=== PATIENT | female | born 1935 | race Caucasian/White ===

== ENCOUNTER 2016-10-07 12:01 | Emergency (ER) | payer OTHER, BC ==
[~2016-10-07 12:01] MED LIST: ALBUAER2 INH; CMD/25 PO; CMD5 PO; GFNSR600 PO; HYD10 PO; LCTX PO; LEVO112T2 PO; NYSS5 PO; OMEP40CA PO; SYMIN INH; TMF75 PO
[2016-10-07 12:05] VITALS: TEMP 36.6; Ht 162.6 cm
[2016-10-07] MEDS ORDERED: VNTHFA/IN INH (13:01)
[2016-10-07] MEDS ORDERED: HYD10 PO (13:02)
[2016-10-07] MEDS ORDERED: OMEP20TA74 PO (13:04)
[2016-10-07] MEDS ORDERED: SYN125 PO (13:04)
--- NOTE | 2016-10-07 13:04 | DIAGNOSTIC IMAGING REPORT ---
RIGHT KNEE 3 VIEWS CLINICAL HISTORY: Right knee pain following fall. COMPARISON: None FINDINGS: No acute fracture is identified. There is a small to moderate right knee joint effusion. There is near complete loss of the medial compartment joint space. There is also moderate narrowing of the lateral compartment joint space. There is extensive tricompartmental osteophytosis of the right knee. IMPRESSION: 1. No acute fracture. 2. Severe arthritis of the right knee, most pronounced within the medial compartment. 3. Small to moderate right knee joint effusion. Electronically signed by: Emanuel Portillo M.D. 10/07/2016 1:03 PM Dictated Date/Time: 10/07/2016 1:02 PM
[2016-10-07] MEDS ORDERED: WARF2.5T8 PO (13:05)
[2016-10-07] MEDS ORDERED: WARF5TAB7 PO (13:05)
--- NOTE | 2016-10-07 13:20 | EMERGENCY ROOM VISIT NOTE ---
ED Visit Note First contact with patient: 12:09 CHIEF COMPLAINT: Knee pain HISTORY OF PRESENT ILLNESS: This 80-year-old female patient presents to the emergency department ambulatory after sustaining an injury to the right knee yesterday. The patient states that she tripped over a rug yesterday, falling onto the right knee. The patient denies any other injuries besides their knee. She did not hit her head. The patient denies swelling or bruising. There is pain over the kneecap. They rate the pain as dull and 2/10. The pain is worse with any moving or walking. The patient states they are able to walk on it with the aid of her walker. No numbness or tingling. No ankle, foot or hip pain. The patient has seen [facility] in the past due to arthritis in the knee and has had injections several years ago. REVIEW OF SYSTEMS: A 6 system review of systems was completed with positives and pertinent negatives listed in the HPI. ALLERGIES: Celebrex, sulfa antibiotics MEDICATIONS: See med list PMH: DVT, adrenal failure, hypothyroidism, hypertension SOCIAL HISTORY: The patient lives locally with her . Nonsmoker, denies alcohol use. PHYSICAL EXAM: Vital Signs: Reviewed Nurse's notes, vital signs stable. GENERAL : This is an 80-year-old female, no acute distress, but appears in pain, well- developed, well-nourished. MENTAL STATUS: Alert, oriented to person place and time, and cooperative. MUSCULOSKELETAL: The right knee is not significantly swollen. There is no ecchymosis. There is no joint effusion present. The patient is tender over the patella. There is no joint line tenderness. Range of motion is full. Strength of the quads and hamstrings is 5/5. The foot and toes are warm and well-perfused. Dorsalis pedis pulse 2+. Sensation to pain and light touch is intact. Capillary refill less than 2 seconds. RADIOGRAPHIC FINDINGS: RIGHT KNEE 3 VIEWS FINDINGS: No acute fracture is identified. There is a small to moderate right knee joint effusion. There is near complete loss of the medial compartment joint space. There is also moderate narrowing of the lateral compartment joint space. There is extensive tricompartmental osteophytosis of the right knee. IMPRESSION: 1. No acute fracture. 2. Severe arthritis of the right knee, most pronounced within the medial compartment. 3. Small to moderate right knee joint effusion. EMERGENCY DEPARTMENT COURSE: I examined the patient. X-rays of the right knee were reviewed by myself and read by radiology and reveal no acute fractures. There is a small joint effusion and the patient was instructed to follow-up with orthopedics for further evaluation of her knee injury. The patient was placed in an Georges wrap. She will use her walker as needed. She verbalized her understanding of my assessment and treatment plan. The patient was discharged home in good condition. The patient was independently evaluated by Dr. Nelson, ED attending physician, who agreed with my assessment and treatment plan. DIAGNOSIS: Right knee injury Current/Historical Medications Scheduled Albuterol Hfa (Ventolin Hfa), 2-4 PUFFS INH Q6H Hydrocortisone (Cortef), 20 MG PO DAILY Levothyroxine Sodium (Synthroid), 125 MCG PO DAILY Metoprolol Succ (Toprol Xl) (Toprol-Xl), 25 MG PO DAILY Omeprazole (Ra Omeprazole), 20 MG PO Q2D Warfarin Sod (Jantoven), 2.5 MG PO 6XWK Warfarin Sod (Jantoven), 5 MG PO FRIDAY Allergies Coded Allergies: Celecoxib (Unverified Allergy, Unknown, MUSCLE CRAMPS, 10/07/16) Sulfa Antibiotics (Unverified Allergy, Unknown, DIDN'T FEEL WELL, 10/07/16) Vital Signs Date Time Temp Pulse Resp B/P Pulse Ox O2 Delivery O2 Flow Rate FiO2 10/07/16 13:29 61 144/68 96 10/07/16 12:05 36.6 71 18 134/67 93 Room Air Departure Information Impression Primary Impression: Right knee injury Dispostion Home / Self-Care Condition GOOD Referrals Danielito Burt M.D. (PCP) Nando Hernández M.D. Patient Instructions My [facility] Additional Instructions You have been treated in the Emergency Department for Knee Pain. For pain control, you can use the following fyuh-iia-meyncqt medicines (if >12 yo): - Regular strength (325mg/tab) Tylenol (acetaminophen) 2 tabs every 4-6 hours as needed. Do not exceed 12 tablets in a 24 hour period. Avoid taking more than 4 grams (4000 mg) of Tylenol per day. This includes any other sources of acetaminophen you may take on a regular basis. - Regular strength (200 mg/tab) Advil (ibuprofen) 1-2 tabs every 4-6 hours as needed. Do not exceed a dose of 3200 mg per day. If this is a recent injury (<24 hrs), ice can be applied to the area of pain for the first 3 days to help decrease pain and inflammation. Ice massages can be performed by freezing water in a paper cup, peeling back the cup to expose the ice and then massaging over the affected area. Follow-up with [facility] as needed. Use the walker until you're able to walk without any pain in the knee. Return to the Emergency Department if your current symptoms worsen despite treatment course outlined above. Problem Qualifiers Primary Impression: Right knee injury Encounter type: initial encounter Qualified Codes: S89.91XA - Unspecified injury of right lower leg, initial encounter
[2016-10-07 13:29] VITALS: BP 144/68; PULSE 61; O2SAT 96
[2016-10-07] MEDS ORDERED: METO25TA3 PO (15:51)
== END 2016-10-07 13:30 | disposition home or self-care (01) ==
LOC: C.EDB 12:02 → C.EDD 13:30
DX: S89.91XA Unspecified injury of right lower leg, initial encounter (principal); W01.0XXA Fall on same level from slipping, tripping and stumbling without subsequent striking against object, initial encounter; M25.461 Effusion, right knee; M17.11 Unilateral primary osteoarthritis, right knee; I10 Essential (primary) hypertension; E03.9 Hypothyroidism, unspecified; E27.9 Disorder of adrenal gland, unspecified; Z86.718 Personal history of other venous thrombosis and embolism; Z79.01 Long term (current) use of anticoagulants; Z79.899 Other long term (current) drug therapy; Z88.2 Allergy status to sulfonamides; Z88.8 Allergy status to other drugs, medicaments and biological substances

== ENCOUNTER → 2016-11-18 | Outpatient (CLI) | payer OTHER, BC ==
[~2016-11-18] MED LIST changes: -ALBUAER2 INH; -CMD/25 PO; -CMD5 PO; -GFNSR600 PO; -LCTX PO; -LEVO112T2 PO; +METO25TA3 PO; -NYSS5 PO; +OMEP20TA74 PO; -OMEP40CA PO; +PRED20TA PO; -SYMIN INH; +SYN125 PO; -TMF75 PO; +VNTHFA/IN INH; +WARF2.5T8 PO; +WARF5TAB7 PO
--- NOTE | 2016-11-18 10:35 | DIAGNOSTIC IMAGING REPORT ---
FACIAL BONES MIN 3 VIEWS RTN CLINICAL HISTORY: Facial pain status post trauma COMPARISON STUDY: No previous studies for comparison. FINDINGS: There is no evidence of orbital emphysema. There are no air-fluid levels present. No facial fractures are visualized on conventional radiographic imaging. There are suspected left facial edema. IMPRESSION: No fractures identified. Electronically signed by: Sabino Sharp M.D. 11/18/2016 10:34 AM Dictated Date/Time: 11/18/2016 10:32 AM
== END | disposition home or self-care (01) ==
LOC: C.RAD1850 10:11
PROVIDERS: ATTEND Physician Assistant
DX: S09.93XA Unspecified injury of face, initial encounter (principal); X58.XXXA Exposure to other specified factors, initial encounter

== ENCOUNTER → 2016-11-25 | Outpatient (CLI) | payer OTHER, BC ==
[~2016-11-25] MED LIST changes: +CHOL20009 PO; +CMD/25 PO; +HYDR5TAB PO; +HYDR5TAB57 PO; +MISCCAP80 PO; +PRLSR20 PO
[2016-11-25 10:09] LABS: BASO % 0.2 %; BASO ABS # 0.02 K/uL (0-0.2); COMPLETE YES; EOS % 1.9 %; HEMATOCRIT 45.9 % (37-47); IG% 0.2 %; LYMPH % 46.2 %; LYMPH ABS # 3.74 K/uL (1.2-3.4); MEAN CELL VOLUME 95.6 fL (80-100); MEAN CORPUSCULAR HEMOGLOBIN 31.9 pg (25-34); MEAN CORPUSCULAR HGB CONC 33.3 g/dl (32-36); MONO % 4.7 %; NEUT % 46.8 %; PLATELET COUNT 187 K/uL (130-400)
[2016-11-25 10:23] LABS: BLOOD UREA NITROGEN 16 mg/dl (7-18); BUN/CREATININE RATIO 16.5 (10-20); CALCIUM 8.8 mg/dl (8.5-10.1); CARBON DIOXIDE 31 mmol/L (21-32); CHLORIDE 105 mmol/L (98-107); CREATININE 0.99 mg/dl (0.60-1.20); GLUCOSE 111 mg/dl (70-99); POTASSIUM 3.9 mmol/L (3.5-5.1); SODIUM 142 mmol/L (136-145)
[2016-11-25 10:51] LABS: ESTIMATED AVERAGE GLUCOSE 131 mg/dl; HA1C FLAG Normal (Normal)
--- NOTE | 2016-11-29 09:27 | CODING QUERY MEDICAL NECESSITY ---
SUPPORTING DIAGNOSIS NEEDED A supporting diagnosis is required for the test/procedure performed on this patient in order for us to be reimbursed by the patient's insurance. Please provide a supporting diagnosis for the following test/procedure listed below next to the test name along with your signature. *If there is no additional diagnosis for this patient that would support the following test/procedure please document that below next to the test/procedure. Test(s)/Procedure(s) that require a supporting diagnosis: * GLYCATED HEMOGLOBIN DIAGNOSIS: * DOS: 11/25/16 Provider Signature: Date: Thank you Camilla Chauhan Health Information Management Once completed, please kindly fax back to [phone] For questions please call [phone]
== END | disposition home or self-care (01) ==
LOC: C.LAB1850 07:36
PROVIDERS: ATTEND Internal Medicine
DX: I10 Essential (primary) hypertension (principal); R73.9 Hyperglycemia, unspecified

== ENCOUNTER → 2017-05-08 | Outpatient (CLI) | payer OTHER, BC ==
[~2017-05-08] MED LIST changes: -CHOL20009 PO; -CMD/25 PO; -HYDR5TAB PO; -HYDR5TAB57 PO; -MISCCAP80 PO; -PRLSR20 PO
[2017-05-08 09:36] LABS: BASO % 0.3 %; BASO ABS # 0.02 K/uL (0-0.2); COMPLETE YES; EOS % 3.6 %; HEMATOCRIT 45.4 % (37-47); IG% 0.1 %; LYMPH % 46.3 %; MEAN CELL VOLUME 94.4 fL (80-100); MEAN CORPUSCULAR HEMOGLOBIN 29.9 pg (25-34); MEAN CORPUSCULAR HGB CONC 31.7 g/dl (32-36); MEAN PLATELET VOLUME 11.3 fL (7.4-10.4); MONO % 6.5 %; NEUT % 43.2 %; PLATELET COUNT 177 K/uL (130-400); RED BLOOD COUNT 4.81 M/uL (4.2-5.4); WHITE BLOOD COUNT 7.13 K/uL (4.8-10.8)
[2017-05-08 09:48] LABS: ALT/SGPT 25 U/L (12-78); BLOOD UREA NITROGEN 15 mg/dl (7-18); BUN/CREATININE RATIO 17.2 (10-20); CALCIUM 8.7 mg/dl (8.5-10.1); CARBON DIOXIDE 27 mmol/L (21-32); CHLORIDE 109 mmol/L (98-107); CHOLESTEROL 146 mg/dl (0-200); CREATININE 0.85 mg/dl (0.60-1.20); GLUCOSE 96 mg/dl (70-99); POTASSIUM 4.5 mmol/L (3.5-5.1); SODIUM 142 mmol/L (136-145)
[2017-05-08 09:57] LABS: ESTIMATED AVERAGE GLUCOSE 128 mg/dl; HA1C FLAG Normal (Normal)
[2017-05-08 09:58] LABS: AST/SGOT 24 U/L (15-37); CHOLESTEROL/HDL RATIO 2.9; HDL CHOLESTEROL 50 mg/dl; LDL CHOLESTEROL CALCULATED 57 mg/dl; TRIGLYCERIDES 196 mg/dl (0-150); VERY LOW DENSITY LIPOPROT CALC 39 mg/dl
== END | disposition home or self-care (01) ==
LOC: C.LAB1850 07:32
PROVIDERS: ATTEND Physician Assistant
DX: I10 Essential (primary) hypertension (principal); R73.9 Hyperglycemia, unspecified; K21.9 Gastro-esophageal reflux disease without esophagitis

== ENCOUNTER 2017-05-10 05:57 | Emergency (ER) | payer OTHER, BC ==
[~2017-05-10] VITALS: Ht 162.6 cm; Wt 91.0 kg
[~2017-05-10 05:57] MED LIST changes: -PRED20TA PO
[2017-05-10 05:59] VITALS: TEMP 36.5; Ht 162.6 cm; Wt 91.0 kg
[2017-05-10] MEDS ORDERED: SODIUM CHLORIDE 0.9% 500ML 500 ML IV STA (06:45)
[2017-05-10] MEDS ORDERED: ALBUT/IPRATROP 3MG/0.5MG NEB 3 ML VIAL INH STA (06:45)
--- NOTE | 2017-05-10 06:57 | EMERGENCY ROOM VISIT NOTE ---
History Report prepared by Maddie: Christel Sandoval Under the Supervision of: Dr. Carlos Tafoya M.D. First contact with patient: 06:33 Chief Complaint: DIARRHEA Stated Complaint: DIARRHEA Nursing Triage Summary: diarrhea x1 week. pt called PCP on , was instructed to take Metamucil in the morning. pt did that for 1 day. hasn't taken it since. pt has not been on antibiotics. states stool is 'watery". denies abdominal pain, denies nausea. History of Present Illness The patient is an 81 year old female who presents to the Emergency Room with complaints of persistent diarrhea for the past 10 days that worsened this morning. The patient states that she typically has bowel movements every other day. She denies any recent antibiotic use. The patient states that for the past 10 days she has had diarrhea and states that today it changed in color and became watery. She states that her stool became yellow in color. The patient states that she has been feeling weak. She states that she consulted her PCP on and states that she was instructed to take Metamucil in the morning. The patient states that she only took the medication one day. She reports a history of adrenal insufficiency, noting that she takes 20 mg of Prednisone daily. The patient reports a history of diverticulosis. She states that has had increased stress. 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 She states that she is on Coumadin. The patient reports a recent cough. She denies any dizzy, headaches, fever, chills, congestion, chest pain, shortness of breath, nausea, vomiting, melena, or hematochezia. Source of History: patient Onset: 10 days Position: other (global) Quality: other (diarrhea) Timing: worsening, other (persistent) Associated Symptoms: + cough, + weakness, No fevers, No chills, No headache , No nausea, No vomiting, No melena, No hematochezia Review of Systems See HPI for pertinent positives and negatives. A total of ten systems were reviewed and were otherwise negative. Past Medical & Surgical Medical Problems: (1) Acute Venous Embolism & Thrombosis Unsp Deep Vessels Of Le (2) Asthma, Unspecified (3) Corticoadrenal Insuffic (4) Diab Melissa Wo Compl, Type Ii Or Unspec Type, Not Uncntrld (5) Diverticulitis Colon (W/O Ment Of Hemorrhage) (6) Esophageal Reflux (7) History Of Tobacco Use (8) Hypertension Nos (9) Hypothyroidism Nos (10) Mixed Hyperlipidemia Family History Gallbladder disease Heart disease Hypertension Social History Smoking Status: Former Smoker Drug Use: none Marital Status: Housing Status: lives with family Occupation Status: retired Current/Historical Medications Scheduled Hydrocortisone (Cortef), 20 MG PO DAILY Levothyroxine Sodium (Synthroid), 125 MCG PO DAILY Metoprolol Succ (Toprol Xl) (Toprol-Xl), 25 MG PO DAILY Omeprazole (Ra Omeprazole), 20 MG PO Q2D Prednisone (Prednisone), 3 TAB PO DAILY Warfarin Sod (Jantoven), 2.5 MG PO DAILY@1600 Allergies Coded Allergies: Celecoxib (Unverified Allergy, Unknown, MUSCLE CRAMPS, 05/10/17) Sulfa Antibiotics (Unverified Allergy, Unknown, DIDN'T FEEL WELL, 05/10/17) Physical Exam Vital Signs Date Time Temp Pulse Resp B/P (MAP) Pulse Ox O2 Delivery O2 Flow Rate FiO2 05/10/17 08:47 80 19 154/87 95 Room Air 05/10/17 07:56 72 20 172/63 05/10/17 07:13 95 Room Air 05/10/17 05:59 36.5 71 20 163/93 95 Room Air Physical Exam GENERAL: Awake, alert, well-appearing, in no distress HENT: Normocephalic, atraumatic. Dry mucous membranes. EYES: Normal conjunctiva. Sclera non-icteric. NECK: Supple. No nuchal rigidity. FROM. No JVD. RESPIRATORY: Scattered wheezes throughout CARDIAC: Regular rate, normal rhythm. Extremities warm and well perfused. Pulses equal. ABDOMEN: Obese abdomen, but soft, umbilical hernia that is soft, non-distended. No tenderness to palpation. No rebound or guarding. No masses. RECTAL: Deferred. MUSCULOSKELETAL: Chest examination reveals no tenderness. The back is symmetrical on inspection without obvious abnormality. There is no CVA tenderness to palpation. No joint edema. LOWER EXTREMITIES: Calves are equal size bilaterally and non-tender. 1+ lower extremity edema. No discoloration. NEURO: Normal sensorium. No sensory or motor deficits noted. SKIN: No rash or jaundice noted. Medical Decision & Procedures ER Provider Diagnostic Interpretation: X-ray: Per my interpretation, radiologist review. CHEST ONE VIEW PORTABLE CLINICAL HISTORY: Shortness of breath COMPARISON STUDY: 06/20/2015 FINDINGS: The cardiac and mediastinal contours are normal. There is no evidence of focal pulmonary consolidation. There is no evidence of failure. No pleural effusions are visualized.[ There is a 5 mm opacity at the right lung apex, likely representing a postinflammatory nodule or summation. IMPRESSION: No active disease in the chest. Electronically signed by: Sabino Sharp M.D. 05/10/2017 7:18 AM Dictated Date/Time: 05/10/2017 7:17 AM Laboratory Results 05/10/17 07:20 Red Blood Count 4.82, Mean Corpuscular Volume 93.6, Mean Corpuscular Hemoglobin 29.5, Mean Corpuscular Hemoglobin Concent 31.5, Mean Platelet Volume 10.9, Neutrophils (%) (Auto) 54.8, Lymphocytes (%) (Auto) 33.6, Monocytes (%) (Auto) 7.5, Eosinophils (%) (Auto) 3.7, Basophils (%) (Auto) 0.1, Neutrophils # (Auto) 4.31, Lymphocytes # (Auto) 2.64, Monocytes # (Auto) 0.59, Eosinophils # (Auto) 0.29, Basophils # (Auto) 0.01 05/10/17 07:20 Test 05/10/17 07:20 White Blood Count 7.86 K/uL (4.8-10.8) Red Blood Count 4.82 M/uL (4.2-5.4) Hemoglobin 14.2 g/dL (12.0-16.0) Hematocrit 45.1 % (37-47) Mean Corpuscular Volume 93.6 fL (80-100) Mean Corpuscular Hemoglobin 29.5 pg (25-34) Mean Corpuscular Hemoglobin Concent 31.5 g/dl (32-36) Platelet Count 169 K/uL (130-400) Mean Platelet Volume 10.9 fL (7.4-10.4) Neutrophils (%) (Auto) 54.8 % Lymphocytes (%) (Auto) 33.6 % Monocytes (%) (Auto) 7.5 % Eosinophils (%) (Auto) 3.7 % Basophils (%) (Auto) 0.1 % Neutrophils # (Auto) 4.31 K/uL (1.4-6.5) Lymphocytes # (Auto) 2.64 K/uL (1.2-3.4) Monocytes # (Auto) 0.59 K/uL (0.11-0.59) Eosinophils # (Auto) 0.29 K/uL (0-0.5) Basophils # (Auto) 0.01 K/uL (0-0.2) RDW Standard Deviation 45.4 fL (36.4-46.3) RDW Coefficient of Variation 13.2 % (11.5-14.5) Immature Granulocyte % (Auto) 0.3 % Immature Granulocyte # (Auto) 0.02 K/uL (0.00-0.02) Prothrombin Time 39.3 SECONDS (9.0-12.0) Prothromb Time International Ratio 3.5 (0.9-1.1) Anion Gap 7.0 mmol/L (3-11) Est Creatinine Clear Calc Drug Dose 63.2 ml/min Estimated GFR () 86.0 Estimated GFR (Non- 74.2 BUN/Creatinine Ratio 16.3 (10-20) Lactic Acid Level 1.6 mmol/L (0.4-2.0) Calcium Level 8.7 mg/dl (8.5-10.1) Phosphorus Level 2.9 mg/dl (2.5-4.9) Magnesium Level 1.9 mg/dl (1.8-2.4) Total Bilirubin 0.6 mg/dl (0.2-1) Direct Bilirubin 0.2 mg/dl (0-0.2) Aspartate Amino Transf (AST/SGOT) 18 U/L (15-37) Alanine Aminotransferase (ALT/SGPT) 24 U/L (12-78) Alkaline Phosphatase 59 U/L (45-117) Troponin I 0.017 ng/ml (0-0.045) Pro-B-Type Natriuretic Peptide 535 pg/ml (0-1800) Total Protein 6.1 gm/dl (6.4-8.2) Albumin 3.1 gm/dl (3.4-5.0) Lipase 86 U/L (73-393) Laboratory results reviewed by me Medications Administered Medications (Trade) Dose Ordered Sig/Suze Route Start Time Stop Time Status Last Admin Dose Admin Sodium Chloride 500 ml @ 999 mls/hr Q31M STAT IV 05/10/17 06:45 05/10/17 07:15 DC 05/10/17 06:45 999 MLS/HR Albuterol/ Ipratropium (Duoneb) 3 ml NOW STAT INH 05/10/17 06:45 05/10/17 06:53 DC 05/10/17 07:27 3 ML Prednisone (PredniSONE TAB) 60 mg NOW STAT PO 05/10/17 08:30 05/10/17 08:33 DC 05/10/17 08:47 60 MG ECG Indication: other (diarrhea) Rate (beats per minute): 64 Rhythm: normal sinus Findings: no acute ischemic change, other (normal axis) ED Course 0643: The patient was evaluated in room B9. A complete history and physical exam was performed. 0645: Ordered DuoNeb 3 ml INH, Sodium Chloride 500 ml @ 999 mls/hr IV. 0819: I reevaluated the patient and she is feeling better. I discussed the exam findings with her and I discussed the treatment plan. She verbalized complete understanding and agreement. She is ready to go home. 0830: Ordered Prednisone 60 mg PO. Medical Decision Triage Nursing notes reviewed. The patient's presentation and history were concerning for Colitis, diverticulitis, gastroenteritis, gastritis, biliary etiology, ACS, CHF. I reviewed the patient's past medical history, medications, and the nursing notes as described above. The patient is an 81-year-old woman with a past medical history of adrenal insufficiency on hydrocortisone, factor 5 Leiden on Coumadin, asthma presents to the emergency department with 10 days of diarrhea has worsened within the past several days per history of present illness. On arrival of the patient is in no acute distress, afebrile with stable vital signs. She has diffuse wheezes on exam but denies any particular shortness of breath, and is obese but soft and nontender, otherwise the patient appears clinically dry. He is patient 's multiple comorbidities, will check labs and evaluate for possible emergent etiology that would require additional imaging. The patient does have some lower extremity edema which she has been on Lasix for in the past but no clear history of CHF, however considering for mesenteric perfusion could result in an ischemic colitis will evaluate for cardiac etiologies. EKG, Trop, BNP unremarkable. Wheezing resolved after neb. Labs otherwise unremarkable including lipase and lactate wnl. Stool studies ordered. Patient feeling improved after IVF. Considering benign exam no indication for imaging at this time. Will treat for asthma exacerbation, which will also serve at stress dose steroid considering patient's prolonged symptoms. Findings and plan for follow-up d/w patient. Patient agreeable and d/c'd per discharge instructions. Medication Reconcilliation Current Medication List: was personally reviewed by me Blood Pressure Screening Patient's blood pressure: Elevated blood pressure Blood pressure disposition: Elevated BP felt to be situational, Did not require urgent referral Impression Primary Impression: Asthma exacerbation Additional Impressions: Dehydration Diarrhea Scribe Attestation The scribe's documentation has been prepared under my direction and personally reviewed by me in its entirety. I confirm that the note above accurately reflects all work, treatment, procedures, and medical decision making performed by me. Departure Information Dispostion Home / Self-Care Prescriptions Prednisone (Prednisone) 20 Mg Tab 3 TAB PO DAILY for 4 Days, #12 TAB FOR 4 DAYS Prov: Carlos Tafoya M.D. 05/10/17 Referrals Danielito Burt M.D. (PCP) Forms HOME CARE DOCUMENTATION FORM, IMPORTANT VISIT INFORMATION, WORK / SCHOOL INSTRUCTIONS Patient Instructions Asthma - [facility], Dehydration, Diarrhea, ED Diet [facility], My [facility] Additional Instructions Please follow up with your primary care on Friday as scheduled for re- evaluation and to repeat your INR which was slightly elevated today. You should skip your next dose of Coumadin. You likely have asthma exacerbation which may be due to a viral infection that is also causing her diarrhea. Otherwise, your exam, EKG, chest xray, and lab results did not show signs of an emergent condition at this time. Drink plenty of fluids to ensure hydration. Take prednisone as directed for your asthma exacerbation. Use your inhaler every 4 hours scheduled for the next 48 hours and thereafter as needed. YOBANY reyes Return to the emergency department for worsening symptoms as described in the accompanying instructions such as fevers, chills, inability to eat and drink, worsening weakness and fatigue. Problem Qualifiers
[2017-05-10 07:13] VITALS: O2SAT 95
--- NOTE | 2017-05-10 07:20 | DIAGNOSTIC IMAGING REPORT ---
CHEST ONE VIEW PORTABLE CLINICAL HISTORY: Shortness of breath COMPARISON STUDY: 06/20/2015 FINDINGS: The cardiac and mediastinal contours are normal. There is no evidence of focal pulmonary consolidation. There is no evidence of failure. No pleural effusions are visualized.[ There is a 5 mm opacity at the right lung apex, likely representing a postinflammatory nodule or summation. IMPRESSION: No active disease in the chest. Electronically signed by: Sabino Sharp M.D. 05/10/2017 7:18 AM Dictated Date/Time: 05/10/2017 7:17 AM
[2017-05-10 07:40] LABS: BASO % 0.1 %; BASO ABS # 0.01 K/uL (0-0.2); COMPLETE YES; EOS % 3.7 %; HEMATOCRIT 45.1 % (37-47); IG% 0.3 %; LYMPH % 33.6 %; LYMPH ABS # 2.64 K/uL (1.2-3.4); MEAN CELL VOLUME 93.6 fL (80-100); MEAN CORPUSCULAR HEMOGLOBIN 29.5 pg (25-34); MEAN CORPUSCULAR HGB CONC 31.5 g/dl (32-36); MEAN PLATELET VOLUME 10.9 fL (7.4-10.4); MONO % 7.5 %; NEUT % 54.8 %; PLATELET COUNT 169 K/uL (130-400); RED BLOOD COUNT 4.82 M/uL (4.2-5.4); WHITE BLOOD COUNT 7.86 K/uL (4.8-10.8)
[2017-05-10 07:55] LABS: BUN/CREATININE RATIO 16.3 (10-20); CALCIUM 8.7 mg/dl (8.5-10.1); CREATININE 0.75 mg/dl (0.60-1.20); MAGNESIUM 1.9 mg/dl (1.8-2.4); POTASSIUM 4.1 mmol/L (3.5-5.1)
[2017-05-10 07:58] LABS: PHOSPHORUS 2.9 mg/dl (2.5-4.9)
[2017-05-10 07:59] LABS: INR 3.5 (0.9-1.1); PROTHROMBIN TIME (PATIENT) 39.3 SECONDS (9.0-12.0)
[2017-05-10] MEDS ORDERED: PRED20TA PO (08:35)
[2017-05-10 08:47] VITALS: BP 154/87; PULSE 80; O2SAT 95
== END 2017-05-10 08:55 | disposition home or self-care (01) ==
LOC: C.EDB 05:59
DX: J45.901 Unspecified asthma with (acute) exacerbation (principal); E86.0 Dehydration; R19.7 Diarrhea, unspecified; E11.9 Type 2 diabetes mellitus without complications; K57.32 Diverticulitis of large intestine without perforation or abscess without bleeding; K21.9 Gastro-esophageal reflux disease without esophagitis; I10 Essential (primary) hypertension; E03.9 Hypothyroidism, unspecified; E78.2 Mixed hyperlipidemia; Z82.49 Family history of ischemic heart disease and other diseases of the circulatory system; Z87.891 Personal history of nicotine dependence; Z79.01 Long term (current) use of anticoagulants

== ENCOUNTER → 2017-05-30 | Outpatient (CLI) | payer OTHER, BC ==
[~2017-05-30] MED LIST changes: -VNTHFA/IN INH; -WARF5TAB7 PO
[2017-06-03 10:26] LABS: CRYPTOSPORIDIUM AG TC 37213 NOT DETECTED (NOT DETECTED); O&P GIARDIA AG NOT DETECTED (NOT DETECTED)
== END | disposition home or self-care (01) ==
LOC: C.LAB1850 10:14
PROVIDERS: ATTEND Internal Medicine
DX: I10 Essential (primary) hypertension (principal); R19.7 Diarrhea, unspecified

== ENCOUNTER → 2018-01-13 | Outpatient (CLI) | payer OTHER, BC ==
[~2018-01-13] MED LIST changes: +CHOL20009 PO; +CMD/25 PO; -HYD10 PO; +HYDR5TAB PO; +HYDR5TAB57 PO; +MISCCAP80 PO; -OMEP20TA74 PO; +PRLSR20 PO; +VNTHFA/IN INH; -WARF2.5T8 PO
[2018-01-13 15:59] LABS: BASO % 0.3 %; BASO ABS # 0.02 K/uL (0-0.2); EOS % 0.6 %; EOS ABS # 0.04 K/uL (0-0.5); HEMATOCRIT 40.8 % (37-47); HEMOGLOBIN 13.4 g/dL (12.0-16.0); IG# 0.02 K/uL (0.00-0.02); LYMPH % 26.7 %; LYMPH ABS # 1.81 K/uL (1.2-3.4); MEAN CELL VOLUME 96.2 fL (80-100); MEAN CORPUSCULAR HEMOGLOBIN 31.6 pg (25-34); MEAN CORPUSCULAR HGB CONC 32.8 g/dl (32-36); MEAN PLATELET VOLUME 11.2 fL (7.4-10.4); NEUT % 69.1 %; NEUT ABS # 4.68 K/uL (1.4-6.5); PLATELET COUNT 174 K/uL (130-400); RED CELL DISTRIBUTION WIDTH CV 12.5 % (11.5-14.5); WHITE BLOOD COUNT 6.77 K/uL (4.8-10.8)
[2018-01-13 16:17] LABS: BLOOD UREA NITROGEN 17 mg/dl (7-18); CALCIUM 8.5 mg/dl (8.5-10.1); CARBON DIOXIDE 28 mmol/L (21-32); CREATININE 0.98 mg/dl (0.60-1.20); GLUCOSE 169 mg/dl (70-99); POTASSIUM 4.3 mmol/L (3.5-5.1); SODIUM 140 mmol/L (136-145)
[2018-01-14 06:39] LABS: HEMOGLOBIN A1C 5.9 % (4.5-5.6)
== END | disposition home or self-care (01) ==
LOC: C.LAB1850 14:43
PROVIDERS: ATTEND Internal Medicine
DX: I82.409 Acute embolism and thrombosis of unspecified deep veins of unspecified lower extremity (principal)

== ENCOUNTER 2021-01-05 04:10 | Observation (INO) ==
--- NOTE | 2021-01-05 04:28 | Emergency Department Note ---
Impression & Plan Acute asthma exacerbation, Elevated troponin, Hypoxia ED Provider Note Name: ELISEO GILES Age: 85 Sex: F Arrives Via: Ambulance Informant: Patient, EMS, Daughter, ED Provider: Charles Mulligan MD Chief Complaint: Shortness of breath Impression: Acute Asthma Exacerbation Elevated Troponin Hypoxia Medical Decision Makin yr old female chronically unwell lives with her . History of Asthma, GERD, HTN, CMII, Depression, along with recent lumbar compression fracture after fall. Arrives worsening shortness of breath with some diffuse crackles/weakness. Some mild swelling in legs though she appears a bit dry by exam. CXR with mild congestion/atelectasis vs old imaging. EKG OK. Labs with elevated INR, suspect due to not eating well the last few days. BNP just mildly elevated. Trop is elevated, which may be secondary to hypoxia at home as no chest pain currently. Would not give ASA in setting of no chest pain, normal EKG and significantly elevated INR at this time. Hgb stable, thus with recent fall and no abdominal pain nor effusion on cxr, I do not feel that CT imaging indicated. She has no headache, neck pain and with it being several days from fall, I do not feel CT head indicated in completely a&o patient. Patient with significant restrictions on treatment options based on her will, though allows steroids, nebs and NC O2. Thus these were administered and patient is feeling better and calmer. Daughter arrived and agrees with plan of hospitalization (as does who is at bedside). Prior Medical Record and Triage/Nursing Notes reviewed by Me Additional history obtained from chart Differentials:Reactive airway disease, pneumonia, pneumothorax, COPD, CHF, infections, cardiac ischemia, pulmonary embolism, musculoskeletal, gastrointestinal, as well as other pathologies. Vital Signs: reviewed and remarkable for HTN, Hypoxia Interventions: Duoneb, Decadron 10mg IV Labs:Reviewed and remarkable for elevated inr, elevated trop Imaging:X ray results are stated below per my interpretation: Chest: 1 view: Mild congestive vs atelectasis. Mildly worse form previous. EKG:Per My Interpretation: Indication Shob: NSR 79 bpm, qtc 401. No Ectopy. No Ischemia. Poor baselin though some slight ST depressions. Compared to EKG 10/14/18, no significant changes. Cardiac/Tele Monitoring: Cardiac Monitoring: An Order was placed for continuous cardiac monitoring. The monitor shows a rate of 70 with a normal sinus rhythm. Consults:Dr Maurice MAGALLANES Hospitalist Plan: Disposition:Hospitalization. Condition: Fair History of Present Illness:85 yr old female arrives for evaluation of shortness of breath. Patient notes that she has been feeling increasingly short of breath over the last few days. Worsening at night and laying flat. Better with sitting up. Short of breath with exertion as well. No fevers, chills, cough, chest pain, syncope, abdominal pain, leg swelling (beyond baseline), calf pain, nor other symptoms. Has been having some low back pain sick a fall last week. Noted to have Lumbar compression fracture on ED visit 2 days ago. Albuterol at home without improvement. Patient states she just feels so badly she wants to . ROS: See above HPI for pertinent positives & negatives. A total of 10 systems reviewed and were otherwise negative. Past Medical History:See Below Past Surgical History:See Below Family History:See Below Social History:See Below Home Medications:See Below Allergies:Celecoxib, Sulfa Vitals:Blood Pressure: 233/93, Pulse 81, RR 25, T 37.5C, O2 89% on RA Physical Exam: GENERAL: Patient is uncomfortable appearing and in moderate distress. EYES: No scleral icterus, unremarkable pupils. ENT: Mucous membranes moist, no nasal congestion. NECK: No masses appreciated, nomeningismus, trachea is midline. RESPIRATORY: diffuse crackles/wheezing, tachypnea/dyspnea, equal bilaterally CARDIOVASCULAR: Regular rate and rhythm.No murmurs, rubs, gallops appreciated. GASTROINTESTINAL: Abdomen soft, non-tender, no peritonitis.Bowel sounds positive.No masses appreciated. BACK: No midline tenderness, no CVA tenderness EXTREMITIES: Normal motion all extremities, no cyanosis, no edema. NEUROLOGIC: Alert and oriented, no acute motor or sensory deficits, no focal weakness, cranial nerves grossly intact. SKIN: No rash, no jaundice, no diaphoresis. PSYCH: Anxious, sad GCS: 15 ED Course: Times/Reassessments: much improved in NC O2 and much calmer Charles Mulligan MD Past Med/Surg History Medical History Adrenal insufficiency Arthritis of knee Bilateral sensorineural hearing loss Diverticulosis GERD without esophagitis Hyperglycemia Hypothyroidism Mixed hyperlipidemia Osteopenia Pulmonary embolism Reactive airway disease Seasonal allergies SNHL (sensorineural hearing loss) Surgical History History of cholecystectomy History of hernia repair Family History Unknown Cancer Cardiac disorder FHx: deafness or hearing loss Mother Cardiac disorder Hypertension Other Family history non-contributory Hearing loss No family history of adverse response to anesthesia No family history of bleeding disorder Social History Smoking Status: Former smoker Age Started Using Tobacco: 28; Age Quit Using Tobacco: 44; Second Hand Exposure: No; Hx Alcohol Use: Yes Hx Substance Use: No Preferred Language: Thai 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 marital status: Current Living Situation: Spouse current occupational status: retired Feels Safe at Home: Yes Childhood Exposure to Second-Hand Smoke: No Allergies Allergies Allergy/AdvReac Type Severity Reaction Status Date / Time celecoxib Allergy Unknown MUSCLE Verified 12/01/20 13:03 CRAMPS Sulfa (Sulfonamide Allergy Unknown DIDN'T Verified 12/01/20 13:03 Antibiotics) FEEL WELL Home Meds Home Medications Medication Instructions Recorded Confirmed Lactobac 40-Bifido 3-S.thermop 1 tab PO DAILY 07/08/18 12/01/20 [Probiotic] cholecalciferol (vitamin D3) 1,000 unit PO DAILY 07/08/18 12/01/20 [Vitamin D3] blood sugar diagnostic #10 ea 03/22/19 12/01/20 diclofenac sodium 1 % topical gel 2 gm TOPICAL ONCE #1 gm 03/22/19 12/01/20 Previous Rx's Medication Instructions Recorded levothyroxine 125 mcg tablet 125 mcg PO DAILY #90 tab 01/03/20 hydrocortisone 10 mg tablet 10 mg PO .COMPLEX #90 tab 05/05/20 hydrocortisone 5 mg tablet 5 mg PO BID #190 tab 05/05/20 albuterol sulfate 90 mcg/actuation 2 puff INHALATION Q6H PRN #8.5 gm 06/02/20 aerosol inhaler melatonin 5 mg tablet,immediate 5 mg PO ONCE #30 ea 07/03/20 and extended release metoprolol succinate 25 mg 25 mg PO DAILY #14 tab 07/04/20 tablet,extended release 24 hr warfarin 2.5 mg tablet 2.5 mg PO DAILY #90 tab NS 07/12/20 omeprazole 40 mg capsule,delayed 40 mg PO Q OTHER DAY #45 cap 09/01/20 release spironolactone 25 mg tablet 25 mg PO DAILY #90 tab 11/03/20 sertraline 25 mg tablet 25 mg PO DAILY #30 tab 12/01/20 docusate sodium [Colace] 100 mg PO BID #60 cap 01/03/21 lidocaine 1 patch TOPICAL DAILY #10 ea 01/03/21 oxycodone 2.5 mg PO Q6H PRN #14 tab 01/03/21 sennosides [Senokot] 8.6 mg PO HS #30 tab 01/03/21 Results & Data (ED) Vital Signs Vital Signs - 24 hr 01/05/21 04:17 01/05/21 04:19 01/05/21 04:30 Temperature 37.5 C Temperature Source Oral Pulse Rate 78 81 75 Pulse Rate [Apical] Respiratory Rate 28 H 28 H Respiratory Effort / Characteristics Blood Pressure 233/93 H 233/93 H 204/84 H Blood Pressure Mean 139 139 124 Blood Pressure Position Lying Pulse Oximetry 91 89 L 97 Oxygen Delivery Method Room Air Oxygen Flow Rate 0 Sepsis Recent Fever Within 48 Hours No Sepsis New/Unexplained Change in Mental Status N/A Sepsis Action Taken by Nursing No Action Required Oxygen Flow Rate - Titration 2 Pulse Oximetry Post Tiitration 96 01/05/21 05:00 01/05/21 05:31 01/05/21 05:39 Temperature Temperature Source Pulse Rate 71 68 Pulse Rate [Apical] 68 Respiratory Rate 26 H 21 20 Respiratory Effort / Characteristics Non-Labored Spontaneous Blood Pressure 174/59 H 119/46 L Blood Pressure Mean 97 70 Blood Pressure Position Pulse Oximetry 98 98 98 Oxygen Delivery Method Nasal Cannula Oxygen Flow Rate 3 Sepsis Recent Fever Within 48 Hours Sepsis New/Unexplained Change in Mental Status Sepsis Action Taken by Nursing Oxygen Flow Rate - Titration Pulse Oximetry Post Tiitration 01/05/21 06:00 Temperature Temperature Source Pulse Rate 73 Pulse Rate [Apical] Respiratory Rate 19 Respiratory Effort / Characteristics Blood Pressure 115/52 L Blood Pressure Mean 73 Blood Pressure Position Pulse Oximetry 93 Oxygen Delivery Method Room Air Oxygen Flow Rate Sepsis Recent Fever Within 48 Hours Sepsis New/Unexplained Change in Mental Status Sepsis Action Taken by Nursing Oxygen Flow Rate - Titration Pulse Oximetry Post Tiitration Laboratory Data Result diagrams: 01/05/21 04:24 01/05/21 04:25 Lab Results 01/05/21 01/05/21 01/05/21 Range/Units 04:24 04:24 04:25 WBC 7.38 (4.8-10.8) K/uL RBC 4.67 (4.2-5.4) M/uL Hgb 15.2 (12.0-16.0) g/dL Hct 45.5 (37-47) % MCV 97.4 (80-100) fL MCH 32.5 (25-34) pg MCHC 33.4 (32-36) g/dL RDW Std Deviation 47.7 H (36.4-46.3) fL RDW Coeff of [place] 13.5 (11.5-14.5) % Plt Count 153 (130-400) K/uL MPV 11.1 H (7.4-10.4) fL Immature Gran % (Auto) 0.1 % Neut % (Auto) 79.7 % Lymph % (Auto) 16.3 % [place] % (Auto) 2.4 % Eos % (Auto) 1.4 % Baso % (Auto) 0.1 % Neut # (Auto) 5.88 (1.4-6.5) K/uL Lymph # (Auto) 1.20 (1.2-3.4) K/uL [place] # (Auto) 0.18 (0.11-0.59) K/uL Eos # (Auto) 0.10 (0-0.5) K/uL Baso # (Auto) 0.01 (0-0.2) K/uL Immature Gran # (Auto) 0.01 (0.00-0.02) K/uL PT 52.5 H (9.0-12.0) Seconds INR 6.0 H* (0.9-1.1) Sodium 141 (136-145) mmol/L Potassium 4.2 (3.5-5.1) mmol/L Chloride 108 H (98-107) mmol/L Carbon Dioxide 30 (21-32) mmol/L Anion Gap 3.0 (3-11) BUN 21 H (7-18) mg/dl Creatinine 1.03 (0.6-1.2) mg/dl Est Cr Clr Drug Dosing 39.5 ml/min Est GFR ( Amer) 57.0 ml/min Est GFR (Non-Af Amer) 49.2 ml/min BUN/Creatinine Ratio 20.3 H (10-20) Glucose 105 H (70-99) mg/dl Calcium 9.3 (8.5-10.1) mg/dl Magnesium 2.0 (1.8-2.4) mg/dl Total Bilirubin 4.3 H (0.2-1) mg/dl Direct Bilirubin TNP AST 81 H (15-37) U/L ALT 50 (12-78) U/L Alkaline Phosphatase 209 H (45-117) U/L Troponin I 0.047 H* (0-0.045) ng/ml NT-Pro-B Natriuret Pep 2154 H (0-1800) pg/ml Total Protein 6.9 (6.4-8.2) gm/dl Albumin 3.4 (3.4-5.0) gm/dl Lipase 83 (73-393) U/L Specimen Hemolysis COVID-19 Eval Order SARS-CoV-2 (PCR) (Negative) 01/05/21 01/05/21 Range/Units 04:30 04:30 WBC (4.8-10.8) K/uL RBC (4.2-5.4) M/uL Hgb (12.0-16.0) g/dL Hct (37-47) % MCV (80-100) fL MCH (25-34) pg MCHC (32-36) g/dL RDW Std Deviation (36.4-46.3) fL RDW Coeff of [place] (11.5-14.5) % Plt Count (130-400) K/uL MPV (7.4-10.4) fL Immature Gran % (Auto) % Neut % (Auto) % Lymph % (Auto) % [place] % (Auto) % Eos % (Auto) % Baso % (Auto) % Neut # (Auto) (1.4-6.5) K/uL Lymph # (Auto) (1.2-3.4) K/uL [place] # (Auto) (0.11-0.59) K/uL Eos # (Auto) (0-0.5) K/uL Baso # (Auto) (0-0.2) K/uL Immature Gran # (Auto) (0.00-0.02) K/uL PT (9.0-12.0) Seconds INR (0.9-1.1) Sodium (136-145) mmol/L Potassium (3.5-5.1) mmol/L Chloride (98-107) mmol/L Carbon Dioxide (21-32) mmol/L Anion Gap (3-11) BUN (7-18) mg/dl Creatinine (0.6-1.2) mg/dl Est Cr Clr Drug Dosing ml/min Est GFR ( Amer) ml/min Est GFR (Non-Af Amer) ml/min BUN/Creatinine Ratio (10-20) Glucose (70-99) mg/dl Calcium (8.5-10.1) mg/dl Magnesium (1.8-2.4) mg/dl Total Bilirubin (0.2-1) mg/dl Direct Bilirubin AST (15-37) U/L ALT (12-78) U/L Alkaline Phosphatase (45-117) U/L Troponin I (0-0.045) ng/ml NT-Pro-B Natriuret Pep (0-1800) pg/ml Total Protein (6.4-8.2) gm/dl Albumin (3.4-5.0) gm/dl Lipase (73-393) U/L Specimen Hemolysis COVID-19 Eval Order Covid19 at [facility] SARS-CoV-2 (PCR) NEGATIVE (Negative) Administered Medications Phytonadione 2.5 mg/ Sodium (Chloride) 50.25 mls @ 100.5 mls/hr IV ONE ONE Stop: 01/05/21 06:54 Last Admin: 01/05/21 06:37 Dose: 100.5 mls/hr Documented by: [id number] Discontinued Medications Albuterol (Albut/Ipratrop 3mg/0.5mg Neb 3 Ml Vial) 3 ml NEB NOW STA Stop: 01/05/21 05:28 Last Admin: 01/05/21 05:35 Dose: 3 ml Documented by: [id number] Dexamethasone Sodium Phosphate (DexamethasonePf 10 Mg/Ml Vial) 10 mg IV NOW ONE Stop: 01/05/21 05:28 Last Admin: 01/05/21 05:34 Dose: 10 mg Documented by: [id number] Discharge Plan Visit Data Chief Complaint: Weakness Stated Complaint: WEAK, SOB, BACK PAIN ED Provider: Charles Mulligan Discharge Problem: Acute asthma exacerbation, Elevated troponin, Hypoxia Forms Stand Alone Forms: My [facility] [employer] Prescriptions Prescriptions: No Action levothyroxine 125 mcg tablet 125 mcg PO DAILY Qty: 90 RF: 3 metoprolol succinate 25 mg tablet extended release 24 hr 25 mg PO DAILY Qty: 14 RF: 0 warfarin 2.5 mg tablet 2.5 mg PO DAILY Qty: 90 RF: 3 omeprazole 40 mg capsule,delayed release(DR/EC) 40 mg PO Q OTHER DAY Qty: 45 RF: 1 diclofenac sodium 1 % gel 2 gm topical ONCE Qty: 1 RF: 0 (DME) OneTouch Verio test strips strip See Dose Instructions .ROUTE .MEDSUPPLY Qty: 10 RF: 0 hydrocortisone 10 mg tablet 10 mg PO .COMPLEX Qty: 90 RF: 3 hydrocortisone 5 mg tablet 5 mg PO BID Qty: 190 RF: 3 spironolactone 25 mg tablet 25 mg PO DAILY Qty: 90 RF: 3 sertraline 25 mg tablet 25 mg PO DAILY Qty: 30 RF: 2 albuterol sulfate 90 mcg/actuation HFA aerosol inhaler 2 puff INHALATION Q6H PRN (Reason: Shortness Of Breath Or Wheezing) Qty: 8.5 RF: 5 melatonin 5 mg tablet, IR and ER, biphasic 5 mg PO ONCE Qty: 30 RF: 1 cholecalciferol (vitamin D3) [Vitamin D3] 1,000 unit Capsule 1,000 unit PO DAILY RF: 0 Lactobac 40-Bifido 3-S.thermop [Probiotic] 100 billion cell Capsule 1 tab PO DAILY RF: 0 oxycodone 5 mg tablet 2.5 mg PO Q6H PRN (Reason: pain) Qty: 14 RF: 0 sennosides [Senokot] 8.6 mg tablet 8.6 mg PO HS Qty: 30 RF: 0 docusate sodium [Colace] 100 mg capsule 100 mg PO BID Qty: 60 RF: 0 lidocaine 4 % adhesive patch,medicated 1 patch topical DAILY Qty: 10 RF: 0 Discharge Problem: Acute asthma exacerbation Qualifiers: Asthma severity: moderate Asthma persistence: persistent Qualified Code(s): J45.41 - Moderate persistent asthma with (acute) exacerbation
[2021-01-05 04:54] LABS: Prothrombin Time 52.5 Seconds (9.0-12.0)
[2021-01-05 05:11] LABS: Alanine Aminotransferase 50 U/L (12-78); Albumin Level 3.4 gm/dl (3.4-5.0); Alkaline Phosphatase 209 U/L (45-117); Aspartate Aminotransferase 81 U/L (15-37); BUN Creatinine Ratio 20.3 (10-20); Bilirubin,Total 4.3 mg/dl (0.2-1); Blood Urea Nitrogen 21 mg/dl (7-18); Calcium 9.3 mg/dl (8.5-10.1); Carbon Dioxide 30 mmol/L (21-32); Chloride 108 mmol/L (98-107); Glucose 105 mg/dl (70-99); Lipase 83 U/L (73-393); NT Pro B Type Natriuretic Pept 2154 pg/ml (0-1800); Potassium 4.2 mmol/L (3.5-5.1); Sodium 141 mmol/L (136-145); Total Protein 6.9 gm/dl (6.4-8.2); Troponin I 0.047 ng/ml (0-0.045)
[2021-01-05 05:21] LABS: Basophils # (auto) 0.01 K/uL (0-0.2); Basophils % (auto) 0.1 %; Eosinophils % (auto) 1.4 %; Hematocrit (blood only) 45.5 % (37-47); Hemoglobin 15.2 g/dL (12.0-16.0); Immature Granulocytes # (auto) 0.01 K/uL (0.00-0.02); Immature Granulocytes % (auto) 0.1 %; Lymphocytes % (auto) 16.3 %; Mean Corpuscular Hemoglobin 32.5 pg (25-34); Mean Corpuscular Hgb Conc 33.4 g/dL (32-36); Mean Corpuscular Volume 97.4 fL (80-100); Mean Platelet Volume 11.1 fL (7.4-10.4); Monocytes # (auto) 0.18 K/uL (0.11-0.59); Monocytes % (auto) 2.4 %; Neutrophils # (auto) 5.88 K/uL (1.4-6.5); Neutrophils % (auto) 79.7 %; Platelet Count 153 K/uL (130-400); RDW Coefficient of Variation 13.5 % (11.5-14.5); RDW Standard Deviation 47.7 fL (36.4-46.3); Red Blood Count 4.67 M/uL (4.2-5.4); White Blood Count 7.38 K/uL (4.8-10.8)
[2021-01-05] MEDS ORDERED: dexAMETHasone**PF** 10 MG/ML VIAL IV ONE (05:27)
[2021-01-05] MEDS ORDERED: ALBUT/IPRATROP 3MG/0.5MG NEB 3 ML VIAL NEB STA (05:27)
[2021-01-05 05:41] LABS: Creatinine Clr Calc Pharmacy 39.5 ml/min; Est GFR (Non-African American) 49.2 ml/min
[2021-01-05] MEDS ORDERED: PHYTONADIONE 2.5 MG in SODIUM CHLORIDE 0.9% 50 ML IV ONE (06:25)
[2021-01-05] MEDS ORDERED: POLYETHYLENE (MIRALAX) 17 GM PACK PO PRN (06:51)
--- NOTE | 2021-01-05 06:53 | History & Physical Report ---
Date of Service January 05, 2021 Assessment & Plan (1) Supratherapeutic INR: INR 6.0 upon admission. Hold warfarin Give vitamin K 2.5 mg IV now, recheck labs in 6 hours. Likely secondary to decreased appetite Present on Admission?: Yes (2) Elevated troponin: Troponin 0.047 upon admission. The patient will be admitted to telemetry for serial cardiac enzymes, serial EKG's, cardiac rhythm monitoring and a 2-D echocardiogram with Dopplers. Likely type II VT, supply demand mismatch. Hold aspirin for now due to supratherapeutic INR 6.0 Consult cardiology Present on Admission?: Yes (3) Acute asthma exacerbation: Acute asthma exacerbation/bronchospasm hypoxia- She has improved in the ED to 93% on room air. Due to other associated findings this admission, place on nasal cannula 2 L oxygen, for titration goal of 95% pulse ox Present on Admission?: Yes (4) Hypoxia: Likely secondary to asthma as above. No suggestion of CHF on examination Present on Admission?: Yes (5) Adrenal insufficiency: Hold outpatient dosing of hydrocortisone orally. Patient was given Decadron IV by the ED. 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 Likely aggravated by the addition of oxycodone a few days ago when she was diagnosed with the L1 fracture. Hold oxycodone. Continue Colace twice daily Increase Senokot to 17.2 g every morning Add MiraLAX 17 g daily as needed Present on Admission?: Yes History of Present Illness Chief Complaint: The patient presents to the emergency department with complaint of acute shortness of breath that began around 3:00 this morning awaking her from sleep. Primary Care Provider: Danielito Burt MD The patient is an 85-year-old female with a past medical history 30% endplate compression fracture at L1 on 01/03, asthma, gait abnormality, osteopenia, neck pain, insomnia, depression, adrenal insufficiency, bilateral sensorineural hearing loss, GERD without esophagitis, hypothyroidism, mixed hyperlipidemia, SNHL, long-term use of anticoagulants, hypertension and memory dysfunction. Her daughter, who is arrived in ED, helps to support her HPI and review of systems. Patient reports that around 3:00 this morning she awoke with difficulty moving her neck and with shortness of breath. Patient reports that her last bowel movement was 1 week ago. She was brought to the ED for further assessment. Work-up in ED included the following significant abnormal laboratories: INR 6.0, AST 81, troponin 0.047, BNP 2154 and patient was COVID-19 negative. Pulse ox lowest recorded in ED was 89% on room air, but daughter reports that her pulse ox was somewhere in the 60% range when recorded at home. Chest x-ray did not show significant changes. CT scan of the lumbar spine from 01/03 showed L1 30% endplate compression deformity and multilevel thoracolumbar degenerative disc disease. CT scan of the pelvis on 01/03 showed an old sacral fracture that healed, without acute findings otherwise. Emergency department treatment physician treated with a DuoNeb, and Decadron 10 mg IV. Allergies Allergy/AdvReac Type Severity Reaction Status Date / Time celecoxib Allergy Unknown MUSCLE Verified 12/01/20 13:03 CRAMPS Sulfa (Sulfonamide Allergy Unknown DIDN'T Verified 12/01/20 13:03 Antibiotics) FEEL WELL Home Medications Medication Instructions Recorded Confirmed Type Lactobac 40-Bifido 3-S.thermop 1 tab PO DAILY 07/08/18 12/01/20 History [Probiotic] cholecalciferol (vitamin D3) 1,000 unit PO DAILY 07/08/18 12/01/20 History [Vitamin D3] blood sugar diagnostic #10 ea 03/22/19 12/01/20 History diclofenac sodium 1 % topical gel 2 gm TOPICAL ONCE #1 gm 03/22/19 12/01/20 History levothyroxine 125 mcg tablet 125 mcg PO DAILY #90 tab 01/03/20 12/01/20 Rx hydrocortisone 10 mg tablet 10 mg PO .COMPLEX #90 tab 05/05/20 12/01/20 Rx hydrocortisone 5 mg tablet 5 mg PO BID #190 tab 05/05/20 12/01/20 Rx albuterol sulfate 90 mcg/actuation 2 puff INHALATION Q6H PRN #8.5 gm 06/02/20 12/01/20 Rx aerosol inhaler melatonin 5 mg tablet,immediate 5 mg PO ONCE #30 ea 07/03/20 12/01/20 Rx and extended release metoprolol succinate 25 mg 25 mg PO DAILY #14 tab 07/04/20 12/01/20 Rx tablet,extended release 24 hr warfarin 2.5 mg tablet 2.5 mg PO DAILY #90 tab NS 07/12/20 12/29/20 Rx omeprazole 40 mg capsule,delayed 40 mg PO Q OTHER DAY #45 cap 09/01/20 12/01/20 Rx release spironolactone 25 mg tablet 25 mg PO DAILY #90 tab 11/03/20 12/01/20 Rx sertraline 25 mg tablet 25 mg PO DAILY #30 tab 12/01/20 12/01/20 Rx docusate sodium [Colace] 100 mg PO BID #60 cap 01/03/21 Rx lidocaine 1 patch TOPICAL DAILY #10 ea 01/03/21 Rx oxycodone 2.5 mg PO Q6H PRN #14 tab 01/03/21 Rx sennosides [Senokot] 8.6 mg PO HS #30 tab 01/03/21 Rx Past Med/Surg History Medical History Adrenal insufficiency Arthritis of knee Bilateral sensorineural hearing loss Diverticulosis GERD without esophagitis Hyperglycemia Hypothyroidism Mixed hyperlipidemia Osteopenia Pulmonary embolism Reactive airway disease Seasonal allergies SNHL (sensorineural hearing loss) Surgical History History of cholecystectomy History of hernia repair Family History Unknown Cancer Cardiac disorder FHx: deafness or hearing loss Mother Cardiac disorder Hypertension Other Family history non-contributory Hearing loss No family history of adverse response to anesthesia No family history of bleeding disorder Social History Smoking Status: Former smoker Age Started Using Tobacco: 28; Age Quit Using Tobacco: 44; Second Hand Exposure: No; Hx Alcohol Use: Yes Hx Substance Use: No Preferred Language: Portuguese 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 marital status: Current Living Situation: Spouse current occupational status: retired Feels Safe at Home: Yes Childhood Exposure to Second-Hand Smoke: No Review of Systems Review of Systems: As supported by her daughter, the patient denies chest pain, palpitations, cough, lower extremity swelling, sore throat, fevers, chills, sweats, nausea, vomiting, abdominal pain, pelvic pain, blood in urine or stool, dysuria, urinary frequency or urgency, lightheadedness, dizziness, headache, memory loss, loss of consciousness, rash, abnormal bruising or bleeding, imbalance, focal weakness, numbness or tingling in arms or legs, generalized arthralgias or myalgias, or night sweats. The review of systems is otherwise negative other than for that already noted above, and at least 10 systems have been reviewed. Physical Exam Physical Exam: The patient is awake, alert, well developed and well nourished, normocephalic and atraumatic, lying in bed and in no acute distress. She does look to her daughter for help with answering questions HEENT--PERRL, EOMI, mucous membranes and oropharynx moist. Neck--supple. No JVD. No bruits. Thyroid normal, trachea midline, no adenopathy. Heart--normal S1 and S2. No murmurs, rubs or gallops. Lungs--clear but diminished bilaterally. No respiratory distress, no accessory muscle use. Abdomen--normal bowel sounds and soft. Nontender. Nondistended, no hernias or masses, no organomegaly. Extremities/dermatologic--no cyanosis or clubbing. No edema. Very mild chronic venous stasis changes bilaterally Neurologic--cranial nerves II through XII grossly intact. Rheumatologic--normal range of motion. Psychiatric--normal affect. Results & Data Results & Data ([facility]) Vital Signs (Past 12 Hours) Vital Signs Temp Pulse Pulse Resp BP Pulse Ox 01/05/21 05:39 68 20 98 01/05/21 05:31 68 21 119/46 L 98 01/05/21 05:00 71 26 H 174/59 H 98 01/05/21 04:30 75 28 H 204/84 H 97 01/05/21 04:19 99.5 F 81 233/93 H 89 L 01/05/21 04:17 78 28 H 233/93 H 91 Laboratory Results Laboratory Results WBC 7.38 K/uL (4.8-10.8) 01/05/21 04:24 RBC 4.67 M/uL (4.2-5.4) 01/05/21 04:24 Hgb 15.2 g/dL (12.0-16.0) 01/05/21 04:24 Hct 45.5 % (37-47) 01/05/21 04:24 MCV 97.4 fL (80-100) 01/05/21 04:24 MCH 32.5 pg (25-34) 01/05/21 04:24 MCHC 33.4 g/dL (32-36) 01/05/21 04:24 RDW Std Deviation 47.7 fL (36.4-46.3) H 01/05/21 04:24 RDW Coeff of La 13.5 % (11.5-14.5) 01/05/21 04:24 Plt Count 153 K/uL (130-400) 01/05/21 04:24 MPV 11.1 fL (7.4-10.4) H 01/05/21 04:24 Immature Gran % (Auto) 0.1 % 01/05/21 04:24 Neut % (Auto) 79.7 % 01/05/21 04:24 Lymph % (Auto) 16.3 % 01/05/21 04:24 [place] % (Auto) 2.4 % 01/05/21 04:24 Eos % (Auto) 1.4 % 01/05/21 04:24 Baso % (Auto) 0.1 % 01/05/21 04:24 Neut # (Auto) 5.88 K/uL (1.4-6.5) 01/05/21 04:24 Lymph # (Auto) 1.20 K/uL (1.2-3.4) 01/05/21 04:24 [place] # (Auto) 0.18 K/uL (0.11-0.59) 01/05/21 04:24 Eos # (Auto) 0.10 K/uL (0-0.5) 01/05/21 04:24 Baso # (Auto) 0.01 K/uL (0-0.2) 01/05/21 04:24 Immature Gran # (Auto) 0.01 K/uL (0.00-0.02) 01/05/21 04:24 PT 52.5 Seconds (9.0-12.0) H 01/05/21 04:24 INR 6.0 (0.9-1.1) H* 01/05/21 04:24 Sodium 141 mmol/L (136-145) 01/05/21 04:25 Potassium 4.2 mmol/L (3.5-5.1) 01/05/21 04:25 Chloride 108 mmol/L (98-107) H 01/05/21 04:25 Carbon Dioxide 30 mmol/L (21-32) 01/05/21 04:25 Anion Gap 3.0 (3-11) 01/05/21 04:25 BUN 21 mg/dl (7-18) H 01/05/21 04:25 Creatinine 1.03 mg/dl (0.6-1.2) 01/05/21 04:25 Est Cr Clr Drug Dosing 39.5 ml/min 01/05/21 04:25 Est GFR ( Amer) 57.0 ml/min 01/05/21 04:25 Est GFR (Non-Af Amer) 49.2 ml/min 01/05/21 04:25 BUN/Creatinine Ratio 20.3 (10-20) H 01/05/21 04:25 Glucose 105 mg/dl (70-99) H 01/05/21 04:25 Calcium 9.3 mg/dl (8.5-10.1) 01/05/21 04:25 Magnesium 2.0 mg/dl (1.8-2.4) 01/05/21 04:25 Total Bilirubin 4.3 mg/dl (0.2-1) H 01/05/21 04:25 Direct Bilirubin TNP 01/05/21 04:25 AST 81 U/L (15-37) H 01/05/21 04:25 ALT 50 U/L (12-78) 01/05/21 04:25 Alkaline Phosphatase 209 U/L (45-117) H 01/05/21 04:25 Troponin I 0.047 ng/ml (0-0.045) H* 01/05/21 04:25 NT-Pro-B Natriuret Pep 2154 pg/ml (0-1800) H 01/05/21 04:25 Total Protein 6.9 gm/dl (6.4-8.2) 01/05/21 04:25 Albumin 3.4 gm/dl (3.4-5.0) 01/05/21 04:25 Lipase 83 U/L (73-393) 01/05/21 04:25 Specimen Hemolysis 01/05/21 04:25 COVID-19 Eval Order Covid19 at [facility] 01/05/21 04:30 SARS-CoV-2 (PCR) NEGATIVE (Negative) 01/05/21 04:30 Diagnostic Findings [facility], [id number] CT Scan Report Patient: ELISEO GILES FAdheraclio Date: 01/03/21MR#: [id number]: [address] STAcct ID:[id number]: [facility] Zip: [place], [place] [id number]: [id number]: EDSex: FRoom/Bed:Att Phy:Diagnosis: FELL ON MOTHER'S DAY LANDING ON BACKPri Phy: Danielito Burt MDService Date: 01/03/21Fam Phy:Interpreting Phy: Sabino Sharp MDAdmit Phy: Ordering Phy: Srini Callaway MD cc: ~ CT pelvis wo con CT DOSE: CLINICAL HISTORY: Pt c/o low back pain s/p fall TECHNIQUE: Helical images were acquired in the transverse plane. Sagittal coronal reformatted images were acquired. A dose lowering technique was utilized adhering to the principles of ALARA. COMPARISON STUDY: CT scan performed November 2008 FINDINGS: The appendix appears normal. There is a fat-containing lower ventral hernia. There is no ascites. There is no pathologic adenopathy. The uterus appears surgically absent. Bones are osteopenic. There is an iliac bone island. No acute fractures are visualized. There is no SI joint diastases. There is no symphysis diastases. There is an old healed S3-S4 sacral fracture. There is a grade 1 spondylolisthesis of L4 on L5. IMPRESSION: 1. No acute fractures identified 2. Old healed sacral fracture 3. Fat-containing lower abdominal ventral hernia ACT 112: Negative or not required by law. Electronically signed by: Sabino Sharp M.D. 01/03/2021 11:02 AM Dictated: 01/03/21 1056Transcribed: 01/03/21 1056 [facility], [id number] CT Scan Report Patient: ELISEO GILES Date: 01/03/21#: [id number]: [address] STAcct ID:[id number]: [facility] Zip: [place] [id number]: [id number]: EDSex: FRoom/Bed:Att Phy:Diagnosis: FELL ON MOTHER'S DAY LANDING ON BACKPri Phy: Danielito Burt MDService Date: 01/03/21Fam Phy:Interpreting Phy: Villa RodgersAdmit Phy: Ordering Phy: Srini Callaway MD cc: ~ CT lumbar spine wo con HISTORY: 85 years-old Female Pt c/o low back pain acute low back pain status post fall COMPARISON: CT the pelvis of same day, CT abdomen 11/04/2018, chest radiographs 12/29/2018 and 06/20/2015 TECHNIQUE: Multiple axial CT images of the lumbar spine were obtained without the use of IV contrast. A dose lowering technique was used consistent with the principals of ALARA. FINDINGS: Calcified granulomata of the liver and spleen. 1.2 cm probable cyst of the inferior pole left kidney. Calcified plaque of the abdominal aorta. Trace paravertebral edema at L1. Demineralized appearance of the bones. 30% superior superior endplate compression deformity at L1 is new from comparison. 3 mm retropulsion. 7 mm anterolisthesis L4 on L5, likely degenerative. Moderate L4-L5 and L5 facet arthrosis. Mild intervertebral disc space narrowing with vacuum disc phenomenon at T11-T12 and L4-L5. Minimal spondylitic spurring. Spondylitic spurring with posterior annular disc bulge at T11-T12. No central canal stenosis. Additional posterior annular disc bulging is noted within the lumbar spine, most pronounced at L4-L5. No significant central canal stenosis. 6 mm sclerotic focus of the right iliac bone. IMPRESSION: 1. 30% superior endplate compression deformity of L1 is new from 12/29/2018 and is likely acute or subacute. 3 mm associated retropulsion without significant central canal stenosis. 2. Demineralized appearance of the bones with degenerative changes as above. ACT 112: Negative or not required by law. The above report was generated using voice recognition software. It may contain grammatical, syntax or spelling errors. Electronically signed by: Villa Rodgers M.D. 01/03/2021 11:00 AM Dictated: 01/03/21 1054Transcribed: 01/03/21 1054 Code Status & VTE Plan Code Status Full code VTE Prophylaxis Plan VTE Prophylaxis will be ordered: Yes PG Care Time/CCT Total # of Minutes Spent Total Time Spent with Patient: Total time spent is greater than 50% in coordination of care (as documented) at patient's floor/unit and/or counseling patient: Coding Level of Care Code 50407 Initial Inpt Care Lvl 3 Diagnoses Supratherapeutic INR R79.1 Elevated troponin R77.8 Acute asthma exacerbation J45.41 Asthma persistence: persistent Asthma severity: moderate Hypoxia R09.02 Adrenal insufficiency E27.40 GERD without esophagitis K21.9 Pulmonary embolism I26.99 FDC (current) use of anticoagulants Z79.01 Closed compression fracture of L1 vertebra S32.010A Hypothyroidism E03.9 Constipation K59.00 (1) Acute asthma exacerbation Asthma persistence: persistent Asthma severity: moderate Qualified Code(s): J45.41 - Moderate persistent asthma with (acute) exacerbation
[2021-01-05] MEDS ORDERED: MoRPHine SULFATE 2 MG/ML CARP IV PRN (08:05)
[2021-01-05] MEDS ORDERED: ONDANSETRON INJ 2 MG/ML 2 ML VIAL IV PRN (08:05)
[2021-01-05] MEDS ORDERED: NITROGLYCERIN SL 0.4 MG/TAB TAB SL PRN (08:05)
[2021-01-05] MEDS: ALBUT/IPRATROP 3MG/0.5MG NEB 3 ML VIAL NEB SCH ×2 (08:12→08:13)
--- NOTE | 2021-01-05 08:31 | XRay Report ---
SINGLE VIEW CHEST CLINICAL HISTORY: Dyspnea. Generalized weakness. FINDINGS: An AP, portable, upright chest radiograph is compared to study dated 08/17/2020. The heart is mildly enlarged noting atherosclerotic calcification of the thoracic aorta. The pulmonary vasculat ure is noncongested. Chronic interstitial thickening is similar to previous. Atelectasis is noted at the lung bases. Question trace right pleural effusion. No airspace consolidation is identified typica l for pneumonia. No pneumothorax is seen. The skeletal structures are osteopenic. The bony thorax is grossly intact. IMPRESSION: 1. Cardiomegaly without radiographic evidence of congestive failure. 2. Question trace right pleural effusion. ACT 112: Negative or not required by law. Electronically signed by: Alec Miguel M.D. 01/05/2021 8:30 AM
[2021-01-05] MEDS ORDERED: ALBUT/IPRATROP 3MG/0.5MG NEB 3 ML VIAL NEB PRN (08:54)
[2021-01-05] MEDS ORDERED: HYDROCORTISONE SOD SUCCINATE 100 MG/2 ML VIAL IV SCH (09:00)
[2021-01-05] MEDS ORDERED: FUROSEMIDE 40 MG in SYRINGE 0 ML IV ONE (10:46)
--- NOTE | 2021-01-05 10:49 | Cardiology Consultation ---
Date of Consultation January 05, 2021 Assessment & Plan (1) Acute diastolic CHF (congestive heart failure): (2) Hypertensive emergency: (3) Elevated troponin: (4) Mixed hyperlipidemia: (5) Pulmonary hypertension: (6) Pulmonary embolism: (7) Supratherapeutic INR: (8) Reactive airway disease: (9) Hypertension: ASSESSMENT/PLAN: 1. Acute diastolic CHF: She appears hypervolemic on examination with JVD in hepatic jugular reflux. Her lungs had no wheezing and had reasonable air flow. CHF may be related to hypertensive emergency and large sodium consumption. Recommend Lasix 40 mg IV x1 today and reassess tomorrow. May do well with low- dose loop diuretic on discharge. Recommend heart failure program. Low-sodium diet. Daily weights. Strict I&Os while hospitalized. 2. Hypertensive emergency: Severe hypertension likely the cause of her elevated troponins. She did not present with acute coronary syndrome. Blood pressure has since improved but still elevated at this time. Diuresis as above. 3. Pulmonary hypertension: Could be due to hypervolemia but also has a history of asthma and PE. Diurese as above. 4. Pulmonary embolism: Has history of PE. On chronic anticoagulation as per PCP. 5. Supratherapeutic INR: As per primary service. On Coumadin for history of PE. 6. Reactive airway disease: Has a history of asthma. As per PCP. 7. Elevated troponin: Likely due to hypertensive emergency. Cannot exclude underlying CAD but has not had any anginal symptoms. No ischemic evaluation at this time but would consider for recurrent issues or anginal symptoms. 8. Dyslipidemia: LDL well controlled. 9. Disposition: Patient care communicated with Dr. Bailey of the primary hospitalist service. I will be away from the hospital for the next several days. Please call the on-call seo professional (Dr. Yoder) for any questions or concerns. Recommend follow-up in the Heart failure program with Marga Merlos. She was contacted and patient care discussed with her. She plans on meeting Mrs. Ulloa later today. Thank you for allowing me to participate in the care of your patient. Please call for any other questions or concerns. Sincerely, Dmitry Palomares M.D. History of Present Illness Reason for Consultation: Elevated troponin Requesting Physician: Dr. Richards Attending Physician: Juan Bailey MD History of Present Illness Mrs. Ulloa is a very pleasant 85-year-old female with history significant for asthma, pulmonary embolism on anticoagulation, GERD, hypothyroidism, dyslipidemia, hypertension, and adrenal insufficiency on chronic steroids. She states that she recently fell when her borrowed her walker and she attempted to walk across the room without it. She tripped over something in her home. She denies any syncopal event. She has had back pain since then and was found to have compression fracture of L1. She has had chronic lower extremity swelling, especially well on her feet throughout the day but it typically improves overnight. She was recently started on spironolactone. She admits that she consumes large amounts of salt and has done so chronically. 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 She has had some dyspnea with exertion while climbing stairs but has a chair lift. Otherwise, she is able to ambulate around her home without chest pain or shortness of breath. This morning, at approximately 3:00 a.m., she was awakened acutely with shortness of breath apparently, her oxygen saturation at home was in the 60% range according to the admission note. On presentation to the ER, she was reportedly mildly hypoxic with an oxygen saturation of 89% on room air. She was placed on supplemental oxygen, given DuoNeb, and Decadron 10 mg IV. She no longer feels short of breath but admits that she is on oxygen currently. She denies palpitations, worsening edema or significant bleeding. She does have occasional hemorrhoidal bleeding. While admitted, she was noted to have very mildly elevated troponin up to 0.401. Her proBNP was 2154. Her INR was supratherapeutic at 6. She was severely hypertensive on presentation with a blood pressure of 233/93 mmHg. Review of systems: As above. Review of systems otherwise negati ve/unremarkable. Family history: Mother had CHF. Social history: She quit smoking many years ago. No significant alcohol. Lives at home with her . They have 1 adopted and 1 biologic child. She was unaccompanied during our visit today. Allergies Allergy/AdvReac Type Severity Reaction Status Date / Time celecoxib Allergy Unknown MUSCLE Verified 01/05/21 07:29 CRAMPS Sulfa (Sulfonamide Allergy Unknown DIDN'T Verified 01/05/21 07:29 Antibiotics) FEEL WELL Home Medications Medication Instructions Recorded Confirmed Type cholecalciferol (vitamin D3) 1,000 unit PO QAM 07/08/18 01/05/21 History [Vitamin D3] blood sugar diagnostic #10 ea 03/22/19 12/01/20 History diclofenac sodium 1 % topical gel 2 gm TOPICAL DAILY #1 gm 03/22/19 01/05/21 History hydrocortisone 5 mg tablet 5 mg PO BID #190 tab 05/05/20 01/05/21 Rx albuterol sulfate 90 mcg/actuation 2 puff INHALATION Q6H PRN #8.5 gm 06/02/20 01/05/21 Rx aerosol inhaler omeprazole 40 mg capsule,delayed 40 mg PO Q OTHER DAY #45 cap 09/01/20 01/05/21 Rx release docusate sodium [Colace] 100 mg PO BID #60 cap 01/03/21 01/05/21 Rx oxycodone 2.5 mg PO Q6H PRN #14 tab 01/03/21 01/05/21 Rx sennosides [Senokot] 8.6 mg PO HS #30 tab 01/03/21 01/05/21 Rx hydrocortisone 10 mg PO QAM 01/05/21 01/05/21 History levothyroxine 125 mcg PO DAILYBB 01/05/21 01/05/21 History lidocaine 1 patch TOPICAL QA 01/05/21 01/05/21 History metoprolol succinate 25 mg PO QAM 01/05/21 01/05/21 History spironolactone 25 mg PO QAM 01/05/21 01/05/21 History warfarin 2.5 mg PO HS 01/05/21 01/05/21 History Patient History Medical History (Updated 01/05/21 @ 11:38 by Bandar Palomares MD) Adrenal insufficiency Arthritis of knee Bilateral sensorineural hearing loss Diverticulosis GERD without esophagitis Hyperglycemia Hypothyroidism Mixed hyperlipidemia Osteopenia Pulmonary embolism Reactive airway disease Seasonal allergies SNHL (sensorineural hearing loss) Surgical History History of cholecystectomy History of hernia repair Family History Unknown Cancer Cardiac disorder FHx: deafness or hearing loss Mother Cardiac disorder Hypertension Other Family history non-contributory Hearing loss No family history of adverse response to anesthesia No family history of bleeding disorder Social History Smoking Status: Never smoker Age Started Using Tobacco: 28; Age Quit Using Tobacco: 44; Second Hand Exposure: No; Hx Alcohol Use: No Hx Substance Use: No Preferred Language: Macedonian Baggage Agent Required: No Beliefs That Will Affect Care: None marital status: Current Living Situation: Spouse current occupational status: retired Feels Safe at Home: Yes Childhood Exposure to Second-Hand Smoke: No Assistive Devices: Denture - Upper and Denture - Lower Physical Exam Physical Exam: Gen.: No acute distress. Alert and oriented. HEENT: Anicteric sclera. Neck: Mild JVD. Hepatic jugular reflux noted. No bruits. Normal carotid upstrokes bilaterally. Cardiac: PMI was nondisplaced. No ventricular heave. Regular. Normal S1-S2. No murmurs, rubs, or gallops. Pulmonary: Clear to auscultation bilaterally without wheezes, rales, or rhonchi. Abdomen: Soft, nontender, nondistended, with normoactive bowel sounds. No bruits noted. Extremities: 2+ radial pulses bilaterally. 2+ posterior tibialis pulses bilaterally. No significant pitting edema or cyanosis. Psychiatric: Affect appears appropriate. Results & Data ([facility]) Vital Signs (Past 12 Hours) Vital Signs Temp Pulse Pulse Resp BP BP Pulse Ox 01/05/21 09:00 01/05/21 08:19 37.6 C H 72 18 160/61 H 96 01/05/21 08:13 71 18 96 01/05/21 07:10 72 24 124/56 L 94 01/05/21 06:30 75 23 133/53 L 91 01/05/21 06:00 73 19 115/52 L 93 01/05/21 05:39 68 20 98 01/05/21 05:31 68 21 119/46 L 98 01/05/21 05:00 71 26 H 174/59 H 98 01/05/21 04:30 75 28 H 204/84 H 97 01/05/21 04:19 37.5 C 81 233/93 H 89 L 01/05/21 04:17 78 28 H 233/93 H 91 Pulse Ox 01/05/21 09:00 96 01/05/21 08:19 01/05/21 08:13 01/05/21 07:10 01/05/21 06:30 01/05/21 06:00 01/05/21 05:39 01/05/21 05:31 01/05/21 05:00 01/05/21 04:30 01/05/21 04:19 01/05/21 04:17 Laboratory Results Laboratory Results - last 24 hr 01/05/21 01/05/21 01/05/21 04:24 04:24 04:25 WBC 7.38 RBC 4.67 Hgb 15.2 Hct 45.5 MCV 97.4 MCH 32.5 MCHC 33.4 RDW Std Deviation 47.7 H RDW Coeff of [place] 13.5 Plt Count 153 MPV 11.1 H Immature Gran % (Auto) 0.1 Neut % (Auto) 79.7 Lymph % (Auto) 16.3 [place] % (Auto) 2.4 Eos % (Auto) 1.4 Baso % (Auto) 0.1 Neut # (Auto) 5.88 Lymph # (Auto) 1.20 [place] # (Auto) 0.18 Eos # (Auto) 0.10 Baso # (Auto) 0.01 Immature Gran # (Auto) 0.01 PT 52.5 H INR 6.0 H* Sodium 141 Potassium 4.2 Chloride 108 H Carbon Dioxide 30 Anion Gap 3.0 BUN 21 H Creatinine 1.03 Est Cr Clr Drug Dosing 39.5 Est GFR ( Amer) 57.0 Est GFR (Non-Af Amer) 49.2 BUN/Creatinine Ratio 20.3 H Glucose 105 H Calcium 9.3 Magnesium 2.0 Total Bilirubin 4.3 H Direct Bilirubin TNP AST 81 H ALT 50 Alkaline Phosphatase 209 H Troponin I 0.047 H* NT-Pro-B Natriuret Pep 2154 H Total Protein 6.9 Albumin 3.4 Lipase 83 Specimen Hemolysis COVID-19 Eval Order SARS-CoV-2 (PCR) 01/05/21 01/05/21 01/05/21 04:30 04:30 08:15 WBC RBC Hgb Hct MCV MCH MCHC RDW Std Deviation RDW Coeff of [place] Count MPV Immature Gran % (Auto) Neut % (Auto) Lymph % (Auto) [place] % (Auto) Eos % (Auto) Baso % (Auto) Neut # (Auto) Lymph # (Auto) [place] # (Auto) Eos # (Auto) Baso # (Auto) Immature Gran # (Auto) PT INR Sodium Potassium Chloride Carbon Dioxide Anion Gap BUN Creatinine Est Cr Clr Drug Dosing Est GFR ( Amer) Est GFR (Non-Af Amer) BUN/Creatinine Ratio Glucose Calcium Magnesium Total Bilirubin Direct Bilirubin AST ALT Alkaline Phosphatase Troponin I 0.401 H* NT-Pro-B Natriuret Pep Total Protein Albumin Lipase Specimen Hemolysis COVID-19 Eval Order Covid19 at [facility] SARS-CoV-2 (PCR) NEGATIVE Diagnostic Findings Echo 01/05/2021: Images personally reviewed. Preliminary review demonstrated normal LV systolic function. Normal LV wall motion. Mild MR. Mild pulmonary hypertension. ECG personally reviewed: ECG 01/05/2021: Sinus rhythm 79 beats per minute. Nonspecific ST/T-wave abnormality. Telemetry personally reviewed: Sinus rhythm. No arrhythmia. Chest x-ray 01/05/2021 personally reviewed: No infiltrate. As per Radiology, chronic interstitial thickening similar to prior study. Medications Administered Current Inpatient Medications Acetaminophen (Acetaminophen 325 Mg Tab) 650 mg PO Q4H PRN PRN Reason: Pain or Fever Stop: 02/04/21 08:04 Albuterol (Albut/Ipratrop 3mg/0.5mg Neb 3 Ml Vial) 3 ml NEB Q4R PRN PRN Reason: Shortness Of Breath Or Wheezing Stop: 02/04/21 08:52 Diclofenac Sodium (Diclofenac Sod 1% Gel 100 Gm Tube) 2 gm EXT Q6H PRN PRN Reason: PAIN WHEN LIDO PATCH NOT ON Stop: 02/04/21 08:04 Docusate Sodium (Docusate Sodium 100 Mg Cap) 100 mg PO BID [facility] Stop: 02/04/21 08:59 Last Admin: 01/05/21 11:16 Dose: 100 mg Documented by: Hydrocortisone Sodium (Succinate 100 mg/ Syringe) 2 mls @ 4 mls/min IV Q8H [facility] Stop: 02/04/21 13:59 Lactobacillus Acidoph/Casei/Rhamnos (Advanced Probiotic 1250 Mg Capsule) 2 cap PO DAILY [facility] Stop: 02/04/21 08:59 Last Admin: 01/05/21 11:25 Dose: Not Given Documented by: Levothyroxine Sodium (Levothyroxine Sodium 125 Mcg Tablet) 125 mcg PO DAILYBB [facility] Stop: 02/04/21 08:59 Last Admin: 01/05/21 11:17 Dose: 125 mcg Documented by: Lidocaine (Lidocaine 5% 1 Patch) 1 patch TD DAILY [facility] Stop: 02/04/21 11:29 Last Admin: 01/05/21 11:18 Dose: 1 patch Documented by: Melatonin (Melatonin 3 Mg Tab) 6 mg PO HS [facility] Stop: 02/04/21 20:59 Metoprolol Succinate (Metoprolol Succ 25mg Ext Rel Tab) 25 mg PO DAILY [facility] Stop: 02/04/21 08:59 Last Admin: 01/05/21 11:17 Dose: 25 mg Documented by: Miscellaneous (Remove Lidoderm Patch) 1 ea N/A [facility] Stop: 02/04/21 22:59 Morphine Sulfate (Morphine Sulfate 2 Mg/Ml Carp) 2 mg IV Q30M PRN PRN Reason: Chest Pain Stop: 01/19/21 08:04 Nitroglycerin (Nitroglycerin Sl 0.4 Mg/Tab Tab) 0.4 mg SL UD PRN PRN Reason: Chest Pain Stop: 02/04/21 08:04 Ondansetron HCl (Ondansetron Inj 2 Mg/Ml 2 Ml Vial) 4 mg IV Q6H PRN PRN Reason: Nausea Stop: 02/04/21 08:04 Pantoprazole Sodium (Pantoprazole 40 Mg Tab) 40 mg PO Q2D@0900 [facility] Stop: 02/05/21 08:59 Polyethylene Glycol (Polyethylene (Miralax) 17 Gm Pack) 17 gm PO DAILY PRN PRN Reason: Constipation Stop: 02/04/21 06:50 Sennosides (Senna 8.6 Mg Tab) 17.2 mg PO [facility] Stop: 02/04/21 20:59 Sertraline HCl (Sertraline Hcl 50 Mg Tablet) 25 mg PO DAILY [facility] Stop: 02/04/21 08:59 Last Admin: 01/05/21 11:17 Dose: 25 mg Documented by: Vitamin D (Cholecalciferol 1,000 Units 25 Mcg Tab) 1,000 units PO DAILY [facility] Stop: 02/04/21 08:59 Last Admin: 01/05/21 11:16 Dose: 1,000 units Documented by: PG Care Time/CCT Total # of Minutes Spent Total Time Spent with Patient: Total time spent is greater than 50% in coordination of care (as documented) at patient's floor/unit and/or counseling patient: Coding Level of Care Code 77682 Initial Inpt Care Lvl 3 Diagnoses Acute diastolic CHF (congestive heart failure) I50.31 Hypertensive emergency I16.1 Elevated troponin R77.8 Mixed hyperlipidemia E78.2 Pulmonary hypertension I27.20 Pulmonary embolism I26.99 Supratherapeutic INR R79.1 Reactive airway disease J45.909 Hypertension I10
[2021-01-05] MEDS ORDERED: FUROSEMIDE 40 MG/4 ML VIAL IV ONE (11:00)
[2021-01-05] MEDS: ADVANCED PROBIOTIC 1250 MG CAPSULE PO SCH ×2 (11:16→11:25)
[2021-01-05] MEDS: DOCUSATE SODIUM 100 MG CAP PO SCH ×2 (11:16→20:21)
[2021-01-05] MEDS: CHOLECALCIFEROL 1,000 UNITS 25 MCG TAB PO SCH (11:16)
[2021-01-05] MEDS: LEVOTHYROXINE SODIUM 125 MCG TABLET PO SCH (11:17)
[2021-01-05] MEDS: SERTRALINE HCL 50 MG TABLET PO SCH (11:17)
[2021-01-05] MEDS: METOPROLOL SUCC 25MG EXT REL TAB PO SCH (11:17)
[2021-01-05] MEDS: LIDOCAINE 5% 1 PATCH TD SCH (11:18)
[2021-01-05 11:43] LABS: INR 2.8 (0.9-1.1)
[2021-01-05] MEDS ORDERED: FUROSEMIDE 40 MG in SYRINGE 0 ML IV SCH (12:00)
[2021-01-05] MEDS ORDERED: HYDROCORTISONE 100 MG *12cc Syringe IV SCH (14:00)
--- NOTE | 2021-01-05 14:53 | History & Physical Bridge Note ---
Date of Service January 05, 2021 History & Physical Bridge Note I have examined the patient, reviewed the History & Physical and in the interval since the performance of the History & Physical I have noted the following changes of clinical significance: Discussed with cardiology. Concern for some element of diastolic heart failure. Given Lasix. Seen in the afternoon by me, and she is feeling better from shortness of breath standpoint. Will give her home pain medication for her compression fracture.
[2021-01-05] MEDS ORDERED: oxyCODONE HCL SOLN 5 MG/5 ML UDC PO PRN (15:00)
[2021-01-05] MEDS: HYDROCORTISONE 10 MG TAB PO SCH ×2 (16:08→20:06)
--- NOTE | 2021-01-05 16:29 | XCELERA ---
[id number]
[2021-01-05] MEDS: DICLOFENAC SOD 1% GEL 100 GM TUBE EXT PRN (20:05)
[2021-01-05] MEDS: ACETAMINOPHEN 325 MG TAB PO PRN (20:21)
[2021-01-05] MEDS ORDERED: SENNA 8.6 MG TAB PO SCH (21:00)
[2021-01-05] MEDS ORDERED: MELATONIN 3 MG TAB PO SCH (21:00)
--- NOTE | 2021-01-05 23:32 | Electrocardiogram Report ---
Test Reason : Blood Pressure : / mmHG Vent. Rate : 079 BPM Atrial Rate : 079 BPM P-R Int : 150 ms QRS Dur : 086 ms QT Int : 350 ms P-R-T Axes : 062 072 001 degrees QTc Int : 401 ms Normal sinus rhythm Nonspecific ST and T wave abnormality Abnormal ECG When compared with ECG of 14-OCT-2018 13:11, ST no longer elevated in Inferior leads Confirmed by Bandar Palomares ([id number]) on 01/05/2021 11:31:47 PM Referred By: REFERRED SELF Confirmed By:Bandar Palomares
[2021-01-06] MEDS ORDERED: bisacodyL 10 MG SUPP PR STA ×2 (00:01→06:27)
[2021-01-06] MEDS: ACETAMINOPHEN 325 MG TAB PO PRN ×2 (01:36→06:32)
[2021-01-06 06:11] LABS: Hematocrit (blood only) 37.7 % (37-47); Hemoglobin 12.6 g/dL (12.0-16.0); Immature Granulocytes # (auto) 0.03 K/uL (0.00-0.02); Immature Granulocytes % (auto) 0.2 %; Lymphocytes # (auto) 1.38 K/uL (1.2-3.4); Lymphocytes % (auto) 10.8 %; Mean Corpuscular Hemoglobin 32.6 pg (25-34); Mean Corpuscular Hgb Conc 33.4 g/dL (32-36); Mean Corpuscular Volume 97.4 fL (80-100); Monocytes # (auto) 0.43 K/uL (0.11-0.59); Monocytes % (auto) 3.4 %; Neutrophils # (auto) 10.91 K/uL (1.4-6.5); Neutrophils % (auto) 85.6 %; Platelet Count 178 K/uL (130-400); RDW Coefficient of Variation 13.5 % (11.5-14.5); RDW Standard Deviation 48.1 fL (36.4-46.3); Red Blood Count 3.87 M/uL (4.2-5.4); White Blood Count 12.75 K/uL (4.8-10.8)
[2021-01-06 06:21] LABS: INR 1.3 (0.9-1.1)
[2021-01-06] MEDS: LEVOTHYROXINE SODIUM 125 MCG TABLET PO SCH (06:32)
[2021-01-06 06:43] LABS: Albumin Level 2.6 gm/dl (3.4-5.0); BUN Creatinine Ratio 35.8 (10-20); Calcium 9.1 mg/dl (8.5-10.1); Creatinine Clr Calc Pharmacy 45.6 ml/min; Est GFR (Non-African American) 58.7 ml/min; Magnesium 1.9 mg/dl (1.8-2.4); Potassium 3.5 mmol/L (3.5-5.1)
[2021-01-06 06:46] LABS: Albumin Globulin Ratio 0.8 (0.9-2); Bilirubin,Total 1.7 mg/dl (0.2-1); Globulin 3.1 gm/dl (2.5-4.0); Total Protein 5.7 gm/dl (6.4-8.2)
[2021-01-06] MEDS ORDERED: HYDROCORTISONE 10 MG TAB PO SCH (09:00)
[2021-01-06] MEDS ORDERED: PANTOprazole 40 MG TAB PO SCH (09:00)
[2021-01-06] MEDS: ADVANCED PROBIOTIC 1250 MG CAPSULE PO SCH (09:01)
[2021-01-06] MEDS: SERTRALINE HCL 50 MG TABLET PO SCH (09:02)
[2021-01-06] MEDS: CHOLECALCIFEROL 1,000 UNITS 25 MCG TAB PO SCH (09:03)
[2021-01-06] MEDS: DOCUSATE SODIUM 100 MG CAP PO SCH (09:03)
[2021-01-06] MEDS: METOPROLOL SUCC 25MG EXT REL TAB PO SCH ×2 (09:03→09:12)
[2021-01-06] MEDS: LIDOCAINE 5% 1 PATCH TD SCH (09:04)
[2021-01-06] MEDS: DICLOFENAC SOD 1% GEL 100 GM TUBE EXT PRN (09:06)
--- NOTE | 2021-01-06 17:24 | Discharge Summary ---
Date of Service January 06, 2021 Admission HPI Per Admitting Provider The patient is an 85-year-old female with a past medical history 30% endplate compression fracture at L1 on 01/03, asthma, gait abnormality, osteopenia, neck pain, insomnia, depression, adrenal insufficiency, bilateral sensorineural hearing loss, GERD without esophagitis, hypothyroidism, mixed hyperlipidemia, SNHL, long-term use of anticoagulants, hypertension and memory dysfunction. Her daughter, who is arrived in ED, helps to support her HPI and review of systems. Patient reports that around 3:00 this morning she awoke with difficulty moving her neck and with shortness of breath. Patient reports that her last bowel movement was 1 week ago. She was brought to the ED for further assessment. Work-up in ED included the following significant abnormal laboratories: INR 6.0, AST 81, troponin 0.047, BNP 2154 and patient was COVID-19 negative. Pulse ox lowest recorded in ED was 89% on room air, but daughter reports that her pulse ox was somewhere in the 60% range when recorded at home. Chest x-ray did not show significant changes. CT scan of the lumbar spine from 01/03 showed L1 30% endplate compression deformity and multilevel thoracolumbar degenerative disc disease. CT scan of the pelvis on 01/03 showed an old sacral fracture that healed, without acute findings otherwise. Emergency department treatment physician treated with a DuoNeb, and Decadron 10 mg IV. Principal Diagnosis Possible mild diastolic heart failure episode Discharge Exam Constitutional WD/WN, vitals as above Eyes EOM intact bilaterally; no conjunctival abnormality ENMT external ear and nose normal, oropharynx normal Neck trachea midline, no thyromegaly normal visual inspection Respiratory normal respiratory effort, lungs clear to auscultation no respiratory distress Cardiovascular RRR, no murmur, no edema Gastrointestinal (Abdomen) Inspection/Auscultation: abdomen normal to inspection; abdomen not distended Musculoskeletal no cyanosis or clubbing, extremities motor strength 5/5 Skin no rashes, warm and dry Neurologic moves all extremities and awake Psychiatric Orientation: alert, oriented to person and cooperative Discharge Data Allergies Allergy/AdvReac Type Severity Reaction Status Date / Time celecoxib Allergy Unknown MUSCLE Verified 01/05/21 07:29 CRAMPS Sulfa (Sulfonamide Allergy Unknown DIDN'T Verified 01/05/21 07:29 Antibiotics) FEEL WELL Consultations 01/05/21 05:28 ED Decision to Admit Stat 01/05/21 08:05 Consult Cardiology Routine 01/05/21 10:45 [facility] Referral Routine Hospital Course (1) Acute diastolic CHF (congestive heart failure): [place] by cardiology to be in acute diastolic CHF. She received one dose of Lasix 40 mg IV on 01/05 with good diuresis. On 01/06, weight was 170 lbs which seemed euvolemic to me. BUN cuong slightly as well, so did not want to initiate more Lasix. - However, her weights are stable and even down from priors. She did have JVD, but in context of known pulmonary hypertension. Minimal swelling on the lower extremities. - Echo showed EF 60-65%. - Sent home with Lasix PRN with instructions to contact Marga Merlos prior to using if weight goes > 172 lbs. (2) Pulmonary embolism: Pulmonary embolism history/long-term use of warfarin. - Discussed with the patient and daughter (via phone) about DOAC options. The patient feels Dr. Burt is strongly in favor of warfarin/Coumadin. It seems she has significant trouble keeping her INR at goal range. I encouraged her to consider this and discuss with him. Pros would be no need to adjust dose or monitor levels. Cons include cost and reversibility. She and daughter will discuss with PCP. - Discharged on warfarin 2 mg PO HS to help prevent high INR. Given remote hx of PEs, do not feel any need to bridge patient. (3) Supratherapeutic INR: INR 6.0 upon admission. - Given vitamin K 2.5 mg IV - INR down to 1.3 on discharge. (4) Elevated troponin: Troponin 0.047 upon admission. Topped out at 0.4. Not thought to be ACS. - Consult cardiology -> No further inpatient work-up needed. (5) Hypoxia: Likely secondary to mild CHF. - Resolved after diuresis (6) Adrenal insufficiency: Initially held outpatient dosing of hydrocortisone orally. - Resume on discharge. (7) GERD without esophagitis: - Continue omeprazole/pantoprazole 40 mg at daily (8) Closed compression fracture of L1 vertebra: - Continue with Lidoderm patch during the day and Voltaren gel at nighttime. - Continue oxycodone at low dose (9) Hypothyroidism: - Continue levothyroxine 125 mcg daily (10) Constipation: Reports normal BM frequency is every 3 days. Likely aggravated by the addition of oxycodone a few days ago when she was diagnosed with the L1 fracture. - Continue Colace twice daily - Increased Senokot to 17.2 g every morning - Added MiraLAX 17 g daily as needed - Had a BM on 01/05 which greatly improved the patient's symptoms. Total Time Total Time Spent Total Time Spent (In Minutes): 35 Discharge Plan Discharge Items Patient Disposition: Home - Self-Care Reason For Visit: ELEVATED TROP, HYPOXIA, SUPRATHERAPEUTIC INR Discharge Diagnosis: Low oxygen levels, high INR Activity: Resume your previous activity Non-emergency contact: Primary Care Provider and [employer] Call non-emergency contact if: your symptoms worsen Follow-up/Referrals: Danielito Burt MD [Primary Care Provider] - Bandar aPlomares MD [Physician] - (Please follow up with Dr. Palomares in the clinic in 2-3 weeks.) Marga Merlos PA-C [Physician [place] [facility]] - 01/10/21 2:00 pm (Congestive Heart Failure Program Appointment Information Early follow up is essential to managing your heart failure. An appointment has been scheduled for you with the [facility] within 7 days of discharge. Anticipate this visit to be 30-60 minutes long. Please expect a human resources temp phone call from one of our nurses approximately 48 hours from discharge. They will also be placing an order for lab work to be completed 1-2 days prior to your heart failure follow up appointment. Please be sure to have this done so we can go over the results when you come in. Office Location The cardiology office building is located in front of the hospital at [address] Bring the following with you to your follow-up doctor appointments: Please bring your daily weight log any discharge paperwork all of your medication bottles with you to this visit. ) Diet: Heart Healthy and Low Sodium (2gm) Addtl Attending Provider Instructions: Ms. Ulloa, You were admitted to the hospital with shortness of breath and low oxygen levels. We also noted your INR was too high. We have corrected these issues. Dr. Sebastian saw you in the hospital and felt that your breathing might be due to a small amount of fluid that had built up in the lungs. This can happen from a high salt diet. It can be corrected by watching the amount of salt (aim for < 2,000 mg) in your diet or even using medication to take the salt off (cause you to pee out more salt). Your weight here is 170 lbs which seems to be a comfortable weight for you from a fluid standpoint. Please check your weight every day or two. If you start to gain weight (say get up to 172 lbs), please call Marga Merlos to see how you should manage this. I am sending you a prescription for Lasix (furosemide), but you SHOULD NOT take this medication unless Ms. Merlos advises it. For your warfarin (Coumadin), please restart at a slightly slower dose. I am sending 2 mg tablets to your pharmacy to take instead of 2.5 mg tablets. Please follow up with Dr. Burt to have your INR checked next week. Finally, we incidentally saw some of your liver labs were a bit high. However, they were all coming down on their own, and you aren't/weren't having any symptoms from this. Please have Dr. Burt check this in 2-3 weeks to be sure they have gone back to normal. Pending Studies at Discharge: No Stand-Alone Forms: [facility], Smoking Cessation Medications and DC Order Prescriptions: New warfarin 2 mg tablet 2 mg PO HS Qty: 30 RF: 0 furosemide 20 mg tablet 20 mg PO DAILY PRN (Reason: weight gain over 172 lbs) Qty: 20 RF: 0 Continued omeprazole 40 mg capsule,delayed release(DR/EC) 40 mg PO Q OTHER DAY Qty: 45 RF: 1 diclofenac sodium 1 % gel 2 gm topical DAILY Qty: 1 RF: 0 (DME) OneTouch Verio test strips strip See Dose Instructions .ROUTE .MEDSUPPLY Qty: 10 RF: 0 hydrocortisone 5 mg tablet 5 mg PO BID Qty: 190 RF: 3 albuterol sulfate 90 mcg/actuation HFA aerosol inhaler 2 puff INHALATION Q6H PRN (Reason: Shortness Of Breath Or Wheezing) Qty: 8.5 RF: 5 cholecalciferol (vitamin D3) [Vitamin D3] 1,000 unit Capsule 1,000 unit PO QAM RF: 0 oxycodone 5 mg tablet 2.5 mg PO Q6H PRN (Reason: pain) Qty: 14 RF: 0 sennosides [Senokot] 8.6 mg tablet 8.6 mg PO HS Qty: 30 RF: 0 docusate sodium [Colace] 100 mg capsule 100 mg PO BID Qty: 60 RF: 0 lidocaine 4 % adhesive patch,medicated 1 patch topical QAM RF: 0 spironolactone 25 mg tablet 25 mg PO QAM RF: 0 levothyroxine 125 mcg tablet 125 mcg PO DAILYBB RF: 0 metoprolol succinate 25 mg tablet extended release 24 hr 25 mg PO QAM RF: 0 hydrocortisone 10 mg tablet 10 mg PO QAM RF: 0 Discontinued warfarin 2.5 mg tablet 2.5 mg PO HS RF: 0 Discharge Orders: Discharge Order (Routine); Ordered 01/06/21 Ordered By: Juan Bailey Admission Data Admit Date/Time: 01/05/21 06:25 Attending Provider: Juan Bailey Admit Provider: Roman Richards Primary Care Provider: Danielito Burt Other Providers: Bandar Palomares ; Juan Bailey ; Marga Merlos Other Interventions: Discharge Summary Assessment (RN) Last Done: 01/06/21 13:37 Coding Level of Care Code 80778 OBS Care - Discharge Diagnoses Acute diastolic CHF (congestive heart failure) I50.31 Pulmonary embolism I26.99 Supratherapeutic INR R79.1 Elevated troponin R77.8 Hypoxia R09.02 Adrenal insufficiency E27.40 GERD without esophagitis K21.9 Closed compression fracture of L1 vertebra S32.010A Hypothyroidism E03.9 Constipation K59.00
== END 2021-01-06 14:03 | disposition home or self-care (01) ==
LOC: ED 04:10 → 2S 06:25 → INTOOBSV 06:25 → SUATTDRO 06:25 → 2S 07:45

== ENCOUNTER 2021-01-12 09:44 | Inpatient (IN) ==
--- NOTE | 2021-01-12 09:47 | Emergency Department Note ---
Impression & Plan Syncope, Closed compression fracture of L1 vertebra, Bradycardia ED Provider Note NAME: ELISEO GILES AGE: 85 SEX: F : 1935 ARRIVES VIA: Ambulance INFORMANT: Patient, ED PROVIDER(S): Jean-Pierre Jasso MD Chief Complaint: Episode of unresponsiveness HPI: Patient does presents with daughter at bedside. The patient reportedly had an episode of unresponsiveness after getting into the shower today. The patient had lost consciousness for several seconds and then upon awakening was having some garbled speech. The patient does have a remote history of recent possible Tylenol overdose as the patient's daughter states that her brother had stated that the patient took 10 Tylenol on Friday. Patient believes that she took 6. The patient does have some back pain from recent history of an L1 compression fracture. Patient is not had any fevers or chills. The patient denies any chest pains or shortness of breath. Patient's BSG was normal was bradycardic but not hypotensive. The patient does have some mild abdominal pain as well. No nausea or vomiting. The patient did have a recent bowel movement. No reported dysuria or hematuria. Patient has been taking tramadol after being switched from OxyContin by her primary care physician Dr. Burt with regard to her back discomfort. The daughter states that the patient does live with her but does not believe that they are able to take care of her at this time. ROS: See HPI for pertinent positives and negatives. A total of 10 systems were reviewed and otherwise negative. Past medical history: See below Surgical history: See below Social history: See below Physical Exam: GENERAL: Well appearing, well nourished, NAD, non-toxic. EYE EXAM: Normal conjunctiva. PERRL, no anisocoria and EOM's grossly intact w/o pain. [OROPHARYNX: Moist mucus membranes. Grossly normal dentition. ] NECK: Supple, no nuchal rigidity, no adenopathy, non-tender. No signs of meningismus. LUNGS: Clear to auscultation. Normal chest wall mechanics. HEART: Bradycardic and regular, no MRG. ABDOMEN: Abdomen soft, non-tender, normo-active bowel sounds, no masses, no rebound or guarding. BACK: No CVA TTP. SKIN: No rashes and no bruising. UPPER EXTREMITIES: Upper extremities are grossly normal. LOWER EXTREMITIES: Grossly normal, no edema. NEURO EXAM: A&O x3, cranial nerves II-XII grossly intact, normal speech, moves all 4 extremities with limited range of motion bilateral lower extremity secondary to pain, no sensory deficits. Differential diagnoses: Vasovagal event, dehydration, infection, hypoglycemia, electrolyte abnormalities, cardiac sources, intracerebral event, pulmonary embolism, seizure, toxicologic, neurologic, as well as other pathologies. Course: Patient was seen and evaluated the bedside. Full history physical exam was performed. EKG interpreted by me Sinus bradycardia, rate of 49, normal intervals, normal axis, T wave inversion anteriorly and laterally. Imaging Studies: See below Cardiac monitoring: An order was placed for continuous cardiac monitoring. The monitor shows a rate of 48 with sinus bradycardia rhythm. MDM: Patient did present after a syncopal events with a episode of confusion. He patient did have blood work completed with EKG troponin chest x-ray CT of the head and CT abdomen pelvis. Patient white count of 11 with a normal H&H and platelet count. Kidney function is unremarkable. INR is therapeutic at 2.4. The patient's BNP elevated at 1900. Urinalysis negative for blood or infection. Tylenol levels not elevated with no major changes in LFTs. Covid negative. CT of the head negative. CT abdomen pelvis does show a chronic L1 fracture. No other changes. I did speak the on-call hospitalist given the patient's syncope. The patient is bradycardic. The patient is on beta-jackelin this may be somewhat contributory. Patient was admitted to the medicine service by Dr. Wolf. Past Med/Surg History Medical History Adrenal insufficiency Arthritis of knee Bilateral sensorineural hearing loss Diverticulosis GERD without esophagitis Hyperglycemia Hypothyroidism Mixed hyperlipidemia Osteopenia Pulmonary embolism Reactive airway disease Seasonal allergies SNHL (sensorineural hearing loss) Surgical History History of cholecystectomy History of hernia repair Family History Unknown Cancer Cardiac disorder FHx: deafness or hearing loss Mother Cardiac disorder Hypertension Other Family history non-contributory Hearing loss No family history of adverse response to anesthesia No family history of bleeding disorder Social History Smoking Status: Never smoker Age Started Using Tobacco: 28; Age Quit Using Tobacco: 44; Second Hand Exposure: No; Hx Alcohol Use: No Hx Substance Use: No Preferred Language: Maori Knowledge Management Advisor Required: No Beliefs That Will Affect Care: None marital status: Current Living Situation: Spouse current occupational status: retired Other Information That Helps Us Care for You: No Feels Safe at Home: Yes Safety Concerns: Feels Safe At This Time Childhood Exposure to Second-Hand Smoke: No Assistive Devices: Denture - Upper and Denture - Lower Allergies Allergies Allergy/AdvReac Type Severity Reaction Status Date / Time celecoxib Allergy Unknown MUSCLE Verified 01/12/21 11:44 CRAMPS Sulfa (Sulfonamide Allergy Unknown DIDN'T Verified 01/12/21 11:44 Antibiotics) FEEL WELL Home Meds Home Medications Medication Instructions Recorded Confirmed cholecalciferol (vitamin D3) 1,000 unit PO QAM 07/08/18 01/12/21 [Vitamin D3] blood sugar diagnostic #10 ea 03/22/19 01/09/21 diclofenac sodium 1 % topical gel 2 gm TOPICAL DAILY #1 gm 03/22/19 01/12/21 hydrocortisone 10 mg PO QAM 01/05/21 01/12/21 levothyroxine 125 mcg PO DAILYBB 01/05/21 01/12/21 lidocaine 1 patch TOPICAL QAM 01/05/21 01/12/21 metoprolol succinate 25 mg PO QAM 01/05/21 01/12/21 spironolactone 25 mg PO QAM 01/05/21 01/12/21 hydrocortisone 5 mg PO BID PRN 01/12/21 01/12/21 omeprazole 20 mg PO Q OTHER DAY 01/12/21 01/12/21 Previous Rx's Medication Instructions Recorded albuterol sulfate 90 mcg/actuation 2 puff INHALATION Q6H PRN #8.5 gm 06/02/20 aerosol inhaler docusate sodium [Colace] 100 mg PO BID #60 cap 01/03/21 sennosides [Senokot] 8.6 mg PO HS #30 tab 01/03/21 warfarin 2 mg PO HS #30 tab 01/06/21 sertraline 25 mg tablet 25 mg PO DAILY #60 tab 01/09/21 tramadol 37.5 mg-acetaminophen 325 1 tab PO Q6H PRN #30 tab 01/09/21 mg tablet Results & Data (ED) Vital Signs Vital Signs - 24 hr 01/12/21 09:50 01/12/21 10:00 01/12/21 10:31 Temperature 36.8 C Temperature Source Oral Pulse Rate 48 L 49 L 48 L Pulse Rate from SpO2 Sensor 49 L 49 L 47 L Pulse Rhythm Regular Pulse Strength Normal Respiratory Rate 20 16 16 Respiratory Effort / Characteristics Non-Labored Spontaneous Respiratory Depth Normal Respiratory Pattern Regular Blood Pressure 183/98 H 181/61 H 152/53 H Blood Pressure Mean 126 101 86 Pulse Oximetry 96 96 96 Oxygen Delivery Method Room Air Sepsis Recent Fever Within 48 Hours No Sepsis New/Unexplained Change in Mental Status No Sepsis Action Taken by Nursing No Action Required 01/12/21 11:01 Temperature Temperature Source Pulse Rate 48 L Pulse Rate from SpO2 Sensor 48 L Pulse Rhythm Pulse Strength Respiratory Rate 17 Respiratory Effort / Characteristics Respiratory Depth Respiratory Pattern Blood Pressure 181/55 H Blood Pressure Mean 97 Pulse Oximetry 96 Oxygen Delivery Method Sepsis Recent Fever Within 48 Hours Sepsis New/Unexplained Change in Mental Status Sepsis Action Taken by Assisted Medications Current Medication List: was personally reviewed by me Laboratory Data Attestation: I reviewed the patient's lab results. Result diagrams: 01/12/21 10:17 01/12/21 10:17 Lab Results 01/12/21 01/12/21 01/12/21 Range/Units 10:05 10:17 10:17 WBC 11.71 H (4.8-10.8) K/uL RBC 4.74 (4.2-5.4) M/uL Hgb 15.4 (12.0-16.0) g/dL Hct 45.3 (37-47) % MCV 95.6 (80-100) fL MCH 32.5 (25-34) pg MCHC 34.0 (32-36) g/dL RDW Std Deviation 47.4 H (36.4-46.3) fL RDW Coeff of La 13.5 (11.5-14.5) % Plt Count 200 (130-400) K/uL MPV 11.2 H (7.4-10.4) fL Immature Gran % (Auto) 0.6 % Neut % (Auto) 72.4 % Lymph % (Auto) 19.0 % Luna % (Auto) 6.0 % Eos % (Auto) 1.8 % Baso % (Auto) 0.2 % Neut # (Auto) 8.49 H (1.4-6.5) K/uL Lymph # (Auto) 2.22 (1.2-3.4) K/uL Luna # (Auto) 0.70 H (0.11-0.59) K/uL Eos # (Auto) 0.21 (0-0.5) K/uL Baso # (Auto) 0.02 (0-0.2) K/uL Immature Gran # (Auto) 0.07 H (0.00-0.02) K/uL PT (9.0-12.0) Seconds INR (0.9-1.1) Sodium 135 L (136-145) mmol/L Potassium 3.7 (3.5-5.1) mmol/L Chloride 102 (98-107) mmol/L Carbon Dioxide 28 (21-32) mmol/L Anion Gap 5.0 (3-11) BUN 20 H (7-18) mg/dl Creatinine 1.00 (0.6-1.2) mg/dl Est Cr Clr Drug Dosing Not Reportable Est GFR ( Amer) 59.1 ml/min Est GFR (Non-Af Amer) 51.0 ml/min BUN/Creatinine Ratio 19.9 (10-20) Glucose 102 H (70-99) mg/dl Calcium 9.0 (8.5-10.1) mg/dl Total Bilirubin 0.9 (0.2-1) mg/dl AST 33 (15-37) U/L ALT 44 (12-78) U/L Alkaline Phosphatase 228 H (45-117) U/L Troponin I 0.039 (0-0.045) ng/ml NT-Pro-B Natriuret Pep (0-1800) pg/ml Total Protein 6.1 L (6.4-8.2) gm/dl Albumin 2.9 L (3.4-5.0) gm/dl Globulin 3.2 (2.5-4.0) gm/dl Albumin/Globulin Ratio 0.9 (0.9-2) Lipase 121 (73-393) U/L TSH (0.300-4.500) uIu/ml Specimen Hemolysis Urine Color Yellow Urine Appearance Clear (Clear) Urine pH 6.0 (4.5-7.5) Ur Specific Corona 1.014 (1.000-1.030) Urine Protein Negative (Negative) Urine Glucose (UA) Negative (Negative) Urine Ketones Negative (Negative) Urine Blood Negative (Negative) Urine Nitrite Negative (Negative) Urine Bilirubin Negative (Negative) Urine Urobilinogen Negative (Negative) Ur Leukocyte Esterase Negative (Negative) Acetaminophen (10-30) ug/ml Lyme Disease IgG Ab (Negative) Lyme Disease IgM Ab (Negative) COVID-19 Eval Order SARS-CoV-2 (PCR) (Negative) 01/12/21 01/12/21 01/12/21 Range/Units 10:17 10:17 10:19 WBC (4.8-10.8) K/uL RBC (4.2-5.4) M/uL Hgb (12.0-16.0) g/dL Hct (37-47) % MCV (80-100) fL MCH (25-34) pg MCHC (32-36) g/dL RDW Std Deviation (36.4-46.3) fL RDW Coeff of La (11.5-14.5) % Plt Count (130-400) K/uL MPV (7.4-10.4) fL Immature Gran % (Auto) % Neut % (Auto) % Lymph % (Auto) % Luna % (Auto) % Eos % (Auto) % Baso % (Auto) % Neut # (Auto) (1.4-6.5) K/uL Lymph # (Auto) (1.2-3.4) K/uL Luna # (Auto) (0.11-0.59) K/uL Eos # (Auto) (0-0.5) K/uL Baso # (Auto) (0-0.2) K/uL Immature Gran # (Auto) (0.00-0.02) K/uL PT 22.6 H (9.0-12.0) Seconds INR 2.4 H (0.9-1.1) Sodium (136-145) mmol/L Potassium (3.5-5.1) mmol/L Chloride (98-107) mmol/L Carbon Dioxide (21-32) mmol/L Anion Gap (3-11) BUN (7-18) mg/dl Creatinine (0.6-1.2) mg/dl Est Cr Clr Drug Dosing Est GFR ( Amer) ml/min Est GFR (Non-Af Amer) ml/min BUN/Creatinine Ratio (10-20) Glucose (70-99) mg/dl Calcium (8.5-10.1) mg/dl Total Bilirubin (0.2-1) mg/dl AST (15-37) U/L ALT (12-78) U/L Alkaline Phosphatase (45-117) U/L Troponin I (0-0.045) ng/ml NT-Pro-B Natriuret Pep 1992 H (0-1800) pg/ml Total Protein (6.4-8.2) gm/dl Albumin (3.4-5.0) gm/dl Globulin (2.5-4.0) gm/dl Albumin/Globulin Ratio (0.9-2) Lipase (73-393) U/L TSH 3.530 (0.300-4.500) uIu/ml Specimen Hemolysis Urine Color Urine Appearance (Clear) Urine pH (4.5-7.5) Ur Specific Corona (1.000-1.030) Urine Protein (Negative) Urine Glucose (UA) (Negative) Urine Ketones (Negative) Urine Blood (Negative) Urine Nitrite (Negative) Urine Bilirubin (Negative) Urine Urobilinogen (Negative) Ur Leukocyte Esterase (Negative) Acetaminophen 17 (10-30) ug/ml Lyme Disease IgG Ab (Negative) Lyme Disease IgM Ab (Negative) COVID-19 Eval Order SARS-CoV-2 (PCR) (Negative) 01/12/21 01/12/21 01/12/21 Range/Units 10:19 10:25 10:25 WBC (4.8-10.8) K/uL RBC (4.2-5.4) M/uL Hgb (12.0-16.0) g/dL Hct (37-47) % MCV (80-100) fL MCH (25-34) pg MCHC (32-36) g/dL RDW Std Deviation (36.4-46.3) fL RDW Coeff of La (11.5-14.5) % Plt Count (130-400) K/uL MPV (7.4-10.4) fL Immature Gran % (Auto) % Neut % (Auto) % Lymph % (Auto) % Luna % (Auto) % Eos % (Auto) % Baso % (Auto) % Neut # (Auto) (1.4-6.5) K/uL Lymph # (Auto) (1.2-3.4) K/uL Luna # (Auto) (0.11-0.59) K/uL Eos # (Auto) (0-0.5) K/uL Baso # (Auto) (0-0.2) K/uL Immature Gran # (Auto) (0.00-0.02) K/uL PT (9.0-12.0) Seconds INR (0.9-1.1) Sodium (136-145) mmol/L Potassium (3.5-5.1) mmol/L Chloride (98-107) mmol/L Carbon Dioxide (21-32) mmol/L Anion Gap (3-11) BUN (7-18) mg/dl Creatinine (0.6-1.2) mg/dl Est Cr Clr Drug Dosing Est GFR ( Amer) ml/min Est GFR (Non-Af Amer) ml/min BUN/Creatinine Ratio (10-20) Glucose (70-99) mg/dl Calcium (8.5-10.1) mg/dl Total Bilirubin (0.2-1) mg/dl AST (15-37) U/L ALT (12-78) U/L Alkaline Phosphatase (45-117) U/L Troponin I (0-0.045) ng/ml NT-Pro-B Natriuret Pep (0-1800) pg/ml Total Protein (6.4-8.2) gm/dl Albumin (3.4-5.0) gm/dl Globulin (2.5-4.0) gm/dl Albumin/Globulin Ratio (0.9-2) Lipase (73-393) U/L TSH (0.300-4.500) uIu/ml Specimen Hemolysis Urine Color Urine Appearance (Clear) Urine pH (4.5-7.5) Ur Specific Corona (1.000-1.030) Urine Protein (Negative) Urine Glucose (UA) (Negative) Urine Ketones (Negative) Urine Blood (Negative) Urine Nitrite (Negative) Urine Bilirubin (Negative) Urine Urobilinogen (Negative) Ur Leukocyte Esterase (Negative) Acetaminophen (10-30) ug/ml Lyme Disease IgG Ab Negative (Negative) Lyme Disease IgM Ab Negative (Negative) COVID-19 Eval Order Covid19 at [facility] SARS-CoV-2 (PCR) NEGATIVE (Negative) Administered Medications Acetaminophen (Acetaminophen 500 Mg Tab) 1,000 mg PO Q8 GURVINDER Stop: 02/11/21 13:59 Last Admin: 01/12/21 14:40 Dose: 1,000 mg Documented by: [id number] Lactated Ringer's (Lr) 1,000 mls @ 100 mls/hr IV .Q10H GURVINDER Stop: 01/12/21 23:51 Last Admin: 01/12/21 14:42 Dose: 100 mls/hr Documented by: [id number] Hydrocortisone Sodium (Succinate 50 mg/ Syringe) 1 mls @ 4 mls/min IV Q8 GURVINDER Stop: 01/13/21 06:01 Last Admin: 01/12/21 15:28 Dose: 4 mls/min Documented by: [id number] Discontinued Medications Sodium Chloride (Nss) 500 mls @ 999 mls/hr IV .Q31M STA Stop: 01/12/21 10:36 Last Infusion: 01/12/21 11:08 Dose: 0 mls/hr Documented by: [id number] Admin: 01/12/21 10:22 Dose: 999 mls/hr Documented by: [id number] Ioversol (Optiray 300 100ml) 88 ml IV ONCE ONE Stop: 01/12/21 11:36 Last Admin: 01/12/21 11:35 Dose: 88 ml Documented by: [id number] Morphine Sulfate (Morphine Sulfate 4 Mg/Ml 1 Ml Carp\Vial) 2 mg IV NOW STA Stop: 01/12/21 10:07 Last Admin: 01/12/21 10:22 Dose: Not Given Documented by: [id number] Morphine Sulfate (Morphine Sulfate 2 Mg/Ml Carp) Confirm Administered Dose 2 mg .ROUTE .STK-MED ONE Stop: 01/12/21 10:21 Last Admin: 01/12/21 10:22 Dose: 2 mg Documented by: [id number] Imaging Data Radiologist's Impression: Abdomen/Pelvis CT 01/12/21 10:06 CT SCAN OF THE ABDOMEN AND PELVIS WITH IV CONTRAST CLINICAL HISTORY: Generalized abdominal pain. Episode of unresponsiveness. COMPARISON STUDY: Abdominal CT dated 11/04/2018 end 12/17/2008. CT of the lumbar spine dated 01/03/2021. TECHNIQUE: Following the IV administration of 88 cc of Optiray 300, CT scan of the abdomen and pelvis is performed from the lung bases to the proximal femora. Images are reviewed in the axial, sagittal, and coronal planes. IV contrast was administered without complication. A dose lowering technique was utilized adhering to the principles of ALARA. FINDINGS: Lung bases: Postoperative change is suggested involving the thoracic aorta. The heart is enlarged and without pericardial effusion. The coronary arteries are densely calcified. There is a small hiatal hernia. The lung bases are clear noting mild bibasilar scarring/atelectasis. Liver: The contrast-enhanced liver is normal in size, contour, and attenuation. There is mild intrahepatic biliary ductal dilatation. The hepatic veins and portal veins are patent. There are numerous calcified hepatic granulomas. Gallbladder: Surgically absent. Spleen: Normal in size and attenuation. There are numerous calcified splenic granulomas. Pancreas: The pancreas is moderately atrophic. A 10 mm cystic lesion in the pancreatic body is typical for a small sidebranch IPMN. This has been present dating back to 2008. Adrenal glands: Adrenal glands are diminutive and not well visualized. Kidneys: The contrast enhanced kidneys demonstrate cortical atrophy and are without hydronephrosis. The kidneys enhance symmetrically. A 12 mm cyst is noted in the left lower pole. Abdominal vasculature: The abdominal aorta is normal in course and caliber noting moderate atherosclerotic calcification. Bowel: There is mild to moderate colonic diverticulosis without CT evidence of acute diverticulitis. No bowel obstruction is identified. The appendix is well- visualized and normal. Peritoneum: There is no intraperitoneal free air or abdominal ascites. There is a large fat-containing umbilical hernia. Lymphadenopathy: None. Pelvic viscera: The bladder is distended but otherwise normal in appearance. The uterus and adnexa are normal as visualized. Skeletal structures: The skeletal structures are osteopenic. There is a subacute appearing compression fracture of L1 with mild loss of height. Fragments are retropulsed by up to 7 mm. There is mild lumbosacral spondylosis. No lytic or blastic lesions are seen. IMPRESSION: 1. There are no acute infectious or inflammatory findings in the abdomen or pelvis. 2. Again seen is a subacute appearing superior endplate compression fracture of L1. Retropulsion of fragments has modestly increased from the 01/03/2021 examination. 3. Mild to moderate colonic diverticulosis without CT evidence of acute diverticulitis. 4. Cardiomegaly. 5. Additional findings as above. ACT 112: Negative or not required by law. Electronically signed by: Alec Miguel M.D. 01/12/2021 11:[address] 01/12/21 10:06 CT OF THE HEAD WITHOUT CONTRAST CLINICAL HISTORY: episode of unresponsiveness w/ garbled speech COMPARISON STUDY: Head CT June 06, 2011. CT DOSE: 1330.11 mGy.cm TECHNIQUE: Helical axial images of the head were obtained without IV contrast. Automated exposure control was utilized for the study. A dose lowering technique was utilized adhering to the principles of ALARA. FINDINGS: No acute intracranial hemorrhage, midline shift or mass effect is present. White matter hypodensity suggests small vessel disease. The ventricular system is unremarkable. The basal cisterns are patent. No extra-axial collections are present. There are no findings to suggest acute dural sinus thrombosis or acute territorial infarct. No significant calvarial abnormalities are present. Visualized portions of the sinuses and mastoid air cells are clear. IMPRESSION: No acute intracranial findings. ACT 112: Negative or not required by law. Electronically signed by: Emaunel Portillo M.D. 01/12/2021 11:49 AM Discharge Plan Visit Data Chief Complaint: Illness ED Provider: Jean-Pierre Jasso Discharge Problem: Syncope, Closed compression fracture of L1 vertebra, Bradycardia Patient Disposition: Admitted As Inpatient Discharge Instructions Interventions: ED Discharge Assessment Last Done: 01/12/21 13:14 Discharge Problem: Syncope Qualifiers: Syncope type: unspecified Qualified Code(s): R55 - Syncope and collapse Closed compression fracture of L1 vertebra Qualifiers: Encounter type: subsequent encounter Fracture healing: with routine healing Qualified Code(s): S32.010D - Wedge compression fracture of first lumbar vertebra, subsequent encounter for fracture with routine healing
[2021-01-12] MEDS ORDERED: MoRPHine SULFATE 4 MG/ML 1 ML CARP\\VIAL IV STA (10:06)
[2021-01-12] MEDS ORDERED: SODIUM CHLORIDE 0.9% 500 ML IV STA (10:06)
[2021-01-12] MEDS ORDERED: MoRPHine SULFATE 2 MG/ML CARP ONE (10:20)
[2021-01-12 10:26] LABS: Basophils # (auto) 0.02 K/uL (0-0.2); Basophils % (auto) 0.2 %; Eosinophils # (auto) 0.21 K/uL (0-0.5); Eosinophils % (auto) 1.8 %; Hematocrit (blood only) 45.3 % (37-47); Hemoglobin 15.4 g/dL (12.0-16.0); Immature Granulocytes # (auto) 0.07 K/uL (0.00-0.02); Immature Granulocytes % (auto) 0.6 %; Lymphocytes # (auto) 2.22 K/uL (1.2-3.4); Mean Corpuscular Hemoglobin 32.5 pg (25-34); Mean Corpuscular Volume 95.6 fL (80-100); Mean Platelet Volume 11.2 fL (7.4-10.4); Neutrophils # (auto) 8.49 K/uL (1.4-6.5); Neutrophils % (auto) 72.4 %; Platelet Count 200 K/uL (130-400); RDW Coefficient of Variation 13.5 % (11.5-14.5); RDW Standard Deviation 47.4 fL (36.4-46.3); Red Blood Count 4.74 M/uL (4.2-5.4); White Blood Count 11.71 K/uL (4.8-10.8)
[2021-01-12 10:29] LABS: Appearance Urine Clear (Clear); Bilirubin Urine Negative (Negative); Blood Urine Negative (Negative); Color Urine Yellow; Glucose Urine UA Negative (Negative); Ketones Urine Negative (Negative); Leukocyte Esterase Urine Negative (Negative); Nitrite Urine Negative (Negative); Protein Urine Negative (Negative); Specific Gravity Urine 1.014 (1.000-1.030); Urobilinogen Urine Negative (Negative)
[2021-01-12 11:08] LABS: Alanine Aminotransferase 44 U/L (12-78); Albumin Globulin Ratio 0.9 (0.9-2); Albumin Level 2.9 gm/dl (3.4-5.0); Alkaline Phosphatase 228 U/L (45-117); Aspartate Aminotransferase 33 U/L (15-37); BUN Creatinine Ratio 19.9 (10-20); Bilirubin,Total 0.9 mg/dl (0.2-1); Blood Urea Nitrogen 20 mg/dl (7-18); Carbon Dioxide 28 mmol/L (21-32); Chloride 102 mmol/L (98-107); Est GFR (African American) 59.1 ml/min; Globulin 3.2 gm/dl (2.5-4.0); Glucose 102 mg/dl (70-99); Lipase 121 U/L (73-393); Potassium 3.7 mmol/L (3.5-5.1); Sodium 135 mmol/L (136-145); Total Protein 6.1 gm/dl (6.4-8.2); Troponin I 0.039 ng/ml (0-0.045)
[2021-01-12] MEDS ORDERED: OPTIRAY 300 100mL IV ONE (11:35)
--- NOTE | 2021-01-12 11:42 | Electrocardiogram Report ---
Test Reason : Blood Pressure : / mmHG Vent. Rate : 049 BPM Atrial Rate : 049 BPM P-R Int : 170 ms QRS Dur : 090 ms QT Int : 464 ms P-R-T Axes : 067 064 079 degrees QTc Int : 419 ms Sinus bradycardia Nonspecific T wave abnormality Abnormal ECG When compared with ECG of 05-JAN-2021 04:19, Vent. rate has decreased BY [address] elevation now present in Inferior leads T wave inversion more evident in Anterolateral leads Confirmed by Harpreet Yoder ([id number]) on 01/12/2021 11:41:51 AM Referred By: REFERRED SELF Confirmed By:Natalio Yoder
--- NOTE | 2021-01-12 11:50 | CT Scan Report ---
CT OF THE HEAD WITHOUT CONTRAST CLINICAL HISTORY: episode of unresponsiveness w/ garbled speech COMPARISON STUDY: Head CT June 06, 2011. CT DOSE: 1330.11 mGy.cm TECHNIQUE: Helical axial images of the head were obtained without IV contrast. Automated exposure con trol was utilized for the study. A dose lowering technique was utilized adhering to the principles o f ALARA. FINDINGS: No acute intracranial hemorrhage, midline shift or mass effect is present. White matter hyp odensity suggests small vessel disease. The ventricular system is unremarkable. The basal cisterns ar e patent. No extra-axial collections are present. There are no findings to suggest acute dural sinus thrombosis or acute territorial infarct. No significant calvarial abnormalities are present. Visualiz ed portions of the sinuses and mastoid air cells are clear. IMPRESSION: No acute intracranial findings. ACT 112: Negative or not required by law. Electronically signed by: Emanuel Portillo M.D. 01/12/2021 11:49 AM
--- NOTE | 2021-01-12 11:57 | CT Scan Report ---
CT SCAN OF THE ABDOMEN AND PELVIS WITH IV CONTRAST CLINICAL HISTORY: Generalized abdominal pain. Episode of unresponsiveness. COMPARISON STUDY: Abdominal CT dated 11/04/2018 end 12/17/2008. CT of the lumbar spine dated 01/03/2021 . TECHNIQUE: Following the IV administration of 88 cc of Optiray 300, CT scan of the abdomen and pelvi s is performed from the lung bases to the proximal femora. Images are reviewed in the axial, sagittal , and coronal planes. IV contrast was administered without complication. A dose lowering technique wa s utilized adhering to the principles of ALARA. FINDINGS: Lung bases: Postoperative change is suggested involving the thoracic aorta. The heart is enlarged and without pericardial effusion. The coronary arteries are densely calcified. There is a small hiatal h ernia. The lung bases are clear noting mild bibasilar scarring/atelectasis. Liver: The contrast-enhanced liver is normal in size, contour, and attenuation. There is mild intrahe patic biliary ductal dilatation. The hepatic veins and portal veins are patent. There are numerous ca lcified hepatic granulomas. Gallbladder: Surgically absent. Spleen: Normal in size and attenuation. There are numerous calcified splenic granulomas. Pancreas: The pancreas is moderately atrophic. A 10 mm cystic lesion in the pancreatic body is typica l for a small sidebranch IPMN. This has been present dating back to 2008. Adrenal glands: Adrenal glands are diminutive and not well visualized. Kidneys: The contrast enhanced kidneys demonstrate cortical atrophy and are without hydronephrosis. T he kidneys enhance symmetrically. A 12 mm cyst is noted in the left lower pole. Abdominal vasculature: The abdominal aorta is normal in course and caliber noting moderate atheroscle rotic calcification. Bowel: There is mild to moderate colonic diverticulosis without CT evidence of acute diverticulitis. No bowel obstruction is identified. The appendix is well-visualized and normal. Peritoneum: There is no intraperitoneal free air or abdominal ascites. There is a large fat-containin g umbilical hernia. Lymphadenopathy: None. Pelvic viscera: The bladder is distended but otherwise normal in appearance. The uterus and adnexa ar e normal as visualized. Skeletal structures: The skeletal structures are osteopenic. There is a subacute appearing compressio n fracture of L1 with mild loss of height. Fragments are retropulsed by up to 7 mm. There is mild lum bosacral spondylosis. No lytic or blastic lesions are seen. IMPRESSION: 1. There are no acute infectious or inflammatory findings in the abdomen or pelvis. 2. Again seen is a subacute appearing superior endplate compression fracture of L1. Retropulsion of f ragments has modestly increased from the 01/03/2021 examination. 3. Mild to moderate colonic diverticulosis without CT evidence of acute diverticulitis. 4. Cardiomegaly. 5. Additional findings as above. ACT 112: Negative or not required by law. Electronically signed by: Alec Miguel M.D. 01/12/2021 11:56 AM
--- NOTE | 2021-01-12 12:46 | History & Physical Report ---
Date of Service January 12, 2021 Assessment & Plan (1) Syncope: Patient reportedly had some syncope while in the shower this morning. She now has relative sinus bradycardia here in the emergency department with sustained blood pressures. Reportedly she is having some challenges at home caring for herself according to the family is present at the bedside. Regarding her bradycardia we will check a TSH and Lyme, although TSH was checked in September and was normal but in the lower range (2) Acute diastolic CHF (congestive heart failure): Patient typically on metoprolol and spironolactone. The metoprolol will be held at this time due to relative bradycardia echocardiogram was performed 01/05/2021 during her last admission within normal ventricular size and function 60 to 65% moderate concentric LVH mild pulmonary hypertension. (3) Pulmonary hypertension: (4) Closed compression fracture of L1 vertebra: Patient CT abdomen pelvis shows slight retropulsion of her fragment of L1 fracture. The patient is on Voltaren gel Lidoderm patch and was recently switched to tramadol from oxycodone for pain control. She also takes Tylenol and it was some concern about possible Tylenol overdose at home. Patient states her pain is her biggest issue right now is causing her not to eat not to sleep causing her to be depressed pain is uncontrolled however on previously escalating doses of opiates and also tramadol she has had worsening of her mood spirits and functioning. Subsequently we will consult orthopedic spine to see if she is a candidate for kyphoplasty or vertebroplasty. I instructed the family that this is likely more of a long shot. She also will need her anticoagulation held if this was going to proceed CT scan of abdomen pelvis the portion related to her skeletal structures reads "There is a subacute appearing compression fracture of L1 with mild loss of height. Fragments are retropulsed by up to 7 mm. There is mild lumbosacral spondylosis. No lytic or blastic lesions are seen." (5) Adrenal insufficiency: Typically patient is on 10 mg of hydrocortisone a day with as needed 5. We will give her stress dose hydrocortisone given the fact that she is symptomatic with her bradycardia and had a presyncopal event. (6) Depression: previously on low-dose Zoloft 25 mg a day, family has agreed to change will try remeron to help sleep and appetite (7) Hypothyroidism: TSH check for the morning Synthroid continued at 125 mcg a day (8) GERD without esophagitis: Patient on omeprazole every other day (9) Chronic anticoagulation: She was admitted May she had an INR of 6 discussion to change to a DOAC was met with resistance for family patient was discharged on lower dose of Coumadin to try to prevent supratherapeutic INR her p.m. pulmonary embolism seems to be diagnosed back in CT scan of June 24, 2002. INR was not checked on presentation History of Present Illness Primary Care Provider: Danielito Burt MD Patient does presents with daughter at bedside. The patient reportedly had an episode of unresponsiveness after getting into the shower today. The patient had lost consciousness for several seconds and then upon awakening was having some garbled speech. The patient does have a remote history of recent possible Tylenol overdose as the patient's daughter states that her brother had stated that the patient took 10 Tylenol on Friday. Patient believes that she took 6. The patient does have some back pain from recent history of an L1 compression fracture. Patient is not had any fevers or chills. The patient denies any chest pains or shortness of breath. Patient's BSG was normal was bradycardic but not hypotensive. The patient does have some mild abdominal pain as well. No nausea or vomiting. The patient did have a recent bowel movement. No reported dysuria or hematuria. Patient has been taking tramadol after being switched from OxyContin by her primary care physician Dr. Burt with regard to her back discomfort. The daughter states that the patient does live with her but does not believe that they are able to take care of her at this time. Allergies Allergy/AdvReac Type Severity Reaction Status Date / Time celecoxib Allergy Unknown MUSCLE Verified 01/12/21 11:44 CRAMPS Sulfa (Sulfonamide Allergy Unknown DIDN'T Verified 01/12/21 11:44 Antibiotics) FEEL WELL Home Medications Medication Instructions Recorded Confirmed Type cholecalciferol (vitamin D3) 1,000 unit PO QAM 07/08/18 01/12/21 History [Vitamin D3] blood sugar diagnostic #10 ea 03/22/19 01/09/21 History diclofenac sodium 1 % topical gel 2 gm TOPICAL DAILY #1 gm 03/22/19 01/12/21 History albuterol sulfate 90 mcg/actuation 2 puff INHALATION Q6H PRN #8.5 gm 06/02/20 01/12/21 Rx aerosol inhaler docusate sodium [Colace] 100 mg PO BID #60 cap 01/03/21 01/12/21 Rx sennosides [Senokot] 8.6 mg PO HS #30 tab 01/03/21 01/12/21 Rx hydrocortisone 10 mg PO QAM 01/05/21 01/12/21 History levothyroxine 125 mcg PO DAILYBB 01/05/21 01/12/21 History lidocaine 1 patch TOPICAL QAM 01/05/21 01/12/21 History metoprolol succinate 25 mg PO QAM 01/05/21 01/12/21 History spironolactone 25 mg PO QAM 01/05/21 01/12/21 History warfarin 2 mg PO HS #30 tab 01/06/21 01/12/21 Rx sertraline 25 mg tablet 25 mg PO DAILY #60 tab 01/09/21 01/12/21 Rx tramadol 37.5 mg-acetaminophen 325 1 tab PO Q6H PRN #30 tab 01/09/21 01/12/21 Rx mg tablet hydrocortisone 5 mg PO BID PRN 01/12/21 01/12/21 History omeprazole 20 mg PO Q OTHER DAY 01/12/21 01/12/21 History Past Med/Surg History Medical History Adrenal insufficiency Arthritis of knee Bilateral sensorineural hearing loss Diverticulosis GERD without esophagitis Hyperglycemia Hypothyroidism Mixed hyperlipidemia Osteopenia Pulmonary embolism Reactive airway disease Seasonal allergies SNHL (sensorineural hearing loss) Surgical History History of cholecystectomy History of hernia repair Family History Unknown Cancer Cardiac disorder FHx: deafness or hearing loss Mother Cardiac disorder Hypertension Other Family history non-contributory Hearing loss No family history of adverse response to anesthesia No family history of bleeding disorder Social History Smoking Status: Never smoker Age Started Using Tobacco: 28; Age Quit Using Tobacco: 44; Second Hand Exposure: No; Hx Alcohol Use: No Hx Substance Use: No Preferred Language: Croatian Operational Intelligence Analyst Required: No Beliefs That Will Affect Care: None marital status: Current Living Situation: Spouse current occupational status: retired Feels Safe at Home: Yes Childhood Exposure to Second-Hand Smoke: No Assistive Devices: Walker Review of Systems Review of Systems: Mild distress and fatigue no headache, blurry or double vision no speech or swallowing issues no chest pain, pressure or palpitations no shortness of breath, cough or wheezes no abdominal pain, nausea or vomiting, diarrhea or constipation, has not been eating no dysuria, hematuria or frequency no focal joint pain or swelling low lumbar back pain, without CVA tenderness or radicular pain no bruising, bleeding or rashes no focal signs of weakness or numbness or altered sensation pt has been with worsening depression Physical Exam Physical Exam: The patient appeared well nourished and normally developed. Vital signs as documented. Head exam is normocephalic atraumatic Neck is without JVD, thyromegaly, or carotid bruits. Lungs are clear to auscultation, no focal loss of breath sounds Cardiac exam, Rhythm is regular but bradycardic.. No murmurs, rubs or gallops. Abdominal exam reveals normal bowel sounds, soft non tender, no masses Extremities are nonedematous and both pedal pulses are present reproducible back pain Neurologic exam is alert and oriented, no focal loss of strength or sensation Skin is without bruises or rashes Psychologically is without concerns for anxiety or depression Results & Data Results & Data ([facility]) Vital Signs (Past 12 Hours) Vital Signs Temp Pulse Resp BP Pulse Ox 01/12/21 11:01 48 L 17 181/55 H 96 01/12/21 10:31 48 L 16 152/53 H 96 01/12/21 10:00 98.2 F 49 L 16 181/61 H 96 01/12/21 09:50 48 L 20 183/98 H 96 Abdomen/Pelvis CT 01/12/21 10:06 CT SCAN OF THE ABDOMEN AND PELVIS WITH IV CONTRAST CLINICAL HISTORY: Generalized abdominal pain. Episode of unresponsiveness. COMPARISON STUDY: Abdominal CT dated 11/04/2018 end 12/17/2008. CT of the lumbar spine dated 01/03/2021. TECHNIQUE: Following the IV administration of 88 cc of Optiray 300, CT scan of the abdomen and pelvis is performed from the lung bases to the proximal femora. Images are reviewed in the axial, sagittal, and coronal planes. IV contrast was administered without complication. A dose lowering technique was utilized adhering to the principles of ALARA. FINDINGS: Lung bases: Postoperative change is suggested involving the thoracic aorta. The heart is enlarged and without pericardial effusion. The coronary arteries are densely calcified. There is a small hiatal hernia. The lung bases are clear noting mild bibasilar scarring/atelectasis. Liver: The contrast-enhanced liver is normal in size, contour, and attenuation. There is mild intrahepatic biliary ductal dilatation. The hepatic veins and portal veins are patent. There are numerous calcified hepatic granulomas. Gallbladder: Surgically absent. Spleen: Normal in size and attenuation. There are numerous calcified splenic granulomas. Pancreas: The pancreas is moderately atrophic. A 10 mm cystic lesion in the pancreatic body is typical for a small sidebranch IPMN. This has been present dating back to 2008. Adrenal glands: Adrenal glands are diminutive and not well visualized. Kidneys: The contrast enhanced kidneys demonstrate cortical atrophy and are without hydronephrosis. The kidneys enhance symmetrically. A 12 mm cyst is noted in the left lower pole. Abdominal vasculature: The abdominal aorta is normal in course and caliber noting moderate atherosclerotic calcification. Bowel: There is mild to moderate colonic diverticulosis without CT evidence of acute diverticulitis. No bowel obstruction is identified. The appendix is well- visualized and normal. Peritoneum: There is no intraperitoneal free air or abdominal ascites. There is a large fat-containing umbilical hernia. Lymphadenopathy: None. Pelvic viscera: The bladder is distended but otherwise normal in appearance. The uterus and adnexa are normal as visualized. Skeletal structures: The skeletal structures are osteopenic. There is a subacute appearing compression fracture of L1 with mild loss of height. Fragments are retropulsed by up to 7 mm. There is mild lumbosacral spondylosis. No lytic or blastic lesions are seen. IMPRESSION: 1. There are no acute infectious or inflammatory findings in the abdomen or pelvis. 2. Again seen is a subacute appearing superior endplate compression fracture of L1. Retropulsion of fragments has modestly increased from the 01/03/2021 examination. 3. Mild to moderate colonic diverticulosis without CT evidence of acute diverticulitis. 4. Cardiomegaly. lectronically signed by: Alec Miguel M.D. 01/12/2021 11:[address] 01/12/21 10:06 CT OF THE HEAD WITHOUT CONTRAST CLINICAL HISTORY: episode of unresponsiveness w/ garbled speech COMPARISON STUDY: Head CT June 06, 2011. CT DOSE: 1330.11 mGy.cm TECHNIQUE: Helical axial images of the head were obtained without IV contrast. Automated exposure control was utilized for the study. A dose lowering technique was utilized adhering to the principles of ALARA. FINDINGS: No acute intracranial hemorrhage, midline shift or mass effect is present. White matter hypodensity suggests small vessel disease. The ventricular system is unremarkable. The basal cisterns are patent. No extra-axial collections are present. There are no findings to suggest acute dural sinus thrombosis or acute territorial infarct. No significant calvarial abnormalities are present. Visualized portions of the sinuses and mastoid air cells are clear. IMPRESSION: No acute intracranial findings. Electronically signed by: Emanuel Portillo M.D. 01/12/2021 11:49 AM PG Care Time/CCT Total # of Minutes Spent Total Time Spent with Patient: Total time spent is greater than 50% in coordination of care (as documented) at patient's floor/unit and/or counseling patient: Coding Level of Care Code 75760 Initial Inpt Care Lvl 3 Diagnoses Syncope R55 Acute diastolic CHF (congestive heart failure) I50.31 Pulmonary hypertension I27.20 Closed compression fracture of L1 vertebra S32.010A Adrenal insufficiency E27.40 Depression F32.9 Hypothyroidism E03.9 GERD without esophagitis K21.9 Chronic anticoagulation Z79.01
[2021-01-12 13:52] LABS: Lyme Ab IgG w/WB Rflx Negative (Negative); Lyme Ab IgM w/WB Rflx Negative (Negative)
[2021-01-12] MEDS ORDERED: ONDANSETRON INJ 2 MG/ML 2 ML VIAL IV PRN (13:52)
[2021-01-12] MEDS ORDERED: LACTATED RINGER'S 1,000 ML IV SCH (13:52)
[2021-01-12 13:53] LABS: Thyroid Stimulating Hormone 3.53 uIu/ml (0.300-4.500)
[2021-01-12] MEDS ORDERED: HYDROCORTISONE SOD SUCCINATE 100 MG/2 ML VIAL IV SCH (14:00)
[2021-01-12 14:16] LABS: INR 2.4 (0.9-1.1); Prothrombin Time 22.6 Seconds (9.0-12.0)
[2021-01-12] MEDS: ACETAMINOPHEN 500 MG TAB PO SCH ×2 (14:40→21:32)
[2021-01-12] MEDS: HYDROCORTISONE SOD 50 MG in SYRINGE 0 ML IV SCH ×2 (15:28→21:30)
[2021-01-12] MEDS: hydrALAZINE HCL 20 MG/ML VIAL IV PRN (16:27)
[2021-01-12] MEDS: oxyCODONE HCL IR 5 MG TAB (IMMEDIATE RELEASE) PO PRN (19:43)
[2021-01-12] MEDS ORDERED: SENNA 8.6 MG TAB PO SCH (21:00)
[2021-01-12] MEDS: DOCUSATE SODIUM 100 MG CAP PO SCH (21:28)
[2021-01-12] MEDS: MIRTAZAPINE TAB 15 MG TAB PO SCH (21:28)
[2021-01-12] MEDS: WARFARIN SOD 2 MG TAB PO SCH (21:29)
[2021-01-13] MEDS: HYDROCORTISONE SOD 50 MG in SYRINGE 0 ML IV SCH (05:20)
[2021-01-13] MEDS: ACETAMINOPHEN 500 MG TAB PO SCH ×4 (05:20→21:41)
[2021-01-13] MEDS ORDERED: LEVOTHYROXINE SODIUM 125 MCG TABLET PO SCH (06:30)
[2021-01-13 06:37] LABS: BUN Creatinine Ratio 28.8 (10-20); Creatinine Clr Calc Pharmacy 61.3 ml/min; Est GFR (African American) 92.7 ml/min
[2021-01-13] MEDS: hydrALAZINE HCL 20 MG/ML VIAL IV PRN (07:18)
[2021-01-13] MEDS: LIDOCAINE 5% 1 PATCH TD SCH (07:19)
[2021-01-13] MEDS: CHOLECALCIFEROL 1,000 UNITS 25 MCG TAB PO SCH (07:20)
[2021-01-13] MEDS: DICLOFENAC SOD 1% GEL 100 GM TUBE EXT SCH (07:22)
[2021-01-13] MEDS: DOCUSATE SODIUM 100 MG CAP PO SCH (07:28)
[2021-01-13] MEDS: SERTRALINE HCL 50 MG TABLET PO SCH (07:28)
--- NOTE | 2021-01-13 08:47 | Orthopedic Consultation ---
Date of Consultation January 13, 2021 Assessment & Plan (1) Closed compression fracture of L1 vertebra: I discussed with this patient regarding treatment plan. I did believe she would be a candidate for kyphoplasty. Her current pain would limit her ability to undergo physical therapy with the brace. She is currently on anticoagulation. If we can get her INR below 1.5 she should be safe for a kyphoplasty. Hopefully will be able to perform this Friday. Present on Admission?: Yes History of Present Illness Reason for Consultation: Back pain Attending Physician: Suyapa Guillen MD History of Present Illness This is an 85-year-old female presents with worsening back pain after sustaining a fall at home. She is quite miserable. She denies any numbness or tingling into the lower extremities. She denies any lower extremity weakness. She states this pain is limiting and the pain is not controlled. Allergies Allergy/AdvReac Type Severity Reaction Status Date / Time celecoxib Allergy Unknown MUSCLE Verified 01/12/21 11:44 CRAMPS Sulfa (Sulfonamide Allergy Unknown DIDN'T Verified 01/12/21 11:44 Antibiotics) FEEL WELL Home Medications Medication Instructions Recorded Confirmed Type cholecalciferol (vitamin D3) 1,000 unit PO QAM 07/08/18 01/12/21 History [Vitamin D3] blood sugar diagnostic #10 ea 03/22/19 01/09/21 History diclofenac sodium 1 % topical gel 2 gm TOPICAL DAILY #1 gm 03/22/19 01/12/21 History albuterol sulfate 90 mcg/actuation 2 puff INHALATION Q6H PRN #8.5 gm 06/02/20 01/12/21 Rx aerosol inhaler docusate sodium [Colace] 100 mg PO BID #60 cap 01/03/21 01/12/21 Rx sennosides [Senokot] 8.6 mg PO HS #30 tab 01/03/21 01/12/21 Rx hydrocortisone 10 mg PO QAM 01/05/21 01/12/21 History levothyroxine 125 mcg PO DAILYBB 01/05/21 01/12/21 History lidocaine 1 patch TOPICAL QAM 01/05/21 01/12/21 History metoprolol succinate 25 mg PO QAM 01/05/21 01/12/21 History spironolactone 25 mg PO QAM 01/05/21 01/12/21 History warfarin 2 mg PO HS #30 tab 01/06/21 01/12/21 Rx sertraline 25 mg tablet 25 mg PO DAILY #60 tab 01/09/21 01/12/21 Rx tramadol 37.5 mg-acetaminophen 325 1 tab PO Q6H PRN #30 tab 01/09/21 01/12/21 Rx mg tablet hydrocortisone 5 mg PO BID PRN 01/12/21 01/12/21 History omeprazole 20 mg PO Q OTHER DAY 01/12/21 01/12/21 History Patient History Medical History Adrenal insufficiency Arthritis of knee Bilateral sensorineural hearing loss Diverticulosis GERD without esophagitis Hyperglycemia Hypothyroidism Mixed hyperlipidemia Osteopenia Pulmonary embolism Reactive airway disease Seasonal allergies SNHL (sensorineural hearing loss) Surgical History History of cholecystectomy History of hernia repair Family History Unknown Cancer Cardiac disorder FHx: deafness or hearing loss Mother Cardiac disorder Hypertension Other Family history non-contributory Hearing loss No family history of adverse response to anesthesia No family history of bleeding disorder Social History Smoking Status: Never smoker Age Started Using Tobacco: 28; Age Quit Using Tobacco: 44; Second Hand Exposure: No; Hx Alcohol Use: No Hx Substance Use: No Preferred Language: German Title Specialist Required: No Beliefs That Will Affect Care: None marital status: Current Living Situation: Spouse current occupational status: retired Other Information That Helps Us Care for You: No Feels Safe at Home: Yes Safety Concerns: Feels Safe At This Time Childhood Exposure to Second-Hand Smoke: No Assistive Devices: Denture - Upper and Denture - Lower Physical Exam Physical Exam: On exam she is in bed she is sitting up. She is uncomfortable. She exhibits reasonable strength testing lower extremities. Sensory symmetric and intact. She is uncomfortable with any attempts to mobilize her. Results & Data ([facility]) Vital Signs (Past 12 Hours) Vital Signs Temp Pulse Pulse Resp BP Pulse Ox 01/13/21 07:48 36.7 C 71 19 145/68 H 96 01/13/21 03:28 37.2 C 59 L 18 176/65 H 98 01/13/21 00:40 63 01/12/21 23:52 36.9 C 61 18 178/81 H 94 (1) Closed compression fracture of L1 vertebra Encounter type: subsequent encounter Fracture healing: with routine healing Qualified Code(s): S32.010D - Wedge compression fracture of first lumbar vertebra, subsequent encounter for fracture with routine healing
[2021-01-13] MEDS ORDERED: SERTRALINE HCL 50 MG TABLET PO SCH (09:00)
[2021-01-13] MEDS: oxyCODONE HCL IR 5 MG TAB (IMMEDIATE RELEASE) PO PRN ×3 (10:35→22:57)
--- NOTE | 2021-01-13 16:34 | Hospitalist Progress Note ---
Date of Service January 13, 2021 Assessment & Plan (1) Syncope: Patient reportedly had some syncope while in the shower and presented with relative sinus bradycardia in the emergency department with sustained blood pressures. Likely vasovagal as has been constipated from taking opioids but then started taking tramadol and now with loose stools from opioid withdrawal -likely vasovagal from GI issues COuld also be adrenal insufficiency as she frequently doesn't take her afternoon HC until evening Reportedly she is having some challenges at home caring for herself according to the family is present at the bedside. Regarding her bradycardia -checked a TSH and Lyme and normal Held metoprolol and now rates 50-70s, normal ECG with TWIs anterior leads, trop neg at 0.039 and likely trending downward from last week's admission for CHF when it was more elevated ECHO from 01/05 with preserved EF, no significant valvular issues, no need to repeat ok to down grade to med-tele (2) Closed compression fracture of L1 vertebra: Patient CT abdomen pelvis shows slight retropulsion of her fragment of L1 fracture. The patient is on Voltaren gel Lidoderm patch and was recently switched to tramadol from oxycodone for pain control. She also takes Tylenol and it was some concern about possible Tylenol overdose at home. CT scan of abdomen pelvis 01/12 the portion related to her skeletal structures reads "There is a subacute appearing compression fracture of L1 with mild loss of height. Fragments are retropulsed by up to 7 mm. There is mild lumbosacral spondylosis. No lytic or blastic lesions are seen." Patient states her pain is her biggest issue right now is causing her not to eat not to sleep causing her to be depressed pain is uncontrolled however on previously escalating doses of opiates and also tramadol she has had worsening of her mood spirits and functioning. Appreciate orthopedic spine consult-plan for kyphoplasty on Friday -hold coumadin and follow INR (3) Adrenal insufficiency: Typically patient is on 10 mg of hydrocortisone in AM and 5mg in PM with an extra 5mg prn stress Was given IV HC stress dose x 3 here BPs high -restart afternoon dose of 5mg (4) Depression: previously on low-dose Zoloft 25 mg a day, unclear if still taking this? continue sertraline 25mg daily for now -added remeron to help sleep and appetite (5) Hypothyroidism: TSH here normal -continue Synthroid 125 mcg a day (6) GERD without esophagitis: Patient on omeprazole every other day (7) Chronic diastolic CHF (congestive heart failure): Patient typically on metoprolol and spironolactone. The metoprolol will be held at this time due to relative bradycardia echocardiogram was performed 01/05/2021 during her last admission within normal ventricular size and function 60 to 65% moderate concentric LVH mild pulmonary hypertension. Follows with CHF clinic and had recent admission for siuresis Was actually stopped on her lasix recently for being hypovolemic follow daily weights, I/Os (8) Chronic anticoagulation: She was admitted December she had an INR of 6 discussion to change to a DOAC was met with resistance for family patient was discharged on lower dose of Coumadin to try to prevent supratherapeutic INR her p.m. pulmonary embolism seems to be diagnosed back in CT scan of June 24, 2002. INR 2.1 on admission, not checked today Hold coumadin for surgery on Friday follow INR (9) HTN (hypertension), benign: BPs high restart home aldactone holding metoprolol for bradycardia (10) Pulmonary hypertension: diuresis as needed (11) DVT prophylaxis: holding coumadin, INR therapeutic Dispo-downgrade from PCU to med-tele Admission and Anticipated Discharge Date Admission Date: January 12, 2021 Subjective Pt feels well, alston sno further back pain since restarting oxycodone. has been c/o her hearing aids. Denies CP or SOB, not lightheadedness. Tele with NSR rates 50-70s Review of Systems Review of Systems: All systems reviewed & are unremarkable except as noted in HPI & below Physical Exam Constitutional: WD/WN, vitals as above Eyes: + anicteric sclerae Neck: trachea midline, no thyromegaly Respiratory: normal respiratory effort, lungs clear to auscultation Cardiovascular: RRR, no murmur, no edema Chest (Breasts): Chest: normal inspection of chest Gastrointestinal (Abdomen): normal bowel sounds, soft, nontender, no hepatosplenomegaly Musculoskeletal: Extremities: extremities normal to inspection; no cyanosis and no clubbing +TTP over lower mid back Skin: no rashes, warm and dry Neurologic: moves all extremities and awake; no focal motor deficits Psychiatric: Orientation: alert, oriented to person, oriented to place and cooperative Affect: euthymic affect Lymphatic: no lymphedema Results & Data Results & Data ([facility]) Vital Signs (Past 12 Hours) Vital Signs Temp Pulse Pulse Resp BP BP Pulse Ox 01/13/21 15:27 36.7 C 70 18 175/72 H 95 01/13/21 14:48 92 H 01/13/21 11:40 36.8 C 67 18 164/64 H 95 01/13/21 08:00 54 L 01/13/21 07:48 36.7 C 71 19 145/68 H 96 01/13/21 07:00 193/68 H Laboratory Results labs reviewed PG Care Time/CCT Total # of Minutes Spent Total Time Spent with Patient: Total time spent is greater than 50% in coord ination of care (as documented) at patient's floor/unit and/or counseling patient: Coding Level of Care Code 74586 Subseq Hosp Care Lvl 3 Diagnoses Syncope R55 Closed compression fracture of L1 vertebra S32.010A Adrenal insufficiency E27.40 Depression F32.9 Hypothyroidism E03.9 GERD without esophagitis K21.9 Chronic diastolic CHF (congestive heart failure) I50.32 Chronic anticoagulation Z79.01 HTN (hypertension), benign I10 Pulmonary hypertension I27.20 DVT prophylaxis Z29.9
[2021-01-13] MEDS ORDERED: SENNA 8.6 MG TAB PO PRN (16:35)
[2021-01-13] MEDS ORDERED: DOCUSATE SODIUM 100 MG CAP PO PRN (16:35)
[2021-01-13] MEDS: HYDROCORTISONE 10 MG TAB PO SCH (17:18)
[2021-01-13] MEDS ORDERED: ALBUTEROL HFA 8 GM INHALER INH PRN (18:50)
[2021-01-13] MEDS ORDERED: DOCUSATE SODIUM 100 MG CAP PO SCH (21:00)
[2021-01-13] MEDS: MIRTAZAPINE TAB 15 MG TAB PO SCH (21:45)
[2021-01-14] MEDS: LEVOTHYROXINE SODIUM 125 MCG TABLET PO SCH (05:39)
[2021-01-14] MEDS: ACETAMINOPHEN 500 MG TAB PO SCH ×3 (05:39→21:21)
[2021-01-14] MEDS: DICLOFENAC SOD 1% GEL 100 GM TUBE EXT SCH ×4 (05:43→21:39)
--- NOTE | 2021-01-14 06:09 | Electrocardiogram Report ---
Test Reason : Blood Pressure : / mmHG Vent. Rate : 064 BPM Atrial Rate : 064 BPM P-R Int : 150 ms QRS Dur : 092 ms QT Int : 440 ms P-R-T Axes : 028 032 -73 degrees QTc Int : 453 ms Normal sinus rhythm T wave abnormality, consider anterior ischemia Abnormal ECG When compared with ECG of 12-JAN-2021 17:21, No significant change was found Confirmed by Bandar Palomares ([id number]) on 01/14/2021 6:08:56 AM Referred By: REFERRED SELF Confirmed By:Bandar Palomares
[2021-01-14] MEDS: hydrALAZINE HCL 20 MG/ML VIAL IV PRN (06:13)
[2021-01-14] MEDS: SPIRONOLACTONE 25 MG TAB PO SCH (07:37)
[2021-01-14] MEDS: LIDOCAINE 5% 1 PATCH TD SCH (07:45)
[2021-01-14] MEDS: CHOLECALCIFEROL 1,000 UNITS 25 MCG TAB PO SCH (07:49)
[2021-01-14] MEDS: PANTOprazole 40 MG TAB PO SCH (07:49)
[2021-01-14 08:08] LABS: Hematocrit (blood only) 41.8 % (37-47); Hemoglobin 13.9 g/dL (12.0-16.0); Mean Corpuscular Hemoglobin 32.2 pg (25-34); Mean Corpuscular Hgb Conc 33.3 g/dL (32-36); Mean Corpuscular Volume 96.8 fL (80-100); Mean Platelet Volume 10.7 fL (7.4-10.4); Platelet Count 220 K/uL (130-400); RDW Coefficient of Variation 14.4 % (11.5-14.5); RDW Standard Deviation 50.7 fL (36.4-46.3); Red Blood Count 4.32 M/uL (4.2-5.4); White Blood Count 10.75 K/uL (4.8-10.8)
[2021-01-14 08:11] LABS: INR 1.9 (0.9-1.1); Prothrombin Time 18.1 Seconds (9.0-12.0)
[2021-01-14 08:38] LABS: BUN Creatinine Ratio 32.5 (10-20); Calcium 8.9 mg/dl (8.5-10.1); Creatinine Clr Calc Pharmacy 50.1 ml/min; Est GFR (African American) 77.4 ml/min; Est GFR (Non-African American) 66.8 ml/min; Potassium 3.4 mmol/L (3.5-5.1)
[2021-01-14] MEDS: HYDROCORTISONE 10 MG TAB PO SCH ×2 (09:00→13:51)
[2021-01-14] MEDS ORDERED: SERTRALINE HCL 50 MG TABLET PO SCH (09:00)
[2021-01-14] MEDS: SERTRALINE HCL 50 MG TABLET PO SCH (09:01)
--- NOTE | 2021-01-14 11:03 | Orthopedic Progress Note ---
Date of Service January 14, 2021 Assessment & Plan (1) Closed compression fracture of L1 vertebra: Admission and Anticipated Discharge Date Admission Date: January 12, 2021 Patient's pain is much improved today. She did seem to struggle with some mental status change and if we can avoid surgery that would be best. I will order a TLSO brace hopefully will be fitted tomorrow we can begin transfers and ambulation. Subjective Patient states her back pain is much improved today. She denies any leg pain. Physical Exam Physical Exam: On exam she is neurologically intact lower extremities. She appears much more comfortable today. Results & Data ([facility]) Vital Signs (Past 12 Hours) Vital Signs Temp Pulse Pulse Resp BP Pulse Ox 01/14/21 06:58 65 01/14/21 06:08 36.6 C 66 20 186/74 H 91
[2021-01-14] MEDS: oxyCODONE HCL IR 5 MG TAB (IMMEDIATE RELEASE) PO PRN (13:48)
[2021-01-14] MEDS ORDERED: POTASSIUM CHLORIDE CRTAB 20 MEQ TABCR PO STA (15:09)
[2021-01-14] MEDS ORDERED: METOPROLOL SUCC 25MG EXT REL TAB PO ONE (15:15)
[2021-01-14] MEDS ORDERED: oxyCODONE HCL IR 5 MG TAB (IMMEDIATE RELEASE) PO PRN (15:32)
--- NOTE | 2021-01-14 15:33 | Hospitalist Progress Note ---
Date of Service January 14, 2021 Assessment & Plan (1) Syncope: Patient presented with syncope after getting out of the shower and turning her head to the right as per the son. He reports she then was staring straight ahead but not recognizing him and her body became limp. She then was repeating the rosary before she finally woke up and was responding. She had relative sinus bradycardia in the emergency department with sustained blood pressures Likely vasovagal as has been constipated from taking opioids but then started taking tramadol and now with loose stools from opioid withdrawal -likely vasovagal from GI issues Was also taking daily Lasix and may have been hypovolemic with some vasodilatation after getting out of shower Could also be adrenal insufficiency as she frequently doesn't take her afternoon HC until evening, however her blood pressures were normal to elevated upon a dmission Also with the history of turning her head to the right and then dropping could be indicative of carotid artery stenosis Reportedly she is having some challenges at home caring for herself according to the family since her fall on Mother's Day which resulted in an L1 compression fracture and severe pain Regarding her bradycardia -checked a TSH and Lyme and normal Held metoprolol but now becoming hypertensive and with changes in EKG and elevated troponin as below-restart Toprol-XL 25 mg daily and follow heart rates ECG with TWIs anterior leads, trop neg at 0.039 on admission Repeat EKG on 01/14 with more significant T wave inversions throughout anterolateral leads and troponin increased to 0.16 Patient remains chest pain-free and telemetry with sinus rhythm with normal rates in the 60s to 70s ECHO from 01/05 with preserved EF, no significant valvular issues Repeat limited echo on 01/14 performed for elevated troponin and changing ECG- shows no wall motion abnormalities and preserved EF Appreciate cardiology consultation -Check carotid Doppler -Continue telemetry monitoring (2) Acute encephalopathy: Likely secondary to opioid use She is paranoid and confused especially at nighttime both here in the hospital and at home as per the son for the last week or so Advised patient I would be decreasing the dose of her oxycodone down to 2.5 mg twice daily as needed which she is upset about as it helps to control her pain Supportive care, frequent reorientation -In discussion with the son and the and the supervising nurse, we have allowed for her to stay overnight with her as he usually helps to keep her calmed down (3) Closed compression fracture of L1 vertebra: Patient CT abdomen pelvis shows slight retropulsion of her fragment of L1 fracture. The patient is on Voltaren gel Lidoderm patch and was recently switched to tramadol from oxycodone for pain control. She also takes Tylenol and it was some concern about possible Tylenol overdose at home. CT scan of abdomen pelvis 01/12 the portion related to her skeletal structures reads "There is a subacute appearing compression fracture of L1 with mild loss of height. Fragments are retropulsed by up to 7 mm. There is mild lumbosacral spondylosis. No lytic or blastic lesions are seen." Patient states her pain is her biggest issue right now is causing her not to eat not to sleep causing her to be depressed pain is uncontrolled however on previously escalating doses of opiates and also tramadol she has had worsening of her mood spirits and functioning. Appreciate orthopedic spine consult-originally planned for kyphoplasty on Friday, however with patient's worsening confusion and ongoing cardiac issues, this is now been postponed -We will go ahead and restart Coumadin as there will be no procedure -Orthopedic surgeon will be out of town from Friday through the rest of the week and so if her condition improves and she still would like a kyphoplasty, this would have to be arranged as an outpatient -Have restarted oxycodone here which is causing confusion as above-decrease the dose to 2.5 mg p.o. twice daily as needed -Ensure bowel regimen and moving bowels regularly -Consider pain management consultation -Orthopedic spine surgeon ordered TLSO brace to try (4) Elevated troponin: As above, troponin trended upward to 0.16 with some changes in EKG Limited echo negative Troponin trended back down to 0.1 on repeat on afternoon of 01/14 Appreciate cardiology consultation-May be secondary to underlying ischemic heart disease but is not acute coronary syndrome. Could be secondary to hypertension and demand ischemia. Recommends MRI of the brain to rule out stroke as stroke can give these EKG changes seen No urgent indication for cardiac catheterization Likely has underlying CAD based on calcification seen on imaging Continue warfarin, and cardiology suggests adding statin-we will add atorvastatin 20 mg daily for tomorrow Continue metoprolol (5) Abnormal ECG: As above, does not seem to be cardiac in nature Checking MRI of the brain for stroke-negative for stroke (6) Hypokalemia: Mildly low Replace with oral potassium chloride Follow BMP and magnesium in the morning (7) HTN (hypertension), benign: BPs high and now improving after restarting Aldactone which was held previously Also restarting metoprolol today-watch for recurrent bradycardia (8) Adrenal insufficiency: Typically patient is on 10 mg of hydrocortisone in AM and 5mg in PM with an extra 5mg prn stress Was given IV HC stress dose x 3 here BPs high but now improving (9) Depression: previously on low-dose Zoloft 25 mg a day, unclear if still taking this? continue sertraline 25mg daily for now -added remeron to help sleep and appetite (10) Hypothyroidism: TSH here normal -continue Synthroid 125 mcg a day (11) GERD without esophagitis: Patient on omeprazole every other day (12) Chronic diastolic CHF (congestive heart failure): Patient typically on metoprolol and spironolactone. The metoprolol was held due to relative bradycardia but will now be restarted Echocardiogram was performed 01/05/2021 during her last admission within normal ventricular size and function 60 to 65% moderate concentric LVH mild pulmonary hypertension. Follows with CHF clinic and had recent admission for diuresis Was actually stopped on her lasix recently for being hypovolemic follow daily weights, I/Os (13) Chronic anticoagulation: She was admitted December she had an INR of 6 discussion to change to a DOAC was met with resistance for family patient was discharged on lower dose of Coumadin to try to prevent supratherapeutic INR her p.m. pulmonary embolism seems to be diagnosed back in CT scan of June 24, 2002. INR 2.1 on admission, now down to 1.9 after holding Coumadin on 01/13 We will now restart Coumadin 2 mg daily as no further planned surgery for Friday follow INR in the morning (14) Pulmonary hypertension: diuresis as needed (15) DVT prophylaxis: Coumadin, add SCDs Dispo-continued stay on med telemetry, will place PT/OT consultations given significant back pain-May need rehab Admission and Anticipated Discharge Date Admission Date: January 12, 2021 Subjective Patient was confused overnight reportedly as per nursing and got very paranoid. She was put on a one-to-one sitter. She has been taking oxycodone routinely for her back pain. Her morning EKG was with worsening T wave inversions from previous but she denied any chest pain or shortness of breath. Troponin was mildly elevated from previous. She stated "I think I am going to ." Her son reports to me that she frequently says this in the last few weeks since she fractured her spine and has been miserable. When I asked her why she thought she was going to , she reported "I just feel empty inside and empty in my arms." She again denied any chest pain or shortness of breath, no nausea or vomiting, no abdominal pain. Her back pain is currently resolved. When I discussed that she was lethargic, getting confused likely secondary to the oxycodone, she begged me not to discontinue the medication and became upset. I discussed her care with commercial loan collection officer and we repeated a limited echocardiogram. Her troponin trended downward and her EKG T wave inversions were slightly improved on repeat this afternoon. Her EF was normal and she had no wall motion abnormalities on her limited echocardiogram. Cardiology recommended getting an MRI of the brain rule out stroke which was negative. The son who is at the bedside reports that he witnessed her original syncopal episode. He reports that she had just taken a shower and he was helping her get out of the shower and she turned her head and neck and all of a sudden just collapsed and he held her. He reported after that, she stared blankly at him for a while and then began to repeat the rosary 10 times in a row before she came to. I also discussed her care with the orthopedic spine surgeon who wants to postpone the kyphoplasty due to her acute confusion and potential cardiac issues. Telemetry with normal sinus rhythm, PACs, rates in the 60s to 70s Review of Systems Review of Systems: All systems reviewed & are unremarkable except as noted in HPI & below Physical Exam Constitutional: WD/WN, vitals as above Eyes: + anicteric sclerae Neck: trachea midline, no thyromegaly Respiratory: normal respiratory effort, lungs clear to auscultation Cardiovascular: RRR, no murmur, no edema Chest (Breasts): Chest: normal inspection of chest Gastrointestinal (Abdomen): normal bowel sounds, soft, nontender, no hepatosplenomegaly Musculoskeletal: Extremities: extremities normal to inspection; no cyanosis a nd no clubbing Skin: no rashes, warm and dry Neurologic: moves all extremities and awake; no focal motor deficits Psychiatric: Orientation: oriented to person Eye Contact: + fair eye contact Speech: normal rate/rhythm/volume of speech Affect: + anxious affect Lymphatic: no lymphedema Results & Data Results & Data ([facility]) Vital Signs (Past 12 Hours) Vital Signs Temp Pulse Pulse Resp BP Pulse Ox 01/14/21 11:04 36.8 C 72 18 174/68 H 94 01/14/21 06:58 65 01/14/21 06:08 36.6 C 66 20 186/74 H 91 Laboratory Results 01/14/21 01/14/21 01/14/21 Range/Units 15:18 07:52 07:52 WBC (4.8-10.8) K/uL RBC (4.2-5.4) M/uL Hgb (12.0-16.0) g/dL Hct (37-47) % MCV (80-100) fL MCH (25-34) pg MCHC (32-36) g/dL RDW Std Deviation (36.4-46.3) fL RDW Coeff of La (11.5-14.5) % Plt Count (130-400) K/uL MPV (7.4-10.4) fL PT 18.1 H (9.0-12.0) Seconds INR 1.9 H (0.9-1.1) Sodium (136-145) mmol/L Potassium (3.5-5.1) mmol/L Chloride (98-107) mmol/L Carbon Dioxide (21-32) mmol/L Anion Gap (3-11) BUN (7-18) mg/dl Creatinine (0.6-1.2) mg/dl Est Cr Clr Drug Dosing ml/min Est GFR ( Amer) ml/min Est GFR (Non-Af Amer) ml/min BUN/Creatinine Ratio (10-20) Glucose (70-99) mg/dl Calcium (8.5-10.1) mg/dl Troponin I 0.103 H* 0.163 H* (0-0.045) ng/ml 01/14/21 01/14/21 Range/Units 07:52 07:52 WBC 10.75 (4.8-10.8) K/uL RBC 4.32 (4.2-5.4) M/uL Hgb 13.9 (12.0-16.0) g/dL Hct 41.8 (37-47) % MCV 96.8 (80-100) fL MCH 32.2 (25-34) pg MCHC 33.3 (32-36) g/dL RDW Std Deviation 50.7 H (36.4-46.3) fL RDW Coeff of La 14.4 (11.5-14.5) % Plt Count 220 (130-400) K/uL MPV 10.7 H (7.4-10.4) fL PT (9.0-12.0) Seconds INR (0.9-1.1) Sodium 140 (136-145) mmol/L Potassium 3.4 L (3.5-5.1) mmol/L Chloride 107 (98-107) mmol/L Carbon Dioxide 26 (21-32) mmol/L Anion Gap 7.0 (3-11) BUN 26 H (7-18) mg/dl Creatinine 0.80 (0.6-1.2) mg/dl Est Cr Clr Drug Dosing 50.1 ml/min Est GFR ( Amer) 77.4 ml/min Est GFR (Non-Af Amer) 66.8 ml/min BUN/Creatinine Ratio 32.5 H (10-20) Glucose 89 (70-99) mg/dl Calcium 8.9 (8.5-10.1) mg/dl Troponin I (0-0.045) ng/ml Diagnostic Findings Brain MRI 01/14/21 16:34 Brain MRI WITH AND WITHOUT CONTRAST HISTORY: altered mental status,syncope,r/o stroke TECHNIQUE: Multiplanar multisequence MRI of the brain was performed both before and after the intravenous administration of contrast. COMPARISON STUDY: Head CT 01/12/2021. FINDINGS: There is no mass, hematoma, midline shift, or acute infarct. The paranasal sinuses are clear. The mastoid air cells are clear. The ventricles and sulci demonstrate mild age-related involutional changes. Scattered foci of T2 hyperintensity seen within the periventricular and subcortical white matter are nonspecific but suggestive of mild microvascular ischemic changes. The major vascular flow voids at the skull base are well-maintained. Incidental note is made of a partially empty sella. No abnormal enhancement. IMPRESSION: No acute intracranial abnormality. Scattered foci of T2 hyperintensity seen within the periventricular and subcortical white matter are nonspecific but favor microvascular ischemic change. ACT 112: Negative or not required by law. Electronically signed by: John Hogan M.D. 01/14/2021 8:26 PM PG Care Time/CCT Total # of Minutes Spent Total Time Spent with Patient: Total time spent is greater than 50% in coordination of care (as documented) at patient's floor/unit and/or counseling patient: Coding Level of Care Code 67247 Subseq Hosp Care Lvl 3 Diagnoses Syncope R55 Acute encephalopathy G93.40 Closed compression fracture of L1 vertebra S32.010A Elevated troponin R77.8 Abnormal ECG R94.31 Hypokalemia E87.6 HTN (hypertension), benign I10 Adrenal insufficiency E27.40 Depression F32.9 Hypothyroidism E03.9 GERD without esophagitis K21.9 Chronic diastolic CHF (congestive heart failure) I50.32 Chronic anticoagulation Z79.01 Pulmonary hypertension I27.20 DVT prophylaxis Z29.9
--- NOTE | 2021-01-14 15:51 | XCELERA ---
[id number]
--- NOTE | 2021-01-14 16:48 | Cardiology Consultation ---
Date of Consultation January 14, 2021 Assessment & Plan (1) Syncope: (2) Abnormal ECG: (3) Calcification of coronary artery: (4) Chronic diastolic CHF (congestive heart failure): (5) Elevated troponin: (6) Bradycardia: (7) Hypertension: ASSESSMENT/PLAN: 1. Syncope: Etiology not certain. She was mildly bradycardic on presentation. Heart rate normal today but metoprolol was initially held before being resume today by hospitalist service. If she is noted to be bradycardic, would di scontinue beta-jackelin. Cannot exclude vagal etiology as she has been having issues with significant back pain and according to records, constipation followed by loose bowel movements. Continue telemetry. Recommend carotid duplex. Recommend further investigation for stroke. Also, she had been taking diuretic on a more regular basis and may have been a bit dehydrated and may have had transient hypotension from vasodilation from a warm shower. 2. Abnormal ECG: Diffuse T-wave inversions have developed throughout this hospital stay. She has not reported any symptoms concerning for angina. LV systolic function is hyperdynamic without new wall motion abnormalities. 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 Consider brain MRI to evaluate for stroke. 3. Chronic diastolic CHF: She appears euvolemic. On spironolactone. Loop diuretic was discontinued on 01/10/2021. She was instructed to take Lasix on an as-needed basis on discharge but had been taking it daily for a few days before being seen in the Heart failure program. Low-sodium diet. I&Os while hospitalized. 4. Elevated troponin: Could be due to underlying ischemic heart disease as she does have dense coronary artery calcifications. She has not presented with acute coronary syndrome but has been hypertensive which could cause some degree of demand ischemia. Also would recommend evaluation for stroke given ECG changes, syncope, and reported garbled speech prior to presentation. There is no indication for urgent cardiac catheterization. 5. Calcification of coronary arteries: Risk factor modification. No angina. Not on aspirin as she is on anticoagulation for prior PE. She is on beta- jackelin which can be continued if tolerated. Optimize blood pressure control. LDL has been well controlled but consider statin therapy. 6. Bradycardia: Heart rate currently normal. She was mildly bradycardic on presentation. Beta-jackelin was resumed today by hospitalist service. If heart rate remains acceptable, can continue beta-jackelin. If she becomes bradycardic, would consider discontinuation of beta-jackelin especially since she presented with syncope. 7. Hypertension: Most recent blood pressure much more reasonable. Titrate medications as appropriate. 8. Disposition: Patient care and recommendations were discussed with Dr. Guillen of the primary hospitalist service. Please call with any other questions or con cerns. Thank you for allowing me to participate in the care of your patient. Please call for any other questions or concerns. Sincerely, Dmitry Palomares M.D. History of Present Illness Reason for Consultation: Syncope, abnormal ECG, elevated triple Requesting Physician: Suyapa Guillen MD Attending Physician: Suyapa Guillen MD History of Present Illness Mrs. Ulloa is a very pleasant 85-year-old female with history significant for asthma, pulmonary embolism on anticoagulation, GERD, hypothyroidism, dyslipidemia, hypertension, and adrenal insufficiency on chronic steroids. She was admitted at [facility] from 01/05/2021 to 01/06/2021 for acute diastolic CHF. She was awakened in the parent trainer with acute shortness of breath and hypoxia. She received 40 mg of intravenous Lasix, diuresed, and demonstrated mild azotemia on follow-up labs. She had elevated troponins as high as 0.401 in the setting of severe hypertension as high as 233/93 mmHg. Upon discharge, she was to use Lasix on an as-needed basis but apparently took it on a daily basis as outlined in Heart failure program note on 01/10/2021. She was readmitted on 01/12/2021 after syncopal event. She apparently has been having issues with lower back pain and has been taking medications such as tramadol and OxyContin. She reportedly was having issues with constipation as well and then loose stools according to hospitalist progress note. The patient herself is a poor historian and her was present at the bedside. He reported that she lost consciousness after taking a shower, which is consistent with the admitting note. He states that she did not fall at that time but did lose consciousness. She denies chest pain, shortness of breath, palpitations, or bleeding. She states that she did have edema which has since resolved. She drinks a lot of water but has not been eating much at home. Her agrees with this. While here, her troponin once again trended upward. On presentation, her troponin was 0.039 and has peaked at 0.163. She also has developed diffuse T- wave inversions on her ECG during this hospitalization, despite any report of chest discomfort or shortness of breath. This prompted cardiology consultation. In regards to her compression fracture of L1, this apparently occurred after a fall prior to her last hospitalization which was reported as mechanical. She was a better historian last visit but has received oxycodone for pain relief and is more drowsy today. She has had the following studies/procedures: 1. Echo 01/05/2021: Normal LV size, wall motion, systolic function. EF 60-65%. Moderate LVH. Mild left atrial dilation. Mild MR. RVSP 44. Review of systems: As above. Review of systems otherwise negative/ unremarkable. Family history: Mother had CHF. Social history: She quit smoking many years ago. No significant alcohol. Lives at home with her . They have 1 adopted and 1 biologic child. Her was present at the bedside. Allergies Allergy/AdvReac Type Severity Reaction Status Date / Time celecoxib Allergy Unknown MUSCLE Verified 01/12/21 11:44 CRAMPS Sulfa (Sulfonamide Allergy Unknown DIDN'T Verified 01/12/21 11:44 Antibiotics) FEEL WELL Home Medications Medication Instructions Recorded Confirmed Type cholecalciferol (vitamin D3) 1,000 unit PO QAM 07/08/18 01/12/21 History [Vitamin D3] blood sugar diagnostic #10 ea 03/22/19 01/09/21 History diclofenac sodium 1 % topical gel 2 gm TOPICAL DAILY #1 gm 03/22/19 01/12/21 History albuterol sulfate 90 mcg/actuation 2 puff INHALATION Q6H PRN #8.5 gm 06/02/20 01/12/21 Rx aerosol inhaler docusate sodium [Colace] 100 mg PO BID #60 cap 01/03/21 01/12/21 Rx sennosides [Senokot] 8.6 mg PO HS #30 tab 01/03/21 01/12/21 Rx hydrocortisone 10 mg PO QAM 01/05/21 01/12/21 History levothyroxine 125 mcg PO DAILYBB 01/05/21 01/12/21 History lidocaine 1 patch TOPICAL QAM 01/05/21 01/12/21 History metoprolol succinate 25 mg PO QAM 01/05/21 01/12/21 History spironolactone 25 mg PO QAM 01/05/21 01/12/21 History warfarin 2 mg PO HS #30 tab 01/06/21 01/12/21 Rx tramadol 37.5 mg-acetaminophen 325 1 tab PO Q6H PRN #30 tab 01/09/21 01/12/21 Rx mg tablet hydrocortisone 5 mg PO BID 01/12/21 01/12/21 History omeprazole 20 mg PO Q OTHER DAY 01/12/21 01/12/21 History sertraline 25 mg PO QAM 01/13/21 01/13/21 History Patient History Medical History Adrenal insufficiency Arthritis of knee Bilateral sensorineural hearing loss Chronic diastolic CHF (congestive heart failure) Diverticulosis GERD without esophagitis HTN (hypertension), benign Hyperglycemia Hypothyroidism Mixed hyperlipidemia Osteopenia Pulmonary embolism Reactive airway disease Seasonal allergies SNHL (sensorineural hearing loss) Surgical History History of cholecystectomy History of hernia repair Family History Unknown Cancer Cardiac disorder FHx: deafness or hearing loss Mother Cardiac disorder Hypertension Other Family history non-contributory Hearing loss No family history of adverse response to anesthesia No family history of bleeding disorder Social History Smoking Status: Never smoker Age Started Using Tobacco: 28; Age Quit Using Tobacco: 44; Second Hand Exposure: No; Hx Alcohol Use: No Hx Substance Use: No Preferred Language: Ken[place] Pipe Finishing Supervisor Required: No Beliefs That Will Affect Care: None marital status: Current Living Situation: Spouse current occupational status: retired Other Information That Helps Us Care for You: No Feels Safe at Home: Yes Safety Concerns: Feels Safe At This Time Childhood Exposure to Second-Hand Smoke: No Assistive Devices: Denture - Upper and Denture - Lower Physical Exam Physical Exam: Gen.: No acute distress. Somnolent but easily arousable with verbal stimuli. HEENT: Anicteric sclera. Neck: No JVD. No bruits. Normal carotid upstrokes bilaterally. Cardiac: PMI was nonpalpable. No ventricular heave. Regular. Normal S1-S2. No murmurs, rubs, or gallops. Pulmonary: Clear to auscultation bilaterally without wheezes, rales, or rhonchi. Abdomen: Soft, nontender, nondistended, with normoactive bowel sounds. No bruits noted. Extremities: 2+ radial pulses bilaterally. 2+ posterior tibialis pulses bilate rally. No significant pitting edema or cyanosis. Results & Data ([facility]) Vital Signs (Past 12 Hours) Vital Signs Temp Pulse Pulse Resp BP Pulse Ox 01/14/21 15:48 68 155/71 H 01/14/21 15:00 72 01/14/21 11:04 36.8 C 72 18 174/68 H 94 01/14/21 06:58 65 01/14/21 06:08 36.6 C 66 20 186/74 H 91 Laboratory Results Laboratory Results - last 24 hr 01/14/21 01/14/21 01/14/21 07:52 07:52 07:52 WBC 10.75 RBC 4.32 Hgb 13.9 Hct 41.8 MCV 96.8 MCH 32.2 MCHC 33.3 RDW Std Deviation 50.7 H RDW Coeff of La 14.4 Plt Count 220 MPV 10.7 H PT 18.1 H INR 1.9 H Sodium 140 Potassium 3.4 L Chloride 107 Carbon Dioxide 26 Anion Gap 7.0 BUN 26 H Creatinine 0.80 Est Cr Clr Drug Dosing 50.1 Est GFR ( Amer) 77.4 Est GFR (Non-Af Amer) 66.8 BUN/Creatinine Ratio 32.5 H Glucose 89 Calcium 8.9 Troponin I 01/14/21 01/14/21 07:52 15:18 WBC RBC Hgb Hct MCV MCH MCHC RDW Std Deviation RDW Coeff of La Plt Count MPV PT INR Sodium Potassium Chloride Carbon Dioxide Anion Gap BUN Creatinine Est Cr Clr Drug Dosing Est GFR ( Amer) Est GFR (Non-Af Amer) BUN/Creatinine Ratio Glucose Calcium Troponin I 0.163 H* 0.103 H* Diagnostic Findings Telemetry personally reviewed: Sinus rhythm. No arrhythmia. Echo 01/14/2021: Limited echo demonstrated hyperdynamic LV systolic function. EF > 70%. No regional wall motion abnormalities. Moderate LVH. ECGs personally reviewed: ECG 01/12/2021 at 9:49 a.m.: Sinus bradycardia 49 beats per minute. Anterior T-wave inversion ECG 01/13/2021 5:06 a.m.: Sinus rhythm 64 beats per minute. Anterior T-wave inversion ECG 01/14/2021 at 6:03 a.m.: Sinus rhythm with PACs [address] depression anterior leads. T-wave inversion more prominent in anterior leads and now present in inferior leads. ECG 01/05/2021 at 4:19 a.m.: Sinus rhythm 79 beats per minute. Nonspecific T- wave abnormality. Head CT 01/12/2021: No acute intracranial findings. White matter hypodensities suggest small vessel disease. CT abdomen/pelvis 01/12/2021: No acute infectious or inflammatory findings within the abdomen or pelvis. Subacute appearing superior endplate compression fracture of L1 with retropulsion of fragments modestly increased from 01/03/2021 exam. Coronary arteries densely calcified. Medications Administered Current Inpatient Medications Acetaminophen (Acetaminophen 500 Mg Tab) 1,000 mg PO Q8 [facility] Stop: 02/11/21 13:59 Last Admin: 01/14/21 12:35 Dose: 1,000 mg Documented by: Albuterol (Albuterol Hfa 8 Gm Inhaler) 2 puffs INH Q6R PRN PRN Reason: Shortness Of Breath Or Wheezing Stop: 02/12/21 18:49 Diclofenac Sodium (Diclofenac Sod 1% Gel 100 Gm Tube) 2 gm EXT QID [facility] Stop: 02/13/21 16:59 Docusate Sodium (Docusate Sodium 100 Mg Cap) 100 mg PO BID PRN PRN Reason: constipation Stop: 02/12/21 20:59 Hydralazine HCl (Hydralazine Hcl 20 Mg/Ml Vial) 10 mg IV Q8 PRN PRN Reason: Blood Pressure - High Stop: 02/11/21 13:51 Last Admin: 01/14/21 06:13 Dose: 10 mg Documented by: Hydrocortisone (Hydrocortisone 10 Mg Tab) 15 mg PO QAM [facility] Stop: 02/13/21 08:59 Last Admin: 01/14/21 09:00 Dose: 15 mg Documented by: Hydrocortisone (Hydrocortisone 10 Mg Tab) 5 mg PO DAILY@1500 [facility] Stop: 02/12/21 16:59 Last Admin: 01/14/21 13:51 Dose: 5 mg Documented by: Levothyroxine Sodium (Levothyroxine Sodium 125 Mcg Tablet) 125 mcg PO DAILYBB [facility] Stop: 02/13/21 06:29 Last Admin: 01/14/21 05:39 Dose: 125 mcg Documented by: Lidocaine (Lidocaine 5% 1 Patch) 1 patch TD [facility]; Protocol Stop: 02/12/21 08:59 Last Admin: 01/14/21 07:45 Dose: 1 patch Documented by: Metoprolol Succinate (Metoprolol Succ 25mg Ext Rel Tab) 25 mg PO DAILY [facility] Stop: 02/14/21 08:59 Mirtazapine (Mirtazapine Tab 15 Mg Tab) 15 mg PO [facility] Stop: 02/11/21 20:59 Last Admin: 01/13/21 21:45 Dose: 15 mg Documented by: Miscellaneous (Remove Lidoderm Patch) 1 ea N/A [facility] Stop: 02/11/21 20:59 Last Admin: 01/13/21 21:47 Dose: 1 ea Documented by: Ondansetron HCl (Ondansetron Inj 2 Mg/Ml 2 Ml Vial) 4 mg IV Q6H PRN PRN Reason: Nausea Stop: 02/11/21 13:51 Last Admin: 01/14/21 06:04 Dose: 4 mg Documented by: Oxycodone HCl (Oxycodone Hcl Ir 5 Mg Tab (Immediate Release)) 2.5 mg PO BID PRN PRN Reason: Moderate Pain Stop: 01/26/21 13:51 Pantoprazole Sodium (Pantoprazole 40 Mg Tab) 40 mg PO Q2D@0900 [facility]; Protocol Stop: 02/13/21 08:59 Last Admin: 01/14/21 07:49 Dose: 40 mg Documented by: Sennosides (Senna 8.6 Mg Tab) 8.6 mg PO HS PRN PRN Reason: constipation Stop: 02/11/21 20:59 Sertraline HCl (Sertraline Hcl 50 Mg Tablet) 25 mg PO DAILY [facility] Stop: 02/12/21 08:59 Last Admin: 01/14/21 09:01 Dose: 25 mg Documented by: Spironolactone (Spironolactone 25 Mg Tab) [facility] Stop: 02/13/21 08:59 Last Admin: 01/14/21 07:37 Dose: 25 mg Documented by: Vitamin D (Cholecalciferol 1,000 Units 25 Mcg Tab) 1,000 units PO QAM [facility] Stop: 02/12/21 08:59 Last Admin: 01/14/21 07:49 Dose: 1,000 units Documented by: Warfarin Sodium (Warfarin Sod 2 Mg Tab) 2 mg PO HS [facility] Stop: 02/11/21 20:59 Last Admin: 01/12/21 21:29 Dose: 2 mg Documented by: PG Care Time/CCT Total # of Minutes Spent Total Time Spent with Patient: Total time spent is greater than 50% in coordination of care (as documented) at patient's floor/unit and/or counseling patient: Coding Level of Care Code 29357 Initial Inpt Care Lvl 3 Diagnoses Syncope R55 Syncope type: unspecified Abnormal ECG R94.31 Calcification of coronary artery I25.10; I25.84 Chronic diastolic CHF (congestive heart failure) I50.32 Elevated troponin R77.8 Bradycardia R00.1 Hypertension I10 (1) Syncope Syncope type: unspecified Qualified Code(s): R55 - Syncope and collapse
[2021-01-14] MEDS ORDERED: GADOBUTROL 65ML VIAL IV ONE (19:03)
--- NOTE | 2021-01-14 20:27 | Magnetic Resonance Report ---
Brain MRI WITH AND WITHOUT CONTRAST HISTORY: altered mental status,syncope,r/o stroke TECHNIQUE: Multiplanar multisequence MRI of the brain was performed both before and after the intrave nous administration of contrast. COMPARISON STUDY: Head CT 01/12/2021. FINDINGS: There is no mass, hematoma, midline shift, or acute infarct. The paranasal sinuses are jaison r. The mastoid air cells are clear. The ventricles and sulci demonstrate mild age-related involutiona l changes. Scattered foci of T2 hyperintensity seen within the periventricular and subcortical white matter are nonspecific but suggestive of mild microvascular ischemic changes. The major vascular flow voids at the skull base are well-maintained. Incidental note is made of a partially empty sella. No abnormal enhancement. IMPRESSION: No acute intracranial abnormality. Scattered foci of T2 hyperintensity seen within the periventricula r and subcortical white matter are nonspecific but favor microvascular ischemic change. ACT 112: Negative or not required by law. Electronically signed by: John Hogan M.D. 01/14/2021 8:26 PM
[2021-01-14] MEDS: MIRTAZAPINE TAB 15 MG TAB PO SCH (21:21)
[2021-01-14] MEDS ORDERED: WARFARIN SOD 2 MG TAB PO ONE (21:30)
--- NOTE | 2021-01-14 23:28 | Electrocardiogram Report ---
Test Reason : Blood Pressure : / mmHG Vent. Rate : 065 BPM Atrial Rate : 065 BPM P-R Int : 146 ms QRS Dur : 096 ms QT Int : 418 ms P-R-T Axes : 027 040 256 degrees QTc Int : 434 ms Sinus rhythm with Premature atrial complexes Abnormal ECG When compared with ECG of 13-JAN-2021 05:06, Premature atrial complexes are now Present Inverted T waves have replaced nonspecific T wave abnormality in Inferior leads T wave inversion more evident in Anterior leads Confirmed by Bandar Palomares ([id number]) on 01/14/2021 11:28:12 PM Referred By: REFERRED SELF Confirmed By:Bandar Palomares
[2021-01-15] MEDS: LEVOTHYROXINE SODIUM 125 MCG TABLET PO SCH (06:14)
[2021-01-15] MEDS: ACETAMINOPHEN 500 MG TAB PO SCH ×3 (06:15→20:00)
[2021-01-15 07:11] LABS: INR 1.9 (0.9-1.1); Prothrombin Time 18.7 Seconds (9.0-12.0)
[2021-01-15 07:28] LABS: BUN Creatinine Ratio 29.2 (10-20); Creatinine Clr Calc Pharmacy 45.5 ml/min; Est GFR (Non-African American) 59.5 ml/min; Magnesium 2.5 mg/dl (1.8-2.4); Potassium 4.4 mmol/L (3.5-5.1)
[2021-01-15] MEDS: SPIRONOLACTONE 25 MG TAB PO SCH (08:44)
[2021-01-15] MEDS: METOPROLOL SUCC 25MG EXT REL TAB PO SCH (08:44)
[2021-01-15] MEDS: LIDOCAINE 5% 1 PATCH TD SCH (08:44)
[2021-01-15] MEDS: SERTRALINE HCL 50 MG TABLET PO SCH (08:44)
[2021-01-15] MEDS: CHOLECALCIFEROL 1,000 UNITS 25 MCG TAB PO SCH (08:46)
[2021-01-15] MEDS: HYDROCORTISONE 10 MG TAB PO SCH ×2 (08:46→17:00)
[2021-01-15] MEDS: ATORVASTATIN 20 MG TAB PO SCH (08:48)
[2021-01-15] MEDS: DICLOFENAC SOD 1% GEL 100 GM TUBE EXT SCH ×4 (08:49→19:56)
--- NOTE | 2021-01-15 11:53 | Hospitalist Progress Note ---
Date of Service January 15, 2021 Assessment & Plan (1) Syncope: Patient presented with syncope after getting out of the shower and turning her head to the right as per the son. He reports she then was staring straight ahead but not recognizing him and her body became limp. She then was repeating the rosary before she finally woke up and was responding. She had relative sinus bradycardia in the emergency department with sustained blood pressures Likely vasovagal as has been constipated from taking opioids but then started taking tramadol and now with loose stools from opioid withdrawal -likely vasovagal from GI issues Was also taking daily Lasix and may have been hypovolemic with some vasodilatation after getting out of shower Could also be adrenal insufficiency as she frequently doesn't take her afternoon HC until evening, however her blood pressures were normal to elevated upon a dmission Also with the history of turning her head to the right and then dropping could be indicative of carotid artery stenosis Reportedly she is having some challenges at home caring for herself according to the family since her fall on Mother's Day which resulted in an L1 compression fracture and severe pain Regarding her bradycardia -checked a TSH and Lyme and normal Held metoprolol but now becoming hypertensive and with changes in EKG and elevated troponin as below-restart Toprol-XL 25 mg daily and follow heart rates ECG with TWIs anterior leads, trop neg at 0.039 on admission Repeat EKG on 01/14 with more significant T wave inversions throughout anterolateral leads and troponin increased to 0.16 Patient remains chest pain-free and telemetry with sinus rhythm with normal rates in the 60s to 70s ECHO from 01/05 with preserved EF, no significant valvular issues Repeat limited echo on 01/14 performed for elevated troponin and changing ECG- shows no wall motion abnormalities and preserved EF Appreciate cardiology consultation -Check carotid Doppler - patient refusing to get carotid US today, will try again when more cooperative -Continue telemetry monitoring - no arrhythmias basically unclear why she had syncope, no events while here continue with PT/OT family would like her to go to SNF rehab they have concerns about her memory, early dementia? (2) Acute encephalopathy: could be due to opioid use but also she might have early cognitive impairment per family, she has been hiding her issues well but in reality she is getting more forgetful now with delusional thoughts like things on the wall are actually creatures out to get her will try Seroquel 25mg HS to help with delusions, possible hallucinations (3) Closed compression fracture of L1 vertebra: Patient CT abdomen pelvis shows slight retropulsion of her fragment of L1 fracture. The patient is on Voltaren gel Lidoderm patch and was recently switched to tramadol from oxycodone for pain control. She also takes Tylenol and it was some concern about possible Tylenol overdose at home. CT scan of abdomen pelvis 01/12 the portion related to her skeletal structures reads "There is a subacute appearing compression fracture of L1 with mild loss of height. Fragments are retropulsed by up to 7 mm. There is mild lumbosacral spondylosis. No lytic or blastic lesions are seen." Patient states her pain is her biggest issue right now is causing her not to eat not to sleep causing her to be depressed pain is uncontrolled however on previously escalating doses of opiates and also tramadol she has had worsening of her mood spirits and functioning. Appreciate orthopedic spine consult-originally planned for kyphoplasty on Friday , however with patient's worsening confusion and ongoing cardiac issues, this is now been postponed -We will go ahead and restart Coumadin as there will be no procedure -Orthopedic surgeon will be out of town from Friday through the rest of the week and so if her condition improves and she still would like a kyphoplasty, this would have to be arranged as an outpatient -Have restarted oxycodone at 2.5 mg p.o. twice daily as needed -Ensure bowel regimen and moving bowels regularly -Orthopedic spine surgeon ordered TLSO brace to try (4) Elevated troponin: As above, troponin trended upward to 0.16 with some changes in EKG Limited echo negative Troponin trended back down to 0.1 on repeat on afternoon of 01/14 Appreciate cardiology consultation-May be secondary to underlying ischemic heart disease but is not acute coronary syndrome. Could be secondary to hypertension and demand ischemia. Recommends MRI of the brain to rule out stroke as stroke can give these EKG changes seen No urgent indication for cardiac catheterization Likely has underlying CAD based on calcification seen on imaging Continue warfarin, and cardiology suggests adding statin-we will add atorvastatin 20 mg daily for tomorrow Continue metoprolol (5) Abnormal ECG: As above, does not seem to be cardiac in nature Checking MRI of the brain for stroke-negative for stroke (6) Hypokalemia: Mildly low Replace with oral potassium chloride Follow BMP and magnesium in the morning (7) HTN (hypertension), benign: BPs high and now improving after restarting Aldactone which was held previously Also restarting metoprolol today-watch for recurrent bradycardia (8) Adrenal insufficiency: Typically patient is on 10 mg of hydrocortisone in AM and 5mg in PM with an extra 5mg prn stress Was given IV HC stress dose x 3 here BPs high but now improving (9) Depression: previously on low-dose Zoloft 25 mg a day, unclear if still taking this? continue sertraline 25mg daily for now -added remeron to help sleep and appetite (10) Hypothyroidism: TSH here normal -continue Synthroid 125 mcg a day (11) GERD without esophagitis: Patient on omeprazole every other day (12) Chronic diastolic CHF (congestive heart failure): Patient typically on metoprolol and spironolactone. The metoprolol was held due to relative bradycardia but will now be restarted Echocardiogram was performed 01/05/2021 during her last admission within normal ventricular size and function 60 to 65% moderate concentric LVH mild pulmonary hypertension. Follows with CHF clinic and had recent admission for diuresis Was actually stopped on her lasix recently for being hypovolemic follow daily weights, I/Os (13) Chronic anticoagulation: She was admitted May she had an INR of 6 discussion to change to a DOAC was met with resistance for family patient was discharged on lower dose of Coumadin to try to prevent supratherapeutic INR her p.m. pulmonary embolism seems to be diagnosed back in CT scan of June 24, 2002. INR 2.0 continue Coumadin 2 mg daily (14) Pulmonary hypertension: diuresis as needed (15) DVT prophylaxis: Coumadin, add SCDs Dispo-continued stay on med telemetry, will place PT/OT consultations given significant back pain-May need rehab Admission and Anticipated Discharge Date Admission Date: January 12, 2021 Subjective patient resting comfortably, she is refusing to get her carotid doppler study, even won't get it portable she feels she has had enough testing spoke with her and son at the bedside and later her daughter her daughter admits that the patient has been experiencing memory issues for some time, have been subtle and she has hid them well during our conversation she changed the subject frequently, repeated what I said, told stories that had nothing to do with the issues at hand discussed with family that she still needs PT/OT evaluations, likely here a few more days reviewed chart, no evidence of TN, stroke, valve disease, arrhythmia as cause of syncope family noticing a lot of delusions, possible hallucinations, experiencing sun downing will try Seroquel 25mg this evening, stop Remeron for now Review of Systems Review of Systems: All systems reviewed & are unremarkable except as noted in Subjective Constitutional: + weakness; no fever and no fatigue Respiratory: no cough, no dyspnea and no wheezing Cardiovascular: no chest pain, no palpitations, no lightheadedness and no edema Gastrointestinal: no abdominal pain, no nausea, no vomiting, no constipation and no diarrhea/loose stools Neurologic: + generalized weakness; no syncope and no headache(s) Psychiatric: + anxiety and + paranoia; no depression, no irritability, no auditory hallucinations and no visual hallucinations Physical Exam Constitutional: WD/WN, vitals as above Neck: trachea midline, no thyromegaly Respiratory: normal respiratory effort, lungs clear to auscultation Cardiovascular: RRR, no murmur, no edema Gastrointestinal (Abdomen): normal bowel sounds, soft, nontender, no hepatosplenomegaly Musculoskeletal: no cyanosis or clubbing, extremities motor strength 5/5 Skin: no rashes, warm and dry Neurologic: patellar DTR's 2+ bilat, sensation intact and PERRL, EOMI, accommodation nl, no face palsy, no dysarthria Psychiatric: A+Ox3, euthymic affect Lymphatic: no cervical or axillary lymphadenopathy Results & Data Results & Data ([facility]) Vital Signs (Past 12 Hours) Vital Signs Temp Pulse Pulse Resp BP BP Pulse Ox 01/15/21 11:43 36.5 C 51 L 20 146/76 H 92 01/15/21 07:46 36.7 C 50 L 20 166/64 H 93 01/15/21 07:31 61 01/15/21 04:20 36.9 C 52 L 18 188/65 H 93 01/15/21 02:06 54 L Laboratory Results Laboratory Results - last 24 hr 01/15/21 01/15/21 06:23 06:23 PT 18.7 H INR 1.9 H Sodium 142 Potassium 4.4 D Chloride 110 H Carbon Dioxide 27 Anion Gap 5.0 BUN 26 H Creatinine 0.88 Est Cr Clr Drug Dosing 45.5 Est GFR ( Amer) 69.0 Est GFR (Non-Af Amer) 59.5 BUN/Creatinine Ratio 29.2 H Glucose 75 Calcium 9.0 Magnesium 2.5 H Medications Administered Current Inpatient Medications Acetaminophen (Acetaminophen 500 Mg Tab) 1,000 mg PO Q8 [facility] Stop: 02/11/21 13:59 Last Admin: 01/15/21 20:00 Dose: 1,000 mg Documented by: Albuterol (Albuterol Hfa 8 Gm Inhaler) 2 puffs INH Q6R PRN PRN Reason: Shortness Of Breath Or Wheezing Stop: 02/12/21 18:49 Atorvastatin Calcium (Atorvastatin 20 Mg Tab) 20 mg PO [facility] Stop: 02/14/21 08:59 Last Admin: 01/15/21 08:48 Dose: 20 mg Documented by: Diclofenac Sodium (Diclofenac Sod 1% Gel 100 Gm Tube) 2 gm EXT QID [facility] Stop: 02/13/21 16:59 Last Admin: 01/15/21 19:56 Dose: 2 gm Documented by: Docusate Sodium (Docusate Sodium 100 Mg Cap) 100 mg PO BID PRN PRN Reason: constipation Stop: 02/12/21 20:59 Hydralazine HCl (Hydralazine Hcl 20 Mg/Ml Vial) 10 mg IV Q8 PRN PRN Reason: Blood Pressure - High Stop: 02/11/21 13:51 Last Admin: 01/14/21 06:13 Dose: 10 mg Documented by: Hydrocortisone (Hydrocortisone 10 Mg Tab) 15 mg PO [facility] Stop: 02/13/21 08:59 Last Admin: 01/15/21 08:46 Dose: 15 mg Documented by: Hydrocortisone (Hydrocortisone 10 Mg Tab) 5 mg PO DAILY@1500 [facility] Stop: 02/12/21 16:59 Last Admin: 01/15/21 17:00 Dose: 5 mg Documented by: Levothyroxine Sodium (Levothyroxine Sodium 125 Mcg Tablet) 125 mcg PO DAILYBB [facility] Stop: 02/13/21 06:29 Last Admin: 01/15/21 06:14 Dose: 125 mcg Documented by: Lidocaine (Lidocaine 5% 1 Patch) 1 patch TD [facility]; Protocol Stop: 02/12/21 08:59 Last Admin: 01/15/21 08:44 Dose: 1 patch Documented by: Metoprolol Succinate (Metoprolol Succ 25mg Ext Rel Tab) 25 mg PO DAILY [facility] Stop: 02/14/21 08:59 Last Admin: 01/15/21 08:44 Dose: 25 mg Documented by: Miscellaneous (Remove Lidoderm Patch) 1 ea N/A [facility] Stop: 02/11/21 20:59 Last Admin: 01/15/21 19:56 Dose: 1 ea Documented by: Ondansetron HCl (Ondansetron Inj 2 Mg/Ml 2 Ml Vial) 4 mg IV Q6H PRN PRN Reason: Nausea Stop: 02/11/21 13:51 Last Admin: 01/14/21 06:04 Dose: 4 mg Documented by: Oxycodone HCl (Oxycodone Hcl Ir 5 Mg Tab (Immediate Release)) 2.5 mg PO BID PRN PRN Reason: Moderate Pain Stop: 01/26/21 13:51 Pantoprazole Sodium (Pantoprazole 40 Mg Tab) 40 mg PO Q2D@0900 [facility]; Protocol Stop: 02/13/21 08:59 Last Admin: 01/14/21 07:49 Dose: 40 mg Documented by: Quetiapine Fumarate (Quetiapine Fumarate 25 Mg Tablet) 25 mg PO [facility] Stop: 02/14/21 20:59 Last Admin: 01/15/21 19:57 Dose: 25 mg Documented by: Sennosides (Senna 8.6 Mg Tab) 8.6 mg PO HS PRN PRN Reason: constipation Stop: 02/11/21 20:59 Sertraline HCl (Sertraline Hcl 50 Mg Tablet) 25 mg PO DAILY [facility] Stop: 02/12/21 08:59 Last Admin: 01/15/21 08:44 Dose: 25 mg Documented by: Spironolactone (Spironolactone 25 Mg Tab) 25 mg PO [facility] Stop: 02/13/21 08:59 Last Admin: 01/15/21 08:44 Dose: 25 mg Documented by: Vitamin D (Cholecalciferol 1,000 Units 25 Mcg Tab) [facility] Stop: 02/12/21 08:59 Last Admin: 01/15/21 08:46 Dose: 1,000 units Documented by: Warfarin Sodium (Warfarin Sod 2 Mg Tab) 2 mg PO [facility] Stop: 02/11/21 20:59 Last Admin: 01/15/21 19:56 Dose: 2 mg Documented by: PG Care Time/CCT Total # of Minutes Spent Total Time Spent: 40 Total Time Spent with Patient: Total time spent is greater than 50% in coordination of care (as documented) at patient's floor/unit and/or counseling patient: 30 minutes on initial visit with and her son at the bedside went back later, spoke for 10 minutes with daughter at the bedside, answered all questions Coding Level of Care Code 50775 Subseq Hosp Care Lvl 3 Diagnoses Syncope R55 Acute encephalopathy G93.40 Closed compression fracture of L1 vertebra S32.010A Elevated troponin R77.8 Abnormal ECG R94.31 Hypokalemia E87.6 HTN (hypertension), benign I10 Adrenal insufficiency E27.40 Depression F32.9 Hypothyroidism E03.9 GERD without esophagitis K21.9 Chronic diastolic CHF (congestive heart failure) I50.32 Chronic anticoagulation Z79.01 Pulmonary hypertension I27.20 DVT prophylaxis Z29.9
--- NOTE | 2021-01-15 13:26 | Electrocardiogram Report ---
Test Reason : Blood Pressure : / mmHG Vent. Rate : 062 BPM Atrial Rate : 062 BPM P-R Int : 164 ms QRS Dur : 080 ms QT Int : 462 ms P-R-T Axes : 016 042 059 degrees QTc Int : 468 ms Normal sinus rhythm with sinus arrhythmia Abnormal ECG When compared with ECG of 12-JAN-2021 09:49, Inverted T waves have replaced nonspecific T wave abnormality in Lateral leads Confirmed by Bo Bowen ([id number]) on 01/15/2021 1:26:22 PM Referred By: REFERRED SELF Confirmed By:Bo Bowen
--- NOTE | 2021-01-15 13:30 | Electrocardiogram Report ---
Test Reason : Blood Pressure : / mmHG Vent. Rate : 066 BPM Atrial Rate : 066 BPM P-R Int : 142 ms QRS Dur : 090 ms QT Int : 406 ms P-R-T Axes : 019 038 090 degrees QTc Int : 425 ms Normal sinus rhythm T wave abnormality, consider anterolateral ischemia Abnormal ECG When compared with ECG of 14-JAN-2021 06:03, Premature atrial complexes are no longer Present Nonspecific T wave abnormality has replaced inverted T waves in Inferior leads Confirmed by Bo Bowen ([id number]) on 01/15/2021 1:29:41 PM Referred By: REFERRED SELF Confirmed By:Bo Bowen
[2021-01-15] MEDS: WARFARIN SOD 2 MG TAB PO SCH (19:56)
[2021-01-15] MEDS: QUEtiapine FUMARATE 25 MG TABLET PO SCH (19:57)
[2021-01-16] MEDS: hydrALAZINE HCL 20 MG/ML VIAL IV PRN (03:31)
[2021-01-16] MEDS: ACETAMINOPHEN 500 MG TAB PO SCH ×3 (05:11→22:05)
[2021-01-16] MEDS: LEVOTHYROXINE SODIUM 125 MCG TABLET PO SCH (05:11)
[2021-01-16 06:04] LABS: Hematocrit (blood only) 40.7 % (37-47); Hemoglobin 13.5 g/dL (12.0-16.0); Mean Corpuscular Hemoglobin 33.1 pg (25-34); Mean Corpuscular Hgb Conc 33.2 g/dL (32-36); Mean Corpuscular Volume 99.8 fL (80-100); Platelet Count 228 K/uL (130-400); RDW Coefficient of Variation 14.2 % (11.5-14.5); RDW Standard Deviation 52.2 fL (36.4-46.3); Red Blood Count 4.08 M/uL (4.2-5.4); White Blood Count 7.32 K/uL (4.8-10.8)
[2021-01-16 06:29] LABS: BUN Creatinine Ratio 34.1 (10-20); Calcium 8.6 mg/dl (8.5-10.1); Creatinine Clr Calc Pharmacy 56.1 ml/min; Est GFR (African American) 87.9 ml/min; Est GFR (Non-African American) 75.8 ml/min; Potassium 4.2 mmol/L (3.5-5.1)
[2021-01-16] MEDS: ATORVASTATIN 20 MG TAB PO SCH (08:05)
[2021-01-16] MEDS: DICLOFENAC SOD 1% GEL 100 GM TUBE EXT SCH ×4 (08:05→20:28)
[2021-01-16] MEDS: CHOLECALCIFEROL 1,000 UNITS 25 MCG TAB PO SCH (08:05)
[2021-01-16] MEDS: LIDOCAINE 5% 1 PATCH TD SCH (08:06)
[2021-01-16] MEDS: HYDROCORTISONE 10 MG TAB PO SCH ×2 (08:06→14:42)
[2021-01-16] MEDS: PANTOprazole 40 MG TAB PO SCH (08:07)
[2021-01-16] MEDS: METOPROLOL SUCC 25MG EXT REL TAB PO SCH (08:07)
[2021-01-16] MEDS: SERTRALINE HCL 50 MG TABLET PO SCH (08:07)
[2021-01-16] MEDS: SPIRONOLACTONE 25 MG TAB PO SCH (08:08)
--- NOTE | 2021-01-16 14:00 | Heart Failure Progress Note ---
Date of Service January 16, 2021 Assessment & Plan (1) Syncope: (2) Abnormal ECG: (3) Calcification of coronary artery: (4) Chronic diastolic CHF (congestive heart failure): (5) Elevated troponin: (6) Bradycardia: (7) Hypertension: ASSESSMENT/PLAN: 1. Syncope: Etiology not certain. She was mildly bradycardic on presentation. Heart rate low-normal today but metoprolol was held this am due to parameters. Would consider discontinuing. Cannot exclude vagal etiology as she has been hav ing issues with significant back pain and according to records, constipation followed by loose bowel movements. Continue telemetry. Recommend carotid duplex. Recommend further investigation for stroke. Also, she had been taking diuretic on a more regular basis and may have been a bit dehydrated and may have had transient hypotension from vasodilation from a warm shower. 2. Abnormal ECG: Diffuse T-wave inversions have developed throughout this hospital stay. She has not reported any symptoms concerning for angina. LV systolic function is hyperdynamic without new wall motion abnormalities. Consider [employer] etiology. Consider brain MRI to evaluate for stroke. 3. Chronic diastolic CHF: She appears euvolemic. Symptoms are stable. Weight is below her typical baseline. On spironolactone. Loop diuretic was discontinued on 01/10/2021. She was instructed to take Lasix on an as-needed basis on previous discharge but had been taking it daily for a few days before being seen in the Heart failure program. Low-sodium diet. I&Os while hospitalized. 4. Elevated troponin: Could be due to underlying ischemic heart disease as she does have dense coronary artery calcifications. She has not presented with acute coronary syndrome but has been hypertensive which could cause some degree of demand ischemia. Also would recommend evaluation for stroke given ECG changes, syncope, and reported garbled speech prior to presentation. There is no indication for urgent cardiac catheterization. 5. Calcification of coronary arteries: Risk factor modification. No angina. Not on aspirin as she is on anticoagulation for prior PE. She is on beta- jackelin which can be continued if tolerated. Optimize blood pressure control. LDL has been well controlled but consider statin therapy. 6. Bradycardia: Heart rate currently normal. She was mildly bradycardic on presentation. Beta-jackelin was held today due to parameters. If heart rate remains acceptable, can continue beta-jackelin. If she becomes bradycardic, would consider discontinuation of beta-jackelin especially since she presented with syncope. 7. Hypertension: Most recent blood pressure much more reasonable. Titrate medi cations as appropriate. Disposition: Patient care and recommendations were discussed with Dr. Cohen of the primary hospitalist service. Plan to follow up with heart failure program within 7 days to assess her volume status- 01/29/21 at 3:30. Admission and Anticipated Discharge Date Admission Date: January 12, 2021 Subjective Patient reports she's feeling well this am. She is anxious to go home. She feels that her breathing is at baseline. She is tolerating room air. Fluid balance is net neutral for admission. Weight is below baseline. She denies chest pain, palpitations, presyncope, or syncope. She denies orthopnea/PND. Physical Exam Physical Exam: Gen.: No acute distress. Somnolent but easily arousable with verbal stimuli. HEENT: Anicteric sclera. Neck: No JVD. No bruits. Normal carotid upstrokes bilaterally. Cardiac: PMI was nonpalpable. No ventricular heave. Regular. Normal S1-S2. No murmurs, rubs, or gallops. Pulmonary: Clear to auscultation bilaterally without wheezes, rales, or rhonchi. Abdomen: Soft, nontender, nondistended, with normoactive bowel sounds. No bruits noted. Extremities: 2+ radial pulses bilaterally. 2+ posterior tibialis pulses bilaterally. No significant pitting edema or cyanosis. Results & Data ([facility]) Vital Signs (Past 12 Hours) Vital Signs Temp Pulse Pulse Pulse Resp BP BP 01/16/21 12:00 97.9 F 54 L 18 153/60 H 01/16/21 07:38 45 L 01/16/21 07:30 98.2 F 52 L 18 163/62 H 01/16/21 04:26 53 L 157/75 H 01/16/21 03:39 98.2 F 51 L 18 191/68 H Pulse Ox 01/16/21 12:00 95 01/16/21 07:38 01/16/21 07:30 93 01/16/21 04:26 01/16/21 03:39 94 PG Care Time/CCT Total # of Minutes Spent Total Time Spent with Patient: Total time spent is greater than 50% in coor dination of care (as documented) at patient's floor/unit and/or counseling patient: Coding Level of Care Code 97847 Subseq Hosp Care Lvl 3 Diagnoses Syncope R55 Syncope type: unspecified Abnormal ECG R94.31 Calcification of coronary artery I25.10; I25.84 Chronic diastolic CHF (congestive heart failure) I50.32 Elevated troponin R77.8 Bradycardia R00.1 Hypertension I10 (1) Syncope Syncope type: unspecified Qualified Code(s): R55 - Syncope and collapse
[2021-01-16] MEDS: QUEtiapine FUMARATE 25 MG TABLET PO SCH (20:31)
[2021-01-16] MEDS: WARFARIN SOD 2 MG TAB PO SCH (20:33)
[2021-01-16] MEDS ORDERED: oxyCODONE HCL IR 5 MG TAB (IMMEDIATE RELEASE) PO PRN (21:28)
--- NOTE | 2021-01-16 22:39 | Hospitalist Progress Note ---
Date of Service January 16, 2021 Assessment & Plan (1) Syncope: Patient presented with syncope after getting out of the shower and turning her head to the right as per the son. He reports she then was staring straight ahead but not recognizing him and her body became limp. She then was repeating the rosary before she finally woke up and was responding. She had relative sinus bradycardia in the emergency department with sustained blood pressures Likely vasovagal as has been constipated from taking opioids but then started taking tramadol and now with loose stools from opioid withdrawal -likely vasovagal from GI issues Was also taking daily Lasix and may have been hypovolemic with some vasodilatation after getting out of shower Could also be adrenal insufficiency as she frequently doesn't take her afternoon HC until evening, however her blood pressures were normal to elevated upon a dmission Also with the history of turning her head to the right and then dropping could be indicative of carotid artery stenosis Reportedly she is having some challenges at home caring for herself according to the family since her fall on Mother's Day which resulted in an L1 compression fracture and severe pain Regarding her bradycardia -checked a TSH and Lyme and normal Held metoprolol but now becoming hypertensive and with changes in EKG and elevated troponin as below-restart Toprol-XL 25 mg daily and follow heart rates ECG with TWIs anterior leads, trop neg at 0.039 on admission Repeat EKG on 01/14 with more significant T wave inversions throughout anterolateral leads and troponin increased to 0.16 Patient remains chest pain-free and telemetry with sinus rhythm with normal rates in the 60s to 70s ECHO from 01/05 with preserved EF, no significant valvular issues Repeat limited echo on 01/14 performed for elevated troponin and changing ECG- shows no wall motion abnormalities and preserved EF Appreciate cardiology consultation -Check carotid Doppler - patient refusing to get carotid US today, will try again when more cooperative -Continue telemetry monitoring - no arrhythmias basically unclear why she had syncope, no events while here continue with PT/OT family would like her to go to SNF rehab they have concerns about her memory, early dementia? will try to get her to cooperate with carotid US tomorrow (2) Acute encephalopathy: could be due to opioid use but also she might have early cognitive impairment per family, she has been hiding her issues well but in reality she is getting more forgetful now with delusional thoughts like things on the wall are actually creatures out to get her continue Seroquel 25mg HS to help with delusions, possible hallucinations she is more pleasant today (3) Closed compression fracture of L1 vertebra: Patient CT abdomen pelvis shows slight retropulsion of her fragment of L1 fracture. The patient is on Voltaren gel Lidoderm patch and was recently switched to tramadol from oxycodone for pain control. She also takes Tylenol and it was some concern about possible Tylenol overdose at home. CT scan of abdomen pelvis 01/12 the portion related to her skeletal structures reads "There is a subacute appearing compression fracture of L1 with mild loss of height. Fragments are retropulsed by up to 7 mm. There is mild lumbosacral spondylosis. No lytic or blastic lesions are seen." Patient states her pain is her biggest issue right now is causing her not to eat not to sleep causing her to be depressed pain is uncontrolled however on previously escalating doses of opiates and also tramadol she has had worsening of her mood spirits and functioning. Appreciate orthopedic spine consult-originally planned for kyphoplasty on Friday, however with patient's worsening confusion and ongoing cardiac issues, this is now been postponed -We will go ahead and restart Coumadin as there will be no procedure -Orthopedic surgeon will be out of town from Friday through the rest of the week and so if her condition improves and she still would like a kyphoplasty, this would have to be arranged as an outpatient -Have restarted oxycodone at 2.5 mg p.o. twice daily as needed -Ensure bowel regimen and moving bowels regularly -Orthopedic spine surgeon ordered TLSO brace to try (4) Elevated troponin: As above, troponin trended upward to 0.16 with some changes in EKG Limited echo negative Troponin trended back down to 0.1 on repeat on afternoon of 01/14 Appreciate cardiology consultation-May be secondary to underlying ischemic heart disease but is not acute coronary syndrome. Could be secondary to hypertension and demand ischemia. Recommends MRI of the brain to rule out stroke as stroke can give these EKG changes seen No urgent indication for cardiac catheterization Likely has underlying CAD based on calcification seen on imaging Continue warfarin, and cardiology suggests adding statin-we will add atorvastatin 20 mg daily for tomorrow Continue metoprolol (5) Abnormal ECG: As above, does not seem to be cardiac in nature Checking MRI of the brain for stroke-negative for stroke (6) Hypokalemia: resolved, K is 4.2 today (7) HTN (hypertension), benign: BPs high and now improving after restarting Aldactone which was held previously Also restarting metoprolol: HR in the 50's (8) Adrenal insufficiency: Typically patient is on 10 mg of hydrocortisone in AM and 5mg in PM with an extra 5mg prn stress Was given IV HC stress dose x 3 here BPs stable (9) Depression: previously on low-dose Zoloft 25 mg a day, unclear if still taking this? continue sertraline 25mg daily for now -added Seroquel for rest and to help with delusions (10) Hypothyroidism: TSH here normal -continue Synthroid 125 mcg a day (11) GERD without esophagitis: Patient on omeprazole every other day (12) Chronic diastolic CHF (congestive heart failure): Patient typically on metoprolol and spironolactone. The metoprolol was held due to relative bradycardia but will now be restarted Echocardiogram was performed 01/05/2021 during her last admission within normal ventricular size and function 60 to 65% moderate concentric LVH mild pulmonary hypertension. Follows with CHF clinic and had recent admission for diuresis Was actually stopped on her lasix recently for being hypovolemic follow daily weights, I/Os (13) Chronic anticoagulation: She was admitted May she had an INR of 6 discussion to change to a DOAC was met with resistance for family patient was discharged on lower dose of Coumadin to try to prevent supratherapeutic INR her p.m. pulmonary embolism seems to be diagnosed back in CT scan of June 24, 2002. INR 2.0 continue Coumadin 2 mg daily (14) Pulmonary hypertension: diuresis as needed (15) DVT prophylaxis: Coumadin, add SCDs Dispo-continued stay on med telemetry, will place PT/OT consultations given significant back pain-May need rehab Admission and Anticipated Discharge Date Admission Date: January 12, 2021 Subjective patient very pleasant today, very cooperative she said she could not sleep very well last night her pain in the lower back is a little better today she was able to get therapy today, walked to bathroom and back discussed trying to get carotid US tomorrow, she agreed CBC and BMP stable, no issues on tele monitor, no syncopal events Review of Systems Review of Systems: All systems reviewed & are unremarkable except as noted in Subjective Physical Exam Constitutional: WD/WN, vitals as above Neck: trachea midline, no thyromegaly Respiratory: normal respiratory effort, lungs clear to auscultation Cardiovascular: RRR, no murmur, no edema Gastrointestinal (Abdomen): normal bowel sounds, soft, nontender, no hepatosplenomegaly Musculoskeletal: no cyanosis or clubbing, extremities motor strength 5/5 Skin: no rashes, warm and dry Neurologic: patellar DTR's 2+ bilat, sensation intact and PERRL, EOMI, acco mmodation nl, no face palsy, no dysarthria Psychiatric: A+Ox3, euthymic affect Lymphatic: no cervical or axillary lymphadenopathy Results & Data Results & Data ([facility]) Vital Signs (Past 12 Hours) Vital Signs Temp Pulse Pulse Resp BP BP Pulse Ox 01/16/21 20:07 36.6 C 58 L 18 138/102 H 92 01/16/21 15:00 36.6 C 53 L 18 150/52 H 94 01/16/21 14:55 60 01/16/21 12:00 36.6 C 54 L 18 153/60 H 95 Laboratory Results Laboratory Results - last 24 hr 01/16/21 01/16/21 05:44 05:44 WBC 7.32 RBC 4.08 L Hgb 13.5 Hct 40.7 MCV 99.8 MCH 33.1 MCHC 33.2 RDW Std Deviation 52.2 H RDW Coeff of La 14.2 Plt Count 228 MPV 11.0 H Sodium 142 Potassium 4.2 Chloride 110 H Carbon Dioxide 27 Anion Gap 5.0 BUN 25 H Creatinine 0.72 Est Cr Clr Drug Dosing 56.1 Est GFR ( Amer) 87.9 Est GFR (Non-Af Amer) 75.8 BUN/Creatinine Ratio 34.1 H Glucose 87 Calcium 8.6 Medications Administered Current Inpatient Medications Acetaminophen (Acetaminophen 500 Mg Tab) 1,000 mg PO Q8 [facility] Stop: 02/11/21 13:59 Last Admin: 01/16/21 22:05 Dose: 1,000 mg Documented by: Albuterol (Albuterol Hfa 8 Gm Inhaler) 2 puffs INH Q6R PRN PRN Reason: Shortness Of Breath Or Wheezing Stop: 02/12/21 18:49 Atorvastatin Calcium (Atorvastatin 20 Mg Tab) 20 mg PO [facility] Stop: 02/14/21 08:59 Last Admin: 01/16/21 08:05 Dose: 20 mg Documented by: Diclofenac Sodium (Diclofenac Sod 1% Gel 100 Gm Tube) 2 gm EXT QID [facility] Stop: 02/13/21 16:59 Last Admin: 01/16/21 20:28 Dose: 2 gm Documented by: Docusate Sodium (Docusate Sodium 100 Mg Cap) 100 mg PO BID PRN PRN Reason: constipation Stop: 02/12/21 20:59 Hydralazine HCl (Hydralazine Hcl 20 Mg/Ml Vial) 10 mg IV Q8 PRN PRN Reason: Blood Pressure - High Stop: 02/11/21 13:51 Last Admin: 01/16/21 03:31 Dose: 10 mg Documented by: Hydrocortisone (Hydrocortisone 10 Mg Tab) 15 mg PO [facility] Stop: 02/13/21 08:59 Last Admin: 01/16/21 08:06 Dose: 15 mg Documented by: Hydrocortisone (Hydrocortisone 10 Mg Tab) 5 mg PO DAILY@1500 [facility] Stop: 02/12/21 16:59 Last Admin: 01/16/21 14:42 Dose: 5 mg Documented by: Levothyroxine Sodium ([facility]othyroxine S[facility] 125 Mcg Tablet) [facility]: 02/13/21 06:29 Last Admin: 01/16/21 05:11 Dose: 125 mcg Documented by: Lidocaine (Lidocaine 5% 1 Patch) 1 patch TD [facility]; Protocol Stop: 02/12/21 08:59 Last Admin: 01/16/21 08:06 Dose: 1 patch Documented by: Metoprolol Succinate (Metoprolol Succ 25mg Ext Rel Tab) 25 mg PO DAILY [facility] Stop: 02/14/21 08:59 Last Admin: 01/16/21 08:07 Dose: Not Given Documented by: Miscellaneous (Remove Lidoderm Patch) 1 ea N/A HS [facility] Stop: 02/11/21 20:59 Last Admin: 01/16/21 20:29 Dose: Not Given Documented by: Ondansetron HCl (Ondansetron Inj 2 Mg/Ml 2 Ml Vial) 4 mg IV Q6H PRN PRN Reason: Nausea Stop: 02/11/21 13:51 Last Admin: 01/14/21 06:04 Dose: 4 mg Documented by: Oxycodone HCl (Oxycodone Hcl Ir 5 Mg Tab (Immediate Release)) 2.5 mg PO Q8H PRN PRN Reason: Moderate Pain Stop: 01/28/21 15:31 Last Admin: 01/16/21 22:06 Dose: 2.5 mg Documented by: Pantoprazole Sodium (Pantoprazole 40 Mg Tab) 40 mg PO Q2D@0900 [facility]; Protocol Stop: 02/13/21 08:59 Last Admin: 01/16/21 08:07 Dose: 40 mg Documented by: Quetiapine Fumarate (Quetiapine Fumarate 25 Mg Tablet) 25 mg PO HS [facility] Stop: 02/14/21 20:59 Last Admin: 01/16/21 20:31 Dose: 25 mg Documented by: Sennosides (Senna 8.6 Mg Tab) 8.6 mg PO HS PRN PRN Reason: constipation Stop: 02/11/21 20:59 Sertraline HCl (Sertraline Hcl 50 Mg Tablet) 25 mg PO DAILY [facility] Stop: 02/12/21 08:59 Last Admin: 01/16/21 08:07 Dose: 25 mg Documented by: Spironolactone (Spironolactone 25 Mg Tab) 25 mg PO QAM [facility] Stop: 02/13/21 08:59 Last Admin: 01/16/21 08:08 Dose: 25 mg Documented by: Vitamin D (Cholecalciferol 1,000 Units 25 Mcg Tab) 1,000 units PO QAM [facility] Stop: 02/12/21 08:59 Last Admin: 01/16/21 08:05 Dose: 1,000 units Documented by: Warfarin Sodium (Warfarin Sod 2 Mg Tab) 2 mg PO HS [facility] Stop: 02/11/21 20:59 Last Admin: 01/16/21 20:33 Dose: 2 mg Documented by: PG Care Time/CCT Total # of Minutes Spent Total Time Spent with Patient: Total time spent is greater than 50% in coordination of care (as documented) at patient's floor/unit and/or counseling patient: Coding Level of Care Code 09056 Subseq Hosp Care Lvl 2 Diagnoses Syncope R55 Acute encephalopathy G93.40 Closed compression fracture of L1 vertebra S32.010A Elevated troponin R77.8 Abnormal ECG R94.31 Hypokalemia E87.6 HTN (hypertension), benign I10 Adrenal insufficiency E27.40 Depression F32.9 Hypothyroidism E03.9 GERD without esophagitis K21.9 Chronic diastolic CHF (congestive heart failure) I50.32 Chronic anticoagulation Z79.01 Pulmonary hypertension I27.20 DVT prophylaxis Z29.9
[2021-01-17] MEDS: ACETAMINOPHEN 500 MG TAB PO SCH ×2 (05:04→14:26)
[2021-01-17] MEDS: LEVOTHYROXINE SODIUM 125 MCG TABLET PO SCH (05:04)
[2021-01-17] MEDS: SPIRONOLACTONE 25 MG TAB PO SCH (08:57)
[2021-01-17] MEDS: SERTRALINE HCL 50 MG TABLET PO SCH (08:58)
[2021-01-17] MEDS: HYDROCORTISONE 10 MG TAB PO SCH ×2 (08:58→14:26)
[2021-01-17] MEDS: METOPROLOL SUCC 25MG EXT REL TAB PO SCH (08:58)
[2021-01-17] MEDS: CHOLECALCIFEROL 1,000 UNITS 25 MCG TAB PO SCH (08:59)
[2021-01-17] MEDS: LIDOCAINE 5% 1 PATCH TD SCH (08:59)
[2021-01-17] MEDS: ATORVASTATIN 20 MG TAB PO SCH (08:59)
[2021-01-17] MEDS: DICLOFENAC SOD 1% GEL 100 GM TUBE EXT SCH ×2 (08:59→12:32)
--- NOTE | 2021-01-17 09:55 | Ultrasound Report ---
ULTRASOUND OF THE CAROTID ARTERIES CLINICAL HISTORY: syncope COMPARISON STUDY: None. TECHNIQUE: Real-time, grayscale, and color Doppler sonography of the carotid arteries was performed. Imaging reviewed in the transverse and longitudinal planes. NASCET criteria was utilized for stenosis calcification. FINDINGS: There is mild atherosclerotic plaque present . The peak systolic velocity within the right internal carotid artery is 74 cm/sec. The systolic velocity ratio of right internal to common carotid artery is 1. The peak systolic velocity within the left internal carotid artery is 76 cm/sec. The systolic velocity ratio left internal to common carotid artery is 1. Antegrade flow is seen in the vertebral arteries. The external carotid arteries are patent. IMPRESSION: No evidence of hemodynamically significant carotid stenosis. ACT 112: Negative or not required by law. Electronically signed by: Sabino Sharp M.D. 01/17/2021 9:54 AM
--- NOTE | 2021-01-17 16:11 | Discharge Summary ---
Date of Service January 17, 2021 Admission HPI Per Admitting Provider Patient does presents with daughter at bedside. The patient reportedly had an episode of unresponsiveness after getting into the shower today. The patient had lost consciousness for several seconds and then upon awakening was having some garbled speech. The patient does have a remote history of recent possible Tylenol overdose as the patient's daughter states that her brother had stated that the patient took 10 Tylenol on Friday. Patient believes that she took 6. The patient does have some back pain from recent history of an L1 compression fracture. Patient is not had any fevers or chills. The patient denies any chest pains or shortness of breath. Patient's BSG was normal was bradycardic but not hypotensive. The patient does have some mild abdominal pain as well. No nausea or vomiting. The patient did have a recent bowel movement. No reported dysuria or hematuria. Patient has been taking tramadol after being switched from OxyContin by her primary care physician Dr. Burt with regard to her back discomfort. The daughter states that the patient does live with her but does not believe that they are able to take care of her at this time. Principal Diagnosis Syncope Discharge Exam Constitutional WD/WN, vitals as above Neck trachea midline, no thyromegaly Respiratory normal respiratory effort, lungs clear to auscultation Cardiovascular RRR, no murmur, no edema Gastrointestinal (Abdomen) normal bowel sounds, soft, nontender, no hepatosplenomegaly Musculoskeletal no cyanosis or clubbing, extremities motor strength 5/5 Skin no rashes, warm and dry Neurologic patellar DTR's 2+ bilat, sensation intact and PERRL, EOMI, accommodation nl, no face palsy, no dysarthria Psychiatric A+Ox3, euthymic affect Lymphatic no cervical or axillary lymphadenopathy Discharge Data Allergies Allergy/AdvReac Type Severity Reaction Status Date / Time celecoxib Allergy Unknown MUSCLE Verified 01/12/21 11:44 CRAMPS Sulfa (Sulfonamide Allergy Unknown DIDN'T Verified 01/12/21 11:44 Antibiotics) FEEL WELL Consultations 01/12/21 12:38 ED Decision to Admit Stat 01/12/21 13:52 Consult Orthopedic Surgery Routine 01/14/21 15:00 Consult Cardiology Routine Ordered Studies 01/12/21 10:06 CT abd pelvis IV con only Stat CT head/brain wo con Stat 01/14/21 16:34 MR brain wo/w con Stat 01/17/21 07:58 US carotid doppler BI Routine Hospital Course (1) Syncope: Patient presented with syncope after getting out of the shower and turning her head to the right as per the son. He reports she then was staring straight ahead but not recognizing him and her body became limp. She then was repeating the rosary before she finally woke up and was responding. She had relative sinus bradycardia in the emergency department with sustained blood pressures Likely vasovagal as has been constipated from taking opioids but then started taking tramadol and now with loose stools from opioid withdrawal -likely vasovagal from GI issues Was also taking daily Lasix and may have been hypovolemic with some vasodilatation after getting out of shower Could also be adrenal insufficiency as she frequently doesn't take her afternoon HC until evening, however her blood pressures were normal to elevated upon admission Also with the history of turning her head to the right and then dropping could be indicative of carotid artery stenosis Reportedly she is having some challenges at home caring for herself according to the family since her fall on Mother's Day which resulted in an L1 compression fracture and severe pain Regarding her bradycardia -checked a TSH and Lyme and normal Held metoprolol but now becoming hypertensive and with changes in EKG and elevated troponin as below-restart Toprol-XL 25 mg daily and follow heart rates ECG with TWIs anterior leads, trop neg at 0.039 on admission Repeat EKG on 01/14 with more significant T wave inversions throughout anterolateral leads and troponin increased to 0.16 Patient remains chest pain-free and telemetry with sinus rhythm with normal rates in the 60s to 70s ECHO from 01/05 with preserved EF, no significant valvular issues Repeat limited echo on 01/14 performed for elevated troponin and changing ECG- shows no wall motion abnormalities and preserved EF Appreciate cardiology consultation -Check carotid Doppler - negative for stenosis -Continue telemetry monitoring - no arrhythmias basically unclear why she had syncope, no events while here continue with PT/OT family would like her to go to rehab, accepted to [facility] they have concerns about her memory, early dementia? (2) Acute encephalopathy: could be due to opioid use but also she might have early cognitive impairment per family, she has been hiding her issues well but in reality she is getting more forgetful now with delusional thoughts like things on the wall are actually creatures out to get her continue Seroquel 25mg HS to help with delusions, possible hallucinations she is more pleasant, cooperative (3) Closed compression fracture of L1 vertebra: Patient CT abdomen pelvis shows slight retropulsion of her fragment of L1 fracture. The patient is on Voltaren gel Lidoderm patch and was recently switched to tramadol from oxycodone for pain control. She also takes Tylenol and it was some concern about possible Tylenol overdose at home. CT scan of abdomen pelvis 01/12 the portion related to her skeletal structures reads "There is a subacute appearing compression fracture of L1 with mild loss of height. Fragments are retropulsed by up to 7 mm. There is mild lumbosacral spondylosis. No lytic or blastic lesions are seen." Patient states her pain is her biggest issue right now is causing her not to eat not to sleep causing her to be depressed pain is uncontrolled however on previously escalating doses of opiates and also tramadol she has had worsening of her mood spirits and functioning. Appreciate orthopedic spine consult-originally planned for kyphoplasty on Friday, however with patient's worsening confusion and ongoing cardiac issues, this is now been postponed -We will go ahead and restart Coumadin as there will be no procedure -Orthopedic surgeon will be out of town from Friday through the rest of the week and so if her condition improves and she still would like a kyphoplasty, this would have to be arranged as an outpatient -Have restarted oxycodone at 2.5 mg p.o. twice daily as needed -Ensure bowel regimen and moving bowels regularly -Orthopedic spine surgeon ordered TLSO brace, she won't try (4) Elevated troponin: As above, troponin trended upward to 0.16 with some changes in EKG Limited echo negative Troponin trended back down to 0.1 on repeat on afternoon of 01/14 Appreciate cardiology consultation-May be secondary to underlying ischemic heart disease but is not acute coronary syndrome. Could be secondary to hypertension and demand ischemia. Recommends MRI of the brain to rule out stroke as stroke can give these EKG changes seen No urgent indication for cardiac catheterization Likely has underlying CAD based on calcification seen on imaging Continue warfarin, and cardiology suggests adding statin-we will add atorvastatin 20 mg daily for tomorrow Continue metoprolol (5) Abnormal ECG: As above, does not seem to be cardiac in nature Checking MRI of the brain for stroke- negative for stroke (6) Hypokalemia: resolved, K is 4.2 today (7) HTN (hypertension), benign: BPs high and now improving after restarting Aldactone which was held previously Also restarting metoprolol: HR in the 50's (8) Adrenal insufficiency: Typically patient is on 15 mg of hydrocortisone in AM and 5mg in PM with an extra 5mg prn stress Was given IV HC stress dose x 3 here BPs stable (9) Depression: previously on low-dose Zoloft 25 mg a day, unclear if still taking this? continue sertraline 25mg daily for now -added Seroquel for rest and to help with delusions (10) Hypothyroidism: TSH here normal -continue Synthroid 125 mcg a day (11) GERD without esophagitis: Patient on omeprazole every other day (12) Chronic diastolic CHF (congestive heart failure): Patient typically on metoprolol and spironolactone. The metoprolol was held due to relative bradycardia but will now be restarted Echocardiogram was performed 01/05/2021 during her last admission within normal ventricular size and function 60 to 65% moderate concentric LVH mild pulmonary hypertension. Follows with CHF clinic and had recent admission for diuresis Was actually stopped on her lasix recently for being hypovolemic follow daily weights, I/Os (13) Chronic anticoagulation: She was admitted May she had an INR of 6 discussion to change to a DOAC was met with resistance for family patient was discharged on lower dose of Coumadin to try to prevent supratherapeutic INR her p.m. pulmonary embolism seems to be diagnosed back in CT scan of June 24, 2002. INR 2.0 continue Coumadin 2 mg daily (14) Pulmonary hypertension: diuresis as needed (15) DVT prophylaxis: Coumadin, add SCDs Dispo-continued stay on med telemetry, will place PT/OT consultations given significant back pain-May need rehab Total Time Total Time Spent Total Time Spent (In Minutes): 32 Total Time Includes: Examination of the Patient, Discharge Planning and Medication Reconciliation Discharge Plan Discharge Items Patient Disposition: Transfer Inpatient Rehab Fac Reason For Visit: SYNCOPE,BRADYCARDIA,FUNCTIONAL DECLINE Discharge Diagnosis: Syncope Cognitive impairment Condition on Discharge: Good Goals: improve strength and mobility follow up with PCP, would recommend cognitive testing, concerns for dementia Activity: Resume your previous activity Weightbearing: Full weightbearing Non-emergency contact: Primary Care Provider Call non-emergency contact if: you have any medication questions Follow-up/Referrals: Danielito Burt MD [Primary Care Provider] - (one week after discharge from rehab) Marga Merlos PA-C [Physician [employer]] - 01/29/21 3:30 pm Diet: Regular Addtl Attending Provider Instructions: Medications: - SEROQUEL: 25mg at bedtime, tolerating well, started for delusional thoughts and possible hallucinations, helping her sleep - OXYCODONE: 2.5mg every 8 hours as needed for pain from L1 compression fracture Syncope at home witnessed by her son, true syncope from standing position, did not injure anything full work up without obvious cause MRI brain negative for stroke, tumor, bleed carotid US negative for stenosis no severe valve disease on echo no arrhythmias on monitor, will be bradycardic in 50's but no pauses no signs of infection or renal failure or electrolyte abnormalities could have been medication related with pain medications? no evidence of hypotension with history of adrenal insufficiency Cognitive impairment difficult time in the hospital, having delusional thoughts and possible hallucinations per family, she has been having some issues at home, cognitive decline but hides it well good response to Seroquel at night for the delusions recommend follow up with PCP, mental status evaluation, referral to neurology? Pending Studies at Discharge: No Stand-Alone Forms: My [facility] Skilled Items Patient informed of condition?: Yes DNR: Yes Discharge Level of Care: Acute rehab Communicable Disease: No Discharge Prognosis: Stable Lines: None Urinary Catheter: No Medications and DC Order Prescriptions: New oxycodone 5 mg Tablet 2.5 mg PO Q8H PRN (Reason: pain) 14 Days Qty: 30 RF: 0 quetiapine 25 mg Tablet 25 mg PO HS 30 Days Qty: 30 RF: 3 Continued diclofenac sodium 1 % gel 2 gm topical DAILY Qty: 1 RF: 0 (DME) OneTouch Verio test strips strip See Dose Instructions .ROUTE .MEDSUPPLY Qty: 10 RF: 0 albuterol sulfate 90 mcg/actuation HFA aerosol inhaler 2 puff INHALATION Q6H PRN (Reason: Shortness Of Breath Or Wheezing) Qty: 8.5 RF: 5 cholecalciferol (vitamin D3) [Vitamin D3] 1,000 unit Capsule 1,000 unit PO QAM RF: 0 sennosides [Senokot] 8.6 mg tablet 8.6 mg PO HS Qty: 30 RF: 0 docusate sodium [Colace] 100 mg capsule 100 mg PO BID Qty: 60 RF: 0 lidocaine 4 % adhesive patch,medicated 1 patch topical QAM RF: 0 spironolactone 25 mg tablet 25 mg PO QAM RF: 0 levothyroxine 125 mcg tablet 125 mcg PO DAILYBB RF: 0 metoprolol succinate 25 mg tablet extended release 24 hr 25 mg PO QAM RF: 0 hydrocortisone 10 mg tablet 10 mg PO QAM RF: 0 warfarin 2 mg tablet 2 mg PO HS Qty: 30 RF: 0 omeprazole 20 mg Capsule,Delayed Release(Dr/Ec) 20 mg PO Q OTHER DAY RF: 0 hydrocortisone 5 mg tablet 5 mg PO BID RF: 0 sertraline 25 mg tablet 25 mg PO QAM RF: 0 Discontinued tramadol-acetaminophen [Ultracet] 37.5-325 mg tablet 1 tab PO Q6H PRN (Reason: pain) Qty: 30 RF: 0 Discharge Orders: Discharge Order (Routine); Ordered 01/17/21 Ordered By: Fidel Cohen Admission Data Admit Date/Time: 01/12/21 12:52 Attending Provider: Fidel Cohen Admit Provider: Noel Wolf Primary Care Provider: Danielito Burt Other Providers: Noel Wolf ; Narinder Alfonso Alexander W. ; [facility] Other Interventions: Discharge Summary Assessment (RN) Last Done: 01/17/21 15:53 Coding Level of Care Code D/C Day Management >30 mins Diagnoses Syncope R55 Acute encephalopathy G93.40 Closed compression fracture of L1 vertebra S32.010A Elevated troponin R77.8 Abnormal ECG R94.31 Hypokalemia E87.6 HTN (hypertension), benign I10 Adrenal insufficiency E27.40 Depression F32.9 Hypothyroidism E03.9 GERD without esophagitis K21.9 Chronic diastolic CHF (congestive heart failure) I50.32 Chronic anticoagulation Z79.01 Pulmonary hypertension I27.20 DVT prophylaxis Z29.9
[2021-01-18] MEDS ORDERED: HYDROCORTISONE 10 MG TAB PO SCH (09:00)
== END 2021-01-17 16:48 | DRG 312 ==
LOC: ED 09:44 → 2S 12:52 → SUATTDRO 12:52 → 2S 13:14 → 2N 01-13 16:48

== ENCOUNTER 2021-03-12 20:06 | Inpatient (IN) ==
[2021-03-12] MEDS ORDERED: ACETAMINOPHEN 325 MG TAB PO STA (22:19)
[2021-03-12] MEDS ORDERED: MoRPHine SULFATE 4 MG/ML 1 ML CARP\\VIAL IV STA (22:19)
--- NOTE | 2021-03-12 22:23 | Emergency Department Note ---
Impression & Plan Closed sacral fracture, prison (current) use of anticoagulants, Fracture of ilium, Hematoma ED Provider Note NAME: ELISEO GILES AGE: 85 SEX: F : 1935 ARRIVES VIA: Ambulance INFORMANT: Patient ED PROVIDER(S): Rex Baker DO CHIEF COMPLAINT: Left gluteus and hip pain HPI: Patient is a 85-year-old female who presents to the ER for lower back pain as well as left gluteus and hip pain. This started just prior to arrival. Patient tripped and fell while turning. Denies any head or neck pain. Did not hit head or neck. Denies any chest pain, shortness of breath, nausea, vomiting, or diarrhea. No weakness or numbness. Complains of 10 out of 10 pain. She takes Coumadin for previous PEs. Has not had a PE in over a year. No other exacerbating or remitting factors. No tingling numbness or weakness in the legs. She notes that several months ago she did have an L1 compression fracture. Pain is not in the same location. ROS: See above HPI for pertinent positives & negatives. A total of 10 systems reviewed and were otherwise negative. PAST MEDICAL HISTORY:See Below PAST SURGICAL HISTORY:See Below FAMILY HISTORY:See Below SOCIAL HISTORY:See Below HOME MEDICATIONS:See Below ALLERGIES:See Below VITALS:See Below PHYSICAL EXAMINATION: GENERAL: Sitting up in bed, alert, moderate distress holding sacrum laying on right side HEAD: NC/AT EYE EXAM: normal conjunctiva OROPHARYNX: no exudate, no erythema, lips, buccal mucosa, and tongue normal and mucous membranes are moist NECK: supple, no nuchal rigidity, no adenopathy, non-tender LUNGS: Clear to auscultation. Normal chest wall mechanics HEART: no murmurs, S1 normal and S2 normal ABDOMEN: abdomen soft, non-tender, normo-active bowel sounds, no masses, no rebound or guarding. BACK: Back is symmetrical on inspection and there is no deformity, no midline tenderness, no CVA tenderness. SKIN: no rashes and no bruising UPPER EXTREMITIES: upper extremities are grossly normal. LOWER EXTREMITIES: Tenderness over the left femoral head tracking up to the gluteus NEURO EXAM: Normal sensorium, cranial nerves II-XII grossly intact, normal speech, no gross weakness of arms, no gross weakness of legs. MEDICAL DECISION MAKING: Patient is an 85-year-old female who presents the ER for lower sacral pain tracking into the left gluteus/hip. IV was established blood work was obtained. Labs show a leukocytosis of 13,000. Do favor secondary to the trauma. Hemoglobin is 13 consistent with previous. INR was subtherapeutic at 1.5. BMP with slightly elevated chloride at 110. LFTs bilirubin was unremarkable. Covid was negative. CT of the lumbar spine was initially performed and showed fracture of the left sacral alae which extends across the SI joint into the iliac bone and nondisplaced fracture of the right sacral jennifer. There is a small amount of blood products in the pelvis. Following this a CT abdomen pelvis was performed which showed bilateral nondisplaced sacral fractures and a mild presacral hematoma left greater than right. C1 compression fracture is chronic. No acute extract. Patient was given IV vitamin K. Did discuss with o rthopedics on-call Dr. Bharat Morillo notes that this is nonoperative. Discussed with Roman Richards for further evaluation. Patient has followed with Dr. Alfonso before as well from orthopedic spine. Triage Nursing notes reviewed. Limited review of prior medical records performed Vital Signs: reviewed and remarkable for HTN Differential diagnosis: Differential diagnoses include major intracranial, cervical, spinal, thoracic, abdominal, pelvic and neurologic injury. Fracture, contusion, sprain, strain, laceration, abrasions included as well. ER treatment provided: See below Diagnostics interpreted by me: ECG: none Cardiac Monitoring: An order was placed for continuous cardiac monitoring. The monitor shows a rate of 62 with sinus rhythm. Laboratory studies: As stated above and show below. Imaging studies: CTs as discussed above Consultation(s): Discussed with Dr. Bharat Morillo as discussed above Discussed with Roman Richards for further evaluation Procedures: none Critical Care: None Past Med/Surg History Medical History Adrenal insufficiency Arthritis of knee Bilateral sensorineural hearing loss Chronic diastolic CHF (congestive heart failure) Diverticulosis GERD without esophagitis HTN (hypertension), benign Hyperglycemia Hypothyroidism Mixed hyperlipidemia Osteopenia Pulmonary embolism Reactive airway disease Seasonal allergies SNHL (sensorineural hearing loss) Syncope Surgical History History of cholecystectomy History of hernia repair Family History Unknown Cancer Cardiac disorder FHx: deafness or hearing loss Mother Cardiac disorder Hypertension Other Family history non-contributory Hearing loss No family history of adverse response to anesthesia No family history of bleeding disorder Social History Smoking Status: Former smoker Tobacco Type: Cigarettes Age Started Using Tobacco: 28; Age Quit Using Tobacco: 44; Second Hand Exposure: No; Hx Alcohol Use: No Hx Substance Use: No Preferred Language: Turkmen Communication Ability: Effective Registered Pharmacist Required: No Beliefs That Will Affect Care: None marital status: Current Living Situation: Spouse current occupational status: retired Feels Safe at Home: Yes Childhood Exposure to Second-Hand Smoke: No Assistive Devices: Walker Allergies Allergies Allergy/AdvReac Type Severity Reaction Status Date / Time celecoxib Allergy Unknown MUSCLE Verified 03/12/21 22:23 CRAMPS Sulfa (Sulfonamide Allergy Unknown DIDN'T Verified 03/12/21 22:23 Antibiotics) FEEL WELL Home Meds Home Medications Medication Instructions Recorded Confirmed cholecalciferol (vitamin D3) 25 1,000 unit PO QAM 07/08/18 03/12/21 mcg (1,000 unit) capsule (Vitamin D3) blood sugar diagnostic (OneTouch #10 ea 03/22/19 02/22/21 Verio test strips) diclofenac sodium 1 % topical gel 2 gm TOPICAL DAILY #1 gm 03/22/19 03/12/21 levothyroxine 125 mcg tablet 125 mcg PO DAILYBB 01/05/21 03/12/21 sertraline 25 mg tablet 25 mg PO QAM 01/13/21 03/12/21 acetaminophen 500 mg tablet 500 mg PO Q6H PRN 02/01/21 03/12/21 (Tylenol Extra Strength) calcium carbonate 300 mg (750 mg) 300 mg PO BID PRN 02/01/21 03/12/21 chewable tablet (Tums Extra Strength Smoothies) metoprolol succinate 25 mg 12.5 mg PO QAM tab 02/01/21 03/12/21 tablet,extended release 24 hr omeprazole 20 mg capsule,delayed 40 mg PO Q OTHER DAY cap 02/01/21 03/12/21 release hydrocortisone 10 mg tablet 15 mg PO QAM tab 02/08/21 03/12/21 hydrocortisone 5 mg tablet 5 mg PO HS tab 02/08/21 03/12/21 propylene glycol [Systane Complete] 1 drp OPHTHALMIC (EYE) DAILY 02/08/21 03/12/21 Previous Rx's Medication Instructions Recorded albuterol sulfate 90 mcg/actuation 2 puff INHALATION Q6H PRN #8.5 gm 06/02/20 aerosol inhaler docusate sodium 100 mg capsule 100 mg PO BID #60 cap 01/03/21 (Colace) sennosides 8.6 mg tablet (Senokot) 8.6 mg PO HS #30 tab 01/03/21 atorvastatin 20 mg tablet 20 mg PO DAILY #30 tab 02/01/21 bacitracin-polymyxin B 500 0.25 inch OPHTHALMIC (EYE) 6XD 02/08/21 unit-10,000 unit/gram eye ointment #3.5 g oxycodone 5 mg tablet 2.5 mg PO DAILY PRN #30 tab 02/26/21 spironolactone 25 mg tablet 25 mg PO QAM #90 tab 03/12/21 warfarin 2 mg tablet 2 mg PO HS #90 tab 03/12/21 Results & Data (ED) Vital Signs Vital Signs - 24 hr 03/12/21 20:28 03/12/21 23:00 03/12/21 23:17 Temperature 36.4 C L Temperature Source Temporal Artery Scan Pulse Rate [Right Finger] 54 L Respiratory Rate 16 16 Respiratory Depth Normal Normal Blood Pressure 160/59 H Blood Pressure [Left Arm] 160/52 H Blood Pressure Mean 92 Blood Pressure Mean [Left Arm] 88 Blood Pressure Position Lying Blood Pressure Position [Left Arm] Lying Pulse Oximetry 95 98 Oxygen Delivery Method Room Air Room Air Sepsis Recent Fever Within 48 Hours No Sepsis New/Unexplained Change in Mental Status No Sepsis Action Taken by Nursing No Action Required 03/13/21 00:43 Temperature Temperature Source Pulse Rate [Right Finger] 64 Respiratory Rate 16 Respiratory Depth Normal Blood Pressure Blood Pressure [Left Arm] 143/59 H Blood Pressure Mean Blood Pressure Mean [Left Arm] 87 Blood Pressure Position Blood Pressure Position [Left Arm] Lying Pulse Oximetry 95 Oxygen Delivery Method Room Air Sepsis Recent Fever Within 48 Hours Sepsis New/Unexplained Change in Mental Status Sepsis Action Taken by Nursing Laboratory Data Result diagrams: 03/12/21 23:21 03/13/21 00:22 Lab Results 03/12/21 03/12/21 03/12/21 Range/Units 23:21 23:21 23:21 WBC 13.84 H (4.8-10.8) K/uL RBC 4.01 L (4.2-5.4) M/uL Hgb 13.0 (12.0-16.0) g/dL Hct 39.8 (37-47) % MCV 99.3 (80-100) fL MCH 32.4 (25-34) pg MCHC 32.7 (32-36) g/dL RDW Std Deviation 51.0 H (36.4-46.3) fL RDW Coeff of [place] 14.1 (11.5-14.5) % Plt Count 133 (130-400) K/uL MPV 11.5 H (7.4-10.4) fL Immature Gran % (Auto) 0.9 % Neut % (Auto) 73.4 % Lymph % (Auto) 20.4 % [place] % (Auto) 4.8 % Eos % (Auto) 0.4 % Baso % (Auto) 0.1 % Neut # (Auto) 10.15 H (1.4-6.5) K/uL Lymph # (Auto) 2.83 (1.2-3.4) K/uL [place] # (Auto) 0.66 H (0.11-0.59) K/uL Eos # (Auto) 0.06 (0-0.5) K/uL Baso # (Auto) 0.02 (0-0.2) K/uL Immature Gran # (Auto) 0.12 H (0.00-0.02) K/uL PT 15.0 H (9.0-12.0) Seconds INR 1.5 H (0.9-1.1) Sodium 142 (136-145) mmol/L Potassium (3.5-5.1) mmol/L Chloride 110 H (98-107) mmol/L Carbon Dioxide 28 (21-32) mmol/L Anion Gap 4.0 (3-11) BUN 22 H (7-18) mg/dl Creatinine 0.83 (0.6-1.2) mg/dl Est Cr Clr Drug Dosing Not Reportable Est GFR ( Amer) 74.0 ml/min Est GFR (Non-Af Amer) 63.9 ml/min BUN/Creatinine Ratio 26.4 H (10-20) Glucose 80 (70-99) mg/dl Calcium 9.0 (8.5-10.1) mg/dl Total Bilirubin 0.7 (0.2-1) mg/dl AST (15-37) U/L ALT 26 (12-78) U/L Alkaline Phosphatase 62 (45-117) U/L Total Protein 5.8 L (6.4-8.2) gm/dl Albumin 3.0 L (3.4-5.0) gm/dl Globulin 2.8 (2.5-4.0) gm/dl Albumin/Globulin Ratio 1.1 (0.9-2) COVID-19 Eval Order SARS-CoV-2 (PCR) (Negative) 03/12/21 03/12/21 03/13/21 Range/Units 23:55 23:55 00:22 WBC (4.8-10.8) K/uL RBC (4.2-5.4) M/uL Hgb (12.0-16.0) g/dL Hct (37-47) % MCV (80-100) fL MCH (25-34) pg MCHC (32-36) g/dL RDW Std Deviation (36.4-46.3) fL RDW Coeff of [place] (11.5-14.5) % Plt Count (130-400) K/uL MPV (7.4-10.4) fL Immature Gran % (Auto) % Neut % (Auto) % Lymph % (Auto) % [place] % (Auto) % Eos % (Auto) % Baso % (Auto) % Neut # (Auto) (1.4-6.5) K/uL Lymph # (Auto) (1.2-3.4) K/uL [place] # (Auto) (0.11-0.59) K/uL Eos # (Auto) (0-0.5) K/uL Baso # (Auto) (0-0.2) K/uL Immature Gran # (Auto) (0.00-0.02) K/uL PT (9.0-12.0) Seconds INR (0.9-1.1) Sodium (136-145) mmol/L Potassium 4.0 (3.5-5.1) mmol/L Chloride (98-107) mmol/L Carbon Dioxide (21-32) mmol/L Anion Gap (3-11) BUN (7-18) mg/dl Creatinine (0.6-1.2) mg/dl Est Cr Clr Drug Dosing Est GFR ( Amer) ml/min Est GFR (Non-Af Amer) ml/min BUN/Creatinine Ratio (10-20) Glucose (70-99) mg/dl Calcium (8.5-10.1) mg/dl Total Bilirubin (0.2-1) mg/dl AST 113 H (15-37) U/L ALT (12-78) U/L Alkaline Phosphatase (45-117) U/L Total Protein (6.4-8.2) gm/dl Albumin (3.4-5.0) gm/dl Globulin (2.5-4.0) gm/dl Albumin/Globulin Ratio (0.9-2) COVID-19 Eval Order Covid19 at [facility] SARS-CoV-2 (PCR) NEGATIVE (Negative) Administered Medications Discontinued Medications Acetaminophen (Acetaminophen 325 Mg Tab) 650 mg PO NOW STA Stop: 03/12/21 22:20 Last Admin: 03/12/21 22:47 Dose: 650 mg Documented by: [id number] Ioversol (Optiray 320 100ml) 100 ml IV ONCE ONE Stop: 03/13/21 00:16 Last Admin: 03/13/21 00:15 Dose: 93 ml Documented by: [id number] Morphine Sulfate (Morphine Sulfate 4 Mg/Ml 1 Ml Carp\Vial) 4 mg IV NOW STA Stop: 03/12/21 22:20 Last Admin: 03/12/21 22:47 Dose: 4 mg Documented by: [id number] Discharge Plan Visit Data Chief Complaint: Fall Stated Complaint: FALL/TAILBONE PAIN ED Provider: Rex Baker Discharge Problem: Closed sacral fracture, 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, Fracture of ilium, Hematoma Forms Stand Alone Forms: [email or web address] Prescriptions Prescriptions: No Action oxycodone 5 mg tablet 2.5 mg PO DAILY PRN (Reason: pain) Qty: 30 RF: 0 spironolactone 25 mg tablet 25 mg PO QAM Qty: 90 RF: 1 warfarin 2 mg tablet 2 mg PO HS Qty: 90 RF: 1 diclofenac sodium 1 % gel 2 gm topical DAILY Qty: 1 RF: 0 (DME) OneTouch Verio test strips strip See Dose Instructions .ROUTE .MEDSUPPLY Qty: 10 RF: 0 bacitracin-polymyxin B 500-10,000 unit/gram ointment 0.25 inch ophthalmic (eye) 6XD Qty: 3.5 RF: 0 propylene glycol 1 drp ophthalmic (eye) DAILY RF: 0 calcium carbonate [Tums Extra Strength Smoothies] 300 mg (750 mg) tablet,chewable 300 mg PO BID PRN (Reason: Indigestion) RF: 0 acetaminophen [Tylenol Extra Strength] 500 mg tablet 500 mg PO Q6H PRN (Reason: Pain) RF: 0 atorvastatin 20 mg tablet 20 mg PO DAILY Qty: 30 RF: 2 metoprolol succinate 25 mg tablet extended release 24 hr 12.5 mg PO QAM RF: 0 albuterol sulfate 90 mcg/actuation HFA aerosol inhaler 2 puff INHALATION Q6H PRN (Reason: Shortness Of Breath Or Wheezing) Qty: 8.5 RF: 5 cholecalciferol (vitamin D3) [Vitamin D3] 1,000 unit Capsule 1,000 unit PO QAM RF: 0 sennosides [Senokot] 8.6 mg tablet 8.6 mg PO HS Qty: 30 RF: 0 docusate sodium [Colace] 100 mg capsule 100 mg PO BID Qty: 60 RF: 0 levothyroxine 125 mcg tablet 125 mcg PO DAILYBB RF: 0 hydrocortisone 10 mg tablet 15 mg PO QAM RF: 0 sertraline 25 mg tablet 25 mg PO QAM RF: 0 omeprazole 20 mg capsule,delayed release(DR/EC) 40 mg PO Q OTHER DAY RF: 0 hydrocortisone 5 mg tablet 5 mg PO HS RF: 0 Referrals Referrals: Danielito Burt MD [Physician] -
[2021-03-12 23:38] LABS: Basophils # (auto) 0.02 K/uL (0-0.2); Basophils % (auto) 0.1 %; Eosinophils # (auto) 0.06 K/uL (0-0.5); Eosinophils % (auto) 0.4 %; Hematocrit (blood only) 39.8 % (37-47); Immature Granulocytes # (auto) 0.12 K/uL (0.00-0.02); Immature Granulocytes % (auto) 0.9 %; Lymphocytes # (auto) 2.83 K/uL (1.2-3.4); Lymphocytes % (auto) 20.4 %; Mean Corpuscular Hemoglobin 32.4 pg (25-34); Mean Corpuscular Hgb Conc 32.7 g/dL (32-36); Mean Corpuscular Volume 99.3 fL (80-100); Mean Platelet Volume 11.5 fL (7.4-10.4); Monocytes # (auto) 0.66 K/uL (0.11-0.59); Monocytes % (auto) 4.8 %; Neutrophils # (auto) 10.15 K/uL (1.4-6.5); Neutrophils % (auto) 73.4 %; Platelet Count 133 K/uL (130-400); RDW Coefficient of Variation 14.1 % (11.5-14.5); Red Blood Count 4.01 M/uL (4.2-5.4); White Blood Count 13.84 K/uL (4.8-10.8)
[2021-03-12 23:55] LABS: INR 1.5 (0.9-1.1)
[2021-03-13 00:05] LABS: Alanine Aminotransferase 26 U/L (12-78); Albumin Globulin Ratio 1.1 (0.9-2); Alkaline Phosphatase 62 U/L (45-117); BUN Creatinine Ratio 26.4 (10-20); Bilirubin,Total 0.7 mg/dl (0.2-1); Blood Urea Nitrogen 22 mg/dl (7-18); Carbon Dioxide 28 mmol/L (21-32); Chloride 110 mmol/L (98-107); Est GFR (Non-African American) 63.9 ml/min; Globulin 2.8 gm/dl (2.5-4.0); Glucose 80 mg/dl (70-99); Sodium 142 mmol/L (136-145); Total Protein 5.8 gm/dl (6.4-8.2)
[2021-03-13] MEDS ORDERED: OPTIRAY 320 100ml IV ONE (00:15)
[2021-03-13] MEDS ORDERED: PHYTONADIONE 5 MG in SODIUM CHLORIDE 0.9% 50 ML IV ONE (00:48)
--- NOTE | 2021-03-13 02:23 | History & Physical Report ---
Date of Service March 13, 2021 Assessment & Plan (1) Closed sacral fracture: Plan: Shira Ulloa is a 85-year-old female with past medical history of adrenal insufficiency on chronic steroids supplementation, diastolic CHF, sensorineural hearing loss, hypertension, GERD, hypothyroidism; who presented following mechanical fall earlier this evening. Sacral fracture: -CT abdomen pelvis demonstrating bilateral nondisplaced sacral fractures -ED called Ortho provider studio operations engineer in charge overnight fractures deemed likely nonoperative in nature -Given patient's recent syncopal events will need PT and OT evaluation to determine safety/functionality with going home as this is her desire -Continuation of patient's oxycodone 2.5 mg PRN with additional as needed Chronic adrenal insufficiency: -Patient on Cortef 15 mg qAM, and 5 mg qHS -Potential contributions to likely osteoporotic fracture given chronicity of steroid use Chronic anticoagulation: -Patient on warfarin at home given history of PE -INR 1.5 on admission -Received vitamin K in ED given development of hematoma, with uncertain surgical prognostication -Continue home warfarin check INR daily Hypothyroidism: -Continue home Synthroid Congestive heart failure: -Euvolemic at this time -Continue home metoprolol and spironolactone regimen Diet: Heart healthy CODE STATUS: DNR/DNI (2) Fracture of ilium: (3) Hypertension: (4) Chronic anticoagulation: (5) Adrenal insufficiency: (6) GERD without esophagitis: History of Present Illness Chief Complaint: Sacral fracture Primary Care Provider: BOBBI Colon Shira Ulloa is a 85-year-old female with past medical history of adrenal insufficiency on chronic steroids supplementation, diastolic CHF, sensorineural hearing loss, hypertension, GERD, hypothyroidism; who presented following mechanical fall earlier this evening. Of note was recently discharged from hospital in the setting of some syncopal events that had at that time and unclear etiology, and had resolved prior to discharge. Earlier this evening was attempting to put something in the trash and fell square on her behind, immediately had pain over the area. Did not hit her head or lose consciousness, no chest pain, shortness of breath, nausea, vomiting, abdominal pain during the event or thereafter. Remembers the entirety of the event. No bowel or bladder incontinence. Allergies Allergy/AdvReac Type Severity Reaction Status Date / Time celecoxib Allergy Unknown MUSCLE Verified 03/12/21 22:23 CRAMPS Sulfa (Sulfonamide Allergy Unknown DIDN'T Verified 03/12/21 22:23 Antibiotics) FEEL WELL Home Medications Medication Instructions Recorded Confirmed Type cholecalciferol (vitamin D3) 25 1,000 unit PO QAM 07/08/18 03/12/21 History mcg (1,000 unit) capsule (Vitamin D3) blood sugar diagnostic (OneTouch #10 ea 03/22/19 02/22/21 History Verio test strips) diclofenac sodium 1 % topical gel 2 gm TOPICAL DAILY #1 gm 03/22/19 03/12/21 History albuterol sulfate 90 mcg/actuation 2 puff INHALATION Q6H PRN #8.5 gm 06/02/20 03/12/21 Rx aerosol inhaler docusate sodium 100 mg capsule 100 mg PO BID #60 cap 01/03/21 03/12/21 Rx (Colace) sennosides 8.6 mg tablet (Senokot) 8.6 mg PO HS #30 tab 01/03/21 03/12/21 Rx sertraline 25 mg tablet 25 mg PO QAM 01/13/21 03/12/21 History acetaminophen 500 mg tablet 500 mg PO Q6H PRN 02/01/21 03/12/21 History (Tylenol Extra Strength) atorvastatin 20 mg tablet 20 mg PO DAILY #30 tab 02/01/21 03/12/21 Rx calcium carbonate 300 mg (750 mg) 300 mg PO BID PRN 02/01/21 03/12/21 History chewable tablet (Tums Extra Strength Smoothies) bacitracin-polymyxin B 500 0.25 inch OPHTHALMIC (EYE) 6XD 02/08/21 02/22/21 Rx unit-10,000 unit/gram eye ointment #3.5 g hydrocortisone 10 mg tablet 15 mg PO QAM tab 02/08/21 03/12/21 History hydrocortisone 5 mg tablet 5 mg PO HS tab 02/08/21 03/12/21 History propylene glycol [Systane Complete] 1 drp OPHTHALMIC (EYE) DAILY 02/08/21 03/12/21 History oxycodone 5 mg tablet 2.5 mg PO DAILY PRN #30 tab 02/26/21 03/12/21 Rx spironolactone 25 mg tablet 25 mg PO QAM #90 tab 03/12/21 03/12/21 Rx warfarin 2 mg tablet 2 mg PO HS #90 tab 03/12/21 03/12/21 Rx levothyroxine 125 mcg tablet 125 mcg PO DAILYBB #90 tab 03/13/21 Rx metoprolol succinate 25 mg 12.5 mg PO QAM #45 tab 03/13/21 Rx tablet,extended release 24 hr omeprazole 20 mg capsule,delayed 40 mg PO Q OTHER DAY #90 cap 03/13/21 Rx release Past Med/Surg History Medical History Adrenal insufficiency Arthritis of knee Bilateral sensorineural hearing loss Chronic diastolic CHF (congestive heart failure) Diverticulosis GERD without esophagitis HTN (hypertension), benign Hyperglycemia Hypothyroidism Mixed hyperlipidemia Osteopenia Pulmonary embolism Reactive airway disease Seasonal allergies SNHL (sensorineural hearing loss) Syncope Surgical History History of cholecystectomy History of hernia repair Family History Unknown Cancer Cardiac disorder FHx: deafness or hearing loss Mother Cardiac disorder Hypertension Other Family history non-contributory Hearing loss No family history of adverse response to anesthesia No family history of bleeding disorder Social History Smoking Status: Never smoker Tobacco Type: Cigarettes Age Started Using Tobacco: 28; Age Quit Using Tobacco: 44; Second Hand Exposure: No; Hx Alcohol Use: No Hx Substance Use: No Preferred Language: Cymro Communication Ability: Effective Community Service Aide Required: No Beliefs That Will Affect Care: None marital status: Current Living Situation: Spouse current occupational status: retired Other Information That Helps Us Care for You: No Feels Safe at Home: Yes Safety Concerns: Feels Safe At This Time Childhood Exposure to Second-Hand Smoke: No Assistive Devices: None Review of Systems 2 Review of Systems: All systems reviewed & are unremarkable except as noted in HPI & below Physical Exam Constitutional: WD/WN, vitals as above Eyes: PERRL, conjunctivae normal, anicteric sclerae Respiratory: normal respiratory effort, lungs clear to auscultation Auscultation: no crackles, no rales, no rhonchi and no wheezes Cardiovascular: Rate/Rhythm: regular rate and regular rhythm Heart Sounds: no gallop, no murmur and no cardiac rub Vessels: normal peripheral pulses; no JVD Extremities: no edema Gastrointestinal (Abdomen): Inspection/Auscultation: normal bowel sounds; abdomen not distended Percussion/Palpation: abdomen soft; abdomen nontender and no guarding Musculoskeletal: no cyanosis or clubbing, extremities motor strength 5/5 Skin: no rashes, warm and dry Neurologic: PERRL, EOMI, accommodation nl, no face palsy, no dysarthria CN's II-XI intact bilaterally and moves all extremities Psychiatric: Orientation: alert and oriented x 3 Results & Data Results & Data ([facility]) Vital Signs (Past 12 Hours) Vital Signs Temp Pulse Resp BP BP Pulse Ox 03/13/21 01:41 64 16 134/65 94 03/13/21 01:24 65 18 130/79 94 03/13/21 00:43 64 16 143/59 H 95 03/12/21 23:17 98 03/12/21 23:00 54 L 16 160/52 H 03/12/21 20:28 36.4 C L 16 160/59 H 95 Laboratory Results 03/13/21 03/12/21 03/12/21 Range/Units 00:22 23:55 23:55 WBC (4.8-10.8) K/uL RBC (4.2-5.4) M/uL Hgb (12.0-16.0) g/dL Hct (37-47) % MCV (80-100) fL MCH (25-34) pg MCHC (32-36) g/dL RDW Std Deviation (36.4-46.3) fL RDW Coeff of La (11.5-14.5) % Plt Count (130-400) K/uL MPV (7.4-10.4) fL Immature Gran % (Auto) % Neut % (Auto) % Lymph % (Auto) % Benton % (Auto) % Eos % (Auto) % Baso % (Auto) % Neut # (Auto) (1.4-6.5) K/uL Lymph # (Auto) (1.2-3.4) K/uL Benton # (Auto) (0.11-0.59) K/uL Eos # (Auto) (0-0.5) K/uL Baso # (Auto) (0-0.2) K/uL Immature Gran # (Auto) (0.00-0.02) K/uL PT (9.0-12.0) Seconds INR (0.9-1.1) Sodium (136-145) mmol/L Potassium 4.0 (3.5-5.1) mmol/L Chloride (98-107) mmol/L Carbon Dioxide (21-32) mmol/L Anion Gap (3-11) BUN (7-18) mg/dl Creatinine (0.6-1.2) mg/dl Est Cr Clr Drug Dosing Est GFR ( Amer) ml/min Est GFR (Non-Af Amer) ml/min BUN/Creatinine Ratio (10-20) Glucose (70-99) mg/dl Calcium (8.5-10.1) mg/dl Total Bilirubin (0.2-1) mg/dl AST 113 H (15-37) U/L ALT (12-78) U/L Alkaline Phosphatase (45-117) U/L Total Protein (6.4-8.2) gm/dl Albumin (3.4-5.0) gm/dl Globulin (2.5-4.0) gm/dl Albumin/Globulin Ratio (0.9-2) COVID-19 Eval Order Covid19 at [facility] SARS-CoV-2 (PCR) NEGATIVE (Negative) 03/12/21 03/12/21 03/12/21 Range/Units 23:21 23:21 23:21 WBC 13.84 H (4.8-10.8) K/uL RBC 4.01 L (4.2-5.4) M/uL Hgb 13.0 (12.0-16.0) g/dL Hct 39.8 (37-47) % MCV 99.3 (80-100) fL MCH 32.4 (25-34) pg MCHC 32.7 (32-36) g/dL RDW Std Deviation 51.0 H (36.4-46.3) fL RDW Coeff of La 14.1 (11.5-14.5) % Plt Count 133 (130-400) K/uL MPV 11.5 H (7.4-10.4) fL Immature Gran % (Auto) 0.9 % Neut % (Auto) 73.4 % Lymph % (Auto) 20.4 % Benton % (Auto) 4.8 % Eos % (Auto) 0.4 % Baso % (Auto) 0.1 % Neut # (Auto) 10.15 H (1.4-6.5) K/uL Lymph # (Auto) 2.83 (1.2-3.4) K/uL Benton # (Auto) 0.66 H (0.11-0.59) K/uL Eos # (Auto) 0.06 (0-0.5) K/uL Baso # (Auto) 0.02 (0-0.2) K/uL Immature Gran # (Auto) 0.12 H (0.00-0.02) K/uL PT 15.0 H (9.0-12.0) Seconds INR 1.5 H (0.9-1.1) Sodium 142 (136-145) mmol/L Potassium (3.5-5.1) mmol/L Chloride 110 H (98-107) mmol/L Carbon Dioxide 28 (21-32) mmol/L Anion Gap 4.0 (3-11) BUN 22 H (7-18) mg/dl Creatinine 0.83 (0.6-1.2) mg/dl Est Cr Clr Drug Dosing Not Reportable Est GFR ( Amer) 74.0 ml/min Est GFR (Non-Af Amer) 63.9 ml/min BUN/Creatinine Ratio 26.4 H (10-20) Glucose 80 (70-99) mg/dl Calcium 9.0 (8.5-10.1) mg/dl Total Bilirubin 0.7 (0.2-1) mg/dl AST (15-37) U/L ALT 26 (12-78) U/L Alkaline Phosphatase 62 (45-117) U/L Total Protein 5.8 L (6.4-8.2) gm/dl Albumin 3.0 L (3.4-5.0) gm/dl Globulin 2.8 (2.5-4.0) gm/dl Albumin/Globulin Ratio 1.1 (0.9-2) COVID-19 Eval Order SARS-CoV-2 (PCR) (Negative) Diagnostic Findings CT ABDOMEN & PELVIS With Contrast: Bilateral nondisplaced sacral fractures and mild presacral hematoma, left greater than right. No contrast extravasation. No parenchymal laceration. Moderately large fat-containing umbilical hernia. Chronic L1 compression fracture with mild retropulsion. No SBO or free air. Radiologist: Sanaz Johnson M.D. CT L SPINE: Comparison 01/03/2021 Severe osteopenia limits evaluation. Acute on chronic appearing compression fracture at L1 with posterior cortical retropulsion causing mild to moderate canal stenosis. Fracture of the left sacral ala which extends across the SI joint and into the iliac bone. Nondisplaced fracture of the right sacral ala. Small amount of blood products within the pelvis. Radiologist: Mohsen Buckner MD Supervising Physician Co-Signing Physician Notes Attending addendum: I have physically seen this patient, have supervised the medical residents activities, and agree with the H&P unless as otherwise noted. Assessment and Plan: Closed bilateral nondisplaced sacral fractures/mid presacral hematoma- Conservative treatment, nonoperative Consult orthopedic surgery Consult PT/OT Acetaminophen 650 mg p.o. every 6 hours as needed mild pain or fever Oxycodone 2.5 mg p.o. every 6 hours as needed severe pain Chronic adrenal insufficiency- For now continue Cortef 15 mg every morning and 5 mg at bedtime. If stress dose needed, can place on hydrocortisone 100 mg IV every 8 hours, or increase Cortef to 20 in the morning and 10 in the evening. Chronic anticoagulation for PE- Hold warfarin due to noted hematoma Status post vitamin K in the ED Repeat INR every morning Remaining orders and notations as noted Resident Activity Tracking Resident Involvement: Resident Care Provided Care Provided: Adult Hospital Medicine (1) Fracture of ilium Encounter type: initial encounter Fracture alignment: nondisplaced Fracture morphology: unspecified fracture morphology Fracture type: closed Laterality: unspecified laterality Qualified Code(s): S32.309A - Unspecified fracture of unspecified ilium, initial encounter for closed fracture (2) Closed sacral fracture Encounter type: initial encounter Zone of sacrum fracture: unspecified portion of sacrum Qualified Code(s): S32.10XA - Unspecified fracture of sacrum, initial encounter for closed fracture
[2021-03-13] MEDS ORDERED: oxyCODONE HCL IR 5 MG TAB (IMMEDIATE RELEASE) PO PRN ×2 (05:23→08:30)
[2021-03-13] MEDS ORDERED: ALBUTEROL HFA 8 GM INHALER INH PRN (05:23)
[2021-03-13] MEDS ORDERED: ONDANSETRON INJ 2 MG/ML 2 ML VIAL IV PRN (05:23)
[2021-03-13] MEDS ORDERED: POLYETHYLENE (MIRALAX) 17 GM PACK PO PRN (05:23)
[2021-03-13] MEDS ORDERED: MAGNESIUM HYDROXIDE SUSP 30 ML UDC PO PRN (05:23)
[2021-03-13] MEDS ORDERED: ALUMINUM/MAGNESIUM SUSP 30 ML UDC PO PRN (05:23)
[2021-03-13] MEDS ORDERED: ACETAMINOPHEN 325 MG TAB PO PRN (05:23)
[2021-03-13] MEDS ORDERED: ACETAMINOPHEN 500 MG TAB PO PRN (05:33)
[2021-03-13] MEDS: LEVOTHYROXINE SODIUM 125 MCG TABLET PO SCH (06:32)
--- NOTE | 2021-03-13 08:05 | XRay Report ---
XR hip LT 2V w pelvis CLINICAL HISTORY: fall left hip pain COMPARISON: None. DISCUSSION: No definite acute fracture or dislocation seen however evaluation is limited due to severe diffuse os teopenia. Degenerative changes of the lower lumbar spine are seen. IMPRESSION: No acute fracture or dislocation is seen on this limited exam. If patient will continue to experience pain, short-term follow-up might be considered. ACT 112: Negative or not required by law. The above report was generated using voice recognition software. It may contain grammatical, syntax o r spelling errors. Electronically signed by: Alanis Andrews DO 03/13/2021 8:03 AM
--- NOTE | 2021-03-13 08:09 | CT Scan Report ---
CT OF THE ABDOMEN AND PELVIS WITH CONTRAST CLINICAL HISTORY: fall sacral fx on coumadin COMPARISON STUDY: CT of the abdomen and pelvis January 12, 2021 TECHNIQUE: Following IV administration of 93 mL of Optiray, axial images of the abdomen and pelvis we re obtained from the lung bases to the proximal femurs. Images were reviewed in the axial, sagittal, and coronal planes. IV contrast was administered without complication. Automated exposure control wa s utilized for the study. A dose lowering technique was utilized adhering to the principles of ALARA . CT DOSE: 537.84 mGy.cm FINDINGS: A few small nodules within the lower lungs are unchanged from earlier exams. These are palmer gn. There is cardiomegaly. Innumerable calcified granulomas within liver and spleen are noted. There is no evidence for traumatic injury to the liver, spleen, adrenal glands, kidneys or pancreas. Mild b iliary ductal dilatation is unchanged and likely related to cholecystectomy. A cyst within lower pole of the left kidney is noted. There is no evidence for a bowel obstruction. Fat-containing umbilical hernia is noted. Note is again made of an L1 compression fracture. There is severe loss of vertebral body height which has increased since CT of January 12, 2021. 7 mm of retropulsion is noted at the level of the superior endplate. Note is made of acute bilateral sacral ala fractures. Left sacroiliac fract ure is comminuted and slightly displaced. Mild to moderate presacral hemorrhage is present. There is no active extravasation. This is greater on the left. The left-sided fracture extends into the medial left iliac bone. No acute proximal femoral fracture is present. Symphysis pubis is intact. IMPRESSION: 1. Acute bilateral sacral fractures. Left sacral fracture extends into the medial left iliac bone. Mi ld to moderate associated presacral hematoma. No active extravasation. 2. No evidence for traumatic injury to the solid abdominal viscera. 3. Redemonstration of an L1 fracture with interval increase in vertebral body height loss. 7 mm of re tropulsion. ACT 112: Negative or not required by law. Electronically signed by: Emanuel Portillo M.D. 03/13/2021 8:08 AM
--- NOTE | 2021-03-13 08:51 | CT Scan Report ---
CT SCAN OF THE LUMBAR SPINE WITHOUT IV CONTRAST CLINICAL HISTORY: Low back pain. COMPARISON STUDY: CT of the lumbar spine dated 01/03/2021. TECHNIQUE: CT scan of the lumbar spine is performed from the lower thoracic spine to the sacrum. Imag es are reviewed in the axial, sagittal, and coronal planes. IV contrast was not administered for this examination. A dose lowering technique was utilized adhering to the principles of ALARA. CT DOSE: 658.22 mGy.cm FINDINGS: The skeletal structures are osteopenic. There is no evidence of acute fracture or malalignm ent. There is a subacute compression fracture of L1. There is moderate loss of height, and loss of he ight is increased as compared to 01/03/2021. Fragments are retropulsed by up to 7 mm. Vertebral body h eight is otherwise maintained throughout the lumbar spine. There is 7 mm anterolisthesis at L4-L5. Al ignment is otherwise preserved. Anterior and lateral marginal osteophytes are seen throughout. The tr ansverse and spinous processes appear intact. There is no spondylolysis. No lytic or blastic lesion i s seen. There is moderate disc space narrowing at L4-L5. Mild disc space narrowing is seen at the rem aining lumbar levels. Mild facet arthropathy is seen in the lower lumbar region. Retropulsed fragment s at L1-2 contribute to at least mild central canal stenosis. There is also at least mild central can al stenosis at L4-L5 secondary to posterior disc bulge. Bilateral sacral fractures are new from 2020. There is mild surrounding hemorrhage. There is fatty atrophy of the paraspinous musculature. Nu merous calcified granulomas are noted in the liver and spleen. There is mild to moderate atherosclero tic calcification of the abdominal aorta. No retroperitoneal lymphadenopathy is identified. IMPRESSION: 1. Bilateral sacral fractures are new from 01/03/2021. 2. There is no evidence of acute fracture involving the lumbar spine. 3. Again seen is a subacute compression fracture of L1 with increasing loss of height and increasing retropulsion of fragments when compared to 01/03/2021. ACT 112: Negative or not required by law. Dictated: 03/13/2021 7:54 AM Transcribed: 03/13/2021 8:45 AM Keke [id number] [email or web address]_Sourav Electronically signed by: Alec Miguel M.D. 03/13/2021 8:49 AM
[2021-03-13] MEDS ORDERED: DICLOFENAC SOD 1% GEL 100 GM TUBE EXT SCH (09:00)
[2021-03-13] MEDS ORDERED: KETOROLAC TROMETHAMINE 10 MG TABLET PO PRN (09:51)
[2021-03-13] MEDS: PANTOprazole 40 MG TAB PO SCH (09:53)
[2021-03-13] MEDS: HYDROCORTISONE 10 MG TAB PO SCH ×2 (09:53→21:55)
[2021-03-13] MEDS: METOPROLOL SUCC 25MG EXT REL TAB PO SCH (09:53)
[2021-03-13] MEDS: SERTRALINE HCL 50 MG TABLET PO SCH (09:55)
[2021-03-13] MEDS: CHOLECALCIFEROL 1,000 UNITS 25 MCG TAB PO SCH (09:55)
[2021-03-13] MEDS: SPIRONOLACTONE 25 MG TAB PO SCH (09:55)
[2021-03-13] MEDS: ATORVASTATIN 20 MG TAB PO SCH (09:55)
[2021-03-13] MEDS: oxyCODONE HCL IR 5 MG TAB (IMMEDIATE RELEASE) PO PRN (09:56)
[2021-03-13] MEDS: DOCUSATE SODIUM 100 MG CAP PO SCH ×2 (09:59→21:54)
--- NOTE | 2021-03-13 09:59 | Hospitalist Progress Note ---
Date of Service March 13, 2021 Assessment & Plan (1) Closed sacral fracture: Plan: Shira Ulloa is a 85-year-old female with past medical history of adrenal insufficiency on chronic steroids supplementation, diastolic CHF, sensorineural hearing loss, hypertension, GERD, hypothyroidism; who presented following mechanical fall earlier this evening. Sacral fracture: -CT abdomen pelvis demonstrating bilateral nondisplaced sacral fractures -ED called Ortho provider inspector material disposition overnight - fracture deemed likely nonoperative in nature -Given patient's recent syncopal events will need PT and OT evaluation to determine safety/functionality -PT - plan 3 hr./day rehab -increased patient's oxycodone to 5 mg or 10 mg Q3H -started Voltaren, Lidocaine, scheduled Tylenol and PRN Toradol Chronic adrenal insufficiency: -Patient on Cortef 15 mg qAM, and 5 mg qHS -Potential contributions to likely osteoporotic fracture given chronicity of steroid use Chronic anticoagulation: -Patient on warfarin at home given history of PE -INR sub therapeutic at 1.5 on admission -Received vitamin K in ED given development of hematoma, with uncertain surgical prognostication -check INR daily along with CBC -Would consider restarting Warfarin tomorrow if she is not showing signs of active bleeding Congestive heart failure: -Euvolemic at this time -Continue home metoprolol and spironolactone regimen Hypothyroidism: -Continue home Synthroid DVT Prophylaxis: held in the setting of pelvic fracture Diet: Heart healthy CODE STATUS: DNR/DNI Admission and Anticipated Discharge Date Admission Date: March 13, 2021 Supervising Physician Co-Signing Physician Notes I personally examined the patient and verified all warner points of history and exam, discussed case, and agree with decision making with Dr Bhatia Pain under much better control than when seen by Dr. Bhatia this morning. Discussed overall plan. Patient expressed understanding. Vitals noted, in general she is awake and alert pleasant no distress. HEENT normocephalic atraumatic mucous membranes moist. Breathing unlabored no accessory muscle use good effort. Skin shows no rashes no pallor or icterus. Neuro without focal deficits. Age-related osteoporosis with current pathological fracture, in the setting of elderly female with fall from standing position and bilateral sacral fractures - pain control/PT/OT, probable need for placement in the short-term. pelvic hematoma sustained by fall and fractures in the setting of chronic anticoagulation with coumadin therapy -Coumadin on hold for now, however given she is also high risk for recurrent venous thromboembolic disease, will need to hold this for a short time. Is possible. Follow clinically, follow hemoglobinif everything appears stable into tomorrow versus the next day, resume Coumadin then. Otherwise as above Subjective Shira Laila was doing okay this morning. She was having 7-8/10 in her lower back. Her last bowel movement was on Friday. She brought up that she was able to stand with a walker but had severe pain with this. Review of Systems Review of Systems: Constitutional: denies fevers, chills Cardiac: denies chest pain, palpitations GI: denies nausea, vomiting Physical Exam Constitutional: lying down, in some pain Eyes: PERRL Neck: normal to visual inspection Respiratory: CTAB, no wheezing, rales, crackles Cardiovascular: regular rate and rhythm with no m/r/g Gastrointestinal (Abdomen): soft, nTTP Musculoskeletal: - pain on low back Skin: - no bruising appreciated Psychiatric: Orientation: alert Genitourinary: - catheter in place Results & Data Results & Data ([facility]) Vital Signs (Past 12 Hours) Vital Signs Temp Pulse Resp BP Pulse Ox 03/13/21 09:50 62 145/62 H 94 03/13/21 07:31 36.7 C 55 L 14 134/54 L 95 03/13/21 05:32 36.8 C 58 L 16 160/58 H 92 03/13/21 05:04 53 L 18 114/53 L 94 03/13/21 03:30 53 L 18 132/72 94 03/13/21 01:41 64 16 134/65 94 03/13/21 01:24 65 18 130/79 94 03/13/21 00:43 64 16 143/59 H 95 03/12/21 23:17 98 03/12/21 23:00 54 L 16 160/52 H CBC Results Results Complete Blood Count Results: RBC 4.01 M/uL (4.2-5.4) L 03/12/21 WBC 13.84 K/uL (4.8-10.8) H 03/12/21 Hgb 13.0 g/dL (12.0-16.0) 03/12/21 Hct 39.8 % (37-47) 03/12/21 Plt Count 133 K/uL (130-400) 03/12/21 Chemistry (BMP) Results BMP Results: Sodium 142 mmol/L (136-145) 03/12/21 Potassium 4.0 mmol/L (3.5-5.1) 03/13/21 Chloride 110 mmol/L (98-107) H 03/12/21 BUN 22 mg/dl (7-18) H 03/12/21 Creatinine 0.83 mg/dl (0.6-1.2) 03/12/21 Glucose 80 mg/dl (70-99) 03/12/21 Resident Activity Tracking Resident Involvement: Resident Care Provided Care Provided: Adult Hospital Medicine (1) Closed sacral fracture Encounter type: initial encounter Zone of sacrum fracture: unspecified portion of sacrum Qualified Code(s): S32.10XA - Unspecified fracture of sacrum, initial encounter for closed fracture
[2021-03-13] MEDS: ACETAMINOPHEN 325 MG TAB PO SCH ×3 (10:58→21:54)
[2021-03-13] MEDS: DICLOFENAC SOD 1% GEL 100 GM TUBE EXT SCH ×4 (10:58→21:55)
[2021-03-13] MEDS: WARFARIN SOD 2 MG TAB PO SCH (17:08)
--- NOTE | 2021-03-13 19:49 | Billing Data ---
Date of Service March 13, 2021 Coding Level of Care Code 96243 Subseq Hosp Care Lvl 3
[2021-03-13] MEDS: LIDOCAINE 5% 1 PATCH TD SCH (21:53)
[2021-03-13] MEDS: SENNA 8.6 MG TAB PO SCH (21:54)
[2021-03-14] MEDS: oxyCODONE HCL IR 5 MG TAB (IMMEDIATE RELEASE) PO PRN ×2 (00:52→22:17)
--- NOTE | 2021-03-14 03:42 | Billing Data ---
Date of Service March 14, 2021 Coding Level of Care Code 59123 Initial Inpt Care Lvl 2
[2021-03-14] MEDS: ACETAMINOPHEN 325 MG TAB PO SCH ×4 (05:28→22:17)
[2021-03-14] MEDS: LEVOTHYROXINE SODIUM 125 MCG TABLET PO SCH (05:28)
[2021-03-14 06:56] LABS: Basophils # (auto) 0.02 K/uL (0-0.2); Basophils % (auto) 0.3 %; Eosinophils # (auto) 0.24 K/uL (0-0.5); Eosinophils % (auto) 3.6 %; Hemoglobin 11.7 g/dL (12.0-16.0); Immature Granulocytes # (auto) 0.01 K/uL (0.00-0.02); Immature Granulocytes % (auto) 0.2 %; Lymphocytes # (auto) 1.42 K/uL (1.2-3.4); Lymphocytes % (auto) 21.5 %; Mean Corpuscular Hemoglobin 32.6 pg (25-34); Mean Corpuscular Hgb Conc 32.5 g/dL (32-36); Mean Corpuscular Volume 100.3 fL (80-100); Mean Platelet Volume 11.2 fL (7.4-10.4); Monocytes # (auto) 0.38 K/uL (0.11-0.59); Monocytes % (auto) 5.7 %; Neutrophils # (auto) 4.55 K/uL (1.4-6.5); Neutrophils % (auto) 68.7 %; Platelet Count 120 K/uL (130-400); RDW Coefficient of Variation 13.8 % (11.5-14.5); RDW Standard Deviation 51.1 fL (36.4-46.3); Red Blood Count 3.59 M/uL (4.2-5.4); White Blood Count 6.62 K/uL (4.8-10.8)
[2021-03-14 07:16] LABS: INR 1.3 (0.9-1.1); Prothrombin Time 12.6 Seconds (9.0-12.0)
[2021-03-14 07:27] LABS: BUN Creatinine Ratio 29.6 (10-20); Calcium 8.4 mg/dl (8.5-10.1); Creatinine Clr Calc Pharmacy 51.3 ml/min; Est GFR (Non-African American) 69.9 ml/min; Magnesium 1.9 mg/dl (1.8-2.4); Phosphorus 3.4 mg/dl (2.5-4.9)
[2021-03-14] MEDS: CHOLECALCIFEROL 1,000 UNITS 25 MCG TAB PO SCH (09:28)
[2021-03-14] MEDS: DOCUSATE SODIUM 100 MG CAP PO SCH ×2 (09:28→20:09)
[2021-03-14] MEDS: SERTRALINE HCL 50 MG TABLET PO SCH (09:28)
[2021-03-14] MEDS: ATORVASTATIN 20 MG TAB PO SCH (09:28)
[2021-03-14] MEDS: HYDROCORTISONE 10 MG TAB PO SCH ×2 (09:28→20:13)
[2021-03-14] MEDS: SPIRONOLACTONE 25 MG TAB PO SCH (09:28)
[2021-03-14] MEDS: DICLOFENAC SOD 1% GEL 100 GM TUBE EXT SCH ×4 (09:31→20:14)
[2021-03-14] MEDS: METOPROLOL SUCC 25MG EXT REL TAB PO SCH (09:35)
--- NOTE | 2021-03-14 13:45 | Hospitalist Progress Note ---
Date of Service March 14, 2021 Assessment & Plan (1) Closed sacral fracture: Plan: Shira Ulloa is a 85-year-old female with past medical history of adrenal insufficiency on chronic steroids supplementation, diastolic CHF, sensorineural hearing loss, hypertension, GERD, hypothyroidism; who presented following mechanical fall earlier this evening. Sacral fracture: -CT abdomen pelvis demonstrating bilateral nondisplaced sacral fractures -ED called Ortho provider - fracture deemed likely nonoperative in nature -Given patient's recent syncopal events will need PT and OT evaluation to determine safety/functionality - PT - plan 3 hr./day rehab - OT - plan 3 hr./day inpatient rehab - case management - likely to go to [facility] when medically ready -increased patient's oxycodone to 5 mg or 10 mg Q3H -started Voltaren, Lidocaine, scheduled Tylenol and PRN Toradol Chronic adrenal insufficiency: -Patient on home dose of Cortef 15 mg qAM, and 5 mg qHS -Potential contributions to likely osteoporotic fracture given chronicity of steroid use -BP have been stable, pain well controlled; not currently requiring stress dose steroids Chronic anticoagulation: -Patient on warfarin at home given history of PE -INR sub therapeutic at 1.5 on admission -Received vitamin K in ED given development of hematoma, with uncertain surgical prognostication -continue Warfarin home dose 2mg daily -continue to follow INR daily along with CBC -INR currently 1.3, CBC 13 --> 11.7 Congestive heart failure: -Euvolemic at this time -Continue home metoprolol and spironolactone regimen Hypothyroidism: -Continue home Synthroid DVT Prophylaxis: Warfarin Diet: Heart healthy Dispo: likely to discharge to [facility] tomorrow CODE STATUS: DNR/DNI Admission and Anticipated Discharge Date Admission Date: March 13, 2021 Supervising Physician Co-Signing Physician Notes I personally examined the patient and verified all warner points of history and exam, discussed case, and agree with decision making with Dr Bhatia Pain well controlled at rest, still just a lot of pain with any exertion. Does not feel up to being able to go to rehab yet. Vitals noted, in general she is awake and alert pleasant no distress. HEENT normocephalic atraumatic mucous membranes moist. Breathing unlabored no accessory muscle use good effort. Skin shows no rashes no pallor or icterus. Neuro without focal deficits. Age-related osteoporosis with current pathological fracture, in the setting of elderly female with fall from standing position and bilateral sacral fractures - continue pain control/PT/OT, probable need for placement in the short-termrehab is able to accept her today, but from a pain standpoint she does not appear stable for transfer yet. pelvic hematoma sustained by fall and fractures in the setting of chronic anticoagulation with coumadin therapy -Coumadin on hold for now, however given she is also high risk for recurrent venous thromboembolic disease, Coumadin resumed. Continue to follow closely. Otherwise as above Subjective Shira Laila was sitting in her bed doing well this morning. She was not in any pain this morning but did note that she was having pain when she stood up or walked with PT. She felt very confined since she normally likes to get up and move around as much as possible. She mentioned that it had been a couple days since her last bowel movement but but felt that if she were to walk today she would likely be able to have a bowel movement. She explained that since she was still in a fair amount of pain with walking that she did not feel comfortable leaving today. Review of Systems Review of Systems: Denies: fevers, chills, chest pain, palpitations, nausea, vomiting, diarrhea Physical Exam Constitutional: well developed and well nourished; no acute distress Eyes: + anicteric sclerae Neck: trachea midline, no thyromegaly normal visual inspection Respiratory: normal respiratory effort, lungs clear to auscultation Cardiovascular: Rate/Rhythm: regular rate and regular rhythm Extremities: no calf tenderness and no edema Gastrointestinal (Abdomen): - nTTP, bowel sounds present Skin: no rashes, warm and dry Neurologic: no focal motor deficits Results & Data Results & Data ([facility]) Vital Signs (Past 12 Hours) Vital Signs Temp Pulse Pulse Resp BP Pulse Ox 03/14/21 11:44 36.9 C 03/14/21 09:36 51 L 127/66 03/14/21 08:14 36.5 C 54 L 16 171/72 H 95 03/14/21 05:29 51 L 167/65 H 03/14/21 03:00 37.0 C 51 L 16 171/81 H 94 CBC Results Results Complete Blood Count Results: RBC 3.59 M/uL (4.2-5.4) L 03/14/21 WBC 6.62 K/uL (4.8-10.8) 03/14/21 Hgb 11.7 g/dL (12.0-16.0) L 03/14/21 Hct 36.0 % (37-47) L 03/14/21 Plt Count 120 K/uL (130-400) L 03/14/21 Chemistry (BMP) Results BMP Results: Sodium 138 mmol/L (136-145) 03/14/21 Potassium 4.0 mmol/L (3.5-5.1) 03/14/21 Chloride 107 mmol/L (98-107) 03/14/21 BUN 23 mg/dl (7-18) H 03/14/21 Creatinine 0.77 mg/dl (0.6-1.2) 03/14/21 Glucose 114 mg/dl (70-99) H 03/14/21 Resident Activity Tracking Resident Involvement: Resident Care Provided Care Provided: Adult Hospital Medicine (1) Closed sacral fracture Encounter type: initial encounter Zone of sacrum fracture: unspecified portion of sacrum Qualified Code(s): S32.10XA - Unspecified fracture of sacrum, initial encounter for closed fracture
[2021-03-14] MEDS: WARFARIN SOD 2 MG TAB PO SCH (17:08)
--- NOTE | 2021-03-14 19:27 | Billing Data ---
Date of Service March 14, 2021 Coding Level of Care Code 06180 Subseq Hosp Care Lvl 3
[2021-03-14] MEDS: LIDOCAINE 5% 1 PATCH TD SCH (20:09)
[2021-03-14] MEDS: SENNA 8.6 MG TAB PO SCH (20:13)
[2021-03-15] MEDS: oxyCODONE HCL IR 5 MG TAB (IMMEDIATE RELEASE) PO PRN ×2 (02:14→08:31)
[2021-03-15] MEDS: ACETAMINOPHEN 325 MG TAB PO SCH ×3 (05:37→15:19)
[2021-03-15] MEDS: LEVOTHYROXINE SODIUM 125 MCG TABLET PO SCH (05:37)
[2021-03-15 06:37] LABS: Basophils # (auto) 0.01 K/uL (0-0.2); Basophils % (auto) 0.2 %; Eosinophils # (auto) 0.19 K/uL (0-0.5); Eosinophils % (auto) 2.9 %; Hematocrit (blood only) 35.8 % (37-47); Hemoglobin 11.8 g/dL (12.0-16.0); Immature Granulocytes # (auto) 0.01 K/uL (0.00-0.02); Immature Granulocytes % (auto) 0.2 %; Lymphocytes # (auto) 1.66 K/uL (1.2-3.4); Lymphocytes % (auto) 25.6 %; Mean Corpuscular Hemoglobin 32.2 pg (25-34); Mean Corpuscular Volume 97.8 fL (80-100); Mean Platelet Volume 11.2 fL (7.4-10.4); Monocytes # (auto) 0.29 K/uL (0.11-0.59); Monocytes % (auto) 4.5 %; Neutrophils # (auto) 4.32 K/uL (1.4-6.5); Neutrophils % (auto) 66.6 %; Platelet Count 122 K/uL (130-400); RDW Coefficient of Variation 13.7 % (11.5-14.5); RDW Standard Deviation 49.2 fL (36.4-46.3); Red Blood Count 3.66 M/uL (4.2-5.4); White Blood Count 6.48 K/uL (4.8-10.8)
[2021-03-15 07:10] LABS: INR 1.1 (0.9-1.1)
[2021-03-15 07:11] LABS: BUN Creatinine Ratio 27.5 (10-20); Calcium 8.5 mg/dl (8.5-10.1); Creatinine Clr Calc Pharmacy 61.7 ml/min; Est GFR (African American) 93.6 ml/min; Est GFR (Non-African American) 80.8 ml/min
[2021-03-15] MEDS: ATORVASTATIN 20 MG TAB PO SCH (08:29)
[2021-03-15] MEDS: HYDROCORTISONE 10 MG TAB PO SCH (08:30)
[2021-03-15] MEDS: DOCUSATE SODIUM 100 MG CAP PO SCH (08:32)
[2021-03-15] MEDS: PANTOprazole 40 MG TAB PO SCH (08:32)
[2021-03-15] MEDS: SPIRONOLACTONE 25 MG TAB PO SCH (08:33)
[2021-03-15] MEDS: CHOLECALCIFEROL 1,000 UNITS 25 MCG TAB PO SCH (08:33)
[2021-03-15] MEDS: SERTRALINE HCL 50 MG TABLET PO SCH (08:33)
[2021-03-15] MEDS: DICLOFENAC SOD 1% GEL 100 GM TUBE EXT SCH ×2 (08:34→12:29)
[2021-03-15] MEDS: METOPROLOL SUCC 25MG EXT REL TAB PO SCH (08:34)
[2021-03-15] MEDS: WARFARIN SOD 2 MG TAB PO SCH (15:19)
--- NOTE | 2021-03-15 19:10 | Discharge Summary ---
Date of Service March 15, 2021 Admission HPI Per Admitting Provider Shira Ulloa is a 85-year-old female with past medical history of adrenal insufficiency on chronic steroids supplementation, diastolic CHF, sensorineural hearing loss, hypertension, GERD, hypothyroidism; who presented following mechanical fall earlier this evening. Of note was recently discharged from hospital in the setting of some syncopal events that had at that time and unclear etiology, and had resolved prior to discharge. Earlier this evening was attempting to put something in the trash and fell square on her behind, immediately had pain over the area. Did not hit her head or lose consciousness, no chest pain, shortness of breath, nausea, vomiting, abdominal pain during the event or thereafter. Remembers the entirety of the event. No bowel or bladder incontinence. Principal Diagnosis sacral fracture Discharge Exam In general she is awake and alert pleasant no distress. HEENT normocephalic atr aumatic mucous membranes moist. Breathing unlabored no accessory muscle use good effort. Skin shows no rashes no pallor or icterus. Discharge Data Allergies Allergy/AdvReac Type Severity Reaction Status Date / Time celecoxib Allergy Unknown MUSCLE Verified 03/12/21 22:23 CRAMPS Sulfa (Sulfonamide Allergy Unknown DIDN'T Verified 03/12/21 22:23 Antibiotics) FEEL WELL Consultations 03/13/21 01:07 ED Decision to Admit Stat Ordered Studies 03/12/21 22:18 CT lumbar spine wo con Urgent 03/12/21 23:47 CT abd pelvis IV con only Urgent Hospital Course (1) Closed sacral fracture: Shira Ulloa is a 85-year-old female with past medical history of adrenal insufficiency on chronic steroids supplementation, diastolic CHF, sensorineural hearing loss, hypertension, GERD, hypothyroidism; who presented following mechanical fall earlier this evening. Sacral fracture: -CT abdomen pelvis demonstrating bilateral nondisplaced sacral fractures - highly likely osteoporotic -ED called Ortho provider - fracture deemed likely nonoperative in nature -Given patient's recent syncopal events will need PT and OT evaluation to determine safety/functionality - PT - plan 3 hr./day rehab - OT - plan 3 hr./day inpatient rehab - case management - likely to go to [facility] when medically ready -continue oxycodone, Voltaren, Lidocaine, scheduled Tylenol and PRN Toradol Chronic adrenal insufficiency: -Patient on home dose of Cortef 15 mg qAM, and 5 mg qHS -Potential contributions to likely osteoporotic fracture given chronicity of steroid use -BP have been stable, pain well controlled; not currently requiring stress dose steroids Chronic anticoagulation: -Patient on warfarin at home given history of PE -INR sub therapeutic at 1.5 on admission -Received vitamin K in ED given development of hematoma, with uncertain surgical prognostication -continue Warfarin home dose 2mg daily -continue to follow INR daily chronic diastolic congestive heart failure: -Euvolemic at this time -Continue home metoprolol and spironolactone regimen Hypothyroidism: -Continue home Synthroid DVT Prophylaxis: Warfarin Diet: Heart healthy Dispo: stable for dispo to [facility] CODE STATUS: DNR/DNI Total Time Total Time Spent Total Time Spent (In Minutes): <30 Discharge Plan Discharge Items Patient Disposition: Transfer Inpatient Rehab Fac Reason For Visit: SACRAL FRACTURE Discharge Diagnosis: sacral fracture Activity: Per Instructions section Non-emergency contact: Primary Care Provider Call non-emergency contact if: your symptoms worsen Follow-up/Referrals: Daniella Kramer CRNP [Primary Care Provider] - Diet: Heart Healthy Addtl Attending Provider Instructions: Shira Ulloa is a 85-year-old female with past medical history of adrenal insufficiency on chronic steroids supplementation, diastolic CHF, sensorineural hearing loss, hypertension, GERD, hypothyroidism; who presented following mechanical fall earlier this evening and found to have sacral fracture. Sacral fracture: -CT abdomen pelvis demonstrating bilateral nondisplaced sacral fractures -Fracture deemed nonoperative in nature per orthopedics -continue Voltaren, Lidocaine, and Tylenol for pain control -continue Oxycodone 5-10 mg as needed for severe pain for the short term -HGB stable at 11.8 Chronic adrenal insufficiency: -Patient on home dose of Cortef 15 mg qAM, and 5 mg qHS -Potential contributions to likely osteoporotic fracture given chronicity of steroid use Chronic anticoagulation: -Patient on warfarin at home given history of PE -INR sub therapeutic at 1.5 on admission -Received vitamin K in ED given development of hematoma, with uncertain surgical prognostication -continue Warfarin home dose 2mg daily, trend till therapeutic -continue to follow INR, currently 1.1 Congestive heart failure: -Euvolemic -Continue home metoprolol and spironolactone regimen Hypothyroidism: -Continue home Synthroid Pending Studies at Discharge: No Stand-Alone Forms: [facility] Skilled Items Patient informed of condition?: Yes DNR: Yes Discharge Level of Care: Acute rehab Communicable Disease: No Discharge Prognosis: Stable Lines: None Urinary Catheter: Yes Medications and DC Order Prescriptions: New lidocaine 5 % Adhesive Patch,Medicated 1 patch transdermal HS Qty: 0 RF: 0 Remove Lidoderm Patch 1 dose Not Applicable QAM Qty: 0 RF: 0 Continued oxycodone 5 mg tablet 2.5 mg PO DAILY PRN (Reason: pain) Qty: 30 RF: 0 spironolactone 25 mg tablet 25 mg PO QAM Qty: 90 RF: 1 warfarin 2 mg tablet 2 mg PO HS Qty: 90 RF: 1 levothyroxine 125 mcg tablet 125 mcg PO DAILYBB Qty: 90 RF: 1 metoprolol succinate 25 mg tablet extended release 24 hr 12.5 mg PO QAM Qty: 45 RF: 3 omeprazole 20 mg capsule,delayed release(DR/EC) 40 mg PO Q OTHER DAY Qty: 90 RF: 3 diclofenac sodium 1 % gel 2 gm topical DAILY Qty: 1 RF: 0 (DME) [employer] Verio test strips strip See Dose Instructions .ROUTE .MEDSUPPLY Qty: 10 RF: 0 bacitracin-polymyxin B 500-10,000 unit/gram ointment 0.25 inch ophthalmic (eye) 6XD Qty: 3.5 RF: 0 propylene glycol 1 drp ophthalmic (eye) DAILY RF: 0 calcium carbonate [Tums Extra Strength Smoothies] 300 mg (750 mg) tablet,chewable 300 mg PO BID PRN (Reason: Indigestion) RF: 0 acetaminophen [Tylenol Extra Strength] 500 mg tablet 500 mg PO Q6H PRN (Reason: Pain) RF: 0 atorvastatin 20 mg tablet 20 mg PO DAILY Qty: 30 RF: 2 albuterol sulfate 90 mcg/actuation HFA aerosol inhaler 2 puff INHALATION Q6H PRN (Reason: Shortness Of Breath Or Wheezing) Qty: 8.5 RF: 5 cholecalciferol (vitamin D3) [Vitamin D3] 1,000 unit Capsule 1,000 unit PO QAM RF: 0 sennosides [Senokot] 8.6 mg tablet 8.6 mg PO HS Qty: 30 RF: 0 docusate sodium [Colace] 100 mg capsule 100 mg PO BID Qty: 60 RF: 0 hydrocortisone 10 mg tablet 15 mg PO QAM RF: 0 sertraline 25 mg tablet 25 mg PO QAM RF: 0 hydrocortisone 5 mg tablet 5 mg PO HS RF: 0 Discharge Orders: Discharge Order (Routine); Ordered 03/15/21 Ordered By: Wong Bhatia Admission Data Admit Date/Time: 03/13/21 04:31 Attending Provider: Rex Baldwin Admit Provider: Kolby Mejia Primary Care Provider: Daniella Kramer Other Providers: Roman Richards ; [facility] Other Interventions: Discharge Summary Assessment (RN) Last Done: 03/15/21 11:26 Coding Level of Care Code D/C DAY MANAGEMENT <30 MINS Diagnoses Closed sacral fracture S32.10XA Encounter type: initial encounter Zone of sacrum fracture: unspecified portion of sacrum
== END 2021-03-15 16:06 | DRG 543 ==
LOC: ED 20:06 → SUATTDRO 03-13 04:31 → 3E 03-13 04:31

== ENCOUNTER 2022-01-01 10:00 | Observation (INO) ==
[2022-01-01] MEDS ORDERED: HYDROCORTISONE SOD SUCCINATE 100 MG/2 ML VIAL IV STA (10:15)
[2022-01-01] MEDS ORDERED: LACTATED RINGER'S 250 ML IV ONE (10:15)
--- NOTE | 2022-01-01 10:26 | Emergency Department Note ---
Impression & Plan Weakness, Diarrhea, Total bilirubin, elevated ED Provider Note Provider: Jeremiah Flores MD DATE OF SERVICE: 01/01/2022 CHIEF COMPLAINT: Weakness HISTORY OF PRESENT ILLNESS: Patient is a 86-year-old female history of CHF, DVT on Coumadin, compression fractures, hypothyroidism, and adrenal insufficiency presenting here today via ambulance from her home. She lives alone by herself in a condo but her daughter comes and assists her. Reports over the past approximately 5 days she has had several episodes of daily nonbloody diarrhea. No vomiting reported or significant nausea. Reports has been trying to hydrate but not eating so well. With little bit of mid abdominal discomfort. Denies sick contact to her knowledge. Patient states that today she is just too weak to get out of bed yesterday was able to get around but felt like she may fall. States she is not taking increased doses of her adrenal steroids and did not take any medicines yet today. No fevers reported. No chest pain reported. EMS placed the patient on a small amount of nasal cannula oxygen. Patient reports some thoracic back fractures related to a fall in October but denies recent fall. She denies headache. REVIEW OF SYSTEMS: A total of 10 review of systems was obtained and negative except as stated above in the HPI. PAST MEDICAL HISTORY: As noted above MEDICATIONS: Reviewed home medications SOCIAL HISTORY: Very distant former smoker, lives by herself in a condo PHYSICAL EXAM: GENERAL: alert and oriented in no acute distress on stretcher fatigued in appearance Head: normocephalic and atraumatic EYES: No injection, discharge or icterus. NECK: Trachea midline. Supple. ENT: Mucous membranes pink and moist. Pharynx without erythema or exudate. LUNGS: Airway patent. No retractions. Breath sounds clear with good air entry bilaterally. HEART: Regular rate and rhythm. No chest wall tenderness ABDOMEN: Soft SKIN: Acyanotic, warm, dry, without rashes EXTREMITIES: Without swelling, tenderness or deformity NEUROLOGICAL: No focal deficits. No aphasia. No facial droop or slurred speech. Normal strength and tone in the extremities. Sensation to gross touch normal. Ambulatory. EK bpm normal sinus rhythm. No PVC or PAC. No acute ST segment elevation or depression with a QTC of 408. CONTINUOUS CARDIAC MONITORING: was ordered and showed a heart rate of 70s-80s bpm in normal sinus rhythm Patient's laboratory studies and imaging reviewed. Differential includes Infection, dehydration, metabolic abnormality, hypo/hyperglycemia, electrolyte disturbance, anemia, hypoxia, cardiac sources, intracerebral event, toxicologic, neurologic, as well as other pathologies. IMPRESSION/MEDICAL DECISION MAKING: Nonfocal generalized weakness with associated diarrhea for several days with a h istory of adrenal insufficiency. History of CHF and cautiously given a small amount of fluid here and an increased dose of steroids initially although she is not significantly hypotensive. COVID test was sent and basic labs. Given her report of the diarrhea and some abdominal discomfort and age CT scan be completed the abdomen. Patient denying active chest pain and EKG without significant acute ischemic changes. High-sensitivity troponin mildly elevated however prior old troponins were somewhat elevated on the old assay. Lower suspicion this is acute. INR slightly subtherapeutic 1.9. No leukocytosis today. Blood work with mild hyponatremia 134. BUN slightly elevated and wonder she is just a slight bit volume depleted and again given a small amount of IV fluids. Bilirubin AST ALT and alkaline phosphatase are elevated which in comparison to old blood work does appear somewhat new. CT scan of the abdomen pelvis radiology report with evidence of actually some constipation findings and subacute known thoracic compression fractures. Patient's daughter later arrives at bedside provides additional history. Evidently the patient did have a small fall onto her bottom and scraped the side of her head on something on the weekend. Evidently last week the patient had some questionable hallucinations regarding somebody coming to see her and had to stay with her daughter overnight. Patient attempted to get out of bed according the daughter this morning and became quite unsteady and the daughter had to help her back down. Given this all there is no significant evidence of trauma or focal deficit CT of the head will be completed. Urinalysis completed to look for possible urine infection. Some epithelial cells but no white cells but positive for nitrates. Sent for urine culture and with some report of diarrhea will hold antibiotics empirically. Discussed with them the findings and given her significant weakness discussed further care here at the hospital. DIAGNOSIS: Weakness, diarrhea, elevated bilirubin DISPOSITION: Hospitalist will evaluate Patient was agreeable with this plan. Past Med/Surg History Medical History Adrenal insufficiency Arthritis of knee Chronic diastolic CHF (congestive heart failure) Diverticulosis GERD without esophagitis History of DVT (deep vein thrombosis) HTN (hypertension), benign Hyperglycemia Hypothyroidism Midline low back pain without sciatica Osteopenia Pulmonary embolism Reactive airway disease Seasonal allergies SNHL (sensorineural hearing loss) Syncope Surgical History History of cholecystectomy History of hernia repair Family History Unknown Cancer Cardiac disorder FHx: deafness or hearing loss Mother Cardiac disorder Hypertension Other Family history non-contributory Hearing loss No family history of adverse response to anesthesia No family history of bleeding disorder Social History Smoking Status: Never smoker Tobacco Type: Cigarettes Age Started Using Tobacco: 28; Age Quit Using Tobacco: 44; Second Hand Exposure: No; Do You Dip or Chew Tobacco: No; Tobacco Cessation Education Requested by Patient: No Hx Alcohol Use: No Hx Substance Use: No Preferred Language: Mongolian Communication Ability: Effective Pipe Buffer Required: No Beliefs That Will Affect Care: None marital status: Current Living Situation: Alone Current Living Situation Comment: daughter lives nearby current occupational status: retired Other Information That Helps Us Care for You: No Feels Safe at Home: Yes Safety Concerns: Feels Safe At This Time Childhood Exposure to Second-Hand Smoke: No Assistive Devices: Denture - Upper, Denture - Lower, Glasses, Hearing Aid - Bilateral and Walker Allergies Allergies Allergy/AdvReac Type Severity Reaction Status Date / Time celecoxib Allergy Unknown MUSCLE Verified 12/11/21 14:31 CRAMPS Sulfa (Sulfonamide Allergy Unknown DIDN'T Verified 12/11/21 14:31 Antibiotics) FEEL WELL Home Meds Home Medications Medication Instructions Recorded Confirmed blood sugar diagnostic (OneTouch #10 ea 03/22/19 12/13/21 Verio test strips) diclofenac sodium 1 % topical gel 2 gm TOPICAL DAILY #1 gm 03/22/19 12/13/21 acetaminophen 500 mg tablet 500 mg PO Q6H PRN 02/01/21 12/13/21 (Tylenol Extra Strength) propylene glycol [Systane Complete] 1 drp OPHTHALMIC (EYE) DAILY 02/08/21 12/13/21 omeprazole 20 mg capsule,delayed 20 mg PO Q OTHER DAY cap 09/25/21 12/13/21 release calcium phosphate 250 mg-vitamin 1 tab PO QDL tab 11/22/21 12/13/21 D3 10 mcg (400 unit) chewable tablet (Caltrate Gummy Bites) Previous Rx's Medication Instructions Recorded levothyroxine 137 mcg tablet 137 mcg PO DAILY #90 tab 07/13/21 hydrocortisone 10 mg tablet 10 mg PO QAM #90 tab 08/14/21 hydrocortisone 5 mg tablet 5 mg PO BID #180 tab 09/19/21 sertraline 50 mg tablet 50 mg PO DAILY #90 tab 09/25/21 olmesartan 5 mg tablet 5 mg PO DAILY #90 tab 10/24/21 albuterol sulfate 90 mcg/actuation 2 puff INHALATION Q6H PRN #8.5 gm 12/07/21 aerosol inhaler spironolactone 25 mg tablet 25 mg PO QAM #90 tab 12/07/21 warfarin 2 mg tablet See Rx Instructions PO UD #90 tab 12/07/21 sennosides 8.6 mg tablet (Senokot) 8.6 mg PO BID #180 tab 12/11/21 polyethylene glycol 3350 17 17 g PO DAILY PRN #119 g 12/12/21 gram/dose oral powder (Miralax) cyclobenzaprine 5 mg tablet 5 mg PO BID PRN #30 tab 12/21/21 atorvastatin 20 mg tablet 20 mg PO DAILY #90 tab 12/29/21 Results & Data (ED) Vital Signs Vital Signs - 24 hr 01/01/22 10:05 01/01/22 10:10 01/01/22 11:00 Temperature 37.2 C Temperature Source Oral Pulse Rate 90 76 Respiratory Rate 20 24 Respiratory Effort / Characteristics Non-Labored Spontaneous Respiratory Depth Normal Respiratory Pattern Regular Blood Pressure 137/59 L 137/59 L Blood Pressure Mean 85 85 Pulse Oximetry 99 99 96 Oxygen Delivery Method Room Air Sepsis Recent Fever Within 48 Hours No Sepsis New/Unexplained Change in Mental Status No Sepsis Action Taken by Nursing No Action Required 01/01/22 12:00 01/01/22 13:00 01/01/22 13:30 Temperature Temperature Source Pulse Rate 85 75 73 Respiratory Rate 23 23 21 Respiratory Effort / Characteristics Respiratory Depth Respiratory Pattern Blood Pressure 140/37 L 128/64 127/59 L Blood Pressure Mean 71 85 81 Pulse Oximetry 95 94 95 Oxygen Delivery Method Sepsis Recent Fever Within 48 Hours Sepsis New/Unexplained Change in Mental Status Sepsis Action Taken by Nursing 01/01/22 14:00 01/01/22 14:30 Temperature Temperature Source Pulse Rate 80 71 Respiratory Rate 22 19 Respiratory Effort / Characteristics Respiratory Depth Respiratory Pattern Blood Pressure 155/69 H 129/55 L Blood Pressure Mean 97 79 Pulse Oximetry 97 94 Oxygen Delivery Method Sepsis Recent Fever Within 48 Hours Sepsis New/Unexplained Change in Mental Status Sepsis Action Taken by Nursing Laboratory Data Result diagrams: 01/01/22 10:18 01/01/22 10:18 Lab Results 01/01/22 01/01/22 01/01/22 Range/Units 10:18 10:18 10:18 WBC 9.79 (4.8-10.8) K/uL RBC 4.57 (4.2-5.4) M/uL Hgb 15.2 (12.0-16.0) g/dL Hct 46.2 (37-47) % MCV 101.1 H (80-100) fL MCH 33.3 (25-34) pg MCHC 32.9 (32-36) g/dL RDW Std Deviation 56.4 H (36.4-46.3) fL RDW Coeff of [place] 15.1 H (11.5-14.5) % Plt Count 174 (130-400) K/uL MPV 11.1 H (7.4-10.4) fL Immature Gran % (Auto) 0.2 % Neut % (Auto) 61.6 % Lymph % (Auto) 27.0 % [place] % (Auto) 9.5 % Eos % (Auto) 1.6 % Baso % (Auto) 0.1 % Neut # (Auto) 6.03 (1.4-6.5) K/uL Lymph # (Auto) 2.64 (1.2-3.4) K/uL [place] # (Auto) 0.93 H (0.11-0.59) K/uL Eos # (Auto) 0.16 (0-0.5) K/uL Baso # (Auto) 0.01 (0-0.2) K/uL Immature Gran # (Auto) 0.02 (0.00-0.02) K/uL PT 20.0 H (9.0-12.0) Seconds INR 1.9 H (0.9-1.1) Sodium 134 L (136-145) mmol/L Potassium 4.6 (3.5-5.1) mmol/L Chloride 102 (98-107) mmol/L Carbon Dioxide 23 (21-32) mmol/L Anion Gap 9 (3-11) BUN 25 H (6-23) mg/dl Creatinine 1.12 (0.6-1.2) mg/dl Est Cr Clr Drug Dosing 20.8 ml/min Est GFR ( Amer) 51.2 ml/min Est GFR (Non-Af Amer) 44.1 ml/min BUN/Creatinine Ratio 22.3 H (10-20) Glucose 79 (70-99(Fasting)) mg/dl Calcium 9.0 (8.5-10.1) mg/dl Magnesium 1.7 (1.7-2.4) mg/dl Total Bilirubin 4.6 H (0.2-1.0) mg/dl AST 87 H (13-39) U/L ALT 131 H (7-52) U/L Alkaline Phosphatase 341 H (34-104) U/L Total Creatine Kinase 48 (26-192) U/L Troponin I High Sens 50.2 H* (0-14) pg/ml Total Protein 6.6 (6.0-8.3) gm/dl Albumin 3.5 (3.4-5.0) gm/dl Globulin 3.1 (2.5-4.0) gm/dl Albumin/Globulin Ratio 1.1 (0.9-2) TSH (0.300-4.500) uIu/ml Urine Color Urine Appearance (Clear) Urine pH (4.5-7.5) Ur Specific [place] (1.000-1.030) Urine Protein (Negative) Urine Glucose (UA) (Negative) Urine Ketones (Negative) Urine Blood (Negative) Urine Nitrite (Negative) Urine Bilirubin (Negative) Urine Urobilinogen (Negative) Ur Leukocyte Esterase (Negative) Urine WBC (Auto) (0-5) /hpf Urine RBC (Auto) (0-4) /hpf U Hyaline Cast (Auto) (0-5) /lpf U Epithel Cells (Auto) (0-5) /lpf Urine Bacteria (Auto) (Negative) SARS-CoV-2, RNA, NAAT (NEGATIVE) 01/01/22 01/01/22 01/01/22 Range/Units 10:18 10:30 12:17 WBC (4.8-10.8) K/uL RBC (4.2-5.4) M/uL Hgb (12.0-16.0) g/dL Hct (37-47) % MCV (80-100) fL MCH (25-34) pg MCHC (32-36) g/dL RDW Std Deviation (36.4-46.3) fL RDW Coeff of [place] (11.5-14.5) % Plt Count (130-400) K/uL MPV (7.4-10.4) fL Immature Gran % (Auto) % Neut % (Auto) % Lymph % (Auto) % [place] % (Auto) % Eos % (Auto) % Baso % (Auto) % Neut # (Auto) (1.4-6.5) K/uL Lymph # (Auto) (1.2-3.4) K/uL [place] # (Auto) (0.11-0.59) K/uL Eos # (Auto) (0-0.5) K/uL Baso # (Auto) (0-0.2) K/uL Immature Gran # (Auto) (0.00-0.02) K/uL PT (9.0-12.0) Seconds INR (0.9-1.1) Sodium (136-145) mmol/L Potassium (3.5-5.1) mmol/L Chloride (98-107) mmol/L Carbon Dioxide (21-32) mmol/L Anion Gap (3-11) BUN (6-23) mg/dl Creatinine (0.6-1.2) mg/dl Est Cr Clr Drug Dosing ml/min Est GFR ( Amer) ml/min Est GFR (Non-Af Amer) ml/min BUN/Creatinine Ratio (10-20) Glucose (70-99(Fasting)) mg/dl Calcium (8.5-10.1) mg/dl Magnesium (1.7-2.4) mg/dl Total Bilirubin (0.2-1.0) mg/dl AST (13-39) U/L ALT (7-52) U/L Alkaline Phosphatase (34-104) U/L Total Creatine Kinase (26-192) U/L Troponin I High Sens (0-14) pg/ml Total Protein (6.0-8.3) gm/dl Albumin (3.4-5.0) gm/dl Globulin (2.5-4.0) gm/dl Albumin/Globulin Ratio (0.9-2) TSH 1.205 (0.300-4.500) uIu/ml Urine Color Dark Yellow Urine Appearance Clear (Clear) Urine pH 6.5 (4.5-7.5) Ur Specific [place] 1.024 (1.000-1.030) Urine Protein Negative (Negative) Urine Glucose (UA) Negative (Negative) Urine Ketones Negative (Negative) Urine Blood Negative (Negative) Urine Nitrite Positive A (Negative) Urine Bilirubin 1+ H (Negative) Urine Urobilinogen Positive H (Negative) Ur Leukocyte Esterase Trace H (Negative) Urine WBC (Auto) 1-5 (0-5) /hpf Urine RBC (Auto) 10-30 H (0-4) /hpf U Hyaline Cast (Auto) 1-5 (0-5) /lpf U Epithel Cells (Auto) 20-30 H (0-5) /lpf Urine Bacteria (Auto) Negative (Negative) SARS-CoV-2, RNA, NAAT NEGATIVE (NEGATIVE) Administered Medications Discontinued Medications Hydrocortisone Sodium Succinate (Hydrocortisone Sod Succinate 100 Mg/2 Ml Vial) 25 mg IV NOW STA Stop: 01/01/22 10:16 Last Admin: 01/01/22 10:27 Dose: 25 mg Documented by: [id number] Lactated Ringer's (Lr) 250 mls @ 999 mls/hr IV .Q16M ONE Stop: 01/01/22 10:30 Last Infusion: 01/01/22 11:15 Dose: 0 mls/hr Documented by: [id number] Admin: 01/01/22 10:27 Dose: 999 mls/hr Documented by: [id number] Ioversol (Optiray 320 100ml) 90 ml IV ONCE ONE Stop: 01/01/22 11:15 Last Admin: 01/01/22 11:14 Dose: 90 ml Documented by: [id number] Imaging Data Radiologist's Impression: Chest X-Ray 01/01/22 10:15 SINGLE VIEW CHEST CLINICAL HISTORY: Generalized weakness. Diarrhea. FINDINGS: An AP, portable, upright chest radiograph is compared to study dated 01/05/2021. The heart is mildly enlarged noting atherosclerotic calcification of the thoracic aorta. The pulmonary vasculature is noncongested. Chronic interstitial thickening is similar to previous. There is left basilar scarring/atelectasis. No airspace consolidation or large pleural effusion is identified. No pneumothorax is seen. The skeletal structures are osteopenic. The bony thorax is grossly intact. Degenerative change is noted in the shoulders. Calcified granulomas are noted in the spleen. IMPRESSION: Mild cardiomegaly with no acute cardiopulmonary abnormality. ACT 112: Negative or not required by law. Electronically signed by: Alec Miguel M.D. 01/01/2022 10:51 AM Abdomen/Pelvis CT 01/01/22 10:17 CT SCAN OF THE ABDOMEN AND PELVIS WITH IV CONTRAST CLINICAL HISTORY: Generalized abdominal pain. Diarrhea. COMPARISON STUDY: Abdominal CT dated 12/25/2021 and 03/13/2021. TECHNIQUE: Following the IV administration of 90 cc of Optiray 320, CT scan of the abdomen and pelvis is performed from the lung bases to the proximal femora. Images are reviewed in the axial, sagittal, and coronal planes. IV contrast was administered without complication. A dose lowering technique was utilized adhering to the principles of ALARA. CT DOSE: 647.92 mGycm FINDINGS: Lung bases: The heart is normal in size and without pericardial effusion. The coronary arteries are densely calcified. A small hiatal hernia is noted. Calcified granulomas are noted at the lung bases. The lung bases are otherwise clear noting bibasilar scarring/atelectasis. Liver: The contrast-enhanced liver is normal in size, contour, and attenuation. There is minimal central intrahepatic biliary ductal dilatation. The hepatic v eins and portal veins are patent. There are numerous calcified hepatic granulomas Gallbladder: Surgically absent. Spleen: Normal in size and attenuation. There are numerous calcified splenic granulomas. 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 This is unchanged from prior studies. The pancreas is moderately atrophic and otherwise grossly unremarkable. Adrenal glands: Unremarkable. Kidneys: The contrast enhanced kidneys demonstrate cortical atrophy and are without hydronephrosis. The kidneys enhance symmetrically. 1.6 cm cyst is noted in the left lower pole. Additional subcentimeter cortical hypodensities also likely represent cysts but are too small for definitive characterization. Abdominal vasculature: The abdominal aorta is normal in course and caliber noting moderate to advanced atherosclerotic calcification. Bowel: The small bowel and colon are normal in course and caliber. The appendix is well-visualized and normal. Peritoneum: There is moderate colonic diverticulosis without CT evidence of acute diverticulitis. No bowel obstruction is seen. There is moderate to severe constipation. There is a large fat-containing umbilical hernia. Lymphadenopathy: None. Pelvic viscera: The bladder, uterus, and adnexa are normal as visualized. Skeletal structures: The skeletal structures are osteopenic. Compression films of T9, T10, and L1 are unchanged from previous. The fractures of T9 and T10 are likely subacute. There is associated paravertebral edema. There is chronic posttraumatic deformity of the sacrum. Moderate lumbosacral spondylosis is observed. No lytic or blastic lesions are seen. IMPRESSION: 1. No acute infectious or inflammatory findings are identified in the abdomen or pelvis. 2. Moderate to severe constipation. 3. Colonic diverticulosis without CT evidence of acute diverticulitis. 4. Subacute appearing compression fractures of T9 and T10 are unchanged from 12/25/2021. 5. Large fat-containing umbilical hernia. 6. Additional findings as above. ACT 112: Negative or not required by law. Electronically signed by: Alec Miguel M.D. 01/01/2022 11:[address] 01/01/22 11:[address] DOSE: 614.27 mGy.cm HISTORY: fall TECHNIQUE: Multiaxial CT images of the head were performed without the use of intravenous contrast. Automated exposure control was utilized for this study. A dose lowering technique was utilized adhering to the principles of ALARA. Comparison: No priors available due to system downtime. Findings: The paranasal sinuses and mastoid air cells are clear. The calvarium and skull base are intact. The ventricles and sulci are within normal limits. There is no mass, hematoma, midline shift, or acute infarct. There is contrast within the brain from the recent abdomen pelvis CT. This results in suboptimal evaluation for intracranial hemorrhage. Impression: No definite acute intracranial abnormality. ACT 112: Negative or not required by law. Electronically signed by: John Hogan M.D. 01/01/2022 1:25 PM Discharge Plan Visit Data Chief Complaint: Weakness ED Provider: Jeremiah Flores Discharge Problem: Weakness, Diarrhea, Total bilirubin, elevated Patient Disposition: Admitted As Inpatient Discharge Instructions Interventions: ED Discharge Assessment Last Done: 01/01/22 15:17 Discharge Problem: Diarrhea Qualifiers: Diarrhea type: unspecified type Qualified Code(s): R19.7 - Diarrhea, unspecified
[2022-01-01 10:34] LABS: Basophils # (auto) 0.01 K/uL (0-0.2); Basophils % (auto) 0.1 %; Eosinophils # (auto) 0.16 K/uL (0-0.5); Eosinophils % (auto) 1.6 %; Hematocrit (blood only) 46.2 % (37-47); Hemoglobin 15.2 g/dL (12.0-16.0); Immature Granulocytes # (auto) 0.02 K/uL (0.00-0.02); Immature Granulocytes % (auto) 0.2 %; Lymphocytes # (auto) 2.64 K/uL (1.2-3.4); Mean Corpuscular Hemoglobin 33.3 pg (25-34); Mean Corpuscular Hgb Conc 32.9 g/dL (32-36); Mean Corpuscular Volume 101.1 fL (80-100); Mean Platelet Volume 11.1 fL (7.4-10.4); Monocytes # (auto) 0.93 K/uL (0.11-0.59); Monocytes % (auto) 9.5 %; Neutrophils # (auto) 6.03 K/uL (1.4-6.5); Neutrophils % (auto) 61.6 %; Platelet Count 174 K/uL (130-400); RDW Coefficient of Variation 15.1 % (11.5-14.5); RDW Standard Deviation 56.4 fL (36.4-46.3); Red Blood Count 4.57 M/uL (4.2-5.4); White Blood Count 9.79 K/uL (4.8-10.8)
[2022-01-01 10:51] LABS: INR 1.9 (0.9-1.1)
--- NOTE | 2022-01-01 10:52 | XRay Report ---
SINGLE VIEW CHEST CLINICAL HISTORY: Generalized weakness. Diarrhea. FINDINGS: An AP, portable, upright chest radiograph is compared to study dated 01/05/2021. The heart i s mildly enlarged noting atherosclerotic calcification of the thoracic aorta. The pulmonary vasculatu re is noncongested. Chronic interstitial thickening is similar to previous. There is left basilar sca rring/atelectasis. No airspace consolidation or large pleural effusion is identified. No pneumothorax is seen. The skeletal structures are osteopenic. The bony thorax is grossly intact. Degenerative raul nge is noted in the shoulders. Calcified granulomas are noted in the spleen. IMPRESSION: Mild cardiomegaly with no acute cardiopulmonary abnormality. ACT 112: Negative or not required by law. Electronically signed by: Alec Miguel M.D. 01/01/2022 10:51 AM
[2022-01-01 10:59] LABS: Albumin Globulin Ratio 1.1 (0.9-2); Albumin Level 3.5 gm/dl (3.4-5.0); BUN Creatinine Ratio 22.3 (10-20); Bilirubin,Total 4.6 mg/dl (0.2-1.0); Creatinine Clr Calc Pharmacy 20.8 ml/min; Est GFR (African American) 51.2 ml/min; Est GFR (Non-African American) 44.1 ml/min; Globulin 3.1 gm/dl (2.5-4.0); Magnesium 1.7 mg/dl (1.7-2.4); Potassium 4.6 mmol/L (3.5-5.1); Total Protein 6.6 gm/dl (6.0-8.3)
[2022-01-01 11:08] LABS: Troponin I High Sensitivity 50.2 pg/ml (0-14)
[2022-01-01] MEDS ORDERED: OPTIRAY 320 100ml IV ONE (11:14)
--- NOTE | 2022-01-01 11:27 | CT Scan Report ---
CT SCAN OF THE ABDOMEN AND PELVIS WITH IV CONTRAST CLINICAL HISTORY: Generalized abdominal pain. Diarrhea. COMPARISON STUDY: Abdominal CT dated 12/25/2021 and 03/13/2021. TECHNIQUE: Following the IV administration of 90 cc of Optiray 320, CT scan of the abdomen and pelvi s is performed from the lung bases to the proximal femora. Images are reviewed in the axial, sagittal , and coronal planes. IV contrast was administered without complication. A dose lowering technique wa s utilized adhering to the principles of ALARA. CT DOSE: 647.92 mGycm FINDINGS: Lung bases: The heart is normal in size and without pericardial effusion. The coronary arteries are d ensely calcified. A small hiatal hernia is noted. Calcified granulomas are noted at the lung bases. T he lung bases are otherwise clear noting bibasilar scarring/atelectasis. Liver: The contrast-enhanced liver is normal in size, contour, and attenuation. There is minimal cent ral intrahepatic biliary ductal dilatation. The hepatic veins and portal veins are patent. There are numerous calcified hepatic granulomas Gallbladder: Surgically absent. Spleen: Normal in size and attenuation. There are numerous calcified splenic granulomas. 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 This i s unchanged from prior studies. The pancreas is moderately atrophic and otherwise grossly unremarkabl e. Adrenal glands: Unremarkable. Kidneys: The contrast enhanced kidneys demonstrate cortical atrophy and are without hydronephrosis. T he kidneys enhance symmetrically. 1.6 cm cyst is noted in the left lower pole. Additional subcentimet er cortical hypodensities also likely represent cysts but are too small for definitive characterizati on. Abdominal vasculature: The abdominal aorta is normal in course and caliber noting moderate to advance d atherosclerotic calcification. Bowel: The small bowel and colon are normal in course and caliber. The appendix is well-visualized a nd normal. Peritoneum: There is moderate colonic diverticulosis without CT evidence of acute diverticulitis. No bowel obstruction is seen. There is moderate to severe constipation. There is a large fat-containing umbilical hernia. Lymphadenopathy: None. Pelvic viscera: The bladder, uterus, and adnexa are normal as visualized. Skeletal structures: The skeletal structures are osteopenic. Compression films of T9, T10, and L1 are unchanged from previous. The fractures of T9 and T10 are likely subacute. There is associated parave rtebral edema. There is chronic posttraumatic deformity of the sacrum. Moderate lumbosacral spondylos is is observed. No lytic or blastic lesions are seen. IMPRESSION: 1. No acute infectious or inflammatory findings are identified in the abdomen or pelvis. 2. Moderate to severe constipation. 3. Colonic diverticulosis without CT evidence of acute diverticulitis. 4. Subacute appearing compression fractures of T9 and T10 are unchanged from 12/25/2021. 5. Large fat-containing umbilical hernia. 6. Additional findings as above. ACT 112: Negative or not required by law. Electronically signed by: Alec Miguel M.D. 01/01/2022 11:26 AM
[2022-01-01 12:31] LABS: Appearance Urine Clear (Clear); Bacteria Urine Automated Negative (Negative); Blood Urine Negative (Negative); Color Urine Dark Yellow; Epithelial Cell Urine Auto 20-30 /lpf (0-5); Glucose Urine UA Negative (Negative); Ketones Urine Negative (Negative); Leukocyte Esterase Urine Trace (Negative); Nitrite Urine Positive (Negative); Protein Urine Negative (Negative); Specific Gravity Urine 1.024 (1.000-1.030); Urobilinogen Urine Positive (Negative); pH Urine 6.5 (4.5-7.5)
[2022-01-01 12:32] LABS: Bilirubin Urine 1+ (Negative)
--- NOTE | 2022-01-01 13:27 | CT Scan Report ---
HEAD CT NONCONTRAST CT DOSE: 614.27 mGy.cm HISTORY: fall TECHNIQUE: Multiaxial CT images of the head were performed without the use of intravenous contrast. A utomated exposure control was utilized for this study. A dose lowering technique was utilized adheri ng to the principles of ALARA. Comparison: No priors available due to system downtime. Findings: The paranasal sinuses and mastoid air cells are clear. The calvarium and skull base are int act. The ventricles and sulci are within normal limits. There is no mass, hematoma, midline shift, or acute infarct. There is contrast within the brain from the recent abdomen pelvis CT. This results in suboptimal evaluation for intracranial hemorrhage. Impression: No definite acute intracranial abnormality. ACT 112: Negative or not required by law. Electronically signed by: John Hogan M.D. 01/01/2022 1:25 PM
--- NOTE | 2022-01-01 14:30 | History & Physical Report ---
Date of Service January 01, 2022 Assessment & Plan (1) Weakness: Plan: - Unclear etiology at this time, no obvious source of infection on labs or imaging, however she does have some evidence of possible UTI on UA. Urine culture pending. Does have hx of adrenal insufficiency, may be manifestation of this in setting of infection. - We will give a dose of Rocephin today, can re-evaluate tomorrow the need for continued IV antibiotics. - PT and OT to evaluate. (2) Acute kidney injury: Plan: - Most likely in the setting of decreased p.o. intake, diarrhea and possible UTI. - Received 250 cc LR's in ED, cautious with further IVF as patient has HFpEF. - Hold olmesartan. - Avoid nephrotoxic agents, renally dose medications as able. (3) Transaminitis: Plan: - AST 87, ALT 131, alk phos 341. T. bili 4.6, labs have previously been elevated to near this level in December 2020 when she was hospitalized here for syncope. - Absent gallbladder, mildly intrahepatic ductal dilation and numerous calcified hepatic granulomas, which is also noted on CT a/p from December 2020. - Without RUQ pain. - Will repeat CMP in AM, can consider GI consult while here or as outpatient. (4) Adrenal insufficiency: Plan: - Takes 15 mg hydrocortisone in the a.m. and 5 mg in the evening, has been taking this over the past week, has not increased dose in setting of weakness and diarrhea. - Received 25 mg IV hydrocortisone in ED, over the 24 hours will order 50 mg IV hydrocortisone q8h in setting of infection. - On vit D and PPI for prophylaxis. (5) Diarrhea: Plan: - Ongoing since , nonbloody and painless, however patient is quite constipated on CT. - Biofire panel ordered. - Will order scheduled laxatives to alleviate constipation, if biofire panel is negative for c diff can order Bentyl if patient has moved bowels, diarrhea still an issue and no longer severely constipated. (6) Constipation: (7) Compression fracture of T10 vertebra: Plan: - Subacute from a previous fall several weeks ago. - Continue Flexeril BID prn for back spasms, diclofenac gel, lidocaine patches for pain relief. - Does take Tylenol at home but will hold this for now given her elevated LFTs. (8) History of DVT (deep vein thrombosis): Plan: - In 2009, is on Coumadin 4 mg on Mondays, 2 mg all other days of the week. (9) Anxiety and depression: Plan: - Continue sertraline 50 mg daily. (10) Hypertension: Plan: - Normotensive on presentation. - Holding olmesartan due to SHEY. Continue to monitor BP. (11) (HFpEF) heart failure with preserved ejection fraction: Plan: - Echo December 2020: EF >70%. No regional wall motion abnormalities. Moderate concentric left ventricular hypertrophy. - Appears euvolemic on exam, may be somewhat dehydrated. - Received 250 cc LR's in ED, will get LRs at 80 cc/hr x 1 L for her SHEY. Monitor volume status. - Continue spironolactone. - Low-sodium diet. (12) Pulmonary hypertension: (13) Asthma: Plan: - Has albuterol inhaler as needed, has been taking it once daily upon awakening for the past several weeks due to allergies, but denies an acute exacerbation. (14) Hypothyroidism: Plan: - Continue levothyroxine 137 mcg daily. (15) GERD without esophagitis: Plan: - Continue PPI daily. Plan: - Admit to [facility] with telemetry. - SCDs, Coumadin for DVT PPx. -DNR/DNI. History of Present Illness Chief Complaint: weakness Primary Care Provider: Marysol Hogue MD Ms. Ulloa is an 86 y/o female with a PMH significant for HTN, HFpEF w/ EH > 70%, hypothyroidism, adrenal insufficiency, history of DVT (on Coumadin), anxiety, depression, asthma, and GERD who presents today with generalized weakness. She has been feeling weak for the past week with associated decreased PO intake, and on developed frequent episodes of nonbloody, painless diarrhea. This morning, daughter went to visit and found her mother in bed, still in clothes from the previous day and she had urinated in bed. She was globally weak to the point of not being able to get out of bed, which is a deviation from her baseline. Patient lives on her home, ambulates with her walker and does have some ongoing cognitive decline, mostly short term memory loss, but is AAO x3.. She was completely oriented this AM, no focal weakness/numbness/tingling, slurred speech, nausea, vomiting, or dizziness. She denies dysuria, hematuria, or increased urinary frequency, but does state she has been waiting long periods of time to go to the bathroom due to the pain she has with ambulation d/t her compression fractures. Has not had fever/chills, chest pain, palpitations, SOB, cough, or abdominal pain. In ED, her VS are stable and wnl, actually mildly hypertensive with SBP 130- 150s. Labs largely unremarkable, INR slightly subtherapeutic at 1.9. Na 134, creatinine 1.12 (baseline ~ 0.6 -0.8), t. bili 4.6, AST 87, ALT 131, alk phos 341. HS troponin 50.2. UA pos for nitrites, 1+ bili, trace leuk esterase, 1-5 WBC, 10-30 RBCs, neg for bacteria. COVID negative. CT head without acute intracranial abnormality. CT A/P showed moderate/severe constipation, but did not show an acute infectious or inflammatory findings are identified in the abdomen or pelvis. Subacute appearing compression fractures of T9 and T10 are unchanged from 12/25/2021. CXR with mild cardiomegaly, no acute cardiopulmonary abnormality. Allergies Allergy/AdvReac Type Severity Reaction Status Date / Time celecoxib Allergy Unknown MUSCLE Verified 12/11/21 14:31 CRAMPS Sulfa (Sulfonamide Allergy Unknown DIDN'T Verified 12/11/21 14:31 Antibiotics) FEEL WELL Home Medications Medication Instructions Recorded Confirmed Type blood sugar diagnostic (OneTouch #10 ea 03/22/19 12/13/21 History Verio test strips) diclofenac sodium 1 % topical gel 2 gm TOPICAL DAILY #1 gm 03/22/19 12/13/21 History acetaminophen 500 mg tablet 500 mg PO Q6H PRN 02/01/21 12/13/21 History (Tylenol Extra Strength) propylene glycol [Systane Complete] 1 drp OPHTHALMIC (EYE) DAILY 02/08/21 12/13/21 History levothyroxine 137 mcg tablet 137 mcg PO DAILY #90 tab 07/13/21 12/13/21 Rx hydrocortisone 10 mg tablet 10 mg PO QAM #90 tab 08/14/21 12/13/21 Rx hydrocortisone 5 mg tablet 5 mg PO BID #180 tab 01/26/22 04/21/22 Rx omeprazole 20 mg capsule,delayed 20 mg PO Q OTHER DAY cap 09/25/21 12/13/21 History release sertraline 50 mg tablet 50 mg PO DAILY #90 tab 09/25/21 12/13/21 Rx olmesartan 5 mg tablet 5 mg PO DAILY #90 tab 10/24/21 12/13/21 Rx calcium phosphate 250 mg-vitamin 1 tab PO QDL tab 11/22/21 12/13/21 History D3 10 mcg (400 unit) chewable tablet (Caltrate Gummy Bites) albuterol sulfate 90 mcg/actuation 2 puff INHALATION Q6H PRN #8.5 gm 12/07/21 12/13/21 Rx aerosol inhaler spironolactone 25 mg tablet 25 mg PO QAM #90 tab 12/07/21 12/13/21 Rx warfarin 2 mg tablet See Rx Instructions PO UD #90 tab 12/07/21 12/13/21 Rx sennosides 8.6 mg tablet (Senokot) 8.6 mg PO BID #180 tab 12/11/21 12/13/21 Rx polyethylene glycol 3350 17 17 g PO DAILY PRN #119 g 12/12/21 12/13/21 Rx gram/dose oral powder (Miralax) cyclobenzaprine 5 mg tablet 5 mg PO BID PRN #30 tab 12/21/21 Rx atorvastatin 20 mg tablet 20 mg PO DAILY #90 tab 12/29/21 Rx Past Med/Surg History Medical History Adrenal insufficiency Arthritis of knee Chronic diastolic CHF (congestive heart failure) Diverticulosis GERD without esophagitis History of DVT (deep vein thrombosis) HTN (hypertension), benign Hyperglycemia Hypothyroidism Midline low back pain without sciatica Osteopenia Pulmonary embolism Reactive airway disease Seasonal allergies SNHL (sensorineural hearing loss) Syncope Surgical History History of cholecystectomy History of hernia repair Family History Unknown Cancer Cardiac disorder FHx: deafness or hearing loss Mother Cardiac disorder Hypertension Other Family history non-contributory Hearing loss No family history of adverse response to anesthesia No family history of bleeding disorder Social History (Reviewed 01/01/22 @ 14:23 by EVA Cervantes Smoking Status: Never smoker Tobacco Type: Cigarettes Age Started Using Tobacco: 28; Age Quit Using Tobacco: 44; Second Hand Exposure: No; Do You Dip or Chew Tobacco: No; Tobacco Cessation Education Requested by Patient: No Hx Alcohol Use: No Hx Substance Use: No Preferred Language: Persian Communication Ability: Effective General Supervisor Required: No Beliefs That Will Affect Care: None marital status: / Current Living Situation: Alone Current Living Situation Comment: daughter lives nearby current occupational status: retired How many Children do You have: 2 Other Information That Helps Us Care for You: No Feels Safe at Home: Yes Safety Concerns: Feels Safe At This Time Childhood Exposure to Second-Hand Smoke: No Assistive Devices: Walker Review of Systems Review of Systems: Constitutional: generalized weakness x 1 week; No fever/chills, fatigue, myalgias, anorexia, night sweats Eyes: No diplopia, no worsening or blurred vision ENT: normal hearing, no trouble swallowing Respiratory: increased sneezing over past few weeks; No cough, sputum, dyspnea at rest or on exertion Cardiovascular: No chest pain, tightness or palpitations Abdomen: nonbloody, painless diarrhea since ; No pain, nausea, vomiting, or constipation : Denies dysuria, hematuria, increased urgency/frequency, urinary retention Musculoskeletal: No joint pain, calf pain, swelling Neurologic: No weakness, numbness/tingling, or balance problems Psychiatric: No anxiety or depression Skin: No rash or itch Physical Exam Physical Exam: General: awake, alert, no apparent distress Head: Normocephalic, atraumatic ENT: PERRL, EOMI, no pharyngeal exudate, mucous membranes moist Chest: Clear to auscultation, on room air, no adventitious breath sounds Cardiac: Regular rate and rhythm, no murmur, no JVD, normal peripheral pulses, good capillary refill Abdominal: mildly TTP in LLQ and LUQ; NABS x 4 quadrants, otherwise soft, nontender to palpation, no rebound, guarding or tenderness Extremities: Normal inspection, no peripheral edema or erythema, calfs nontender to palpation Psych: Normal mood and affect Neuro: AAO x 3, strength intact bilaterally and rated 5/5, no motor deficits, speech is clear, no peripheral sensory deficits Skin: no rash or erythema Results & Data Results & Data ([facility]) Vital Signs (Past 12 Hours) Vital Signs Temp Pulse Resp BP Pulse Ox 01/01/22 14:00 80 22 155/69 H 97 01/01/22 13:30 73 21 127/59 L 95 01/01/22 13:00 75 23 128/64 94 01/01/22 12:00 85 23 140/37 L 95 01/01/22 11:00 76 24 137/59 L 96 01/01/22 10:10 99 01/01/22 10:05 37.2 C 90 20 137/59 L 99 Laboratory Results Abnormal lab results 01/01/22 01/01/22 01/01/22 Range/Units 10:18 10:18 10:18 MCV 101.1 H (80-100) fL RDW Std Deviation 56.4 H (36.4-46.3) fL RDW Coeff of La 15.1 H (11.5-14.5) % MPV 11.1 H (7.4-10.4) fL Rich # (Auto) 0.93 H (0.11-0.59) K/uL PT 20.0 H (9.0-12.0) Seconds INR 1.9 H (0.9-1.1) Sodium 134 L (136-145) mmol/L BUN 25 H (6-23) mg/dl BUN/Creatinine Ratio 22.3 H (10-20) Total Bilirubin 4.6 H (0.2-1.0) mg/dl AST 87 H (13-39) U/L ALT 131 H (7-52) U/L Alkaline Phosphatase 341 H (34-104) U/L Troponin I High Sens 50.2 H* (0-14) pg/ml Urine Nitrite (Negative) Urine Bilirubin (Negative) Urine Urobilinogen (Negative) Ur Leukocyte Esterase (Negative) Urine RBC (Auto) (0-4) /hpf U Epithel Cells (Auto) (0-5) /lpf 01/01/22 Range/Units 12:17 MCV (80-100) fL RDW Std Deviation (36.4-46.3) fL RDW Coeff of La (11.5-14.5) % MPV (7.4-10.4) fL Rich # (Auto) (0.11-0.59) K/uL PT (9.0-12.0) Seconds INR (0.9-1.1) Sodium (136-145) mmol/L BUN (6-23) mg/dl BUN/Creatinine Ratio (10-20) Total Bilirubin (0.2-1.0) mg/dl AST (13-39) U/L ALT (7-52) U/L Alkaline Phosphatase (34-104) U/L Troponin I High Sens (0-14) pg/ml Urine Nitrite Positive A (Negative) Urine Bilirubin 1+ H (Negative) Urine Urobilinogen Positive H (Negative) Ur Leukocyte Esterase Trace H (Negative) Urine RBC (Auto) 10-30 H (0-4) /hpf U Epithel Cells (Auto) 20-30 H (0-5) /lpf Diagnostic Findings Chest X-Ray 01/01/22 10:15 SINGLE VIEW CHEST CLINICAL HISTORY: Generalized weakness. Diarrhea. FINDINGS: An AP, portable, upright chest radiograph is compared to study dated 01/05/2021. The heart is mildly enlarged noting atherosclerotic calcification of the thoracic aorta. The pulmonary vasculature is noncongested. Chronic interstitial thickening is similar to previous. There is left basilar scarring/atelectasis. No airspace consolidation or large pleural effusion is identified. No pneumothorax is seen. The skeletal structures are osteopenic. The bony thorax is grossly intact. Degenerative change is noted in the shoulders. Calcified granulomas are noted in the spleen. IMPRESSION: Mild cardiomegaly with no acute cardiopulmonary abnormality. ACT 112: Negative or not required by law. Electronically signed by: Alec Miguel M.D. 01/01/2022 10:51 AM Abdomen/Pelvis CT 01/01/22 10:17 CT SCAN OF THE ABDOMEN AND PELVIS WITH IV CONTRAST CLINICAL HISTORY: Generalized abdominal pain. Diarrhea. COMPARISON STUDY: Abdominal CT dated 12/25/2021 and 03/13/2021. TECHNIQUE: Following the IV administration of 90 cc of Optiray 320, CT scan of the abdomen and pelvis is performed from the lung bases to the proximal femora. Images are reviewed in the axial, sagittal, and coronal planes. IV contrast was administered without complication. A dose lowering technique was utilized adhering to the principles of ALARA. CT DOSE: 647.92 mGycm FINDINGS: Lung bases: The heart is normal in size and without pericardial effusion. The coronary arteries are densely calcified. A small hiatal hernia is noted. Calcified granulomas are noted at the lung bases. The lung bases are otherwise clear noting bibasilar scarring/atelectasis. Liver: The contrast-enhanced liver is normal in size, contour, and attenuation. There is minimal central intrahepatic biliary ductal dilatation. The hepatic veins and portal veins are patent. There are numerous calcified hepatic granulomas Gallbladder: Surgically absent. Spleen: Normal in size and attenuation. There are numerous calcified splenic granulomas. 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 This is unchanged from prior studies. The pancreas is moderately atrophic and otherwise grossly unremarkable. Adrenal glands: Unremarkable. Kidneys: The contrast enhanced kidneys demonstrate cortical atrophy and are without hydronephrosis. The kidneys enhance symmetrically. 1.6 cm cyst is noted in the left lower pole. Additional subcentimeter cortical hypodensities also likely represent cysts but are too small for definitive characterization. Abdominal vasculature: The abdominal aorta is normal in course and caliber noting moderate to advanced atherosclerotic calcification. Bowel: The small bowel and colon are normal in course and caliber. The appendix is well-visualized and normal. Peritoneum: There is moderate colonic diverticulosis without CT evidence of acute diverticulitis. No bowel obstruction is seen. There is moderate to severe constipation. There is a large fat-containing umbilical hernia. Lymphadenopathy: None. Pelvic viscera: The bladder, uterus, and adnexa are normal as visualized. Skeletal structures: The skeletal structures are osteopenic. Compression films of T9, T10, and L1 are unchanged from previous. The fractures of T9 and T10 are likely subacute. There is associated paravertebral edema. There is chronic posttraumatic deformity of the sacrum. Moderate lumbosacral spondylosis is observed. No lytic or blastic lesions are seen. IMPRESSION: 1. No acute infectious or inflammatory findings are identified in the abdomen or pelvis. 2. Moderate to severe constipation. 3. Colonic diverticulosis without CT evidence of acute diverticulitis. 4. Subacute appearing compression fractures of T9 and T10 are unchanged from 12/25/2021. 5. Large fat-containing umbilical hernia. 6. Additional findings as above. ACT 112: Negative or not required by law. Electronically signed by: Alec Miguel M.D. 01/01/2022 11:[address] 05/10/22 11:[address] DOSE: 614.27 mGy.cm HISTORY: fall TECHNIQUE: Multiaxial CT images of the head were performed without the use of intravenous contrast. Automated exposure control was utilized for this study. A dose lowering technique was utilized adhering to the principles of ALARA. Comparison: No priors available due to system downtime. Findings: The paranasal sinuses and mastoid air cells are clear. The calvarium and skull base are intact. The ventricles and sulci are within normal limits. There is no mass, hematoma, midline shift, or acute infarct. There is contrast within the brain from the recent abdomen pelvis CT. This results in suboptimal evaluation for intracranial hemorrhage. Impression: No definite acute intracranial abnormality. ACT 112: Negative or not required by law. Electronically signed by: John Hogan M.D. 01/01/2022 1:25 PM ECG Additional Comments: Normal sinus rhythm Normal ECG When compared with ECG of 14-JAN-2021 17:28, Nonspecific T wave abnormality no longer evident in Inferior leads T wave inversion no longer evident in Anterolateral leads. Code Status & VTE Plan Code Status DNR/DNI. Supervising Physician Co-Signing Physician Notes Patient was seen and examined independently I discussed the case with Maribel DUMONT I reviewed pertinent past medical social family history and also the plan of care and agree with the plan of care. Patient presents with weakness after some prehospital illness possible diarrhea. Patient is on adrenal replacement therapy and she did not take any augmenting dosing. Her weakness could be related to a temporary need of additional steroids. However will rule out etiologies of infection including urinary infection and if she does present with additional stool will have a bio fire for stool. Lamination is unrevealing she is clear lungs regular heart abdomen is relatively benign with normal bowel sounds may be too hyperactive bowel sounds and slightly tympanitic but no guarding. Although with a history of diastolic heart failure we will hydrate gently we will evaluate her transaminitis with repeat labs in the morning. Any exceptions will be noted below By CMS guidelines, a determination that the admission or continued stay is not medically necessary has been made by a member of the UR committee and a physician for this hospital stay, therefore a Code 44 will be completed and the Inpatient admission will be changed to outpatient. Rex Baldwin DO PG Care Time/CCT Total # of Minutes Spent Total Time Spent with Patient: Total time spent is greater than 50% in coordination of care (as documented) at patient's floor/unit and/or counseling patient: Coding Level of Care Code 47026 Initial Inpt Care Lvl 3 Diagnoses Weakness R53.1 Acute kidney injury N17.9 Diarrhea R19.7 Diarrhea type: unspecified type Compression fracture of T10 vertebra S22.070A History of DVT (deep vein thrombosis) Z86.718 Anxiety and depression F41.9; F32.A Hypertension I10 Hypertension type: primary hypertension (HFpEF) heart failure with preserved ejection fraction I50.30 Pulmonary hypertension I27.20 Constipation K59.00 Constipation type: unspecified constipation type Asthma J45.909 Adrenal insufficiency E27.40 Hypothyroidism E03.9 Hypothyroidism type: unspecified GERD without esophagitis K21.9 Transaminitis R74.01 (1) Diarrhea Diarrhea type: unspecified type Qualified Code(s): R19.7 - Diarrhea, unspecified (2) Hypothyroidism Hypothyroidism type: unspecified Qualified Code(s): E03.9 - Hypothyroidism, unspecified (3) Hypertension Hypertension type: primary hypertension Qualified Code(s): I10 - Essential (primary) hypertension (4) Constipation Constipation type: unspecified constipation type Qualified Code(s): K59.00 - Constipation, unspecified
[2022-01-01] MEDS ORDERED: ONDANSETRON INJ 2 MG/ML 2 ML VIAL IV PRN (16:00)
[2022-01-01] MEDS ORDERED: POLYETHYLENE (MIRALAX) 17 GM PACK PO PRN (16:00)
[2022-01-01] MEDS ORDERED: ALBUTEROL HFA 8 GM INHALER INH PRN (16:00)
[2022-01-01] MEDS ORDERED: CYCLOBENZAPRINE HCL 5 MG TAB PO PRN (16:00)
[2022-01-01] MEDS ORDERED: WARFARIN SOD 2 MG TAB PO SCH (16:00)
[2022-01-01] MEDS: LACTATED RINGER'S 1,000 ML IV SCH (16:55)
[2022-01-01] MEDS ORDERED: cefTRIAXone SODIUM 1,000 MG in DEXTROSE 5% 50 ML IV SCH (17:00)
[2022-01-01] MEDS: LIDOCAINE 5% 1 PATCH TD SCH (17:23)
[2022-01-01] MEDS: HYDROCORTISONE SOD 50 MG in SYRINGE 0 ML IV SCH (18:00)
[2022-01-01] MEDS ORDERED: HYDROCORTISONE SOD SUCCINATE 100 MG/2 ML VIAL IV SCH (18:30)
[2022-01-01] MEDS: SENNA 8.6 MG TAB PO SCH (19:57)
[2022-01-02] MEDS: HYDROCORTISONE SOD 50 MG in SYRINGE 0 ML IV SCH ×2 (01:09→10:38)
[2022-01-02] MEDS: LACTATED RINGER'S 1,000 ML IV SCH (05:07)
[2022-01-02] MEDS ORDERED: LEVOTHYROXINE SODIUM 137 MCG TABLET PO SCH (06:30)
[2022-01-02 06:31] LABS: Hematocrit (blood only) 40.3 % (37-47); Hemoglobin 13.2 g/dL (12.0-16.0); Immature Granulocytes # (auto) 0.02 K/uL (0.00-0.02); Immature Granulocytes % (auto) 0.3 %; Lymphocytes # (auto) 1.27 K/uL (1.2-3.4); Lymphocytes % (auto) 18.6 %; Mean Corpuscular Hemoglobin 32.4 pg (25-34); Mean Corpuscular Hgb Conc 32.8 g/dL (32-36); Mean Platelet Volume 11.1 fL (7.4-10.4); Monocytes # (auto) 0.16 K/uL (0.11-0.59); Monocytes % (auto) 2.3 %; Neutrophils # (auto) 5.37 K/uL (1.4-6.5); Neutrophils % (auto) 78.8 %; Platelet Count 166 K/uL (130-400); RDW Coefficient of Variation 15.3 % (11.5-14.5); Red Blood Count 4.07 M/uL (4.2-5.4); White Blood Count 6.82 K/uL (4.8-10.8)
[2022-01-02 07:06] LABS: Albumin Globulin Ratio 1.1 (0.9-2); BUN Creatinine Ratio 32.2 (10-20); Bilirubin,Total 1.6 mg/dl (0.2-1.0); Calcium 8.9 mg/dl (8.5-10.1); Creatinine Clr Calc Pharmacy 42.2 ml/min; Est GFR (African American) 69.4 ml/min; Est GFR (Non-African American) 59.9 ml/min; Globulin 2.8 gm/dl (2.5-4.0); Total Protein 5.8 gm/dl (6.0-8.3)
[2022-01-02 07:07] LABS: INR 1.8 (0.9-1.1); Prothrombin Time 18.2 Seconds (9.0-12.0)
[2022-01-02] MEDS: SENNA 8.6 MG TAB PO SCH (08:03)
[2022-01-02] MEDS ORDERED: POLYETHYLENE (MIRALAX) 17 GM PACK PO SCH (09:00)
[2022-01-02] MEDS ORDERED: DICLOFENAC SOD 1% GEL 100 GM TUBE EXT SCH (09:00)
[2022-01-02] MEDS ORDERED: PANTOprazole 40 MG TAB PO SCH (09:00)
[2022-01-02] MEDS ORDERED: ARTIFICIAL TEARS OP SCH (09:00)
[2022-01-02] MEDS ORDERED: SPIRONOLACTONE 25 MG TAB PO SCH (09:00)
[2022-01-02] MEDS ORDERED: SERTRALINE HCL 50 MG TABLET PO SCH (09:00)
--- NOTE | 2022-01-02 13:27 | Medical Student Progress Note ---
Date of Service January 02, 2022 Assessment & Plan (1) Weakness: Plan: Mrs Ulloa is a 86 yo female with a pmh significant for adrenal inefficiency, HFrEF (EF 70%), DVT (on warfarin), frequent falls. ~ 5 days history of nonbloody diarrhea. Presented to the ED with generalized weakness. UA was positive for leukocyte esterase and nitrate, she was given IV ceftriaxone. -weakness likely related to undertreated adrenal inefficiency in the setting of recent vertebral fracture, ongoing weakness, and deconditioning -patient reports missed hydrocortisone doses lately -continue hydrocortisone sodium succinate 50 Mg Q8H -less likely related to UTI or other infectious etiology -patient denies urinary symptoms -normal WBC -patient afebrile -urine culture negative except for contamination -discontinue Ceftriaxone (2) Diarrhea: Plan: Ongoing since , nonbloody and painless, likley overflow due to constipation -however patient is quite constipated on CT - Will order scheduled laxatives to alleviate constipation, if biofire panel is negative for c diff can order Bentyl if patient has moved bowels, diarrhea still an issue and no longer severely constipated. Diarrhea type: unspecified type Qualified Code(s): R19.7 - Diarrhea, unspecified (3) Transaminitis: Plan: - AST 87, ALT 131, alk phos 341. T. bili 4.6, labs have previously been elevated to near this level in December 2020 when she was hospitalized here for syncope. - Absent gallbladder, mildly intrahepatic ductal dilation and numerous calcified hepatic granulomas, which is also noted on CT a/p from December 2020. - Without RUQ pain. - Will repeat CMP in AM, can consider GI consult while here or as outpatient. (4) Adrenal insufficiency: Plan: - Takes 15 mg hydrocortisone in the a.m. and 5 mg in the evening, has been taking this over the past week, has not increased dose in setting of weakness and diarrhea. - Received 25 mg IV hydrocortisone in ED, over the 24 hours will order 50 mg IV hydrocortisone q8h in setting of infection. - On vit D and PPI for prophylaxis. (5) Acute kidney injury: Plan: - Most likely in the setting of decreased p.o. intake, diarrhea and possible UTI. - Received 250 cc LR's in ED, cautious with further IVF as patient has HFpEF. - Hold olmesartan. - Avoid nephrotoxic agents, renally dose medications as able. (6) Hypertension: Plan: - Normotensive on presentation. - Holding olmesartan due to SHEY. Continue to monitor BP. Hypertension type: primary hypertension Qualified Code(s): I10 - Essential (primary) hypertension (7) Anxiety and depression: Plan: - Continue sertraline 50 mg daily. Plan: - Diet: low sodium - Code: DNR/DNI - DVT PPX: Warfarin, SCDs Admission and Anticipated Discharge Date Admission Date: January 01, 2022 Subjective Mrs. Ulloa is doing well today. She feels better. Still feels weak when she gets up to use the commode next to her bed. Eating well. No bowel movement. Denies urinary symptoms. No fevers, chills, nausea, vomiting, chest pain, SOB. Review of Systems Constitutional: no fever, no chills and no fatigue Respiratory: no cough and no dyspnea Cardiovascular: no chest pain, no dyspnea and no lightheadedness Gastrointestinal: + constipation; no abdominal pain, no nausea and no vomiting Physical Exam Constitutional: WD/WN, vitals as above Respiratory: normal respiratory effort, lungs clear to auscultation Cardiovascular: RRR, no murmur, no edema Gastrointestinal (Abdomen): Inspection/Auscultation: + hyperactive bowel sounds Percussion/Palpation: abdomen nontender, no guarding and abdomen not rigid Neurologic: PERRL, EOMI, accommodation nl, no face palsy, no dysarthria moves all extremities; no focal motor deficits Psychiatric: A+Ox3, euthymic affect Results & Data ([facility]) Vital Signs (Past 12 Hours) Vital Signs Temp Pulse Pulse Resp BP Pulse Ox 01/02/22 11:13 65 01/02/22 11:02 36.5 C 81 20 117/68 94 01/02/22 07:46 36.6 C 67 18 172/71 H 96 01/02/22 03:37 36.3 C L 60 16 155/73 H 96 Laboratory Results Laboratory Results WBC 6.82 K/uL (4.8-10.8) 01/02/22 06:07 RBC 4.07 M/uL (4.2-5.4) L 01/02/22 06:07 Hgb 13.2 g/dL (12.0-16.0) 01/02/22 06:07 Hct 40.3 % (37-47) 01/02/22 06:07 MCV 99.0 fL (80-100) 01/02/22 06:07 MCH 32.4 pg (25-34) 01/02/22 06:07 MCHC 32.8 g/dL (32-36) 01/02/22 06:07 RDW Std Deviation 56.0 fL (36.4-46.3) H 01/02/22 06:07 RDW Coeff of La 15.3 % (11.5-14.5) H 01/02/22 06:07 Plt Count 166 K/uL (130-400) 01/02/22 06:07 MPV 11.1 fL (7.4-10.4) H 01/02/22 06:07 Immature Gran % (Auto) 0.3 % 01/02/22 06:07 Neut % (Auto) 78.8 % 01/02/22 06:07 Lymph % (Auto) 18.6 % 01/02/22 06:07 [place]ake % (Auto) 2.3 % 01/02/22 06:07 Eos % (Auto) 0.0 % 01/02/22 06:07 Baso % (Auto) 0.0 % 01/02/22 06:07 Neut # (Auto) 5.37 K/uL (1.4-6.5) 01/02/22 06:07 Lymph # (Auto) 1.27 K/uL (1.2-3.4) 01/02/22 06:07 Leake # (Auto) 0.16 K/uL (0.11-0.59) 01/02/22 06:07 Eos # (Auto) 0.00 K/uL (0-0.5) 01/02/22 06:07 Baso # (Auto) 0.00 K/uL (0-0.2) 01/02/22 06:07 Immature Gran # (Auto) 0.02 K/uL (0.00-0.02) 01/02/22 06:07 PT 18.2 Seconds (9.0-12.0) H 01/02/22 06:07 INR 1.8 (0.9-1.1) H 01/02/22 06:07 Sodium 139 mmol/L (136-145) 01/02/22 06:07 Potassium 5.0 mmol/L (3.5-5.1) 01/02/22 06:07 Chloride 106 mmol/L (98-107) 01/02/22 06:07 Carbon Dioxide 27 mmol/L (21-32) 01/02/22 06:07 Anion Gap 6 (3-11) 01/02/22 06:07 BUN 28 mg/dl (6-23) H 01/02/22 06:07 Creatinine 0.87 mg/dl (0.6-1.2) 01/02/22 06:07 Est Cr Clr Drug Dosing 42.2 ml/min 01/02/22 06:07 Est GFR ( Amer) 69.4 ml/min 01/02/22 06:07 Est GFR (Non-Af Amer) 59.9 ml/min 01/02/22 06:07 BUN/Creatinine Ratio 32.2 (10-20) H 01/02/22 06:07 Glucose 145 mg/dl (70-99(Fasting)) H 01/02/22 06:07 Calcium 8.9 mg/dl (8.5-10.1) 01/02/22 06:07 Magnesium 1.7 mg/dl (1.7-2.4) 01/01/22 10:18 Total Bilirubin 1.6 mg/dl (0.2-1.0) H D 01/02/22 06:07 AST 38 U/L (13-39) 01/02/22 06:07 ALT 85 U/L (7-52) H 01/02/22 06:07 Alkaline Phosphatase 265 U/L (34-104) H 01/02/22 06:07 Total Creatine Kinase 48 U/L (26-192) 01/01/22 10:18 Troponin I High Sens 34.6 pg/ml (0-14) H D 01/01/22 16:14 Total Protein 5.8 gm/dl (6.0-8.3) L 01/02/22 06:07 Albumin 3.0 gm/dl (3.4-5.0) L 01/02/22 06:07 Globulin 2.8 gm/dl (2.5-4.0) 01/02/22 06:07 Albumin/Globulin Ratio 1.1 (0.9-2) 01/02/22 06:07 TSH 1.205 uIu/ml (0.300-4.500) 01/01/22 10:18 Urine Color Dark Yellow 01/01/22 12:17 Urine Appearance Clear (Clear) 01/01/22 12:17 Urine pH 6.5 (4.5-7.5) 01/01/22 12:17 Ur Specific [place] 1.024 (1.000-1.030) 01/01/22 12:17 Urine Protein Negative (Negative) 01/01/22 12:17 Urine Glucose (UA) Negative (Negative) 01/01/22 12:17 Urine Ketones Negative (Negative) 01/01/22 12:17 Urine Blood Negative (Negative) 01/01/22 12:17 Urine Nitrite Positive (Negative) A 01/01/22 12:17 Urine Bilirubin 1+ (Negative) H 01/01/22 12:17 Urine Urobilinogen Positive (Negative) H 01/01/22 12:17 Ur Leukocyte Esterase Trace (Negative) H 01/01/22 12:17 Urine WBC (Auto) 1-5 /hpf (0-5) 01/01/22 12:17 Urine RBC (Auto) 10-30 /hpf (0-4) H 01/01/22 12:17 U Hyaline Cast (Auto) 1-5 /lpf (0-5) 01/01/22 12:17 U Epithel Cells (Auto) 20-30 /lpf (0-5) H 01/01/22 12:17 Urine Bacteria (Auto) Negative (Negative) 01/01/22 12:17 SARS-CoV-2, RNA, NAAT NEGATIVE (NEGATIVE) 01/01/22 10:30 Impressions Chest X-Ray 01/01/22 10:15 SINGLE VIEW CHEST CLINICAL HISTORY: Generalized weakness. Diarrhea. FINDINGS: An AP, portable, upright chest radiograph is compared to study dated 01/05/2021. The heart is mildly enlarged noting atherosclerotic calcification of the thoracic aorta. The pulmonary vasculature is noncongested. Chronic interstitial thickening is similar to previous. There is left basilar scarring/ atelectasis. No airspace consolidation or large pleural effusion is identified. No pneumothorax is seen. The skeletal structures are osteopenic. The bony thorax is grossly intact. Degenerative change is noted in the shoulders. Calcified granulomas are noted in the spleen. IMPRESSION: Mild cardiomegaly with no acute cardiopulmonary abnormality. ACT 112: Negative or not required by law. Electronically signed by: Alec Miguel M.D. 01/01/2022 10:51 AM Abdomen/Pelvis CT 01/01/22 10:17 CT SCAN OF THE ABDOMEN AND PELVIS WITH IV CONTRAST CLINICAL HISTORY: Generalized abdominal pain. Diarrhea. COMPARISON STUDY: Abdominal CT dated 12/25/2021 and 03/13/2021. TECHNIQUE: Following the IV administration of 90 cc of Optiray 320, CT scan of the abdomen and pelvis is performed from the lung bases to the proximal femora. Images are reviewed in the axial, sagittal, and coronal planes. IV contrast was administered without complication. A dose lowering technique was utilized adhering to the principles of ALARA. CT DOSE: 647.92 mGycm FINDINGS: Lung bases: The heart is normal in size and without pericardial effusion. The coronary arteries are densely calcified. A small hiatal hernia is noted. Calcified granulomas are noted at the lung bases. The lung bases are otherwise clear noting bibasilar scarring/atelectasis. Liver: The contrast-enhanced liver is normal in size, contour, and attenuation. There is minimal central intrahepatic biliary ductal dilatation. The hepatic veins and portal veins are patent. There are numerous calcified hepatic granulomas Gallbladder: Surgically absent. Spleen: Normal in size and attenuation. There are numerous calcified splenic granulomas. 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 This is unchanged from prior studies. The pancreas is moderately atrophic and otherwise grossly unremarkable. Adrenal glands: Unremarkable. Kidneys: The contrast enhanced kidneys demonstrate cortical atrophy and are without hydronephrosis. The kidneys enhance symmetrically. 1.6 cm cyst is noted in the left lower pole. Additional subcentimeter cortical hypodensities also likely represent cysts but are too small for definitive characterization. Abdominal vasculature: The abdominal aorta is normal in course and caliber noting moderate to advanced atherosclerotic calcification. Bowel: The small bowel and colon are normal in course and caliber. The appendix is well-visualized and normal. Peritoneum: There is moderate colonic diverticulosis without CT evidence of acute diverticulitis. No bowel obstruction is seen. There is moderate to severe constipation. There is a large fat-containing umbilical hernia. Lymphadenopathy: None. Pelvic viscera: The bladder, uterus, and adnexa are normal as visualized. Skeletal structures: The skeletal structures are osteopenic. Compression films of T9, T10, and L1 are unchanged from previous. The fractures of T9 and T10 are likely subacute. There is associated paravertebral edema. There is chronic posttraumatic deformity of the sacrum. Moderate lumbosacral spondylosis is observed. No lytic or blastic lesions are seen. IMPRESSION: 1. No acute infectious or inflammatory findings are identified in the abdomen or pelvis. 2. Moderate to severe constipation. 3. Colonic diverticulosis without CT evidence of acute diverticulitis. 4. Subacute appearing compression fractures of T9 and T10 are unchanged from 12/25/2021. 5. Large fat-containing umbilical hernia. 6. Additional findings as above. ACT 112: Negative or not required by law. Electronically signed by: Alec Miguel M.D. 01/01/2022 11:[address] 01/01/22 11:[address] DOSE: 614.27 mGy.cm HISTORY: fall TECHNIQUE: Multiaxial CT images of the head were performed without the use of intravenous contrast. Automated exposure control was utilized for this study. A dose lowering technique was utilized adhering to the principles of ALARA. Comparison: No priors available due to system downtime. Findings: The paranasal sinuses and mastoid air cells are clear. The calvarium and skull base are intact. The ventricles and sulci are within normal limits. There is no mass, hematoma, midline shift, or acute infarct. There is contrast within the brain from the recent abdomen pelvis CT. This results in suboptimal evaluation for intracranial hemorrhage. Impression: No definite acute intracranial abnormality. ACT 112: Negative or not required by law. Electronically signed by: Jonh Hogan M.D. 01/01/2022 1:25 PM Medications Administered Current Medications Albuterol (Albuterol Hfa 8 Gm Inhaler) 2 puffs INH Q6H PRN PRN Reason: Shortness Of Breath Or Wheezing Stop: 01/31/22 15:59 Artificial Tears (Artificial Tears) 1 drops OP DAILY [facility] Stop: 02/01/22 08:59 Last Admin: 01/02/22 08:06 Dose: 1 ea Documented by: Cyclobenzaprine HCl (Cyclobenzaprine Hcl 5 Mg Tab) 5 mg PO BID PRN PRN Reason: muscle pain Stop: 01/31/22 15:59 Last Admin: 01/02/22 08:02 Dose: 5 mg Documented by: Diclofenac Sodium (Diclofenac Sod 1% Gel 100 Gm Tube) 2 gm EXT DAILY [facility] Stop: 02/01/22 08:59 Last Admin: 01/02/22 08:03 Dose: 2 gm Documented by: Hydrocortisone Sodium (Succinate 50 mg/ Syringe) 1 mls @ 4 mls/min IV Q8H [facility] Stop: 01/31/22 18:29 Last Admin: 01/02/22 10:38 Dose: 4 mls/min Documented by: Ceftriaxone Sodium 1,000 mg/ (Dextrose) 60 mls @ 100 mls/hr IV Q24H [facility]; Prot ocol Stop: 01/06/22 16:59 Last Infusion: 01/01/22 19:01 Dose: Infused Documented by: Levothyroxine Sodium (Levothyroxine Sodium 137 Mcg Tablet) 137 mcg PO DAILYBB [facility] Stop: 02/01/22 06:29 Last Admin: 01/02/22 08:02 Dose: 137 mcg Documented by: Lidocaine (Lidocaine 5% 1 Patch) 1 patch TD DAILY@1730 [facility] Stop: 01/31/22 17:29 Last Admin: 01/01/22 17:23 Dose: Not Given Documented by: Miscellaneous (Remove Lidoderm Patch) 1 ea N/A DAILY@0530 [facility] Stop: 02/01/22 05:29 Last Admin: 01/02/22 05:59 Dose: Not Given Documented by: Ondansetron HCl (Ondansetron Inj 2 Mg/Ml 2 Ml Vial) 4 mg IV Q6H PRN PRN Reason: Nausea Stop: 01/31/22 15:59 Pantoprazole Sodium (Pantoprazole 40 Mg Tab) 40 mg PO Q2D@0900 [facility] Stop: 02/01/22 08:59 Last Admin: 01/02/22 08:02 Dose: 40 mg Documented by: Polyethylene Glycol (Polyethylene (Miralax) 17 Gm Pack) 17 gm PO DAILY [facility] Stop: 02/01/22 08:59 Last Admin: 01/02/22 08:06 Dose: 17 gm Documented by: Sennosides (Senna 8.6 Mg Tab) 8.6 mg PO BID [facility] Stop: 01/31/22 20:59 Last Admin: 01/02/22 08:03 Dose: 8.6 mg Documented by: Sertraline HCl (Sertraline Hcl 50 Mg Tablet) 50 mg PO DAILY [facility] Stop: 02/01/22 08:59 Last Admin: 01/02/22 08:02 Dose: 50 mg Documented by: Spironolactone (Spironolactone 25 Mg Tab) 25 mg PO QAM [facility] Stop: 02/01/22 08:59 Last Admin: 01/02/22 08:02 Dose: 25 mg Documented by: Warfarin Sodium (Warfarin Sod 4 Mg Tab) 4 mg PO Mo@1600 [facility] Stop: 02/06/22 15:59 Warfarin Sodium (Warfarin Sod 2 Mg Tab) 2 mg PO SuTuWeThFrSa@1600 [facility] Stop: 02/01/22 15:59
[2022-01-02] MEDS ORDERED: WARFARIN SOD 2 MG TAB PO SCH (16:00)
[2022-01-02] MEDS: LIDOCAINE 5% 1 PATCH TD SCH (16:34)
--- NOTE | 2022-01-02 16:36 | Communication Note ---
Date of Service: January 02, 2022 By CMS guidelines, a determination that the admission or continued stay is not medically necessary has been made by a member of the UR committee and a physic mark for this hospital stay, therefore a Code 44 will be completed and the Inpatient admission will be changed to outpatient.
--- NOTE | 2022-01-02 16:56 | Discharge Summary ---
Date of Service January 02, 2022 Admission HPI Per Admitting Provider Ms. Ulloa is an 86 y/o female with a PMH significant for HTN, HFpEF w/ EH > 70%, hypothyroidism, adrenal insufficiency, history of DVT (on Coumadin), anxiety, depression, asthma, and GERD who presents today with generalized weakness. She has been feeling weak for the past week with associated decreased PO intake, and on developed frequent episodes of nonbloody, painless diarrhea. This morning, daughter went to visit and found her mother in bed, still in clothes from the previous day and she had urinated in bed. She was globally weak to the point of not being able to get out of bed, which is a deviation from her baseline. Patient lives on her home, ambulates with her walker and does have some ongoing cognitive decline, mostly short term memory loss, but is AAO x3.. She was completely oriented this AM, no focal weakness/numbness/tingling, slurred speech, nausea, vomiting, or dizziness. She denies dysuria, hematuria, or increased urinary frequency, but does state she has been waiting long periods of time to go to the bathroom due to the pain she has with ambulation d/t her compression fractures. Has not had fever/chills, chest pain, palpitations, SOB, cough, or abdominal pain. In ED, her VS are stable and wnl, actually mildly hypertensive with SBP 130- 150s. Labs largely unremarkable, INR slightly subtherapeutic at 1.9. Na 134, creatinine 1.12 (baseline ~ 0.6 -0.8), t. bili 4.6, AST 87, ALT 131, alk phos 341. HS troponin 50.2. UA pos for nitrites, 1+ bili, trace leuk esterase, 1-5 WBC, 10-30 RBCs, neg for bacteria. COVID negative. CT head without acute intracranial abnormality. CT A/P showed moderate/severe constipation, but did not show an acute infectious or inflammatory findings are identified in the abdomen or pelvis. Subacute appearing compression fractures of T9 and T10 are unchanged from 12/25/2021. CXR with mild cardiomegaly, no acute cardiopulmonary abnormality. Admission Exam Per Admitting Provider General: awake, alert, no apparent distress Head: Normocephalic, atraumatic ENT: PERRL, EOMI, no pharyngeal exudate, mucous membranes moist Chest: Clear to auscultation, on room air, no adventitious breath sounds Cardiac: Regular rate and rhythm, no murmur, no JVD, normal peripheral pulses, good capillary refill Abdominal: mildly TTP in LLQ and LUQ; NABS x 4 quadrants, otherwise soft, nont megan to palpation, no rebound, guarding or tenderness Extremities: Normal inspection, no peripheral edema or erythema, calfs nontender to palpation Psych: Normal mood and affect Neuro: AAO x 3, strength intact bilaterally and rated 5/5, no motor deficits, speech is clear, no peripheral sensory deficits Skin: no rash or erythema Principal Diagnosis generalized weakness Discharge Exam General: Grossly A&O. Mild memory impairment during conversation. NAD. Cooperative. HEENT: Atraumatic, normocephalic. EOMI Pulm: CTAB. -wheezes, -rales, -rhonchi. Symmetrical chest rise. No respiratory distress. Cardiac: RRR, -mrg. + LLE edema. Abdominal: Nontender, nondistended, soft. Discharge Data Allergies Allergy/AdvReac Type Severity Reaction Status Date / Time celecoxib Allergy Unknown MUSCLE Verified 12/11/21 14:31 CRAMPS Sulfa (Sulfonamide Allergy Unknown DIDN'T Verified 12/11/21 14:31 Antibiotics) FEEL WELL Consultations 01/01/22 14:12 ED Decision to Admit Stat Ordered Studies Cardiac Enzymes 01/01/22 01/02/22 Range/Units 16:14 06:07 AST 38 (13-39) U/L Troponin I High Sens 34.6 H D (0-14) pg/ml Coagulation 01/02/22 Range/Units 06:07 PT 18.2 H (9.0-12.0) Seconds CBC 01/02/22 Range/Units 06:07 WBC 6.82 (4.8-10.8) K/uL RBC 4.07 L (4.2-5.4) M/uL Hgb 13.2 (12.0-16.0) g/dL Hct 40.3 (37-47) % Plt Count 166 (130-400) K/uL Neut # (Auto) 5.37 (1.4-6.5) K/uL Lymph # (Auto) 1.27 (1.2-3.4) K/uL [place] # (Auto) 0.16 (0.11-0.59) K/uL Eos # (Auto) 0.00 (0-0.5) K/uL Baso # (Auto) 0.00 (0-0.2) K/uL Comprehensive Metabolic Panel 01/02/22 Range/Units 06:07 Sodium 139 (136-145) mmol/L Potassium 5.0 (3.5-5.1) mmol/L Chloride 106 (98-107) mmol/L Carbon Dioxide 27 (21-32) mmol/L BUN 28 H (6-23) mg/dl Creatinine 0.87 (0.6-1.2) mg/dl Glucose 145 H (70-99(Fasting)) mg/dl Calcium 8.9 (8.5-10.1) mg/dl AST 38 (13-39) U/L ALT 85 H (7-52) U/L Alkaline Phosphatase 265 H (34-104) U/L Total Protein 5.8 L (6.0-8.3) gm/dl Albumin 3.0 L (3.4-5.0) gm/dl Intake and Output 01/02/22 01/02/22 01/02/22 06:59 14:59 22:59 Intake Total 878.667 / 1510.000 310.667 / 310.667 Output Total 550 / 550 Balance 328.667 / 960.000 310.667 / 310.667 Intake: IV 878.667 / 1310.000 310.667 / 310.667 Lactated Ringer's 1,000 ml @ 80 878.667 / 1000.000 310.667 / 310.667 mls/hr IV .[id number] [facility] Rx#: [id number] Output: Urine 550 / 550 Other: Other Intake Source sips Weight 68.1 kg 68.1 kg Weight Measurement Method Built in [facility] Patient Weight 01/03/22 06:59 Weight 68.1 kg Chest X-Ray 01/01/22 10:15 SINGLE VIEW CHEST CLINICAL HISTORY: Generalized weakness. Diarrhea. FINDINGS: An AP, portable, upright chest radiograph is compared to study dated 01/05/2021. The heart is mildly enlarged noting atherosclerotic calcification of the thoracic aorta. The pulmonary vasculature is noncongested. Chronic interstitial thickening is similar to previous. There is left basilar scarring/atelectasis. No airspace consolidation or large pleural effusion is identified. No pneumothorax is seen. The skeletal structures are osteopenic. The bony thorax is grossly intact. Degenerative change is noted in the shoulders. Calcified granulomas are noted in the spleen. IMPRESSION: Mild cardiomegaly with no acute cardiopulmonary abnormality. ACT 112: Negative or not required by law. Electronically signed by: Alec Miguel M.D. 01/01/2022 10:51 AM Abdomen/Pelvis CT 01/01/22 10:17 CT SCAN OF THE ABDOMEN AND PELVIS WITH IV CONTRAST CLINICAL HISTORY: Generalized abdominal pain. Diarrhea. COMPARISON STUDY: Abdominal CT dated 12/25/2021 and 03/13/2021. TECHNIQUE: Following the IV administration of 90 cc of Optiray 320, CT scan of the abdomen and pelvis is performed from the lung bases to the proximal femora. Images are reviewed in the axial, sagittal, and coronal planes. IV contrast was administered without complication. A dose lowering technique was utilized adh ering to the principles of ALARA. CT DOSE: 647.92 mGycm FINDINGS: Lung bases: The heart is normal in size and without pericardial effusion. The coronary arteries are densely calcified. A small hiatal hernia is noted. Calcified granulomas are noted at the lung bases. The lung bases are otherwise clear noting bibasilar scarring/atelectasis. Liver: The contrast-enhanced liver is normal in size, contour, and attenuation. There is minimal central intrahepatic biliary ductal dilatation. The hepatic veins and portal veins are patent. There are numerous calcified hepatic granulomas Gallbladder: Surgically absent. Spleen: Normal in size and attenuation. There are numerous calcified splenic granulomas. 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 This is unchanged from prior studies. The pancreas is moderately atrophic and otherwise grossly unremarkable. Adrenal glands: Unremarkable. Kidneys: The contrast enhanced kidneys demonstrate cortical atrophy and are without hydronephrosis. The kidneys enhance symmetrically. 1.6 cm cyst is noted in the left lower pole. Additional subcentimeter cortical hypodensities also likely represent cysts but are too small for definitive characterization. Abdominal vasculature: The abdominal aorta is normal in course and caliber noting moderate to advanced atherosclerotic calcification. Bowel: The small bowel and colon are normal in course and caliber. The appendix is well-visualized and normal. Peritoneum: There is moderate colonic diverticulosis without CT evidence of acute diverticulitis. No bowel obstruction is seen. There is moderate to severe constipation. There is a large fat-containing umbilical hernia. Lymphadenopathy: None. Pelvic viscera: The bladder, uterus, and adnexa are normal as visualized. Skeletal structures: The skeletal structures are osteopenic. Compression films of T9, T10, and L1 are unchanged from previous. The fractures of T9 and T10 are likely subacute. There is associated paravertebral edema. There is chronic posttraumatic deformity of the sacrum. Moderate lumbosacral spondylosis is observed. No lytic or blastic lesions are seen. IMPRESSION: 1. No acute infectious or inflammatory findings are identified in the abdomen or pelvis. 2. Moderate to severe constipation. 3. Colonic diverticulosis without CT evidence of acute diverticulitis. 4. Subacute appearing compression fractures of T9 and T10 are unchanged from 12/25/2021. 5. Large fat-containing umbilical hernia. 6. Additional findings as above. ACT 112: Negative or not required by law. Electronically signed by: Alec Miguel M.D. 01/01/2022 11:[address] 01/01/22 11:[address] DOSE: 614.27 mGy.cm HISTORY: fall TECHNIQUE: Multiaxial CT images of the head were performed without the use of intravenous contrast. Automated exposure control was utilized for this study. A dose lowering technique was utilized adhering to the principles of ALARA. Comparison: No priors available due to system downtime. Findings: The paranasal sinuses and mastoid air cells are clear. The calvarium and skull base are intact. The ventricles and sulci are within normal limits. There is no mass, hematoma, midline shift, or acute infarct. There is contrast within the brain from the recent abdomen pelvis CT. This results in suboptimal evaluation for intracranial hemorrhage. Impression: No definite acute intracranial abnormality. ACT 112: Negative or not required by law. Electronically signed by: John Hogan M.D. 01/01/2022 1:25 PM Hospital Course (1) Weakness: 86 y/o female with a PMH significant for HTN, HFpEF, hypothyroidism, adrenal insufficiency, history of DVT (on Coumadin), anxiety, depression, asthma, and GERD who presented with generalized weakness and mild confusion. - No obvious source of infection. Received 1 dose of rocephin for UA and confusion. Patient's symptoms resolved after receiving IV hydrocortisone 50mg 8h for a day. Therefore, she likely had mild exacerbation of adrenal insufficiency. BPs were normotensive to slightly hypertensive; home olmesartan had been held because of SHEY. - Patient to double home hydrocortisone PO regimen for 1 week (2) Acute kidney injury: - Most likely in the setting of decreased p.o. intake, diarrhea and possible UTI. - Resolved, may resume home olmesartan (3) Transaminitis: - Absent gallbladder, mildly intrahepatic ductal dilation and numerous calcified hepatic granulomas, which is also noted on CT a/p from December 2020. - This admission: t bili 4.6->1.6. ast 87->38. ALT 131->85. alk phos 341->265. - Reassuring. Repeat CMP in 1 month. May resume home prn tylenol. Caution against excessive use and recommend <3g daily. (4) Adrenal insufficiency: - See above (5) Diarrhea: - Suspect overflow diarrhea given stool burden noted on CT abd. Lower suspicion for gastroenteritis. Recommend bowel regimen. (6) Constipation: - See above (7) Compression fracture of T10 vertebra: - Subacute from a previous fall several weeks ago. - Continue Flexeril BID prn for back spasms, diclofenac gel, lidocaine patches for pain relief. - Home PT. Per daughter, patient adamant against any surgical option. Patient did well during PT assessment in the hospital. (8) History of DVT (deep vein thrombosis): - In 2009, is on Coumadin 4 mg on Mondays, 2 mg all other days of the week. Continue home regimen. (9) Anxiety and depression: - Continue sertraline 50 mg daily. (10) Hypertension: - Continue home regimen (11) (HFpEF) heart failure with preserved ejection fraction: - Echo December 2020: EF >70%. No regional wall motion abnormalities. Moderate concentric left ventricular hypertrophy. - Appeared euvolemic on exam. - Continue spironolactone. - Low-sodium diet. (12) Pulmonary hypertension: (13) Asthma: - Has albuterol inhaler as needed, has been taking it once daily upon awakening for the past several weeks due to allergies, but denies an acute exacerbation. (14) Hypothyroidism: - Continue levothyroxine 137 mcg daily. (15) GERD without esophagitis: - Continue PPI daily. Patient was DNR/DNI this admission Total Time Total Time Spent Total Time Spent (In Minutes): <30 Discharge Plan Discharge Items Patient Disposition: Home - Home Health Services Reason For Visit: WEAKNESS Discharge Diagnosis: generalized weakness Activity: Per Instructions section Non-emergency contact: Primary Care Provider Call non-emergency contact if: you have any medication questions, your symptoms worsen and you have a fever Follow-up/Referrals: Marysol Hogue MD [Primary Care Provider] - (hospital discharge follow up within 1 week) Diet: Low Sodium (2gm) Addtl Attending Provider Instructions: You were admitted to [facility] [place] for generalized weakness and mild confusion. You were given stress dose IV steroids during your stay and your symptoms improved. You were given 1 dose of IV antibiotics, but this has been discontinued because there is lower suspicion for urinary tract infection in the absence of new urinary symptoms. A prescription has been sent for continuation of home physical therapy services. Your home hydrocortisone regimen will be doubled for 1 week (30mg in morning and 10mg at night). No other changes were made to your medications. Your home blood pressure medications will be continued. Please check your blood pressure if you feel dizzy or lightheaded. Take 10mg of the hydrocortisone tonight. [facility] Take [facility]farin on 01/03/22. If you develop any concerns, please contact your primary care doctor's office. A detailed discharge summary will be sent to your doctor. Please see your doctor within 1 week for hospital discharge follow up. An appointment will be made for you and you will be called with the details, but if you do not hear back by the end of the week, then call the office. Routine return precautions. If you develop any new or worsening symptoms including fever, chills, sweats, chest pain, chest pressure, difficulty breathing, uncontrolled nausea/vomiting, rash, wheezing, passing out or nearly passing out, bleeding, black/bloody bowel movements, or other new or concerning symptoms please call your primary care physician, or call 911 for re-evaluation in the emergency department if you are very concerned. Pending Studies at Discharge: No Stand-Alone Forms: My Nursing Home Quality, Smoking Cessation Medications and DC Order Prescriptions: Continued calcium phosphate-vitamin D3 [Caltrate Gummy Bites] 250 mg-10 mcg (400 unit) tablet,chewable 1 tab PO QDL RF: 0 hydrocortisone 10 mg tablet 10 mg PO QAM Qty: 90 RF: 3 hydrocortisone 5 mg tablet 5 mg PO BID Qty: 180 RF: 3 albuterol sulfate 90 mcg/actuation HFA aerosol inhaler 2 puff INHALATION Q6H PRN (Reason: Shortness Of Breath Or Wheezing) Qty: 8.5 RF: 5 spironolactone 25 mg tablet 25 mg PO QAM Qty: 90 RF: 1 warfarin 2 mg tablet See Rx Instructions PO UD Qty: 90 RF: 1 polyethylene glycol 3350 [Miralax] 17 gram/dose powder 17 g PO DAILY PRN (Reason: constipation) Qty: 119 RF: 0 cyclobenzaprine 5 mg tablet 5 mg PO BID PRN (Reason: muscle pain) Qty: 30 RF: 0 atorvastatin 20 mg tablet 20 mg PO DAILY Qty: 90 RF: 1 diclofenac sodium 1 % gel 2 gm topical DAILY Qty: 1 RF: 0 (DME) OneTouch Verio test strips strip See Dose Instructions .ROUTE .MEDSUPPLY Qty: 10 RF: 0 propylene glycol 1 drp ophthalmic (eye) DAILY RF: 0 levothyroxine 137 mcg tablet 137 mcg PO DAILY Qty: 90 RF: 3 olmesartan 5 mg tablet 5 mg PO DAILY Qty: 90 RF: 3 omeprazole 20 mg capsule,delayed release(DR/EC) 20 mg PO Q OTHER DAY RF: 0 sertraline 50 mg tablet 50 mg PO DAILY Qty: 90 RF: 1 acetaminophen [Tylenol Extra Strength] 500 mg tablet 500 mg PO Q6H PRN (Reason: Pain) RF: 0 sennosides [Senokot] 8.6 mg tablet 8.6 mg PO BID Qty: 180 RF: 0 Discharge Orders: Discharge Order (Routine); Ordered 01/02/22 Ordered By: Juan Diego Elaine Admission Data Admit Date/Time: 01/01/22 14:40 Attending Provider: Rex Baldwin Admit Provider: Noel Wolf Primary Care Provider: Marysol Hogue Other Providers: Noel Wolf Other Interventions: Discharge Summary Assessment (RN) Last Done: 01/02/22 16:35 Supervising Physician Co-Signing Physician Notes I personally examined the patient and verified all warner points of history and exam, discussed case, and agree with decision making with Dr Elaine. Feeling better. Did well with PT. Back pain really only with transitions, but not constantly, and does not seem to be was making her weak. Feels up to going home. Discussed constipationshe expressed understanding. Discussed stress dosing of steroids, she/daughter expressed understanding as well. Vitals noted, in general she is awake and alert pleasant no distress. HEENT normocephalic atraumatic mucous membranes moist. Breathing unlabored no accessory muscle use good effort. Skin shows no rashes no pallor or icterus. Neuro without focal deficits. CT reviewedcopious feces noted Weaknessappears to have been a cascade of eventsfall/compression fracture leading to weakness and immobility, pain leading to constipation, constipation leading to poor p.o. intakeand then all of this combined with her adrenal insufficiency and lack of stress dosing of steroids leading to her ultimate admission. Between IV fluids and stress dosing of steroids she is turned around nicelyappears to be safe/stable for home. Would continue stress dosing for a few days, discussed bowel regimen/highly likely chronic constipation, safe/stable for home. Close PCP follow-up. Outpatient osteoporosis management (outside of calcium and vitamin D, it appears this has been a bit difficult due to her decisions regarding treatment) otherwise as above Resident Activity Tracking Resident Involvement: Resident Care Provided Care Provided: Adult [facility] Home Health Attestation I certify that this patient is under my care and that I, or a physicians cement tester assistant working with me, had a face to-face encounter that meets the home health [id number] encounter requirements with this patient. The encounter with the patient was in whole, or in part, for the following medical condition, which is the primary reason for home health care (list medical condition): I certify that, based on my findings, the following services are medically necessary home health services: My clinical findings support the need for the above services because: Further, I certify that my clinical findings support that this patient is homebound (i.e. absences from home require considerable and taxing effort and are for medical reasons or anglican services or infrequently or of short duration when for other reasons) because: Certification for Home Health Services: Based on the above findings, I certify that this patient is confined to the home and needs intermittent detention care, physical therapy and/or speech therapy or continues to need occupational therapy. The patient is under my care, and I have initiated the establishment of the plan of care. This patient will be followed by a physician who will periodically review the plan of care.
--- NOTE | 2022-01-02 17:18 | Billing Data ---
Date of Service January 02, 2022 Coding Level of Care Code 56997 OBS Care - Discharge
[2022-01-02] MEDS ORDERED: LIDOCAINE 5% 1 PATCH TD SCH (17:30)
--- NOTE | 2022-01-03 05:43 | Electrocardiogram Report ---
Test Reason : Blood Pressure : / mmHG Vent. Rate : 088 BPM Atrial Rate : 088 BPM P-R Int : 134 ms QRS Dur : 080 ms QT Int : 338 ms P-R-T Axes : 073 061 068 degrees QTc Int : 408 ms Poor data quality, interpretation may be adversely affected Normal sinus rhythm Normal ECG When compared with ECG of 14-JAN-2021 17:28, Nonspecific T wave abnormality no longer evident in Inferior leads T wave inversion no longer evident in Anterior leads Confirmed by Bandar Palomares ([id number]) on 01/03/2022 5:42:42 AM Referred By: REFERRED SELF Confirmed By:Bandar Palomares
[2022-01-07] MEDS ORDERED: WARFARIN SOD 4 MG TAB PO SCH (16:00)
== END 2022-01-02 17:38 | disposition home health service (06) | DRG 644 ==
LOC: ED 10:00 → 2N 14:40 → SUATTDRO 14:40 → INTOOBSV 14:40 → 2N 15:17
DX: I50.32 Chronic diastolic (congestive) heart failure; W19.XXXA Unspecified fall, initial encounter; Z66 Do not resuscitate; R19.7 Diarrhea, unspecified; R74.01 Elevation of levels of liver transaminase levels; N17.9 Acute kidney failure, unspecified; Z87.891 Personal history of nicotine dependence; Z88.2 Allergy status to sulfonamides; Z86.718 Personal history of other venous thrombosis and embolism; I27.20 Pulmonary hypertension, unspecified; Y92.009 Unspecified place in unspecified non-institutional (private) residence as the place of occurrence of the external cause; Z79.01 Long term (current) use of anticoagulants; Z79.890 Hormone replacement therapy; R53.1 Weakness; S22.070A Wedge compression fracture of T9-T10 vertebra, initial encounter for closed fracture; E03.9 Hypothyroidism, unspecified; E27.40 Unspecified adrenocortical insufficiency; K59.00 Constipation, unspecified

== ENCOUNTER 2022-05-13 10:32 | Inpatient (IN) ==
--- NOTE | 2022-05-13 11:40 | Emergency Department Note ---
Impression & Plan Hyponatremia, Weakness ED Provider Note NAME: ELISEO GILES AGE: 86 SEX: F : 1935 ARRIVES VIA: Walk-In INFORMANT: [Patient][, ] ED PROVIDER(S): [Jean-Pierre Jasso MD] Chief Complaint: Fall, head injury HPI: Patient presents due to concern for fall and associated head injury. Patient has been up and about at home with daughter was concerned that she has been may be more increasingly weak. Patient does not complain of any current headache. The patient does take Coumadin. Patient denies any fevers or chills and no chest pains. The patient has no abdominal pain. ROS: See HPI for pertinent positives and negatives. A total of 10 systems were reviewed and otherwise negative. Past medical history: See below Surgical history: See below Social history: See below Physical Exam: GENERAL: NAD, wearing a mask, non-toxic. EYE EXAM: Normal conjunctiva. PERRL, no anisocoria and EOM's grossly intact w/o pain. NECK: Supple, no nuchal rigidity, no adenopathy, non-tender. No signs of meningismus. FROM of the neck with good chin to chest and neck extension. No stridor. LUNGS: Clear to auscultation. Normal chest wall mechanics. HEART: NSR, no MRG. ABDOMEN: Abdomen soft, non-tender, normo-active bowel sounds, no masses, no rebound or guarding. BACK: No CVA TTP. SKIN: No rashes and no bruising. UPPER EXTREMITIES: Upper extremities are grossly normal. LOWER EXTREMITIES: Grossly normal, no edema. NEURO EXAM: A&O x3, cranial nerves II-XII grossly intact, normal speech, moves all 4 extremities. Slight difficulty w/ finger to now of LUE compared to R. No drift. Differential diagnoses: Fracture, dislocation, contusion, intra-abdominal, pneumothorax, intrathoracic, intracranial, neurologic, compartment syndrome, rhabdomyolysis, as well as other pathologies. Course: Patient was seen and evaluated the bedside. Full history physical exam was performed. EKG interpreted by me NSR, rate of 66, normal intervals, no significant change from comparison Imaging Studies: See Below Cardiac monitoring: An order was placed for continuous cardiac monitoring. The monitor shows a rate of 72 with sinus rhythm. MDM: Patient was seen for recent fall and weakness. Patient had normal white count and H&H. Platelet count was unremarkable. Patient's kidney function was grossly unremarkable with mild hyponatremia at 129. The patient did have LFTs that were also unremarkable. The patient did have CT and plain films w/o any concerning findings; however, patient w/ profound weakness and associated hyponatremia. I did speak with the on-call hospitalist Past Med/Surg History Medical History Adrenal insufficiency Arthritis of knee Bilateral leg edema Chronic anticoagulation Closed sacral fracture Diverticulosis Fracture of ilium GERD without esophagitis Grief reaction History of DVT (deep vein thrombosis) HTN (hypertension), benign Hx of fall Hyperglycemia Hypothyroidism Osteoporosis Pulmonary embolism Reactive airway disease Seasonal allergies SNHL (sensorineural hearing loss) Syncope Surgical History History of cholecystectomy History of hernia repair Family History Unknown Cancer Cardiac disorder FHx: deafness or hearing loss Mother Cardiac disorder Hypertension Other Family history non-contributory Hearing loss No family history of adverse response to anesthesia No family history of bleeding disorder Social History Smoking Status: Never smoker Tobacco Type: Cigarettes Age Started Using Tobacco: 28; Age Quit Using Tobacco: 44; Second Hand Exposure: No; Hx Alcohol Use: No Hx Substance Use: No Preferred Language: Indonesian Communication Ability: Effective Furnace Caretaker Required: No Beliefs That Will Affect Care: None marital status: / Current Living Situation: Family Current Living Situation Comment: daughter lives nearby current occupational status: retired How many Children do You have: 2 Feels Safe at Home: Yes Childhood Exposure to Second-Hand Smoke: No Seatbelt Use: always Assistive Devices: Walker Allergies Allergies Allergy/AdvReac Type Severity Reaction Status Date / Time celecoxib Allergy Unknown MUSCLE Verified 05/13/22 17:26 CRAMPS Sulfa (Sulfonamide Allergy Unknown DIDN'T Verified 05/13/22 17:26 Antibiotics) FEEL WELL Home Meds Home Medications Medication Instructions Recorded Confirmed diclofenac sodium 1 % topical gel 2 gm topical DAILY #1 g 03/22/19 05/17/22 acetaminophen 500 mg tablet 500 mg PO Q6H PRN Pain 02/01/21 05/17/22 (Tylenol Extra Strength) propylene glycol [Systane Complete] 1 drp ophthalmic (eye) DAILY 02/08/21 05/17/22 cholecalciferol (vitamin D3) 50 2,000 unit PO DAILY 02/04/22 05/17/22 mcg (2,000 unit) capsule denosumab 60 mg/mL subcutaneous 60 mg subcut Q6MO 02/04/22 05/17/22 syringe (Prolia) warfarin 2 mg tablet See Rx Instructions PO UD 03/18/22 05/17/22 psyllium seed (sugar) oral powder 1 tbsp PO DAILY 05/01/22 05/17/22 (Metamucil (sugar) oral powder) hydrocortisone 10 mg tablet 15 mg PO QAM 05/13/22 05/17/22 hydrocortisone 5 mg tablet 5 mg PO QPM 05/13/22 05/17/22 Previous Rx's Medication Instructions Recorded levothyroxine 137 mcg tablet 137 mcg PO DAILY #90 tabs 07/13/21 olmesartan 5 mg tablet 5 mg PO DAILY #90 tabs 10/24/21 albuterol sulfate 90 mcg/actuation 2 puff inhalation Q6H PRN 12/07/21 aerosol inhaler Shortness Of Breath Or Wheezing #8.5 grams atorvastatin 20 mg tablet 20 mg PO DAILY #90 tabs 12/29/21 omeprazole 20 mg capsule,delayed 20 mg PO Q OTHER DAY #90 caps 03/25/22 release sertraline 50 mg tablet 50 mg PO DAILY #90 tabs 04/04/22 fludrocortisone 0.1 mg tablet 0.1 mg PO 3XWK #12 tabs 05/16/22 Results & Data (ED) Vital Signs Vital Signs - 24 hr 05/13/22 10:52 05/13/22 12:04 05/13/22 12:05 Temperature 36.8 C Temperature Source Oral Pulse Rate 68 Pulse Rate [Left Apical] Pulse Rate from SpO2 Sensor 69 Pulse Rhythm Regular Pulse Rhythm [Left Apical] Pulse Strength Normal Pulse Strength [Left Apical] Respiratory Rate 20 Respiratory Effort / Characteristics Non-Labored Spontaneous Respiratory Depth Normal Respiratory Pattern Regular Blood Pressure 90/58 L 113/62 Blood Pressure [Left Arm] Blood Pressure Mean 68 79 Blood Pressure Mean [Left Arm] Blood Pressure Position Sitting Pulse Oximetry 97 97 Oxygen Delivery Method Room Air Sepsis Recent Fever Within 48 Hours No Sepsis New/Unexplained Change in Mental Status No Sepsis Action Taken by Nursing No Action Required 05/13/22 12:32 05/13/22 12:33 05/13/22 12:33 Temperature Temperature Source Pulse Rate 67 68 Pulse Rate [Left Apical] Pulse Rate from SpO2 Sensor 68 68 Pulse Rhythm Pulse Rhythm [Left Apical] Pulse Strength Pulse Strength [Left Apical] Respiratory Rate 5 L 22 Respiratory Effort / Characteristics Respiratory Depth Respiratory Pattern Blood Pressure 148/84 H Blood Pressure [Left Arm] Blood Pressure Mean 105 Blood Pressure Mean [Left Arm] Blood Pressure Position Pulse Oximetry 98 97 Oxygen Delivery Method Sepsis Recent Fever Within 48 Hours Sepsis New/Unexplained Change in Mental Status Sepsis Action Taken by Nursing 05/13/22 13:00 05/13/22 13:00 05/13/22 13:30 Temperature Temperature Source Pulse Rate 62 Pulse Rate [Left Apical] Pulse Rate from SpO2 Sensor 63 Pulse Rhythm Pulse Rhythm [Left Apical] Pulse Strength Pulse Strength [Left Apical] Respiratory Rate 19 Respiratory Effort / Characteristics Respiratory Depth Respiratory Pattern Blood Pressure 140/71 143/81 H Blood Pressure [Left Arm] Blood Pressure Mean 94 101 Blood Pressure Mean [Left Arm] Blood Pressure Position Pulse Oximetry 97 Oxygen Delivery Method Sepsis Recent Fever Within 48 Hours Sepsis New/Unexplained Change in Mental Status Sepsis Action Taken by Nursing 05/13/22 13:30 05/13/22 13:54 05/13/22 13:55 Temperature Temperature Source Pulse Rate 65 Pulse Rate [Left Apical] 67 Pulse Rate from SpO2 Sensor 65 Pulse Rhythm Pulse Rhythm [Left Apical] Regular Pulse Strength Pulse Strength [Left Apical] Normal Respiratory Rate 19 20 Respiratory Effort / Characteristics Non-Labored Spontaneous Respiratory Depth Normal Respiratory Pattern Blood Pressure Blood Pressure [Left Arm] 143/81 H Blood Pressure Mean Blood Pressure Mean [Left Arm] 101 Blood Pressure Position Pulse Oximetry 97 98 98 Oxygen Delivery Method Room Air Room Air Sepsis Recent Fever Within 48 Hours Sepsis New/Unexplained Change in Mental Status Sepsis Action Taken by Nursing 05/13/22 13:55 05/13/22 14:00 05/13/22 14:00 Temperature Temperature Source Pulse Rate 64 Pulse Rate [Left Apical] Pulse Rate from SpO2 Sensor 64 Pulse Rhythm Pulse Rhythm [Left Apical] Pulse Strength Pulse Strength [Left Apical] Respiratory Rate 20 Respiratory Effort / Characteristics Respiratory Depth Respiratory Pattern Blood Pressure 140/55 L Blood Pressure [Left Arm] Blood Pressure Mean 83 Blood Pressure Mean [Left Arm] Blood Pressure Position Pulse Oximetry 98 97 Oxygen Delivery Method Room Air Sepsis Recent Fever Within 48 Hours Sepsis New/Unexplained Change in Mental Status Sepsis Action Taken by Nursing 05/13/22 14:30 05/13/22 14:40 05/13/22 14:50 Temperature Temperature Source Pulse Rate 73 74 72 Pulse Rate [Left Apical] Pulse Rate from SpO2 Sensor 72 74 Pulse Rhythm Pulse Rhythm [Left Apical] Pulse Strength Pulse Strength [Left Apical] Respiratory Rate 23 19 25 H Respiratory Effort / Characteristics Respiratory Depth Respiratory Pattern Blood Pressure Blood Pressure [Left Arm] Blood Pressure Mean Blood Pressure Mean [Left Arm] Blood Pressure Position Pulse Oximetry 97 97 Oxygen Delivery Method Sepsis Recent Fever Within 48 Hours Sepsis New/Unexplained Change in Mental Status Sepsis Action Taken by Nursing 05/13/22 15:00 05/13/22 15:00 05/13/22 15:10 Temperature Temperature Source Pulse Rate 71 78 Pulse Rate [Left Apical] Pulse Rate from SpO2 Sensor 71 Pulse Rhythm Pulse Rhythm [Left Apical] Pulse Strength Pulse Strength [Left Apical] Respiratory Rate 23 27 H Respiratory Effort / Characteristics Respiratory Depth Respiratory Pattern Blood Pressure 145/77 H Blood Pressure [Left Arm] Blood Pressure Mean 99 Blood Pressure Mean [Left Arm] Blood Pressure Position Pulse Oximetry 96 Oxygen Delivery Method Sepsis Recent Fever Within 48 Hours Sepsis New/Unexplained Change in Mental Status Sepsis Action Taken by Nursing 05/13/22 15:20 05/13/22 15:29 05/13/22 15:29 Temperature Temperature Source Pulse Rate 70 81 Pulse Rate [Left Apical] Pulse Rate from SpO2 Sensor 71 74 Pulse Rhythm Pulse Rhythm [Left Apical] Pulse Strength Pulse Strength [Left Apical] Respiratory Rate 22 17 Respiratory Effort / Characteristics Respiratory Depth Respiratory Pattern Blood Pressure 180/75 H Blood Pressure [Left Arm] Blood Pressure Mean 110 Blood Pressure Mean [Left Arm] Blood Pressure Position Pulse Oximetry 95 95 Oxygen Delivery Method Sepsis Recent Fever Within 48 Hours Sepsis New/Unexplained Change in Mental Status Sepsis Action Taken by Nursing 05/13/22 15:30 05/13/22 15:40 Temperature Temperature Source Pulse Rate 70 69 Pulse Rate [Left Apical] Pulse Rate from SpO2 Sensor 69 69 Pulse Rhythm Pulse Rhythm [Left Apical] Pulse Strength Pulse Strength [Left Apical] Respiratory Rate 24 21 Respiratory Effort / Characteristics Respiratory Depth Respiratory Pattern Blood Pressure Blood Pressure [Left Arm] Blood Pressure Mean Blood Pressure Mean [Left Arm] Blood Pressure Position Pulse Oximetry 95 95 Oxygen Delivery Method Sepsis Recent Fever Within 48 Hours Sepsis New/Unexplained Change in Mental Status Sepsis Action Taken by Jail Medications Current Medication List: was personally reviewed by me Laboratory Data Attestation: I reviewed the patient's lab results. Result diagrams: 05/14/22 07:33 05/16/22 06:07 Lab Results 05/13/22 05/13/22 05/13/22 Range/Units 12:10 12:10 12:10 WBC 7.78 (4.8-10.8) K/ul RBC 3.87 L (3.93-5.22) M/uL Hgb 12.2 (12.0-16.0) g/dl Hct 36.8 (34.1-44.9) % MCV 95.1 (80.0-100.0) fL MCH 31.5 (25.0-34.0) pg MCHC 33.2 (32.0-36.0) g/dL RDW Std Deviation 42.9 (36.4-46.3) fL RDW Coeff of La 12.2 (11.5-14.5) % Plt Count 170 (130-400) K/uL MPV 10.9 (9.4-12.3) fL Immature Gran % (Auto) 0.3 % Neut % (Auto) 68.0 % Lymph % (Auto) 22.5 % Blair % (Auto) 7.6 % Eos % (Auto) 1.2 % Baso % (Auto) 0.4 % Neut # (Auto) 5.30 (1.4-6.5) K/uL Lymph # (Auto) 1.75 (1.2-3.4) K/uL Blair # (Auto) 0.59 (0.24-0.82) K/uL Eos # (Auto) 0.09 (0-0.50) K/uL Baso # (Auto) 0.03 (0-0.2) K/uL Immature Gran # (Auto) 0.02 (0.00-0.02) K/uL PT 28.6 H (9.0-12.0) Seconds INR 2.8 H (0.9-1.1) APTT 39.1 H (21.0-31.0) Seconds PTT Ratio 1.4 Sodium 129 L (136-145) mmol/L Potassium 5.1 (3.5-5.1) mmol/L Chloride 100 (98-107) mmol/L Carbon Dioxide 24 (21-32) mmol/L Anion Gap 5 (3-11) BUN 24 H (6-23) mg/dl Creatinine 0.86 (0.6-1.2) mg/dl Est Cr Clr Drug Dosing Not Reportable Est GFR ( Amer) 70.4 ml/min Est GFR (Non-Af Amer) 60.7 ml/min BUN/Creatinine Ratio 27.9 H (10-20) Glucose 104 H (70-99(Fasting)) mg/dl Osmolality (280-300) mOsm/kg Calcium 8.6 (8.5-10.1) mg/dl Total Bilirubin 0.8 (0.2-1.0) mg/dl AST 24 (13-39) U/L ALT 23 (7-52) U/L Alkaline Phosphatase 50 (34-104) U/L Troponin I High Sens 14.3 H (0-14) pg/ml Total Protein 5.7 L (6.0-8.3) gm/dl Albumin 3.4 (3.4-5.0) gm/dl Globulin 2.3 L (2.5-4.0) gm/dl Albumin/Globulin Ratio 1.5 (0.9-2) Cortisol AM Sample (6.2-22.6) mcg/dl Urine Osmolality (500-800) mOsm/kg Ur Random Sodium mmol/L SARS-CoV-2, RNA, NAAT (NEGATIVE) 05/13/22 05/13/22 05/13/22 Range/Units 15:30 15:30 15:40 WBC (4.8-10.8) K/ul RBC (3.93-5.22) M/uL Hgb (12.0-16.0) g/dl Hct (34.1-44.9) % MCV (80.0-100.0) fL MCH (25.0-34.0) pg MCHC (32.0-36.0) g/dL RDW Std Deviation (36.4-46.3) fL RDW Coeff of La (11.5-14.5) % Plt Count (130-400) K/uL MPV (9.4-12.3) fL Immature Gran % (Auto) % Neut % (Auto) % Lymph % (Auto) % Blair % (Auto) % Eos % (Auto) % Baso % (Auto) % Neut # (Auto) (1.4-6.5) K/uL Lymph # (Auto) (1.2-3.4) K/uL Blair # (Auto) (0.24-0.82) K/uL Eos # (Auto) (0-0.50) K/uL Baso # (Auto) (0-0.2) K/uL Immature Gran # (Auto) (0.00-0.02) K/uL PT (9.0-12.0) Seconds INR (0.9-1.1) APTT (21.0-31.0) Seconds PTT Ratio Sodium (136-145) mmol/L Potassium (3.5-5.1) mmol/L Chloride (98-107) mmol/L Carbon Dioxide (21-32) mmol/L Anion Gap (3-11) BUN (6-23) mg/dl Creatinine (0.6-1.2) mg/dl Est Cr Clr Drug Dosing Est GFR ( Amer) ml/min Est GFR (Non-Af Amer) ml/min BUN/Creatinine Ratio (10-20) Glucose (70-99(Fasting)) mg/dl Osmolality (280-300) mOsm/kg Calcium (8.5-10.1) mg/dl Total Bilirubin (0.2-1.0) mg/dl AST (13-39) U/L ALT (7-52) U/L Alkaline Phosphatase (34-104) U/L Troponin I High Sens 11.6 (0-14) pg/ml Total Protein (6.0-8.3) gm/dl Albumin (3.4-5.0) gm/dl Globulin (2.5-4.0) gm/dl Albumin/Globulin Ratio (0.9-2) Cortisol AM Sample (6.2-22.6) mcg/dl Urine Osmolality 249 L (500-800) mOsm/kg Ur Random Sodium 52 mmol/L SARS-CoV-2, RNA, NAAT (NEGATIVE) 05/13/22 05/13/22 05/14/22 Range/Units 15:40 16:25 07:33 WBC 6.16 (4.8-10.8) K/ul RBC 3.72 L (3.93-5.22) M/uL Hgb 11.7 L (12.0-16.0) g/dl Hct 34.8 (34.1-44.9) % MCV 93.5 (80.0-100.0) fL MCH 31.5 (25.0-34.0) pg MCHC 33.6 (32.0-36.0) g/dL RDW Std Deviation 41.8 (36.4-46.3) fL RDW Coeff of La 12.1 (11.5-14.5) % Plt Count 146 (130-400) K/uL MPV 10.7 (9.4-12.3) fL Immature Gran % (Auto) 0.2 % Neut % (Auto) 49.3 % Lymph % (Auto) 39.9 % Blair % (Auto) 7.3 % Eos % (Auto) 2.8 % Baso % (Auto) 0.5 % Neut # (Auto) 3.04 (1.4-6.5) K/uL Lymph # (Auto) 2.46 (1.2-3.4) K/uL Blair # (Auto) 0.45 (0.24-0.82) K/uL Eos # (Auto) 0.17 (0-0.50) K/uL Baso # (Auto) 0.03 (0-0.2) K/uL Immature Gran # (Auto) 0.01 (0.00-0.02) K/uL PT (9.0-12.0) Seconds INR (0.9-1.1) APTT (21.0-31.0) Seconds PTT Ratio Sodium (136-145) mmol/L Potassium (3.5-5.1) mmol/L Chloride (98-107) mmol/L Carbon Dioxide (21-32) mmol/L Anion Gap (3-11) BUN (6-23) mg/dl Creatinine (0.6-1.2) mg/dl Est Cr Clr Drug Dosing Est GFR ( Amer) ml/min Est GFR (Non-Af Amer) ml/min BUN/Creatinine Ratio (10-20) Glucose (70-99(Fasting)) mg/dl Osmolality 277 L (280-300) mOsm/kg Calcium (8.5-10.1) mg/dl Total Bilirubin (0.2-1.0) mg/dl AST (13-39) U/L ALT (7-52) U/L Alkaline Phosphatase (34-104) U/L Troponin I High Sens (0-14) pg/ml Total Protein (6.0-8.3) gm/dl Albumin (3.4-5.0) gm/dl Globulin (2.5-4.0) gm/dl Albumin/Globulin Ratio (0.9-2) Cortisol AM Sample (6.2-22.6) mcg/dl Urine Osmolality (500-800) mOsm/kg Ur Random Sodium mmol/L SARS-CoV-2, RNA, NAAT NEGATIVE (NEGATIVE) 05/14/22 05/14/22 05/15/22 Range/Units 07:33 07:33 07:50 WBC (4.8-10.8) K/ul RBC (3.93-5.22) M/uL Hgb (12.0-16.0) g/dl Hct (34.1-44.9) % MCV (80.0-100.0) fL MCH (25.0-34.0) pg MCHC (32.0-36.0) g/dL RDW Std Deviation (36.4-46.3) fL RDW Coeff of La (11.5-14.5) % Plt Count (130-400) K/uL MPV (9.4-12.3) fL Immature Gran % (Auto) % Neut % (Auto) % Lymph % (Auto) % Blair % (Auto) % Eos % (Auto) % Baso % (Auto) % Neut # (Auto) (1.4-6.5) K/uL Lymph # (Auto) (1.2-3.4) K/uL Blair # (Auto) (0.24-0.82) K/uL Eos # (Auto) (0-0.50) K/uL Baso # (Auto) (0-0.2) K/uL Immature Gran # (Auto) (0.00-0.02) K/uL PT 22.3 H (9.0-12.0) Seconds INR 2.2 H (0.9-1.1) APTT (21.0-31.0) Seconds PTT Ratio Sodium 130 L (136-145) mmol/L Potassium 5.2 H (3.5-5.1) mmol/L Chloride 102 (98-107) mmol/L Carbon Dioxide 24 (21-32) mmol/L Anion Gap 4 (3-11) BUN 22 (6-23) mg/dl Creatinine 0.79 (0.6-1.2) mg/dl Est Cr Clr Drug Dosing 42.4 Est GFR ( Amer) 78.0 ml/min Est GFR (Non-Af Amer) 67.3 ml/min BUN/Creatinine Ratio 27.8 H (10-20) Glucose 82 (70-99(Fasting)) mg/dl Osmolality (280-300) mOsm/kg Calcium 8.4 L (8.5-10.1) mg/dl Total Bilirubin (0.2-1.0) mg/dl AST (13-39) U/L ALT (7-52) U/L Alkaline Phosphatase (34-104) U/L Troponin I High Sens (0-14) pg/ml Total Protein (6.0-8.3) gm/dl Albumin (3.4-5.0) gm/dl Globulin (2.5-4.0) gm/dl Albumin/Globulin Ratio (0.9-2) Cortisol AM Sample 1.09 L (6.2-22.6) mcg/dl Urine Osmolality (500-800) mOsm/kg Ur Random Sodium mmol/L SARS-CoV-2, RNA, NAAT (NEGATIVE) 05/15/22 05/15/22 Range/Units 07:50 07:50 WBC (4.8-10.8) K/ul RBC (3.93-5.22) M/uL Hgb (12.0-16.0) g/dl Hct (34.1-44.9) % MCV (80.0-100.0) fL MCH (25.0-34.0) pg MCHC (32.0-36.0) g/dL RDW Std Deviation (36.4-46.3) fL RDW Coeff of La (11.5-14.5) % Plt Count (130-400) K/uL MPV (9.4-12.3) fL Immature Gran % (Auto) % Neut % (Auto) % Lymph % (Auto) % Blair % (Auto) % Eos % (Auto) % Baso % (Auto) % Neut # (Auto) (1.4-6.5) K/uL Lymph # (Auto) (1.2-3.4) K/uL Blair # (Auto) (0.24-0.82) K/uL Eos # (Auto) (0-0.50) K/uL Baso # (Auto) (0-0.2) K/uL Immature Gran # (Auto) (0.00-0.02) K/uL PT 22.9 H (9.0-12.0) Seconds INR 2.2 H (0.9-1.1) APTT (21.0-31.0) Seconds PTT Ratio Sodium 132 L (136-145) mmol/L Potassium 4.9 (3.5-5.1) mmol/L Chloride 102 (98-107) mmol/L Carbon Dioxide 26 (21-32) mmol/L Anion Gap 4 (3-11) BUN 23 (6-23) mg/dl Creatinine 0.76 (0.6-1.2) mg/dl Est Cr Clr Drug Dosing 44.1 Est GFR ( Amer) 81.7 ml/min Est GFR (Non-Af Amer) 70.5 ml/min BUN/Creatinine Ratio 30.3 H (10-20) Glucose 82 (70-99(Fasting)) mg/dl Osmolality (280-300) mOsm/kg Calcium 8.6 (8.5-10.1) mg/dl Total Bilirubin (0.2-1.0) mg/dl AST (13-39) U/L ALT (7-52) U/L Alkaline Phosphatase (34-104) U/L Troponin I High Sens (0-14) pg/ml Total Protein (6.0-8.3) gm/dl Albumin (3.4-5.0) gm/dl Globulin (2.5-4.0) gm/dl Albumin/Globulin Ratio (0.9-2) Cortisol AM Sample (6.2-22.6) mcg/dl Urine Osmolality (500-800) mOsm/kg Ur Random Sodium mmol/L SARS-CoV-2, RNA, NAAT (NEGATIVE) Administered Medications Discontinued Medications Acetaminophen (Acetaminophen 325 Mg Tab) 650 mg PO Q4H PRN PRN Reason: pain or fever Stop: 06/12/22 23:00 Last Admin: 05/16/22 02:20 Dose: 650 mg Documented By: Admin: 05/15/22 20:23 Dose: 650 mg Documented By: Admin: 05/15/22 16:12 Dose: 650 mg Documented By: Admin: 05/15/22 11:01 Dose: 650 mg Documented By: Admin: 05/14/22 23:56 Dose: 650 mg Documented By: Admin: 05/14/22 16:53 Dose: 650 mg Documented By: Admin: 05/13/22 23:40 Dose: 650 mg Documented By: BRENDA Fludrocortisone Acetate (Fludrocortisone Acetate 0.1 Mg Tab) [facility] [place]: 06/15/22 08:59 Last Admin: 05/16/22 08:58 Dose: 0.1 mg Documented By: JOANNA Hydrocortisone (Hydrocortisone 10 Mg Tab) [facility] [place] Stop: 06/13/22 08:59 Last Admin: 05/16/22 08:59 Dose: 15 mg Documented By: Admin: 05/15/22 08:14 Dose: 15 mg Documented By: Admin: 05/14/22 08:37 Dose: 15 mg Documented By: GLORIA(2) Hydrocortisone (Hydrocortisone 10 Mg Tab) 5 mg PO QPM [facility] Stop: 06/12/22 20:59 Last Admin: 05/15/22 20:23 Dose: 5 mg Documented By: Admin: 05/14/22 19:40 Dose: 5 mg Documented By: Admin: 05/13/22 21:48 Dose: 5 mg Documented By: PERLITA Sodium Chloride (Nss 1000ml) 500 mls @ 999 mls/hr IV .Q31M ONE Stop: 05/13/22 12:32 Last Infusion: 05/13/22 13:00 Dose: 0 mls/hr Documented By: Admin: 05/13/22 12:21 Dose: 999 mls/hr Documented By: NITHIN Sodium Chloride (Nss 1000ml) 1,000 mls @ 80 mls/hr IV .[id number] [facility] Stop: 05/14/22 23:59 Last Infusion: 05/14/22 15:59 Dose: 0 mls/hr Documented By: GLORIA(2) Admin: 05/14/22 12:09 Dose: 80 mls/hr Documented By: GLORIA(2) Levothyroxine Sodium (Levothyroxine Sodium 137 Mcg Tablet) 137 mcg PO DAILYBB [facility] Stop: 06/13/22 06:29 Last Admin: 05/16/22 05:40 Dose: 137 mcg Documented By: Admin: 05/15/22 05:39 Dose: 137 mcg Documented By: Admin: 05/14/22 05:56 Dose: 137 mcg Documented By: BRENDA Miscellaneous (Olmesartan 5 Mg Tablet~Order Awaiting Action) 1 each N/A QS [facility] Stop: 06/13/22 00:00 Last Admin: 05/14/22 07:07 Dose: Not Given Documented By: GLORIA(2) Admin: 05/13/22 23:07 Dose: Not Given Documented By: BRENDA Olmesartan (Olmesartan Medoxomil 5 Mg Tab) 5 mg PO QD [facility] Stop: 06/13/22 13:29 Last Admin: 05/16/22 13:59 Dose: 5 mg Documented By: Admin: 05/15/22 13:27 Dose: 5 mg Documented By: Admin: 05/14/22 15:15 Dose: 5 mg Documented By: GLORIA Sertraline HCl (Sertraline Hcl 50 Mg Tablet) 50 mg PO DAILY [facility] Stop: 06/13/22 08:59 Last Admin: 05/16/22 08:59 Dose: 50 mg Documented By: Admin: 05/15/22 08:14 Dose: 50 mg Documented By: Admin: 05/14/22 08:37 Dose: 50 mg Documented By: GLORIA(2) Warfarin Sodium (Warfarin Sod 2 Mg Tab) 2 mg PO [id number] [facility] Stop: 06/12/22 19:59 Last Admin: 05/16/22 15:22 Dose: 2 mg Documented By: Admin: 05/15/22 16:10 Dose: 2 mg Documented By: Admin: 05/13/22 21:48 Dose: 2 mg Documented By: PERLITA Warfarin Sodium (Warfarin Sod 4 Mg Tab) 4 mg PO [id number] [facility] Stop: 06/13/22 15:59 Last Admin: 05/14/22 15:16 Dose: 4 mg Documented By: KDD Imaging Data Radiologist's Impression: Head CT 05/13/22 10:55 CT head/brain wo con CLINICAL HISTORY: Fall, hit head on coumadin Technique: Contiguous axial CT images of the head were acquired from the base of the skull to the vertex without intravenous contrast administration. Images were viewed in brain, subdural and bone windows. Automated dose lowering techniques and/or adjustment according to patient size were utilized for this exam. Comparison: Comparison is made to CT head 01/01/2022 Findings: Areas of decreased attenuation are present in the periventricular and subcortical white matter bilaterally consistent with small vessel ischemic dise ase. Generalized cerebral atrophy with commensurate enlargement of the ventricles, sulci, and cisterns is also present. There is no acute intracranial hemorrhage or evidence of acute territorial infarction. No shift of the midline structures, mass effect, or extra-axial abnormalities are shown. Ath erosclerotic calcifications are present in the intracranial segments of the internal carotid arteries. Imaged portions of the paranasal sinuses and mastoid air cells are clear. The orbits appear normal. There are no acute fractures of the calvaria or scalp swelling. Impression: No acute intracranial hemorrhage, skull fractures, or scalp swelling. ACT 112: Negative or not required by law. Electronically signed by: Fidel Anand M.D. 05/13/2022 11:[address] 05/13/22 12:[address] DOSE: 994.58 mGy.cm HISTORY: Neck pain. fall TECHNIQUE: Multiaxial CT images of the cervical spine were performed and reformatted in the sagittal and coronal plane without the use of contrast. A dose lowering technique was utilized adhering to the principles of ALARA. COMPARISON: None. FINDINGS: No fractures within the cervical spine. There is 2 mm of anterolisthesis of C4 on C5. This is likely due to the long-standing degenera tive change. There is moderate disc space narrowing at C5-C6 and mild disc space narrowing at C4-C5. Mild superior endplate deformity at T1 is likely chronic. Moderate facet degenerative changes within the cervical spine. Prevertebral soft tissues and the C1-C2 interval are intact. No pneumothorax. IMPRESSION: No fractures within the cervical spine. ACT 112: Negative or not required by law. Electronically signed by: John Hogan M.D. 05/13/2022 12:[address] 05/13/22 12:01 CT facial bones wo con CLINICAL HISTORY: fall, facial ecchymosis TECHNIQUE: Multidetector row helical CT of the maxillofacial bones was performed without administration of intravenous contrast, and processed with bone and soft tissue algorithms. Coronal and sagittal reformations were obtained. Automated dose lowering techniques and/or adjustment according to patient size were utilized for this exam. Comparison: None available at the time of this dictation. FINDINGS: Nasal bones are normal. The mandible is intact. The patient is edentulous. The temporomandibular joints are anatomically aligned. Pterygoid plates are intact. Zygomatic arches are intact. The globes are normal and symmetric, without proptosis, obvious disruption or lens dislocation. There is no orbital radiopaque foreign body. The orbital stout are intact. The retrobulbar fat is without evidence of disruption. Extraocular muscles are normal and symmetric. Optic nerve sheath complexes are normal in course and caliber. There is mild frontal soft tissue swelling with mild subcutaneous emphysema and a few radiodensities which may represent foreign bodies. Imaged portions of the paranasal sinuses and mastoid air cells are clear. IMPRESSION: Mild frontal soft tissue swelling without evidence for acute fracture. Possible superficial foreign bodies are noted in the skin. ACT 112: Negative or not required by law. Electronically signed by: Fidel Anand M.D. 05/13/2022 1:12 PM Knee X-Ray 05/13/22 12:01 XR knee RT 1 or 2V routine CLINICAL HISTORY: fall TECHNIQUE: 2 views of the right knee were obtained. Comparison: Comparison is made to knee radiographs 10/07/2016 FINDINGS: There is no evidence of an acute fracture. Degenerative changes are seen in the knee joint. No joint effusion is seen. No soft tissue abnormality is seen. IMPRESSION: Degenerative changes without evidence of acute injury. ACT 112: Negative or not required by law. Electronically signed by: Fidel Anand M.D. 05/13/2022 4:19 PM Knee X-Ray 05/13/22 12:01 XR knee LT 1 or 2V routine CLINICAL HISTORY: fall, ecchymosis TECHNIQUE: 2 views of the left knee were obtained. Comparison: None available at the time of this dictation. FINDINGS: There is no evidence of an acute fracture. Degenerative changes are seen in the knee joint. No joint effusion is seen. No soft tissue abnormality is seen. IMPRESSION: Degenerative changes without evidence of acute fracture. ACT 112: Negative or not required by law. Electronically signed by: Fidel Anand M.D. 05/13/2022 4:31 PM Ribs w/Chest X-Ray 05/13/22 12:01 XR ribs RT min 2V w CXR1V CLINICAL HISTORY: chest wall pain lower midline s/p fall TECHNIQUE: 3 views of the right ribs were obtained. Single frontal view of the chest was obtained. Comparison: Comparison is made to chest radiograph 01/01/2022 FINDINGS: No fractures are seen. The chest wall and soft tissues are normal. Degenerative changes are seen in the right shoulder. Calcified aortic knob is seen. The lungs are clear. No evidence of pleural effusion or pneumothorax. IMPRESSION: No evidence of acute fracture or other acute abnormalities in the visualized portions of the chest. ACT 112: Negative or not required by law. Electronically signed by: Fidel Anand M.D. 05/13/2022 4:24 PM Discharge Plan Visit Data Chief Complaint: Neuro Symptoms/Deficit Stated Complaint: FALL, CANT FEEL ARMS, WEAK, HEAD INJURY ED Provider: Jean-Pierre Jasso Discharge Problem: Hyponatremia, Weakness Patient Disposition: Admitted As Inpatient Condition: Good Discharge Instructions Interventions: ED Discharge Assessment Last Done: 05/13/22 19:44
--- NOTE | 2022-05-13 11:41 | CT Scan Report ---
CT head/brain wo con CLINICAL HISTORY: Fall, hit head on coumadin Technique: Contiguous axial CT images of the head were acquired from the base of the skull to the markel john without intravenous contrast administration. Images were viewed in brain, subdural and bone [facility]. Automated dose lowering techniques and/or adjustment according to patient size were utilized for this exam. Comparison: Comparison is made to CT head 01/01/2022 Findings: Areas of decreased attenuation are present in the periventricular and subcortical white matter bilate rally consistent with small vessel ischemic disease. Generalized cerebral atrophy with commensurate e nlargement of the ventricles, sulci, and cisterns is also present. There is no acute intracranial hem orrhage or evidence of acute territorial infarction. No shift of the midline structures, mass effect, or extra-axial abnormalities are shown. Atherosclerotic calcifications are present in the intracran ial segments of the internal carotid arteries. Imaged portions of the paranasal sinuses and mastoid air cells are clear. The orbits appear normal. There are no acute fractures of the calvaria or scalp swelling. Impression: No acute intracranial hemorrhage, skull fractures, or scalp swelling. ACT 112: Negative or not required by law. Electronically signed by: Fidel Anand M.D. 05/13/2022 11:40 AM
[2022-05-13] MEDS ORDERED: SODIUM CHLORIDE 0.9% 1000ML 500 ML IV ONE (12:02)
[2022-05-13 12:53] LABS: Basophils # (auto) 0.03 K/uL (0-0.2); Basophils % (auto) 0.4 %; Eosinophils # (auto) 0.09 K/uL (0-0.50); Eosinophils % (auto) 1.2 %; Hematocrit (blood only) 36.8 % (34.1-44.9); Hemoglobin 12.2 g/dl (12.0-16.0); Immature Granulocytes # (auto) 0.02 K/uL (0.00-0.02); Immature Granulocytes % (auto) 0.3 %; Lymphocytes # (auto) 1.75 K/uL (1.2-3.4); Lymphocytes % (auto) 22.5 %; Mean Corpuscular Hemoglobin 31.5 pg (25.0-34.0); Mean Corpuscular Hgb Conc 33.2 g/dL (32.0-36.0); Mean Corpuscular Volume 95.1 fL (80.0-100.0); Mean Platelet Volume 10.9 fL (9.4-12.3); Monocytes # (auto) 0.59 K/uL (0.24-0.82); Monocytes % (auto) 7.6 %; Platelet Count 170 K/uL (130-400); RDW Coefficient of Variation 12.2 % (11.5-14.5); RDW Standard Deviation 42.9 fL (36.4-46.3); Red Blood Count 3.87 M/uL (3.93-5.22); White Blood Count 7.78 K/ul (4.8-10.8)
--- NOTE | 2022-05-13 13:01 | CT Scan Report ---
CERVICAL SPINE CT CT DOSE: 994.58 mGy.cm HISTORY: Neck pain. fall TECHNIQUE: Multiaxial CT images of the cervical spine were performed and reformatted in the sagittal and coronal plane without the use of contrast. A dose lowering technique was utilized adhering to th e principles of ALARA. COMPARISON: None. FINDINGS: No fractures within the cervical spine. There is 2 mm of anterolisthesis of C4 on C5. This is likely due to the long-standing degenerative change. There is moderate disc space narrowing at C5- C6 and mild disc space narrowing at C4-C5. Mild superior endplate deformity at T1 is likely chronic. Moderate facet degenerative changes within the cervical spine. Prevertebral soft tissues and the C1-C 2 interval are intact. No pneumothorax. IMPRESSION: No fractures within the cervical spine. ACT 112: Negative or not required by law. Electronically signed by: John Hogan M.D. 05/13/2022 12:59 PM
[2022-05-13 13:10] LABS: INR 2.8 (0.9-1.1); Partial Thromboplastin Ratio 1.4; Partial Thromboplastin Time 39.1 Seconds (21.0-31.0); Prothrombin Time 28.6 Seconds (9.0-12.0)
--- NOTE | 2022-05-13 13:14 | CT Scan Report ---
CT facial bones wo con CLINICAL HISTORY: fall, facial ecchymosis TECHNIQUE: Multidetector row helical CT of the maxillofacial bones was performed without administrati on of intravenous contrast, and processed with bone and soft tissue algorithms. Coronal and sagittal reformations were obtained. Automated dose lowering techniques and/or adjustment according to patient size were utilized for this exam. Comparison: None available at the time of this dictation. FINDINGS: Nasal bones are normal. The mandible is intact. The patient is edentulous. The temporomandibular join ts are anatomically aligned. Pterygoid plates are intact. Zygomatic arches are intact. The globes are normal and symmetric, without proptosis, obvious disruption or lens dislocation. Ther e is no orbital radiopaque foreign body. The orbital stout are intact. The retrobulbar fat is without evidence of disruption. Extraocular muscles are normal and symmetric. Optic nerve sheath complexes are normal in course and caliber. There is mild frontal soft tissue swelling with mild subcutaneous emphysema and a few radiodensities which may represent foreign bodies. Imaged portions of the paranasal sinuses and mastoid air cells are clear. IMPRESSION: Mild frontal soft tissue swelling without evidence for acute fracture. Possible superficial foreign b odies are noted in the skin. ACT 112: Negative or not required by law. Electronically signed by: Fidel Anand M.D. 05/13/2022 1:12 PM
[2022-05-13 13:24] LABS: Troponin I High Sensitivity 14.3 pg/ml (0-14)
--- NOTE | 2022-05-13 13:43 | Electrocardiogram Report ---
Test Reason : Blood Pressure : / mmHG Vent. Rate : 066 BPM Atrial Rate : 066 BPM P-R Int : 174 ms QRS Dur : 080 ms QT Int : 378 ms P-R-T Axes : 055 055 061 degrees QTc Int : 396 ms Normal sinus rhythm Normal ECG When compared with ECG of 01-JAN-2022 10:08, No significant change was found Confirmed by Trenton Thomas ([id number]) on 05/13/2022 1:43:26 PM Referred By: REFERRED SELF Confirmed By:Trenton Thomas
[2022-05-13 13:53] LABS: Alanine Aminotransferase 23 U/L (7-52); Albumin Globulin Ratio 1.5 (0.9-2); Albumin Level 3.4 gm/dl (3.4-5.0); Alkaline Phosphatase 50 U/L (34-104); Anion Gap 5 (3-11); Aspartate Aminotransferase 24 U/L (13-39); BUN Creatinine Ratio 27.9 (10-20); Bilirubin,Total 0.8 mg/dl (0.2-1.0); Blood Urea Nitrogen 24 mg/dl (6-23); Calcium 8.6 mg/dl (8.5-10.1); Carbon Dioxide 24 mmol/L (21-32); Chloride 100 mmol/L (98-107); Est GFR (African American) 70.4 ml/min; Est GFR (Non-African American) 60.7 ml/min; Globulin 2.3 gm/dl (2.5-4.0); Glucose 104 mg/dl (70-99(Fasting)); Potassium 5.1 mmol/L (3.5-5.1); Sodium 129 mmol/L (136-145); Total Protein 5.7 gm/dl (6.0-8.3)
--- NOTE | 2022-05-13 14:28 | History & Physical Report ---
Date of Service May 13, 2022 Assessment & Plan (1) Hyponatremia: Plan: Pramod is an 86-year-old female who presents with weakness and who had a fall getting out of bed 3 days ago. Weakness, multifactorial with gradual decline and hyponatremia. Chronic, with weakness. Sodium 129 on admission Patient reports she drinks a lot of water and Gatorade but salt seems to been low for 6 weeks Urine sodiumurine/serum osm pending. Get salt in her diet, low suspicion for low solute intake? SIADH. No history of cancer We will fluid restrict, and make recommendations based on urine studies. BMP in the morning Observe overnight, spironolactone held, patient would like discharge tomorrow following urine studies Patient does note that she would like to address the sodium as this likely is affecting her strength, but overall would like to think about more palliative options of staying in the hospital in the future. CM consulted, Patient was previously on Florinef for her adrenal insufficiency, however this was stopped to severe hypertension. DDx does include AI induced Fall With bilateral infraorbital contusions CThead, CTC-spine, CTface without stroke, hemorrhage, fracture Occurred when getting out of bed in the middle of the night Left arm weakness following a fall on Friday. Suspect MSK injury/concussion 5/5 strength with no dysmetria on physical exam. Patient reports no weakness Discussed potential for a stroke event and recommended MRI/eval. Patient does not wish to pursue this, refuses this and understands that if she had a stroke she could be at additional risk of stroke in the future and that this may affect the decision to add an antiplatelet medication to her regimen. She expresses understanding of this, and while she wants evaluation for her low sodium does not want additional work-up for stroke including MRI at this time. Heart failure with preserved ejection fraction Not appear volume overloaded on exam No leukocytosis Hemoglobin normal EKG: No territorial ST wave changes High sensitive troponin trace elevation 14.3, trended Hyperlipidemia Continue atorvastatin 20 mg p.o. daily Adrenal insufficiency Continue hydrocortisone 10 mg p.o. every morning/5 mg twice daily Dispo: Did discuss goals of care at bedside, patient expresses a desire to generally remain out of the hospital even if her condition were to worsen and understands that untreated hyponatremia or strokes could lead to falls, weakness, injury, reduced function/independence, or . She expressed that it is important to her to remain home, and that she would like to meet with a palliative provider to help balance her decision making in the future. DVT PPx: On Warfarin CODE STATUS: DNR/DNI (2) Osteoporosis: (3) (HFpEF) heart failure with preserved ejection fraction: (4) History of DVT (deep vein thrombosis): (5) Anxiety and depression: (6) Hypertension: (7) Pulmonary hypertension: (8) Adrenal insufficiency: (9) GERD without esophagitis: (10) Hypothyroidism: History of Present Illness Primary Care Provider: Marysol Hogue MD Shira is an 86-year-old female with past medical failure of heart failure with preserved ejection fraction, DVT, anxiety/depression, hypertension, pulmonary hypertension, adrenal insufficiency, GERD, and hypothyroidism who presents for global weakness with her daughter and who had a fall getting out of bed 3 days ago in the middle of the night. Denies syncope/presyncope leading to the fall, but notes she is a sound sleeper was getting into bed too quickly causing her to fall and remembers hitting her head on the ground. Presented today with weakness, fatigue, poor appetite R rib pain Fall Friday CT Head neck and face neg Hyponatremia 129 Trop 14.3, no EKG changes She reprots she is a very sound sleeper. Remembers waking up after hitting gthe floor and thinks she was in a alfaro but doesn't remember why she was trying to get out of bed quickly. Doesn't remember much of her fall, knows her head hit the floor. Denies chest pain, chest pressure, shortness of breath, difficulty breathing, other syncope/presyncope. Did have some left arm weakness but notes this is not present currently. Denies past history of stroke.atient approximately invasive care, would like sodium evaluated overnight for weakness with ultimate goal of discharge tomorrow. She recognizes she has been progressively weak, but is not interested in rehab at this time. Would like PT/OT consults and would be open to home rehab. Did discuss goals of care at bedside, patient expresses a desire to generally remain out of the hospital even if her condition were to worsen and understands that untreated hyponatremia or strokes could lead to falls, weakness, injury, reduced function/independence, or . She expressed that it is important to her to remain home, and that she would like to meet with a palliative provider to help balance her decision making in the future. Discussion was had at the bedside with her daughter who notes that she would like her mother admitted and have sodium work-up, but also respects her decisions and noticed that generally she does not wish to be in the hospital. She is concerned about her weakness, and mostly worries about falls when she gets up in the middle of the night and can be a sound sleeper/disoriented. Medical History: Reviewed Medications: Reviewed Surgical History: Reviewed Allergies: Reviewed Social History: Reviewed Code Status: DNR/DNI Allergies Allergy/AdvReac Type Severity Reaction Status Date / Time celecoxib Allergy Unknown MUSCLE Verified 04/24/22 13:17 CRAMPS Sulfa (Sulfonamide Allergy Unknown DIDN'T Verified 04/24/22 13:17 Antibiotics) FEEL WELL Home Medications Medication Instructions Recorded Confirmed Type diclofenac sodium 1 % topical gel 2 gm topical DAILY #1 g 03/22/19 05/01/22 History acetaminophen 500 mg tablet 500 mg PO Q6H PRN Pain 02/01/21 05/01/22 History (Tylenol Extra Strength) propylene glycol [Systane Complete] 1 drp ophthalmic (eye) DAILY 02/08/21 05/01/22 History levothyroxine 137 mcg tablet 137 mcg PO DAILY #90 tabs 07/13/21 05/01/22 Rx hydrocortisone 10 mg tablet 10 mg PO QAM #90 tabs 08/14/21 05/01/22 Rx hydrocortisone 5 mg tablet 5 mg PO BID #180 tabs 09/19/21 05/01/22 Rx olmesartan 5 mg tablet 5 mg PO DAILY #90 tabs 10/24/21 05/01/22 Rx albuterol sulfate 90 mcg/actuation 2 puff inhalation Q6H PRN 12/07/21 05/01/22 Rx aerosol inhaler Shortness Of Breath Or Wheezing #8.5 grams spironolactone 25 mg tablet 25 mg PO QAM #90 tabs 12/07/21 05/01/22 Rx atorvastatin 20 mg tablet 20 mg PO DAILY #90 tabs 12/29/21 05/01/22 Rx cholecalciferol (vitamin D3) 50 2,000 unit PO DAILY 02/04/22 05/01/22 History mcg (2,000 unit) capsule denosumab 60 mg/mL subcutaneous 60 mg subcut Q6MO 02/04/22 05/01/22 History syringe (Prolia) warfarin 2 mg tablet See Rx Instructions PO UD 03/18/22 05/01/22 History omeprazole 20 mg capsule,delayed 20 mg PO Q OTHER DAY #90 caps 03/25/22 05/01/22 Rx release sertraline 50 mg tablet 50 mg PO DAILY #90 tabs 04/04/22 05/01/22 Rx psyllium seed (sugar) oral powder 1 tbsp PO DAILY 05/01/22 05/01/22 History (Metamucil (sugar) oral powder) Past Med/Surg History Medical History Adrenal insufficiency Arthritis of knee Bilateral leg edema Chronic anticoagulation Closed sacral fracture Diverticulosis Fracture of ilium GERD without esophagitis Grief reaction History of DVT (deep vein thrombosis) HTN (hypertension), benign Hx of fall Hyperglycemia Hypothyroidism Osteoporosis Pulmonary embolism Reactive airway disease Seasonal allergies SNHL (sensorineural hearing loss) Syncope Surgical History History of cholecystectomy History of hernia repair Family History Unknown Cancer Cardiac disorder FHx: deafness or hearing loss Mother Cardiac disorder Hypertension Other Family history non-contributory Hearing loss No family history of adverse response to anesthesia No family history of bleeding disorder Social History Smoking Status: Never smoker Tobacco Type: Cigarettes Age Started Using Tobacco: 28; Age Quit Using Tobacco: 44; Second Hand Exposure: No; Hx Alcohol Use: No Hx Substance Use: No Preferred Language: Ukrainian Communication Ability: Effective Missile Technician Required: No Beliefs That Will Affect Care: None marital status: / Current Living Situation: Alone Current Living Situation Comment: daughter lives nearby current occupational status: retired How many Children do You have: 2 Feels Safe at Home: Yes Childhood Exposure to Second-Hand Smoke: No Seatbelt Use: always Assistive Devices: Walker Review of Systems Review of Systems: All systems reviewed & are unremarkable except as noted in Subjective Physical Exam Physical Exam: General: A&Ox3. NAD. Cooperative. HEENT: Bilateral infraorbital contusions. normocephalic. PERLAA. EOM intact without pain Pulm: CTAB A&P. -wheezes, -rales, -rhonchi. Symmetrical chest rise. No increased work of breathing. No respiratory distress. Cardiac: RRR, -mrg. Radial pulses intact and symmetrical. Abdominal: Nontender, nondistended, soft. BS present. Extremities: Warm, dry boot. Moves all extremities equally. Credit Administration Specialist strength, wrist flexion/extension, elbow flexion/extension, shoulder flexion/internal rotation/external rotation 5/5 bilaterally without asymmetry. Finger-nose testing is intact without asymmetry or deficit. Hip flexion 4+/5 bilaterally, ankle dorsiflexion/plantar flexion 5/5. Sensation of soft touch intact in hands and feet bilaterally Results & Data Results & Data ([facility]) Vital Signs (Past 12 Hours) Vital Signs Temp Pulse Pulse Resp BP BP Pulse Ox 05/13/22 13:55 98 05/13/22 13:55 67 20 143/81 H 98 05/13/22 13:54 98 05/13/22 13:30 65 19 97 05/13/22 13:30 143/81 H 05/13/22 13:00 62 19 97 05/13/22 13:00 140/71 05/13/22 12:33 68 22 97 05/13/22 12:33 148/84 H 05/13/22 12:32 67 5 L 98 05/13/22 12:05 97 05/13/22 12:04 113/62 05/13/22 10:52 36.8 C 68 20 90/58 L 97 O2 Del Method 05/13/22 13:55 Room Air 05/13/22 13:55 Room Air 05/13/22 13:54 Room Air 05/13/22 13:30 05/13/22 13:30 05/13/22 13:00 05/13/22 13:00 05/13/22 12:33 05/13/22 12:33 05/13/22 12:32 05/13/22 12:05 05/13/22 12:04 05/13/22 10:52 Room Air PG Care Time/CCT Total # of Minutes Spent Total Time Spent with Patient: Total time spent is greater than 50% in coordination of care (as documented) at patient's floor/unit and/or counseling patient: Coding Level of Care Code INT OBSERVATION CARE 50M LVL 2 Diagnoses Hyponatremia E87.1 Osteoporosis M81.0 (HFpEF) heart failure with preserved ejection fraction I50.30 History of DVT (deep vein thrombosis) Z86.718 Anxiety and depression F41.9; F32.A Hypertension I10 Hypertension type: primary hypertension Pulmonary hypertension I27.20 Adrenal insufficiency E27.40 GERD without esophagitis K21.9 Hypothyroidism E03.9 Hypothyroidism type: unspecified (1) Hypertension Hypertension type: primary hypertension Qualified Code(s): I10 - Essential (primary) hypertension (2) Hypothyroidism Hypothyroidism type: unspecified Qualified Code(s): E03.9 - Hypothyroidism, unspecified
--- NOTE | 2022-05-13 16:21 | XRay Report ---
XR knee RT 1 or 2V routine CLINICAL HISTORY: fall TECHNIQUE: 2 views of the right knee were obtained. Comparison: Comparison is made to knee radiographs 10/07/2016 FINDINGS: There is no evidence of an acute fracture. Degenerative changes are seen in the knee joint. No joint effusion is seen. No soft tissue abnormality is seen. IMPRESSION: Degenerative changes without evidence of acute injury. ACT 112: Negative or not required by law. Electronically signed by: Fidel Anand M.D. 05/13/2022 4:19 PM
--- NOTE | 2022-05-13 16:25 | XRay Report ---
XR ribs RT min 2V w CXR1V CLINICAL HISTORY: chest wall pain lower midline s/p fall TECHNIQUE: 3 views of the right ribs were obtained. Single frontal view of the chest was obtained. Comparison: Comparison is made to chest radiograph 01/01/2022 FINDINGS: No fractures are seen. The chest wall and soft tissues are normal. Degenerative changes are seen in the right shoulder. Calcified aortic knob is seen. The lungs are clear. No evidence of pleural effusion or pneumothorax. IMPRESSION: No evidence of acute fracture or other acute abnormalities in the visualized portions of the chest. ACT 112: Negative or not required by law. Electronically signed by: Fidel Anand M.D. 05/13/2022 4:24 PM
--- NOTE | 2022-05-13 16:32 | XRay Report ---
XR knee LT 1 or 2V routine CLINICAL HISTORY: fall, ecchymosis TECHNIQUE: 2 views of the left knee were obtained. Comparison: None available at the time of this dictation. FINDINGS: There is no evidence of an acute fracture. Degenerative changes are seen in the knee joint. No joint effusion is seen. No soft tissue abnormality is seen. IMPRESSION: Degenerative changes without evidence of acute fracture. ACT 112: Negative or not required by law. Electronically signed by: Fidel Anand M.D. 05/13/2022 4:31 PM
[2022-05-13] MEDS ORDERED: ALBUTEROL HFA 8 GM INHALER INH PRN (19:43)
[2022-05-13] MEDS: HYDROCORTISONE 10 MG TAB PO SCH (21:48)
[2022-05-13] MEDS: WARFARIN SOD 2 MG TAB PO SCH (21:48)
[2022-05-13] MEDS: ACETAMINOPHEN 325 MG TAB PO PRN (23:40)
[2022-05-14] MEDS: LEVOTHYROXINE SODIUM 137 MCG TABLET PO SCH (05:56)
[2022-05-14 08:05] LABS: Basophils # (auto) 0.03 K/uL (0-0.2); Basophils % (auto) 0.5 %; Eosinophils # (auto) 0.17 K/uL (0-0.50); Eosinophils % (auto) 2.8 %; Hematocrit (blood only) 34.8 % (34.1-44.9); Hemoglobin 11.7 g/dl (12.0-16.0); Immature Granulocytes # (auto) 0.01 K/uL (0.00-0.02); Immature Granulocytes % (auto) 0.2 %; Lymphocytes # (auto) 2.46 K/uL (1.2-3.4); Lymphocytes % (auto) 39.9 %; Mean Corpuscular Hemoglobin 31.5 pg (25.0-34.0); Mean Corpuscular Hgb Conc 33.6 g/dL (32.0-36.0); Mean Corpuscular Volume 93.5 fL (80.0-100.0); Mean Platelet Volume 10.7 fL (9.4-12.3); Monocytes # (auto) 0.45 K/uL (0.24-0.82); Monocytes % (auto) 7.3 %; Neutrophils # (auto) 3.04 K/uL (1.4-6.5); Neutrophils % (auto) 49.3 %; Platelet Count 146 K/uL (130-400); RDW Coefficient of Variation 12.1 % (11.5-14.5); RDW Standard Deviation 41.8 fL (36.4-46.3); Red Blood Count 3.72 M/uL (3.93-5.22); White Blood Count 6.16 K/ul (4.8-10.8)
[2022-05-14 08:27] LABS: BUN Creatinine Ratio 27.8 (10-20); Calcium 8.4 mg/dl (8.5-10.1); Creatinine Clr Calc Pharmacy 42.4 ml/min; Est GFR (Non-African American) 67.3 ml/min; Potassium 5.2 mmol/L (3.5-5.1)
[2022-05-14 08:28] LABS: INR 2.2 (0.9-1.1); Prothrombin Time 22.3 Seconds (9.0-12.0)
[2022-05-14] MEDS: HYDROCORTISONE 10 MG TAB PO SCH ×2 (08:37→19:40)
[2022-05-14] MEDS: SERTRALINE HCL 50 MG TABLET PO SCH (08:37)
[2022-05-14] MEDS ORDERED: SODIUM CHLORIDE 0.9% 1000ML 1,000 ML IV SCH (11:30)
--- NOTE | 2022-05-14 12:46 | Hospitalist Progress Note ---
Date of Service May 14, 2022 Assessment & Plan (1) Generalized weakness: Plan: Generalized weakness with fall sustained 05/10 With bilateral infraorbital contusions and superficial laceration on forehead CThead, CTC-spine, CTface without stroke, hemorrhage, fracture Occurred when getting out of bed in the middle of the night and resulted in L arm weakness * 5/5 strength L arm with no dysmetria on physical exam. Patient reports no weakness * Discussed potential for a stroke event and recommended MRI/eval. Patient does not wish to pursue this, refuses this and understands that if she had a stroke she could be at additional risk of stroke in the future and that this may affect the decision to add an antiplatelet medication to her regimen. She expresses understanding of this, and while she wants evaluation for her low sodium does not want additional work-up for stroke including MRI at this time. - PT/OT eval to determine appropriate dispo ? rehab (pt lives alone) (2) Hyponatremia: Plan: Sodium 129 on admission Patient reports she drinks a lot of water and Gatorade but salt seems to been low for 6 weeks Urine sodium, urine/serum osm pending, suggest more of a hypovolemic hyponatremia and also has + orthostatics Observe overnight, spironolactone held, patient would like discharge tomorrow following urine studies Patient does note that she would like to address the sodium as this likely is affecting her strength, but overall would like to think about more palliative options of staying in the hospital in the future. CM consulted, Patient was previously on Florinef for her adrenal insufficiency, however this was stopped due to severe hypertension. DDx does include AI induced - Gentle ivf overnight (3) (HFpEF) heart failure with preserved ejection fraction: Plan: Not appear volume overloaded on exam No leukocytosis Hemoglobin normal EKG: No territorial ST wave changes High sensitive troponin trace elevation 14.3 --> 11.6 (4) History of DVT (deep vein thrombosis): Plan: - On Coumadin with therapeutic INR (5) Anxiety and depression: Plan: - Continue Sertraline (6) Hypertension: Plan: - Accelerated BP, Florinef stopped - Continues on Hydrocortisone for AI (7) Adrenal insufficiency: Plan: Continue hydrocortisone 10 mg p.o. every morning/5 mg twice daily (8) GERD without esophagitis: Plan: - Not on a PPI (9) Hypothyroidism: Plan: - Continue Levothyroxine Plan Dispo: Did discuss goals of care at bedside, patient expresses a desire to generally remain out of the hospital even if her condition were to worsen and understands that untreated hyponatremia or strokes could lead to falls, weakness, injury, reduced function/independence, or . She expressed that it is important to her to remain home, and that she would like to meet with a palliative provider to help balance her decision making in the future. DVT PPx: On Warfarin CODE STATUS: DNR/DNI Spoke with Beckie today at bedside and patient is agreeable to staying overnight but is adamant that she does NOT want to go to rehab. She understands the risks of returning home and would like to go home with home health with an agency that can transition her to palliative care --> hospice when she is ready. She notes she has had this discussion with her daughter who is in agreement with her plan. Has not discussed with her son but intends to. She has assistance of daughter who is with her 5 days out of the week and son is with her every other weekend. Discussed this plan with case management. Will follow up labs tomorrow morning. Anticipate she will be able to return home with home health tomorrow (05/15). Plan to be d/w Dr. Paniagua. Admission and Anticipated Discharge Date Admission Date: May 13, 2022 Results & Data Results & Data ([facility]) Vital Signs (Past 12 Hours) Vital Signs Temp Pulse Resp BP Pulse Ox O2 Del Method 05/14/22 10:48 Room Air 05/14/22 07:49 36.7 C 66 20 175/66 H 96 Room Air PG Care Time/CCT Total # of Minutes Spent Total Time Spent with Patient: Total time spent is greater than 50% in coordination of care (as documented) at patient's floor/unit and/or counseling patient: Coding Level of Care Code 91308 Subseq Obs Care Lvl 2 Diagnoses Generalized weakness R53.1 Hyponatremia E87.1 (HFpEF) heart failure with preserved ejection fraction I50.30 History of DVT (deep vein thrombosis) Z86.718 Anxiety and depression F41.9; F32.A Hypertension I10 Hypertension type: primary hypertension Adrenal insufficiency E27.40 GERD without esophagitis K21.9 Hypothyroidism E03.9 Hypothyroidism type: unspecified (1) Hypertension Hypertension type: primary hypertension Qualified Code(s): I10 - Essential (primary) hypertension (2) Hypothyroidism Hypothyroidism type: unspecified Qualified Code(s): E03.9 - Hypothyroidism, u nspecified
[2022-05-14] MEDS: OLMESARTAN MEDOXOMIL 5 MG TAB PO SCH (15:15)
[2022-05-14] MEDS ORDERED: WARFARIN SOD 4 MG TAB PO SCH (16:00)
[2022-05-14] MEDS: ACETAMINOPHEN 325 MG TAB PO PRN ×2 (16:53→23:56)
[2022-05-15] MEDS: LEVOTHYROXINE SODIUM 137 MCG TABLET PO SCH (05:39)
[2022-05-15] MEDS: HYDROCORTISONE 10 MG TAB PO SCH ×2 (08:14→20:23)
[2022-05-15] MEDS: SERTRALINE HCL 50 MG TABLET PO SCH (08:14)
[2022-05-15 08:41] LABS: BUN Creatinine Ratio 30.3 (10-20); Calcium 8.6 mg/dl (8.5-10.1); Creatinine Clr Calc Pharmacy 44.1 ml/min; Est GFR (African American) 81.7 ml/min; Est GFR (Non-African American) 70.5 ml/min; Potassium 4.9 mmol/L (3.5-5.1)
[2022-05-15 08:48] LABS: INR 2.2 (0.9-1.1); Prothrombin Time 22.9 Seconds (9.0-12.0)
[2022-05-15] MEDS: ACETAMINOPHEN 325 MG TAB PO PRN ×3 (11:01→20:23)
[2022-05-15] MEDS: OLMESARTAN MEDOXOMIL 5 MG TAB PO SCH (13:27)
[2022-05-15] MEDS: WARFARIN SOD 2 MG TAB PO SCH (16:10)
--- NOTE | 2022-05-15 17:22 | Hospitalist Progress Note ---
Date of Service May 15, 2022 Assessment & Plan (1) Generalized weakness: Plan: Generalized weakness with fall sustained 05/10 With bilateral infraorbital contusions and superficial laceration on forehead CThead, CTC-spine, CTface without stroke, hemorrhage, fracture Occurred when getting out of bed in the middle of the night and resulted in L arm weakness due to injury to shoulder * 5/5 strength L arm with no dysmetria on physical exam. Patient reports no weakness PT/OT recommending rehab but pt declines this at this time Is consistently positive on orthostatic vital signs--> due to mineralocorticoid deficiency as below (2) Adrenal insufficiency: Plan: Diagnosed at age 46, was initially on HC and Florinef but stopped the latter after having elevated BPS Now with hyponatremia, hyperkalemia, orthostasis causing falls already stopped the aldactone 2 weeks ago and orthostasis continues -agreeable to starting fludrocortisone 0.1mg 3x/week and with close monitoring of BPs, peripheral edema she cannot tolerate compression stockings-has tried many kinds Continue hydrocortisone 10 mg p.o. every morning/5 mg in afternoons (3) Hyponatremia: Plan: Sodium 129 on admission Patient reports she drinks a lot of water and Gatorade but salt seems to been low for 6 weeks on lab review -not improved since stopping aldactone Urine sodium 52, urine osm in the 280s, euvolemic--> consistent with AI as not likely SIADH and TSH normal recently improved to 132 today after receoiving some LR overnight start Florinef as above follow BMP in AM stopped aldactone (4) (HFpEF) heart failure with preserved ejection fraction: Plan: Not appear volume overloaded on exam High sensitive troponin trace elevation 14.3 --> 11.6 (5) History of DVT (deep vein thrombosis): Plan: - On Coumadin with therapeutic INR (6) Anxiety and depression: Plan: - Continue Sertraline (7) Hypertension: Plan: BPs normal at rest and +orthostatics as above continue olmesartan (8) Hypothyroidism: Plan: - Continue Levothyroxine TSH recently normal in 03/2022 Plan Dispo-continued stay to trial florinef inthe AM, declines to go to rehab, will be cautious with getting up until orthostatics improve, agreeable to home health -plan to dc to home tomorrow afternoon DVT proph-coumadin Admission and Anticipated Discharge Date Admission Date: May 15, 2022 Subjective Still feels generally weak and lightheaded with getting up. No headache. Is eating adn drinking. Is agreeable to starting on Florinef. She hasn't been on it in about 40 years due to it causing HTN. Review of Systems Review of Systems: All systems reviewed & are unremarkable except as noted in HPI & below Physical Exam Constitutional: WD/WN, vitals as above ENMT: external ear and nose normal, oropharynx normal periorbital ecchymosis L>R with mild edema Neck: trachea midline, no thyromegaly Respiratory: normal respiratory effort, lungs clear to auscultation Cardiovascular: Rate/Rhythm: regular rate and regular rhythm Heart Sounds: no murmur Extremities: + edema (trace edema mostly lipoedema) Chest (Breasts): Chest: normal inspection of chest Gastrointestinal (Abdomen): normal bowel sounds, soft, nontender, no hepatosplenomegaly Musculoskeletal: Extremities: extremities normal to inspection; no cyanosis and no clubbing Skin: no rashes, warm and dry Neurologic: moves all extremities and awake; no focal motor deficits Psychiatric: A+Ox3, euthymic affect Lymphatic: no lymphedema Results & Data Results & Data ([facility]) Vital Signs (Past 12 Hours) Vital Signs Temp Pulse Resp BP Pulse Ox O2 Del Method 05/15/22 14:42 36.7 C 67 16 124/70 96 Room Air 05/15/22 07:10 36.5 C 64 16 168/73 H 96 Room Air Laboratory Results 05/15/22 05/15/22 05/15/22 Range/Units 07:50 07:50 07:50 PT 22.9 H (9.0-12.0) Seconds INR 2.2 H (0.9-1.1) Sodium 132 L (136-145) mmol/L Potassium 4.9 (3.5-5.1) mmol/L Chloride 102 (98-107) mmol/L Carbon Dioxide 26 (21-32) mmol/L Anion Gap 4 (3-11) BUN 23 (6-23) mg/dl Creatinine 0.76 (0.6-1.2) mg/dl Est Cr Clr Drug Dosing 44.1 ml/min Est GFR ( Amer) 81.7 ml/min Est GFR (Non-Af Amer) 70.5 ml/min BUN/Creatinine Ratio 30.3 H (10-20) Glucose 82 (70-99(Fasting)) mg/dl Calcium 8.6 (8.5-10.1) mg/dl Cortisol AM Sample 1.09 L (6.2-22.6) mcg/dl PG Care Time/CCT Total # of Minutes Spent Total Time Spent with Patient: Total time spent is greater than 50% in coordination of care (as documented) at patient's floor/unit and/or counseling patient: Coding Level of Care Code 80645 Subseq Hosp Care Lvl 2 Diagnoses Generalized weakness R53.1 Adrenal insufficiency E27.40 Hyponatremia E87.1 (HFpEF) heart failure with preserved ejection fraction I50.30 History of DVT (deep vein thrombosis) Z86.718 Anxiety and depression F41.9; F32.A Hypertension I10 Hypertension type: primary hypertension Hypothyroidism E03.9 Hypothyroidism type: unspecified (1) Hypertension Hypertension type: primary hypertension Qualified Code(s): I10 - Essential (primary) hypertension (2) Hypothyroidism Hypothyroidism type: unspecified Qualified Code(s): E03.9 - Hypothyroidism, unspecified
[2022-05-16] MEDS: ACETAMINOPHEN 325 MG TAB PO PRN (02:20)
[2022-05-16] MEDS: LEVOTHYROXINE SODIUM 137 MCG TABLET PO SCH (05:40)
[2022-05-16 07:00] LABS: INR 2.6 (0.9-1.1); Prothrombin Time 26.7 Seconds (9.0-12.0)
[2022-05-16 07:02] LABS: BUN Creatinine Ratio 29.9 (10-20); Calcium 8.7 mg/dl (8.5-10.1); Creatinine Clr Calc Pharmacy 34.5 ml/min; Est GFR (African American) 60.9 ml/min; Est GFR (Non-African American) 52.5 ml/min; Potassium 4.9 mmol/L (3.5-5.1)
[2022-05-16] MEDS: SERTRALINE HCL 50 MG TABLET PO SCH (08:59)
[2022-05-16] MEDS: HYDROCORTISONE 10 MG TAB PO SCH (08:59)
[2022-05-16] MEDS ORDERED: FLUDROCORTISONE ACETATE 0.1 MG TAB PO SCH (09:00)
[2022-05-16] MEDS: OLMESARTAN MEDOXOMIL 5 MG TAB PO SCH (13:59)
--- NOTE | 2022-05-16 14:48 | Discharge Summary ---
Date of Service May 16, 2022 Admission HPI Per Admitting Provider Shira is an 86-year-old female with past medical failure of heart failure with preserved ejection fraction, DVT, anxiety/depression, hypertension, pulmonary hypertension, adrenal insufficiency, GERD, and hypothyroidism who presents for global weakness with her daughter and who had a fall getting out of bed 3 days ago in the middle of the night. Denies syncope/presyncope leading to the fall, but notes she is a sound sleeper was getting into bed too quickly causing her to fall and remembers hitting her head on the ground. Presented today with weakness, fatigue, poor appetite R rib pain Fall Friday CT Head neck and face neg Hyponatremia 129 Trop 14.3, no EKG changes She reprots she is a very sound sleeper. Remembers waking up after hitting gthe floor and thinks she was in a alfaro but doesn't remember why she was trying to get out of bed quickly. Doesn't remember much of her fall, knows her head hit the floor. Denies chest pain, chest pressure, shortness of breath, difficulty breathing, other syncope/presyncope. Did have some left arm weakness but notes this is not present currently. Denies past history of stroke.atient approximately invasive care, would like sodium evaluated overnight for weakness with ultimate goal of discharge tomorrow. She recognizes she has been progressively weak, but is not interested in rehab at this time. Would like PT/OT consults and would be open to home rehab. Did discuss goals of care at bedside, patient expresses a desire to generally remain out of the hospital even if her condition were to worsen and understands that untreated hyponatremia or strokes could lead to falls, weakness, injury, reduced function/independence, or . She expressed that it is important to her to remain home, and that she would like to meet with a palliative provider to help balance her decision making in the future. Discussion was had at the bedside with her daughter who notes that she would like her mother admitted and have sodium work-up, but also respects her decisions and noticed that generally she does not wish to be in the hospital. She is concerned about her weakness, and mostly worries about falls when she gets up in the middle of the night and can be a sound sleeper/disoriented. Medical History: Reviewed Medications: Reviewed Surgical History: Reviewed Allergies: Reviewed Social History: Reviewed Code Status: DNR/DNI Principal Diagnosis Falls secondary to orthostasis, adrenal insufficiency, hyponatremia Discharge Exam Constitutional WD/WN, vitals as above Eyes + anicteric sclerae Neck trachea midline, no thyromegaly Respiratory normal respiratory effort, lungs clear to auscultation Cardiovascular Rate/Rhythm: regular rate and regular rhythm Heart Sounds: no murmur Extremities: + edema (trace edema mostly lipoedema) Chest (Breasts) Chest: normal inspection of chest Gastrointestinal (Abdomen) normal bowel sounds, soft, nontender, no hepatosplenomegaly Musculoskeletal Extremities: extremities normal to inspection; no cyanosis and no clubbing Skin no rashes, warm and dry Neurologic moves all extremities and awake; no focal motor deficits Psychiatric A+Ox3, euthymic affect Lymphatic no lymphedema Discharge Data Allergies Allergy/AdvReac Type Severity Reaction Status Date / Time celecoxib Allergy Unknown MUSCLE Verified 05/13/22 17:26 CRAMPS Sulfa (Sulfonamide Allergy Unknown DIDN'T Verified 05/13/22 17:26 Antibiotics) FEEL WELL Consultations 05/13/22 14:53 ED Decision to Admit Stat Ordered Studies 05/13/22 10:55 CT head/brain wo con Stat 05/13/22 12:01 CT cervical spine wo con Stat CT facial bones wo con Stat Hospital Course (1) Generalized weakness: Generalized weakness with fall sustained 05/10 With bilateral infraorbital contusions and superficial laceration on forehead CThead, CTC-spine, CTface without stroke, hemorrhage, fracture Occurred when getting out of bed in the middle of the night and resulted in L arm weakness due to injury to shoulder * 5/5 strength L arm with no dysmetria on physical exam. Patient reports no weakness * neuro exam nonfocal and does have some intermittent left sided neck pain--> advised heating pad to neck, TENS unit, massage--> likely some muscle spasm around brachial plexus PT/OT recommending rehab but pt declines this at this time Was consistently positive on orthostatic vital signs--> due to mineralocorticoid deficiency as below--> now resolved with starting FLorinef (2) Adrenal insufficiency: Diagnosed at age 46, was initially on HC and Florinef but stopped the latter after having elevated BPS Now with hyponatremia, hyperkalemia, orthostasis causing falls already stopped the aldactone 2 weeks ago and orthostasis continues -agreeable to starting fludrocortisone 0.1mg 3x/week and with close monitoring of BPs, peripheral edema she cannot tolerate compression stockings-has tried many kinds Continue hydrocortisone 10 mg p.o. every morning/5 mg in afternoons Started Florinef here and orthostasis much improved, no further lightheadedness with standing -continue Florinef 0.1 mg po daily only on MWF for now (3) Hyponatremia: Sodium 129 on admission, up to 131 on discharge Patient reports she drinks a lot of water and Gatorade but salt seems to been low for 6 weeks on lab review -not improved since stopping aldactone Urine sodium 52, urine osm in the 280s, euvolemic--> consistent with AI as not likely SIADH and TSH normal recently -received crystolloid fluids and had improvement started Florinef as above follow BMP as an outpt but suspect this will improve with being on Florinef stopped aldactone (4) (HFpEF) heart failure with preserved ejection fraction: does not appear volume overloaded on exam High sensitive troponin trace elevation 14.3 --> 11.6 caution with diuretics in setting of adrenal insufficiency (5) History of DVT (deep vein thrombosis): - On Coumadin with therapeutic INR (6) Anxiety and depression: - Continue Sertraline (7) Hypertension: BPs normal at rest and +orthostatics as above continue olmesartan (8) Hypothyroidism: - Continue Levothyroxine TSH recently normal in 03/2022 Plan Dispo-stable for dc to home with home health DVT proph-coumadin Total Time Total Time Spent Total Time Spent (In Minutes): 40 min Discharge Plan Discharge Items Patient Disposition: Home - Home Health Services Reason For Visit: WEAKNESS, HYPONATREMIA Discharge Diagnosis: Falls, orthostatic hypotension, adrenal insufficiency, hyponatremia Condition on Discharge: Good Activity: As commented below Bathing: No limitations Exercise/Sports: Gradually increase as tolerated Exercise Comment: Try not to get up too fast from a seated position Non-emergency contact: Primary Care Provider Call non-emergency contact if: you have any medication questions and your symptoms worsen Follow-up/Referrals: Marysol Hogue MD [Primary Care Provider] - (Follow up within 1-2 weeks) Diet: Regular Addtl Attending Provider Instructions: You were admitted with falls related to orthostasis (blood pressure dropping low with standing). You also had low sodium levels. This is all related to your adrenal insufficiency and improved significantly with starting you on Florinef. You should continue taking Florinef on Mondays, Wednesdays, and Fridays for now. If you notice you're getting lightheaded with standing on the days you are not taking the medication, then talk to your doctor about increasing it to once daily. It was a pleasure taking care of you! Suyapa Guillen M.D. Pending Studies at Discharge: No Stand-Alone Forms: My [facility] Medications and DC Order Prescriptions: New fludrocortisone 0.1 mg Tablet 0.1 mg PO 3XWK Qty: 12 0RF Rx Instructions: on Mondays, Wednesdays, and Fridays Continued cholecalciferol (vitamin D3) 50 mcg (2,000 unit) capsule 2,000 unit PO DAILY Prolia 60 mg/mL syringe 60 mg subcut Q6MO warfarin 2 mg tablet See Rx Instructions PO UD Rx Instructions: 4mg Sun/Fri/Fri, 2mg all other days Metamucil (sugar) Powder 1 tbsp PO DAILY albuterol sulfate 90 mcg/actuation HFA aerosol inhaler 2 puff INHALATION Q6H PRN (Reason: Shortness Of Breath Or Wheezing) Qty: 8.5 5RF atorvastatin 20 mg tablet 20 mg PO DAILY Qty: 90 1RF omeprazole 20 mg capsule,delayed release(DR/EC) 20 mg PO Q OTHER DAY Qty: 90 3RF sertraline 50 mg tablet 50 mg PO DAILY Qty: 90 3RF diclofenac sodium 1 % gel 2 gm topical DAILY Qty: 1 propylene glycol 1 drp ophthalmic (eye) DAILY levothyroxine 137 mcg tablet 137 mcg PO DAILY Qty: 90 3RF olmesartan 5 mg tablet 5 mg PO DAILY Qty: 90 3RF acetaminophen [Tylenol Extra Strength] 500 mg tablet 500 mg PO Q6H PRN (Reason: Pain) hydrocortisone 5 mg tablet 5 mg PO QPM hydrocortisone 10 mg tablet 15 mg PO QAM Rx Instructions: TAKE WITH 5MG = 15MG QAM Discontinued spironolactone 25 mg tablet 25 mg PO QAM Qty: 90 1RF Rx Instructions: 05/13/22 THIS MED ON HOLD INDEFINATELY Discharge Orders: Discharge Order (Routine); Ordered 05/16/22 Ordered By: Suyapa uGillen Admission Data Admit Date/Time: 05/15/22 10:38 Attending Provider: Suyapa Guillen Admit Provider: Vickey Gomes Primary Care Provider: Marysol Hogue Other Providers: Vickey Gomes ; [facility] Coding Level of Care Code D/C DAY MANAGEMENT >30 MINS Diagnoses Generalized weakness R53.1 Adrenal insufficiency E27.40 Hyponatremia E87.1 (HFpEF) heart failure with preserved ejection fraction I50.30 History of DVT (deep vein thrombosis) Z86.718 Anxiety and depression F41.9; F32.A Hypertension I10 Hypertension type: primary hypertension Hypothyroidism E03.9 Hypothyroidism type: unspecified
[2022-05-16] MEDS: WARFARIN SOD 2 MG TAB PO SCH (15:22)
== END 2022-05-16 16:00 | disposition home health service (06) | DRG 312 ==
LOC: EDINP 10:32 → ED 10:32 → SUATTDRO 15:20 → 3N 19:44

== ENCOUNTER 2022-07-22 03:06 | Inpatient (IN) ==
[2022-07-22 03:45] LABS: INR 1.4 (0.9-1.1); Partial Thromboplastin Time 27.1 Seconds (21.0-31.0); Prothrombin Time 14.3 Seconds (9.0-12.0)
[2022-07-22 03:47] LABS: Basophils # (auto) 0.04 K/uL (0-0.2); Basophils % (auto) 0.4 %; Eosinophils # (auto) 0.16 K/uL (0-0.50); Eosinophils % (auto) 1.7 %; Hematocrit (blood only) 40.1 % (34.1-44.9); Hemoglobin 12.8 g/dl (12.0-16.0); Immature Granulocytes # (auto) 0.02 K/uL (0.00-0.02); Immature Granulocytes % (auto) 0.2 %; Lymphocytes # (auto) 3.12 K/uL (1.2-3.4); Lymphocytes % (auto) 33.5 %; Mean Corpuscular Hemoglobin 32.2 pg (25.0-34.0); Mean Corpuscular Hgb Conc 31.9 g/dL (32.0-36.0); Mean Platelet Volume 10.8 fL (9.4-12.3); Monocytes # (auto) 0.46 K/uL (0.24-0.82); Monocytes % (auto) 4.9 %; Neutrophils % (auto) 59.3 %; Platelet Count 135 K/uL (130-400); Platelet Estimate Decreased (Normal); RDW Coefficient of Variation 12.6 % (11.5-14.5); RDW Standard Deviation 47.2 fL (36.4-46.3); Red Blood Count 3.97 M/uL (3.93-5.22)
[2022-07-22 03:54] LABS: Alanine Aminotransferase 16 U/L (7-52); Albumin Globulin Ratio 1.5 (0.9-2); Albumin Level 3.4 gm/dl (3.4-5.0); Alkaline Phosphatase 76 U/L (34-104); Anion Gap 4 (3-11); Aspartate Aminotransferase 20 U/L (13-39); BUN Creatinine Ratio 23.8 (10-20); Bilirubin,Total 0.8 mg/dl (0.2-1.0); Blood Urea Nitrogen 15 mg/dl (6-23); Calcium 8.4 mg/dl (8.5-10.1); Carbon Dioxide 33 mmol/L (21-32); Chloride 107 mmol/L (98-107); Est GFR (African American) 93.5 ml/min; Est GFR (Non-African American) 80.6 ml/min; Globulin 2.2 gm/dl (2.5-4.0); Glucose 90 mg/dl (70-99(Fasting)); Magnesium 1.8 mg/dl (1.7-2.4); Potassium 3.2 mmol/L (3.5-5.1); Sodium 144 mmol/L (136-145); Total Protein 5.6 gm/dl (6.0-8.3)
[2022-07-22 03:55] LABS: Troponin I High Sensitivity 31.5 pg/ml (0-14)
[2022-07-22 04:11] LABS: Influenza A virus by PCR Negative (Neg); Influenza B virus by PCR Negative (Neg); RSV by PCR Negative (Neg)
[2022-07-22 04:14] LABS: Thyroid Stimulating Hormone 7.22 uIu/ml (0.300-4.500)
[2022-07-22] MEDS ORDERED: FUROSEMIDE 40 MG/4 ML VIAL IV ONE (04:14)
[2022-07-22] MEDS ORDERED: POTASSIUM CHLORIDE / WTR 10 MEQ/100 ML PLCT IV ONE (04:14)
[2022-07-22 04:33] LABS: SARS CoV2 RNA(COVID-19) Ceph POSITIVE (Negative)
--- NOTE | 2022-07-22 04:41 | History & Physical Report ---
Date of Service July 22, 2022 Assessment & Plan (1) (HFpEF) heart failure with preserved ejection fraction: Plan: This is an 86-year-old female with a history of HFpEF, DVT, anxiety and depression, hypertension, pulmonary hypertension, asthma, adrenal insufficiency, GERD with esophagitis, hypothyroidism who presented to [facility] for evaluation of [id number]-[id number] shortness of breath in the setting of weight gain, worsening peripheral edema, and cough; her clinical appearance is most concerning for acute HFpEF, likely worsened by acute COVID-19. Acute HFpEF - [id number] SOB/GONZALEZ alongside 10kg weight gain, worsening LE edema, and CXR demonstrating pulmonary edema, and BNP > 500 - Suspect this was primarily precipitated by Thanksgiving diet / dietary indiscretion ; noted that patient was previously taking Florinef daily (instead of MWF) up through mid-June, but lower suspicion - TTE (06/2022): EF 60 to 65% with moderate moderate left atrial dilation, mild right atrial dilation, mild aortic regurg, moderate to severe mitral regurg, mild to moderate tricuspid regurg, mild pulmonary hypertension. - Lasix 40mg IV daily scheduled -- will check BMP at 1200 today, consider repeat dosing this afternoon - Monitor intake, output; daily weights ordered - Low Na diet with 2000cc fluid restriction - Should consider establishing with CHF clinic upon discharge (2) COVID-19: Plan: COVID-19 -- patient reports being fully vaccinated - several weeks worth of cough; was up visiting grandchildren over too - denies constitutional symptoms - Given outpatient multiweek history of CHF-like symptoms, primarily suspect her SOB is due to acute HFpEF rather than COVID - hold from antiviral and additional steroid therapies at this point - closely monitor for changes that may require the above - isolation precautions (3) History of DVT (deep vein thrombosis): Plan: History of DVT - Continue warfarin 2mg daily - Daily INRs - INR 1.4 on arrival, will add an extra 1mg in the afternoon on 07/22 (4) Hypertension: Plan: HTN - Continue olmesartan (5) Hypothyroidism: Plan: Hypothyroidism - TSH 7.22 on arrival in the setting of acute illness / COVID19 / HFpEF - Continue levothyroxine, recheck TSH a few weeks after discharge (6) Adrenal insufficiency: Plan: Adrenal Insufficiency - Per chart review, diagnosed at age 46; was restarted on Florinef 0.1mg daily MWF during last admission d/t orthostasis symptoms, however was mistakenly taking it daily up until last PCP appointment on 07/11 - Will increase hydrocortisone to 30mg x 3 days in the AM, then return to home dosage on 07/25 for stress dosing - Regarding Florinef: continue 0.1mg MWF - Will consider stress dosing pending response to diuresis (7) Elevated troponin: Plan: Elevated Troponin - Minimally elevated at 30 on arrival in setting of suspected acute HFpEF exacerbation - Nonspecific T-wave changes in inferior and anterolateral leads - No anginal symptoms recently or today - Recheck once more, trend if needed -- primarily suspect demand at this point Plan Code: DNR/DNI Diet: HH, Low Na, Fluid restriction < 2L PPX: warfarin Dispo: [facility] History of Present Illness Primary Care Provider: Marysol Hogue MD This is an 86-year-old female with a history of HFpEF, DVT, anxiety and depression, hypertension, pulmonary hypertension, asthma, adrenal insufficiency, GERD with esophagitis, hypothyroidism who presented to [facility] for evaluation of cough. She tells me that over the past couple weeks, she has had a mild cough. It feels like it has gotten more regular, but is not been distressing now. She denies any shortness of breath up until yesterday. She says she was traveling to [place] over [facility], where she did enjoy a large [employer] meal without much restriction. Over the past several days, she has felt okay, but then beginning yesterday she became progressively more short of breath. She has noticed increase in the size of her legs. She endorses shortness of breath lying down. No chest pain, palpitations. No nausea or vomiting. No fevers, chills, sweats. She is fully vaccinated against COVID. On review of PCP notes, patient has actually reportedly had ongoing weight gain, shortness of breath, and leg swelling since the end of May. On her last admission, she was started on fludrocortisone 0.1 mg Friday, however, chart review reveals that she was taking it daily. She was put on a brief outpatient oral Lasix course, and was able to successfully take off some of the fluid/symptoms. She had an echo done on 07/12, which demonstrated EF 60 to 65% with moderate moderate left atrial dilation, mild right atrial dilation, mild aortic regurg, moderate to severe mitral regurg, mild to moderate tricuspid regurg, mild pulmonary hypertension. Medications reviewed and include acetaminophen, albuterol, atorvastatin, vitamin D, fludrocortisone, hydrocortisone 15mg qAM / 5mg qPM, levothyroxine, olmesartan, omeprazole, sertraline. In the ED, patient was found to be hypertensive to 175/70 with an oxygen saturation 92%. Her labs demonstrated INR 1.4, potassium 3.2, bicarb 33, high-sensitivity troponin 31.5, BNP 517. TSH 7.2. COVID-positive. ECG demonstrated T wave flattening in the inferior and anterolateral leads compared to ECG on 05/13/2022. She was given a single dose of Lasix 40 mg IV. --- This documentation was created utilizing dictation software. As such, syntax, grammatical, and word-choice errors may be present. Notes are screened prior to submission in an attempt to reduce these errors. If there are any questions or concerns, please contact the author directly for clarification. Allergies Allergy/AdvReac Type Severity Reaction Status Date / Time celecoxib Allergy Unknown MUSCLE Verified 07/12/22 13:35 CRAMPS Sulfa (Sulfonamide Allergy Unknown DIDN'T Verified 07/12/22 13:35 Antibiotics) FEEL WELL Home Medications Medication Instructions Recorded Confirmed Type diclofenac sodium 1 % topical gel 2 gm topical DAILY #1 g 03/22/19 07/29/22 History acetaminophen 500 mg tablet 500 mg PO Q6H PRN Pain 02/01/21 07/29/22 History (Tylenol Extra Strength) propylene glycol [Systane Complete] 1 drp ophthalmic (eye) DAILY 02/08/21 07/29/22 History olmesartan 5 mg tablet 5 mg PO DAILY #90 tabs 10/24/21 07/29/22 Rx atorvastatin 20 mg tablet 20 mg PO DAILY #90 tabs 12/29/21 07/29/22 Rx cholecalciferol (vitamin D3) 50 2,000 unit PO DAILY 02/04/22 07/29/22 History mcg (2,000 unit) capsule denosumab 60 mg/mL subcutaneous 60 mg subcut Q6MO 02/04/22 07/29/22 History syringe (Prolia) omeprazole 20 mg capsule,delayed 20 mg PO Q OTHER DAY #90 caps 03/25/22 07/29/22 Rx release sertraline 50 mg tablet 50 mg PO DAILY #90 tabs 04/04/22 07/29/22 Rx psyllium seed (sugar) oral powder 1 tbsp PO DAILY 05/01/22 07/29/22 History (Metamucil (sugar) oral powder) hydrocortisone 5 mg tablet 5 mg PO QPM 05/13/22 07/29/22 History warfarin 2 mg tablet See Rx Instructions PO UD #90 tabs 06/25/22 07/29/22 Rx levothyroxine 137 mcg tablet 137 mcg PO DAILY #90 tabs 07/23/22 07/29/22 Rx benzonatate 100 mg capsule 100 mg PO TID #14 caps 07/26/22 07/29/22 Rx fludrocortisone 0.1 mg tablet 0.1 mg PO .COMPLEX #30 tabs 07/26/22 07/29/22 Rx furosemide 20 mg tablet 20 mg PO QAM #30 tabs 07/26/22 07/29/22 Rx hydrocortisone 10 mg tablet 10 mg PO QAM #90 tabs 07/26/22 07/29/22 Rx albuterol sulfate 90 mcg/actuation 2 puff inhalation Q6H PRN 07/29/22 07/29/22 Rx aerosol inhaler Shortness Of Breath Or Wheezing #8.5 grams Past Med/Surg History Medical History Adrenal insufficiency Arthritis of knee Bilateral leg edema Chronic anticoagulation Closed sacral fracture Diverticulosis Fracture of ilium GERD without esophagitis Grief reaction History of DVT (deep vein thrombosis) HTN (hypertension), benign Hx of fall Hyperglycemia Hypothyroidism Osteoporosis Pulmonary embolism Reactive airway disease Seasonal allergies SNHL (sensorineural hearing loss) Syncope Surgical History History of cholecystectomy History of hernia repair Family History Unknown Cancer Cardiac disorder FHx: deafness or hearing loss Mother Cardiac disorder Hypertension Other Family history non-contributory Hearing loss No family history of adverse response to anesthesia No family history of bleeding disorder Social History Smoking Status: Never smoker Tobacco Type: Cigarettes Age Started Using Tobacco: 28; Age Quit Using Tobacco: 44; Second Hand Exposure: No; Hx Alcohol Use: No Hx Substance Use: No Preferred Language: Bengali Communication Ability: Effective Store Group Manager Required: No Beliefs That Will Affect Care: None marital status: / Current Living Situation: Family Current Living Situation Comment: daughter lives nearby current occupational status: retired How many Children do You have: 2 Feels Safe at Home: Yes Childhood Exposure to Second-Hand Smoke: No Seatbelt Use: always Assistive Devices: Glasses and Walker Review of Systems Review of Systems: as per HPI Physical Exam Physical Exam: General: 86-year old male who is alert, oriented, and appears in no acute distress. HEENT: NCAT. - Eyes - Sclera are white, anicteric, and without injection. - Mouth - MMM - Neck - supple, +mild JVD Cardiac: Normal rate and regular rhythm; S1 and S2 present with no murmurs, rubs, or gallops. Pulmonary: Good respiratory effort with symmetric expansion of the chest. No use of accessory muscles. Expiratory wheezes bilaterally, mild crackles near the bases. Abdominal: Normoactive bowel sounds. Abdomen was soft, nondistended, and non- tender to palpation. Extremities: Upper and lower extremities are warm and well perfused. 2+ peripheral edema in the lower extremities bilaterally Psych: Well-developed, well-nourished, appropriately dressed for occasion. Behavior is cooperative and appropriate. Affect is WNL. Insight is appropriate. Results & Data Results & Data ([facility]) Vital Signs (Past 12 Hours) Vital Signs Temp Pulse Pulse Resp BP BP Pulse Ox 07/22/22 03:30 63 16 175/69 H 92 07/22/22 03:11 36.7 C 79 21 176/80 H 96 O2 Del Method 07/22/22 03:30 07/22/22 03:11 Room Air Supervising Physician Co-Signing Physician Notes Attending addendum: I have physically seen this patient, have supervised the medical residents activities, and agree with the H&P unless as otherwise noted. Assessment and Plan: Acute on chronic HFpEF- 10 kg weight gain Likely precipitating causes: Increased sodium load at Thanksgiving diet, physiologic stress of COVID-19 infection, and less so taking Florinef daily instead of Friday Furosemide 40 mg IV daily Follow serial BMP and magnesium levels Low-sodium diet 2 L fluid restriction COVID-19 infection- Due to timing of previous infection, no intervention at this time History DVT- Continue warfarin follow daily PT/INRs Hypertension/mildly elevated high sensitive troponin- The patient will be admitted to telemetry for serial cardiac enzymes, serial EKG's, cardiac rhythm monitoring and a 2-D echocardiogram with Dopplers. Likely type II supply demand mismatch Continue olmesartan Hypothyroidism- Continue levothyroxine Adrenal insufficiency- Modifications as discussed Remaining orders and notations as noted Resident Activity Tracking Resident Involvement: Resident Care Provided Care Provided: Adult Hospital Medicine (1) Hypothyroidism Hypothyroidism type: unspecified Qualified Code(s): E03.9 - Hypothyroidism, unspecified (2) Hypertension Hypertension type: primary hypertension Qualified Code(s): I10 - Essential (primary) hypertension
[2022-07-22 04:54] LABS: T4 Free Thyroxine 1.37 ng/dl (0.61-1.60)
[2022-07-22] MEDS: LEVOTHYROXINE SODIUM 137 MCG TABLET PO SCH (07:28)
--- NOTE | 2022-07-22 07:46 | Emergency Department Note ---
ED Visit Note I was consulted by the Advanced Practice Provider. I saw the patient personally and performed a substantive portion of the visit. This includes aspects of the HPI, MDM, diagnostic interpretations, and disposition/plan. .
[2022-07-22] MEDS: FUROSEMIDE 40 MG/4 ML VIAL IV SCH (08:58)
[2022-07-22] MEDS: ACETAMINOPHEN 325 MG TAB PO PRN ×2 (08:58→22:40)
[2022-07-22] MEDS: PANTOprazole 40 MG TAB PO SCH (08:58)
[2022-07-22 09:39] LABS: Appearance Urine Clear (Clear); Bilirubin Urine Negative (Negative); Blood Urine Negative (Negative); Color Urine Yellow; Glucose Urine UA Negative (Negative); Ketones Urine Negative (Negative); Leukocyte Esterase Urine Negative (Negative); Nitrite Urine Negative (Negative); Protein Urine Negative (Negative); Specific Gravity Urine 1.006 (1.000-1.030); Urobilinogen Urine Negative (Negative); pH Urine 7.5 (4.5-7.5)
--- NOTE | 2022-07-22 10:04 | XRay Report ---
XR chest 1V portable HISTORY: 86 years-old Female Dyspnea acute shortness of breath COMPARISON: Chest and rib radiographs 05/13/2022 TECHNIQUE: AP view of the chest FINDINGS: Cardiac silhouette is upper limits of normal in size. Atherosclerosis of the aorta. There is no pneum othorax. Trace pleural effusions are suggested subsegmental bibasilar densities. Pulmonary vascular c ongestion. Degenerative changes of the shoulders and spine. IMPRESSION: 1. Cardiomegaly with pulmonary vascular congestion. 2. Trace pleural effusions with mild bibasilar opacities suggestive of atelectasis. ACT 112: Negative or not required by law. The above report was generated using voice recognition software. It may contain grammatical, syntax o r spelling errors. Electronically signed by: Villa Rodgers M.D. 07/22/2022 10:03 AM
[2022-07-22] MEDS: ATORVASTATIN 20 MG TAB PO SCH (10:49)
[2022-07-22] MEDS: OLMESARTAN MEDOXOMIL 5 MG TAB PO SCH (10:49)
[2022-07-22] MEDS: HYDROCORTISONE 10 MG TAB PO SCH (10:50)
[2022-07-22] MEDS: FLUDROCORTISONE ACETATE 0.1 MG TAB PO SCH (10:50)
[2022-07-22] MEDS: ARTIFICIAL TEARS OP SCH (10:50)
[2022-07-22] MEDS: SERTRALINE HCL 50 MG TABLET PO SCH (10:50)
[2022-07-22] MEDS: PSYLLIUM or GUAR GUM FIBER POWDER PACKET PO SCH (10:51)
--- NOTE | 2022-07-22 10:51 | Electrocardiogram Report ---
Test Reason : Blood Pressure : / mmHG Vent. Rate : 064 BPM Atrial Rate : 064 BPM P-R Int : 150 ms QRS Dur : 078 ms QT Int : 568 ms P-R-T Axes : 063 023 043 degrees QTc Int : 585 ms Sinus rhythm with occasional Premature ventricular complexes Nonspecific ST abnormality Abnormal ECG When compared with ECG of 13-MAY-2022 12:18, Premature ventricular complexes are now Present Nonspecific T wave abnormality now evident in Inferior leads Nonspecific T wave abnormality now evident in Anterolateral leads QT has lengthened Confirmed by Harpreet Yoder ([id number]) on 07/22/2022 10:51:12 AM Referred By: REFERRED SELF Confirmed By:Natalio Yoder
[2022-07-22 13:52] LABS: BUN Creatinine Ratio 20.6 (10-20); Creatinine Clr Calc Pharmacy 58.4 ml/min; Est GFR (African American) 93.5 ml/min; Est GFR (Non-African American) 80.6 ml/min; Potassium 3.1 mmol/L (3.5-5.1)
--- NOTE | 2022-07-22 15:35 | Communication Note ---
Date of Service: July 22, 2022 Please see today's history and physical for complete plan except as otherwise noted: 86-year-old female past medical history significant for DVT, hypertension, hypothyroidism, HFpEF, adrenal insufficiency on chronic Florinef/hydrocortisone admitted for shortness of breath suspected secondary to CHF exacerbation. Patient also noted to be COVID-positive on admission. Patient was not started on COVID-19 medication such as remdesivir and dexamethasone as patient's presentation was much more suspicious for CHF exacerbation. Patient is up about 10 kg since last admission with chest x-ray showing pulmonary edema and elevated BNP on lab work. Patient admits to some dietary indiscretion over the , things like mashed potatoes and gravy, canned vegetables, etc. Patient had recent echo earlier this month with EF 60-65%, will not repeat. Patient received a total of Lasix 40 mg IV x2 today with significant output and improvement in her breathing. Patient's diuretics were discontinued on last admission as patient was euvolemic and due to adrenal insufficiency with hyponatremia, generalized weakness and falls. Prior to that had been on spironolactone. Repeat basic metabolic panel in the morning. Appreciate CHF program referral to determine diuretic plan for discharge. Patient's INR subtherapeutic at 1.4, warfarin dose increased 07/22 with repeat INR in the morning. We will continue to increase as needed. Patient with a history of adrenal insufficiency on Florinef/hydrocortisone, will increase hydrocortisone to 30 mg x 3 days for stress dosing and continue Florinef MWF.Potassium 3.1, will give KCl 40meq today and tomorrow with repeat BMP. Troponin 31.5->33.4 on repeat check in the setting of acute CHF exacerbation, no evidence of ACS, no chest pain/shortness of breath at this time.
[2022-07-22] MEDS ORDERED: WARFARIN SOD 1 MG TAB PO ONE (16:00)
[2022-07-22] MEDS ORDERED: WARFARIN SOD 2 MG TAB PO SCH (16:00)
[2022-07-22] MEDS ORDERED: POTASSIUM CHLORIDE CRTAB 20 MEQ TABCR PO STA (20:05)
[2022-07-23] MEDS ORDERED: hydrALAZINE HCL 20 MG/ML VIAL IV ONE (05:02)
[2022-07-23] MEDS: ALBUTEROL HFA 8 GM INHALER INH PRN ×2 (05:44→19:41)
[2022-07-23] MEDS: LEVOTHYROXINE SODIUM 137 MCG TABLET PO SCH (06:00)
[2022-07-23 06:35] LABS: INR 1.4 (0.9-1.1); Prothrombin Time 14.8 Seconds (9.0-12.0)
[2022-07-23 06:48] LABS: Albumin Globulin Ratio 1.4 (0.9-2); Albumin Level 3.3 gm/dl (3.4-5.0); BUN Creatinine Ratio 23.4 (10-20); Bilirubin,Total 0.9 mg/dl (0.2-1.0); Creatinine Clr Calc Pharmacy 60.2 ml/min; Est GFR (Non-African American) 80.2 ml/min; Globulin 2.3 gm/dl (2.5-4.0); Potassium 3.5 mmol/L (3.5-5.1); Total Protein 5.6 gm/dl (6.0-8.3)
[2022-07-23 08:35] LABS: Basophils # (auto) 0.01 K/uL (0-0.2); Basophils % (auto) 0.1 %; Eosinophils # (auto) 0.13 K/uL (0-0.50); Eosinophils % (auto) 1.6 %; Hematocrit (blood only) 40.6 % (34.1-44.9); Hemoglobin 13.1 g/dl (12.0-16.0); Immature Granulocytes # (auto) 0.01 K/uL (0.00-0.02); Immature Granulocytes % (auto) 0.1 %; Lymphocytes # (auto) 2.65 K/uL (1.2-3.4); Lymphocytes % (auto) 32.3 %; Mean Corpuscular Hgb Conc 32.3 g/dL (32.0-36.0); Mean Platelet Volume 11.9 fL (9.4-12.3); Monocytes # (auto) 0.51 K/uL (0.24-0.82); Monocytes % (auto) 6.2 %; Neutrophils % (auto) 59.7 %; Platelet Count 142 K/uL (130-400); RDW Coefficient of Variation 12.7 % (11.5-14.5); RDW Standard Deviation 46.4 fL (36.4-46.3); White Blood Count 8.21 K/ul (4.8-10.8)
[2022-07-23] MEDS ORDERED: LORazepam 0.5 MG TAB PO STA (08:56)
[2022-07-23] MEDS: FUROSEMIDE 40 MG/4 ML VIAL IV SCH (08:57)
[2022-07-23] MEDS: POTASSIUM CHLORIDE CRTAB 20 MEQ TABCR PO SCH (08:58)
[2022-07-23] MEDS: SERTRALINE HCL 50 MG TABLET PO SCH (08:58)
[2022-07-23] MEDS: HYDROCORTISONE 10 MG TAB PO SCH (08:58)
[2022-07-23] MEDS: PSYLLIUM or GUAR GUM FIBER POWDER PACKET PO SCH (08:59)
[2022-07-23] MEDS: OLMESARTAN MEDOXOMIL 5 MG TAB PO SCH (08:59)
[2022-07-23] MEDS: ATORVASTATIN 20 MG TAB PO SCH (08:59)
[2022-07-23] MEDS: ARTIFICIAL TEARS OP SCH (08:59)
--- NOTE | 2022-07-23 08:59 | Hospitalist Progress Note ---
Date of Service July 23, 2022 Assessment & Plan (1) (HFpEF) heart failure with preserved ejection fraction: Plan: 86-year-old female with a history of HFpEF, DVT, anxiety and depression, hypertension, pulmonary hypertension, asthma, adrenal insufficiency, GERD with esophagitis, hypothyroidism admitted for acute on chronic shortness of breath with concerns for acute HFpEF and incidentally noted to have COVID-19 on admission. Acute HFpEF: - Oxdnj-dn-orfcoaw SOB/GONZALEZ alongside 10kg weight gain, worsening LE edema, and CXR demonstrating pulmonary edema, and BNP > 500. - Suspect this was primarily precipitated by diet / dietary indiscretion; noted that patient was previously taking Florinef daily (instead of MWF) up through mid-June, but lower suspicion. - TTE (06/2022): EF 60 to 65% with moderate moderate left atrial dilation, mild right atrial dilation, mild aortic regurg, moderate to severe mitral regurg, mild to moderate tricuspid regurg, mild pulmonary hypertension. - Lasix 40mg IV daily scheduled-> transitioned to 40 mg p.o. daily today as patient appears to be euvolemic at this time. - Monitor intake, output; daily weights ordered. - Low Na diet with 2000cc fluid restriction. - CHF program referral placed, patient has been resistant to do this in the past however on discussion with her today she did report she can use some help with figuring out her diuretics. (2) COVID-19: Plan: - Patient reports full vaccination. - Several weeks worth of cough; was up visiting grandchildren over too - denies constitutional symptoms. - Given outpatient multiweek history of CHF-like symptoms, primarily suspect her SOB is due to acute HFpEF rather than COVID. - Hold from antiviral and additional steroid therapies at this point; not hypoxic or dyspneic at this time. - Isolation precautions. (3) Demand ischemia: Plan: - Minimally elevated at 30 on arrival in setting of suspected acute HFpEF exacerbation. - Nonspecific T-wave changes in inferior and anterolateral leads. - No anginal symptoms recently or today. (4) History of DVT (deep vein thrombosis): Plan: - INR 1.4 again 07/22 despite additional 1mg yesterday, will increase to 4mg today with repeat INR tomorrow. (5) Hypertension: Plan: - Continue olmesartan. - BP hypertensive, if continued elevation can consider home medication adjustment. (6) Hypothyroidism: Plan: - TSH 7.22 on arrival in the setting of acute illness / COVID19 / HFpEF. - Continue levothyroxine, recheck TSH a few weeks after discharge . (7) Adrenal insufficiency: Plan: - Diagnosed at age 46; was restarted on Florinef 0.1mg daily MWF during last admission d/t orthostasis symptoms, however was mistakenly taking it daily up until last PCP appointment on 07/11. - Continue increased hydrocortisone 45mg x 3 days in the AM for stress dosing, then return to home dosage on 07/25. - Florinef: Continue 0.1mg MWF. (8) Subtherapeutic international normalized ratio (INR): Plan: - Increase warfarin dosing as above. (9) Hypokalemia: Plan: - K 3.2 -> 3.5 with PO KCl repletion yesterday. - Continue KCl 40meq PO daily while receiving daily Lasix. Plan Code: DNR/DNI Diet: HH, Low Na, Fluid restriction <2L PPX: warfarin increased to 4mg today, repeat INR tomorrow Dispo: Med/Tele Admission and Anticipated Discharge Date Admission Date: July 22, 2022 Subjective Patient without any acute events overnight. No complaints of chest pain, did have a little bit of shortness of breath this morning was feeling anxious and "cooped up" in her COVID room, improved with albuterol inhaler. She is saturating to 93% on room air. Review of Systems Review of Systems: All systems reviewed & are unremarkable except as noted in Subjective Physical Exam Constitutional: WD/WN, vitals as above Respiratory: normal respiratory effort, lungs clear to auscultation Cardiovascular: RRR, no murmur, no edema Gastrointestinal (Abdomen): normal bowel sounds, soft, nontender, no hepatosplenomegaly Skin: no rashes, warm and dry Psychiatric: A+Ox3, euthymic affect Results & Data Results & Data ([facility]) Vital Signs (Past 12 Hours) Vital Signs Temp Pulse Pulse Resp BP BP Pulse Ox 07/23/22 08:01 36.7 C 68 20 159/67 H 92 07/23/22 06:03 158/71 H 07/22/22 22:49 72 07/23/22 04:35 189/77 H 07/23/22 04:22 36.7 C 69 18 187/67 H 92 07/23/22 01:53 07/22/22 23:02 36.5 C 59 L 18 182/67 H 93 O2 Del Method 07/23/22 08:01 Room Air 07/23/22 06:03 07/22/22 22:49 07/23/22 04:35 07/23/22 04:22 Room Air 07/23/22 01:53 Room Air 07/22/22 23:02 Room Air PG Care Time/CCT Total # of Minutes Spent Total Time Spent with Patient: Total time spent is greater than 50% in coordination of care (as documented) at patient's floor/unit and/or counseling patient: Coding Level of Care Code 64308 Subseq Hosp Care Lvl 3 Diagnoses (HFpEF) heart failure with preserved ejection fraction I50.30 COVID-19 U07.1 Demand ischemia I24.8 History of DVT (deep vein thrombosis) Z86.718 Hypertension I10 Hypertension type: primary hypertension Hypothyroidism E03.9 Hypothyroidism type: unspecified Adrenal insufficiency E27.40 Subtherapeutic international normalized ratio (INR) R79.1 Hypokalemia E87.6 (1) Hypothyroidism Hypothyroidism type: unspecified Qualified Code(s): E03.9 - Hypothyroidism, unspecified (2) Hypertension Hypertension type: primary hypertension Qualified Code(s): I10 - Essential (primary) hypertension
[2022-07-23] MEDS: WARFARIN SOD 4 MG TAB PO SCH (16:32)
[2022-07-24] MEDS ORDERED: LORazepam 0.5 MG TAB PO ONE (02:36)
[2022-07-24] MEDS: LORazepam 0.5 MG TAB ONE ×2 (02:45→03:16)
[2022-07-24] MEDS: LEVOTHYROXINE SODIUM 137 MCG TABLET PO SCH (05:46)
[2022-07-24 07:41] LABS: Hematocrit (blood only) 38.3 % (34.1-44.9); Hemoglobin 12.3 g/dl (12.0-16.0); Mean Corpuscular Hemoglobin 32.2 pg (25.0-34.0); Mean Corpuscular Hgb Conc 32.1 g/dL (32.0-36.0); Mean Corpuscular Volume 100.3 fL (80.0-100.0); Mean Platelet Volume 11.5 fL (9.4-12.3); Platelet Count 134 K/uL (130-400); RDW Standard Deviation 47.6 fL (36.4-46.3); Red Blood Count 3.82 M/uL (3.93-5.22); White Blood Count 9.71 K/ul (4.8-10.8)
[2022-07-24 07:52] LABS: INR 1.6 (0.9-1.1); Prothrombin Time 16.2 Seconds (9.0-12.0)
[2022-07-24 07:57] LABS: BUN Creatinine Ratio 27.7 (10-20); Calcium 7.8 mg/dl (8.5-10.1); Creatinine Clr Calc Pharmacy 59.3 ml/min; Est GFR (African American) 92.5 ml/min; Est GFR (Non-African American) 79.8 ml/min; Potassium 3.6 mmol/L (3.5-5.1)
[2022-07-24] MEDS: POTASSIUM CHLORIDE CRTAB 20 MEQ TABCR PO SCH (08:44)
[2022-07-24] MEDS: ARTIFICIAL TEARS OP SCH (08:44)
[2022-07-24] MEDS: HYDROCORTISONE 10 MG TAB PO SCH (08:45)
[2022-07-24] MEDS: PANTOprazole 40 MG TAB PO SCH (08:45)
[2022-07-24] MEDS: SERTRALINE HCL 50 MG TABLET PO SCH (08:45)
[2022-07-24] MEDS: ATORVASTATIN 20 MG TAB PO SCH (08:45)
[2022-07-24] MEDS: PSYLLIUM or GUAR GUM FIBER POWDER PACKET PO SCH (08:45)
[2022-07-24] MEDS: FLUDROCORTISONE ACETATE 0.1 MG TAB PO SCH (08:45)
[2022-07-24] MEDS: OLMESARTAN MEDOXOMIL 5 MG TAB PO SCH (08:45)
[2022-07-24] MEDS ORDERED: FUROSEMIDE 40 MG TAB PO SCH (09:00)
[2022-07-24] MEDS ORDERED: ALBUTEROL 0.083% NEBU SOLN 3 ML VIAL NEB STA (09:04)
--- NOTE | 2022-07-24 09:41 | XRay Report ---
SINGLE VIEW CHEST CLINICAL HISTORY: Dyspnea FINDINGS: An AP, portable, upright chest radiograph is compared to study dated 07/14/2022. The heart is mildly enlarged note atherosclerotic calcification of the thoracic aorta. There is prominence of t he pulmonary vascular. Chronic interstitial thickening is previous. There is a small left pleural eff usion with left basilar consolidation. No pneumothorax is seen. The skeletal structures are osteopeni c. The bony thorax is grossly intact. Arthritic change is seen in the shoulders. IMPRESSION: 1. Cardiomegaly with prominence of the pulmonary vasculature. Correlate clinically for evidence of fl uid overload/congestive change. 2. Small left pleural effusion with left basilar consolidation. ACT 112: Negative or not required by law. Electronically signed by: Alec Miguel M.D. 07/24/2022 9:40 AM
--- NOTE | 2022-07-24 13:30 | Hospitalist Progress Note ---
Date of Service July 24, 2022 Assessment & Plan (1) (HFpEF) heart failure with preserved ejection fraction: Plan: 86-year-old female with a history of HFpEF, DVT, anxiety and depression, hypertension, pulmonary hypertension, asthma, adrenal insufficiency, GERD with esophagitis, hypothyroidism admitted for acute on chronic shortness of breath with concerns for acute HFpEF and noted to have COVID-19 on admission. Acute HFpEF: - Findt-ij-zoznwvq SOB/GONZALEZ alongside 10kg weight gain, worsening LE edema, and CXR demonstrating pulmonary edema, and BNP > 500. - Suspect this was primarily precipitated by diet / dietary indiscretion. - TTE (06/2022): EF 60 to 65% with moderate moderate left atrial dilation, mild right atrial dilation, mild aortic regurg, moderate to severe mitral regurg, mild to moderate tricuspid regurg, mild pulmonary hypertension. - Continue Lasix 40mg IV daily scheduled, as chest x-ray continues to show evidence of pulmonary vascular congestion. - I/O: -1700mL over 24 hours. - Low Na diet with 2000cc fluid restriction. - CHF program referral placed, patient has been resistant to do this in the past however on discussion with her today she did report she can use some help with figuring out her diuretics. (2) COVID-19: Plan: - Patient reports full vaccination. - Several weeks worth of cough; was up visiting grandchildren over too - denies constitutional symptoms. - Given outpatient multi-week history of CHF-like symptoms, primarily suspect her SOB is due to acute HFpEF rather than COVID. - Procal negative, do not suspect overlying bacterial pneumonia. - Hold from antiviral and additional steroid therapies at this point; not hypoxic at this time. - Isolation precautions. (3) Demand ischemia: Plan: - Minimally elevated troponin to 30 on arrival in setting of suspected acute HFpEF exacerbation. - Nonspecific T-wave changes in inferior and anterolateral leads. - No anginal symptoms recently or today. (4) History of DVT (deep vein thrombosis): Plan: - INR 1.6 07/24 (up from 08/28 on 07/23), continue increase dose warfarin 4mg daily with repeat INR tomorrow. (5) Hypertension: Plan: - Continue olmesartan. - BP 160-170 systolic, defer medical adjustment to PCP. (6) Hypothyroidism: Plan: - TSH 7.22 on arrival in the setting of acute illness / COVID-19 / HFpEF. - Continue levothyroxine; recheck TSH a few weeks after discharge. (7) Adrenal insufficiency: Plan: - Diagnosed at age 46; was restarted on Florinef 0.1mg daily MWF during last admission d/t orthostasis symptoms, however was mistakenly taking it daily up until last PCP appointment on 07/11. - Continue increased hydrocortisone 45mg daily x 3 days for stress dosing, then return to home dosage on 07/25. - Florinef: Continue 0.1mg MWF. (8) Subtherapeutic international normalized ratio (INR): Plan: - Increased warfarin dosing as above. (9) Hypokalemia: Plan: - K 3.2 -> 3.5 with PO KCl repletion yesterday. - Continue KCl 40meq PO daily while receiving daily Lasix. Plan Code: DNR/DNI Diet: HH, Low Na, Fluid restriction <2L PPX: warfarin increased to 4mg today, repeat INR tomorrow Dispo: Med/Tele Admission and Anticipated Discharge Date Admission Date: July 22, 2022 Subjective Patient without any acute events overnight, however did feel short of breath this morning. On room air at this time saturating 94%. No other complaints. Review of Systems Review of Systems: All systems reviewed & are unremarkable except as noted in Subjective Physical Exam Constitutional: WD/WN, vitals as above Respiratory: normal respiratory effort, lungs clear to auscultation (Intermittent wheeze in right lower lobe) Cardiovascular: RRR, no murmur, no edema Gastrointestinal (Abdomen): normal bowel sounds, soft, nontender, no hepatosplenomegaly Skin: no rashes, warm and dry Psychiatric: A+Ox3, euthymic affect Results & Data Results & Data ([facility]) Vital Signs (Past 12 Hours) Vital Signs Temp Pulse Pulse Resp BP BP Pulse Ox 07/24/22 09:07 07/24/22 08:26 37.0 C 78 16 174/63 H 96 07/24/22 07:21 77 07/24/22 03:44 102 H 172/67 H 07/24/22 02:56 36.5 C 74 18 183/66 H 96 07/23/22 22:17 71 07/23/22 22:27 36.8 C 72 19 176/72 H 97 O2 Del Method O2 Flow Rate 07/24/22 09:07 3 07/24/22 08:26 Nasal Cannula 2 07/24/22 07:21 07/24/22 03:44 07/24/22 02:56 Nasal Cannula 2 07/23/22 22:17 07/23/22 22:27 Nasal Cannula 3 PG Care Time/CCT Total # of Minutes Spent Total Time Spent with Patient: Total time spent is greater than 50% in coordination of care (as documented) at patient's floor/unit and/or counseling patient: Coding Level of Care Code 26063 Subseq Hosp Care Lvl 3 Diagnoses (HFpEF) heart failure with preserved ejection fraction I50.30 COVID-19 U07.1 Demand ischemia I24.8 History of DVT (deep vein thrombosis) Z86.718 Hypertension I10 Hypertension type: primary hypertension Hypothyroidism E03.9 Hypothyroidism type: unspecified Adrenal insufficiency E27.40 Subtherapeutic international normalized ratio (INR) R79.1 Hypokalemia E87.6 (1) Hypothyroidism Hypothyroidism type: unspecified Qualified Code(s): E03.9 - Hypothyroidism, unspecified (2) Hypertension Hypertension type: primary hypertension Qualified Code(s): I10 - Essential (primary) hypertension
[2022-07-24] MEDS: WARFARIN SOD 4 MG TAB PO SCH (15:42)
[2022-07-25] MEDS: ALBUTEROL HFA 8 GM INHALER INH PRN (00:48)
[2022-07-25] MEDS ORDERED: FUROSEMIDE 40 MG/4 ML VIAL IV ONE ×2 (03:24)
--- NOTE | 2022-07-25 03:27 | Communication Note ---
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 noted she is here for acute HFpEF and has been diuresed well. at the bedside she reports feeling pretty short of breath. 8/10 in intensity. she denies any chest pain or pain elsewhere. she says it feels like she "can't catch a breath." on exam, appears comfortable but tachypneic. +mild conversational dyspnea. no use of accessory muscles. lungs demonstrating bilateral expiratory wheezes in all lung spencer, most prominent in the right base. intermittent cough with wet quality. Neck - +JVD appreciated. extremities - 1+ pitting edema, improved compared to prior exam. dyspnea - thankfully she is saturating well, but does subjectively report feeling very short of breath, and this is evident on her exam. primarily suspect this is due to fluid overload rather than progressing covid 19. will check cxr. will give AM lasix 40mg IV dose now. given her subjective/objective SOB, will also trial CPAP to see if this helps with her symptoms - likely will be able to deescalate pretty fast. may also benefit from flutter valve in am.
[2022-07-25] MEDS ORDERED: LORazepam 0.25 MG in SYRINGE 0 ML IV STA (03:58)
[2022-07-25] MEDS: ACETAMINOPHEN 325 MG TAB PO PRN ×2 (04:07→21:05)
[2022-07-25] MEDS: LEVOTHYROXINE SODIUM 137 MCG TABLET PO SCH (05:55)
[2022-07-25 06:11] LABS: Hematocrit (blood only) 37.5 % (34.1-44.9); Hemoglobin 11.8 g/dl (12.0-16.0); Mean Corpuscular Hemoglobin 32.2 pg (25.0-34.0); Mean Corpuscular Hgb Conc 31.5 g/dL (32.0-36.0); Mean Corpuscular Volume 102.2 fL (80.0-100.0); Mean Platelet Volume 11.2 fL (9.4-12.3); Platelet Count 141 K/uL (130-400); RDW Coefficient of Variation 13.1 % (11.5-14.5); RDW Standard Deviation 49.2 fL (36.4-46.3); Red Blood Count 3.67 M/uL (3.93-5.22)
[2022-07-25 06:17] LABS: INR 2.3 (0.9-1.1); Prothrombin Time 23.5 Seconds (9.0-12.0)
[2022-07-25 06:22] LABS: BUN Creatinine Ratio 31.1 (10-20); Calcium 8.1 mg/dl (8.5-10.1); Creatinine Clr Calc Pharmacy 52.1 ml/min; Est GFR (African American) 84.4 ml/min; Est GFR (Non-African American) 72.8 ml/min
[2022-07-25] MEDS: PSYLLIUM or GUAR GUM FIBER POWDER PACKET PO SCH (08:23)
[2022-07-25] MEDS: OLMESARTAN MEDOXOMIL 5 MG TAB PO SCH ×2 (08:23→10:30)
[2022-07-25] MEDS: POTASSIUM CHLORIDE CRTAB 20 MEQ TABCR PO SCH (08:23)
[2022-07-25] MEDS: ATORVASTATIN 20 MG TAB PO SCH (08:23)
[2022-07-25] MEDS: SERTRALINE HCL 50 MG TABLET PO SCH (08:24)
[2022-07-25] MEDS: ARTIFICIAL TEARS OP SCH (08:24)
--- NOTE | 2022-07-25 08:27 | XRay Report ---
XR chest 1V portable HISTORY: Worsening shortness of breath. COMPARISON: Chest 07/24/2022 FINDINGS: No pneumothorax. The heart remains mildly enlarged. There is mild central pulmonary vascula r congestion without overt edema. This has improved. Trace left pleural effusion has also improved. N o new focal lung consolidations to suggest a pneumonia. IMPRESSION: Interval improvement in the mild central pulmonary vascular congestion and a trace left pleural effus ion. ACT 112: Negative or not required by law. Electronically signed by: John Hogan M.D. 07/25/2022 8:26 AM
--- NOTE | 2022-07-25 08:39 | Hospitalist Progress Note ---
Date of Service July 25, 2022 Assessment & Plan (1) (HFpEF) heart failure with preserved ejection fraction: Plan: 86-year-old female with a history of HFpEF, DVT, anxiety and depression, hypertension, pulmonary hypertension, asthma, adrenal insufficiency, GERD with esophagitis, hypothyroidism admitted for acute on chronic shortness of breath with concerns for acute HFpEF and noted to have COVID-19 on admission. Acute HFpEF: - Glonm-pa-ceygcnu SOB/GONZALEZ alongside 10kg weight gain, worsening LE edema, and CXR demonstrating pulmonary edema, and BNP > 500. - Suspect this was primarily precipitated by diet / dietary indiscretion. - I/O: -1700mL over 24 hours. - TTE (06/2022): EF 60 to 65% with moderate moderate left atrial dilation, mild right atrial dilation, mild aortic regurg, moderate to severe mitral regurg, mild to moderate tricuspid regurg, mild pulmonary hypertension. - Repeat CXR with improvement in pulmonary vascular congestion. - CTPE protocol performed to ensure no PE given subtherapeutic INR; negative for PE. Central pulmonary artery dilation, small bilateral pleural effusions, moderate airway secretions, and scattered tree-in-bud opacities in lungs (favor mild infectious process). - Procal negative. Abx not initiated. - Increase Lasix to 40mg IV BID scheduled x1 days, as chest x-ray continues to show evidence of pulmonary vascular congestion and patient still with dyspnea when lying flat, mild JVD. - Incentive spirometer and flutter valve. Mucinex for secretions. - Low Na diet with 2000cc fluid restriction. - CHF program referral placed, patient has been resistant to do this in the past however on discussion with her today she did report she can use some help with figuring out her diuretics. - Wean oxygen as tolerated; not hypoxic. (2) COVID-19: Plan: - Patient reports full vaccination. - Several weeks worth of cough; was up visiting grandchildren over too - denies constitutional symptoms. - Given outpatient multi-week history of CHF-like symptoms, primarily suspect her SOB is due to acute HFpEF rather than COVID. - Procal negative, do not suspect overlying bacterial pneumonia. - Hold from antiviral and additional steroid therapies at this point; not hypoxic at this time. - Isolation precautions. (3) Demand ischemia: Plan: - Minimally elevated troponin to 30 on arrival in setting of suspected acute HFpEF exacerbation. - Nonspecific T-wave changes in inferior and anterolateral leads. - No anginal symptoms recently or today. (4) History of DVT (deep vein thrombosis): Plan: - INR 2.3 07/25, resume warfarin 2mg daily dose tomorrow. Daily INR. (5) Hypertension: Plan: - Olmesartan increased to 10mg daily, as patient's BP was 170-190s systolic overnight into this morning. (6) Hypothyroidism: Plan: - TSH 7.22 on arrival in the setting of acute illness / COVID-19 / HFpEF. - Continue levothyroxine; recheck TSH a few weeks after discharge. (7) Adrenal insufficiency: Plan: - Diagnosed at age 46; was restarted on Florinef 0.1mg daily MWF during last admission d/t orthostasis symptoms, however was mistakenly taking it daily up until last PCP appointment on 07/11. - Completed hydrocortisone 45mg daily x 3 days for stress dosing, now on 10mg BID. Return to home dosing on discharge. - Florinef: Continue 0.1mg MWF. (8) Subtherapeutic international normalized ratio (INR): Plan: - Warfarin dosing as described above. (9) Hypokalemia: Plan: - K 4.0 today. - Continue KCl 40meq PO daily while receiving daily Lasix. Plan Code: DNR/DNI Diet: HH, Low Na, Fluid restriction <2L PPX: warfarin Dispo: Med/Tele Admission and Anticipated Discharge Date Admission Date: July 22, 2022 Subjective Overnight: Patient with worsening SOB in the AM, evaluated by overnight provider, given AM Lasix early and CXR ordered. On my interview patient was no longer SOB. When asked about it, she states that she always feels a bit short of breath in the morning and it goes away after she takes her medications. She has not other complaints today. Review of Systems Review of Systems: All systems reviewed & are unremarkable except as noted in Subjective Physical Exam Constitutional: WD/WN, vitals as above Respiratory: normal respiratory effort, lungs clear to auscultation (bilateral lower lobe crackles) Cardiovascular: RRR, no murmur, no edema Gastrointestinal (Abdomen): normal bowel sounds, soft, nontender, no hepatosplenomegaly Skin: no rashes, warm and dry Psychiatric: A+Ox3, euthymic affect Results & Data Results & Data ([facility]) Vital Signs (Past 12 Hours) Vital Signs Temp Pulse Pulse Resp BP BP Pulse Ox 07/25/22 08:37 36.6 C 72 20 178/83 H 99 07/25/22 07:20 87 07/25/22 05:28 82 28 H 98 07/25/22 03:48 84 26 H 99 07/25/22 03:02 36.6 C 75 18 195/74 H 98 07/24/22 22:04 61 07/25/22 00:48 68 18 96 07/25/22 01:05 07/25/22 00:50 36.6 C 73 18 183/75 H 98 O2 Del Method O2 Flow Rate 07/25/22 08:37 Nasal Cannula 3 07/25/22 07:20 07/25/22 05:28 2 07/25/22 03:48 2 07/25/22 03:02 Nasal Cannula 3 07/24/22 22:04 07/25/22 00:48 Nasal Cannula 3 07/25/22 01:05 Nasal Cannula 3 07/25/22 00:50 Nasal Cannula 3 PG Care Time/CCT Total # of Minutes Spent Total Time Spent with Patient: Total time spent is greater than 50% in coordination of care (as documented) at patient's floor/unit and/or counseling patient: Coding Level of Care Code 49221 Subseq Hosp Care Lvl 3 Diagnoses (HFpEF) heart failure with preserved ejection fraction I50.30 COVID-19 U07.1 Demand ischemia I24.8 History of DVT (deep vein thrombosis) Z86.718 Hypertension I10 Hypertension type: primary hypertension Hypothyroidism E03.9 Hypothyroidism type: unspecified Adrenal insufficiency E27.40 Subtherapeutic international normalized ratio (INR) R79.1 Hypokalemia E87.6 (1) Hypothyroidism Hypothyroidism type: unspecified Qualified Code(s): E03.9 - Hypothyroidism, unspecified (2) Hypertension Hypertension type: primary hypertension Qualified Code(s): I10 - Essential (primary) hypertension
[2022-07-25] MEDS ORDERED: HYDROCORTISONE 10 MG TAB PO SCH (09:00)
[2022-07-25] MEDS ORDERED: FUROSEMIDE 40 MG/4 ML VIAL IV SCH (09:00)
[2022-07-25] MEDS ORDERED: OPTIRAY 320 500ml IV ONE (09:31)
--- NOTE | 2022-07-25 10:44 | CT Scan Report ---
CT ANGIOGRAPHY OF THE CHEST, PULMONARY EMBOLUS PROTOCOL CLINICAL HISTORY: Worsening shortness of breath. Evaluate for pulmonary embolus. COMPARISON STUDY: Chest radiograph performed earlier today and July 24, 2022. TECHNIQUE: Following IV administration of 120 mL of Optiray, helical axial images of the chest were o btained utilizing the pulmonary embolus protocol. Maximal intensity projections and sagittal and cor onal reformats were viewed on an independent 3D workstation. IV contrast was administered without co mplication. Automated exposure control was utilized for the study. A dose lowering technique was ut ilized adhering to the principles of ALARA. CT DOSE: 223.53 mGy.cm FINDINGS: No pulmonary emboli are identified although the segmental and subsegmental pulmonary arter ies are suboptimally assessed due to respiratory motion. Mild cardiomegaly is noted. There is prefere ntial dilatation of the left atrium. There is moderate coronary calcification. Extensive plaque of th e thoracic aorta is noted. Thoracic aorta is normal in caliber. There is mild dilatation of the centr al pulmonary arteries. No pericardial effusion is present. There is no thoracic lymphadenopathy. Smal l bilateral pleural effusions are present. No pneumothorax is present. There are mild tree-in-bud and groundglass opacities within the left upper lobe. Additional scattered ground glass opacities are pr esent. Moderate secretions within the airways are noted. Bronchial wall thickening is present. A heal ing manubrial fracture is present. There are multiple healing right-sided rib fractures. A mild compr ession fracture of the superior endplate of T1 is unchanged since cervical spine CT of May 13, 2022. There is a mild compression fracture of the inferior endplate of C7 which is new since that exa m. Compression fractures of T6 5, T6, T9 and T10 are age-indeterminate but probably subacute. Moderat e loss of height of these vertebral bodies is noted with minimal retropulsion at the T6 and T10 level s. No extension into posterior elements is noted. Calcified granulomas within liver and spleen are pr esent. IMPRESSION: 1. No pulmonary emboli identified although segmental and subsegmental pulmonary arteries suboptimally assessed due to respiratory motion. Mild dilatation of the central pulmonary arteries. 2. Cardiomegaly. Moderate coronary artery calcification. 3. Small bilateral pleural effusions with associated subsegmental atelectasis. 4. Scattered tree-in-bud and groundglass opacities within the lungs which favor a mild infectious pro cess. Moderate secretions within the airways with bronchial wall thickening. 5. Healing manubrial and right rib fractures. Multiple thoracic spine compression fractures, as above . These are age-indeterminate but likely subacute. ACT 112: Negative or not required by law. Electronically signed by: Emanuel Portillo M.D. 07/25/2022 10:43 AM
[2022-07-25] MEDS: WARFARIN SOD 4 MG TAB PO SCH (17:23)
[2022-07-25] MEDS: FUROSEMIDE 40 MG/4 ML VIAL IV SCH (17:24)
[2022-07-25] MEDS: HYDROCORTISONE 10 MG TAB PO SCH (20:15)
[2022-07-25] MEDS: guaiFENesin 600 MG TABCR PO SCH (20:15)
[2022-07-26] MEDS: ALBUTEROL HFA 8 GM INHALER INH PRN (03:34)
[2022-07-26] MEDS: LEVOTHYROXINE SODIUM 137 MCG TABLET PO SCH (06:22)
[2022-07-26] MEDS: guaiFENesin 600 MG TABCR PO SCH (07:50)
[2022-07-26] MEDS: HYDROCORTISONE 10 MG TAB PO SCH (07:50)
[2022-07-26] MEDS: ATORVASTATIN 20 MG TAB PO SCH (07:51)
[2022-07-26] MEDS: SERTRALINE HCL 50 MG TABLET PO SCH (07:51)
[2022-07-26] MEDS: OLMESARTAN MEDOXOMIL 5 MG TAB PO SCH (07:51)
[2022-07-26] MEDS: FLUDROCORTISONE ACETATE 0.1 MG TAB PO SCH (07:51)
[2022-07-26] MEDS: POTASSIUM CHLORIDE CRTAB 20 MEQ TABCR PO SCH (07:52)
[2022-07-26] MEDS: FUROSEMIDE 40 MG/4 ML VIAL IV SCH (07:52)
[2022-07-26] MEDS: PANTOprazole 40 MG TAB PO SCH (07:52)
[2022-07-26] MEDS: PSYLLIUM or GUAR GUM FIBER POWDER PACKET PO SCH (07:53)
[2022-07-26] MEDS: ARTIFICIAL TEARS OP SCH (07:53)
[2022-07-26 07:58] LABS: Hematocrit (blood only) 39.1 % (34.1-44.9); Hemoglobin 12.1 g/dl (12.0-16.0); Mean Corpuscular Hemoglobin 31.9 pg (25.0-34.0); Mean Corpuscular Hgb Conc 30.9 g/dL (32.0-36.0); Mean Corpuscular Volume 103.2 fL (80.0-100.0); Mean Platelet Volume 11.3 fL (9.4-12.3); Platelet Count 137 K/uL (130-400); RDW Coefficient of Variation 12.8 % (11.5-14.5); RDW Standard Deviation 48.8 fL (36.4-46.3); Red Blood Count 3.79 M/uL (3.93-5.22); White Blood Count 8.89 K/ul (4.8-10.8)
[2022-07-26 08:07] LABS: BUN Creatinine Ratio 27.7 (10-20); Calcium 8.2 mg/dl (8.5-10.1); Creatinine Clr Calc Pharmacy 42.6 ml/min; Est GFR (African American) 73.5 ml/min; Est GFR (Non-African American) 63.4 ml/min; Potassium 4.1 mmol/L (3.5-5.1)
[2022-07-26 08:41] LABS: Basophils # (auto) 0.02 K/uL (0-0.2); Basophils % (auto) 0.2 %; Eosinophils % (auto) 1.1 %; Immature Granulocytes # (auto) 0.03 K/uL (0.00-0.02); Immature Granulocytes % (auto) 0.3 %; Lymphocytes % (auto) 20.2 %; Monocytes # (auto) 0.52 K/uL (0.24-0.82); Monocytes % (auto) 5.8 %; Neutrophils # (auto) 6.42 K/uL (1.4-6.5); Neutrophils % (auto) 72.4 %
[2022-07-26] MEDS ORDERED: FUROSEMIDE 40 MG/4 ML VIAL IV SCH (09:00)
[2022-07-26 09:40] LABS: INR 3.6 (0.9-1.1); Prothrombin Time 35.6 Seconds (9.0-12.0)
--- NOTE | 2022-07-26 13:56 | Discharge Summary ---
Discharge Summary Date of Service July 26, 2022 Admission HPI Per Admitting Provider This is an 86-year-old female with a history of HFpEF, DVT, anxiety and depression, hypertension, pulmonary hypertension, asthma, adrenal insufficiency, GERD with esophagitis, hypothyroidism who presented to [facility] for evaluation of cough. She tells me that over the past couple weeks, she has had a mild cough. It feels like it has gotten more regular, but is not been distressing now. She denies any shortness of breath up until yesterday. She says she was traveling to [place] over [employer], where she did enjoy a large [employer] meal without much restriction. Over the past several days, she has felt okay, but then beginning yesterday she became progressively more short of breath. She has noticed increase in the size of her legs. She endorses shortness of breath lying down. No chest pain, palpitations. No nausea or vomiting. No fevers, chills, sweats. She is fully vaccinated against COVID. On review of PCP notes, patient has actually reportedly had ongoing weight gain, shortness of breath, and leg swelling since the end of May. On her last admission, she was started on fludrocortisone 0.1 mg Friday, however, chart review reveals that she was taking it daily. She was put on a brief outpatient oral Lasix course, and was able to successfully take off some of the fluid/symptoms. She had an echo done on 07/12, which demonstrated EF 60 to 65% with moderate moderate left atrial dilation, mild right atrial dilation, mild aortic regurg, moderate to severe mitral regurg, mild to moderate tricuspid regurg, mild pulmonary hypertension. Medications reviewed and include acetaminophen, albuterol, atorvastatin, vitamin D, fludrocortisone, hydrocortisone 15mg qAM / 5mg qPM, levothyroxine, olme sartan, omeprazole, sertraline. In the ED, patient was found to be hypertensive to 175/70 with an oxygen saturation 92%. Her labs demonstrated INR 1.4, potassium 3.2, bicarb 33, high- sensitivity troponin 31.5, BNP 517. TSH 7.2. COVID-positive. ECG demonstrated T wave flattening in the inferior and anterolateral leads compared to ECG on 05/13/2022. She was given a single dose of Lasix 40 mg IV. --- This documentation was created utilizing dictation software. As such, syntax, grammatical, and word-choice errors may be present. Notes are screened prior to submission in an attempt to reduce these errors. If there are any questions or concerns, please contact the author directly for clarification. Admission Exam Per Admitting Provider General: 86-year old male who is alert, oriented, and appears in no acute distress. HEENT: NCAT. - Eyes - Sclera are white, anicteric, and without injection. - Mouth - MMM - Neck - supple, +mild JVD Cardiac: Normal rate and regular rhythm; S1 and S2 present with no murmurs, rubs, or gallops. Pulmonary: Good respiratory effort with symmetric expansion of the chest. No use of accessory muscles. Expiratory wheezes bilaterally, mild crackles near the bases. Abdominal: Normoactive bowel sounds. Abdomen was soft, nondistended, and non- tender to palpation. Extremities: Upper and lower extremities are warm and well perfused. 2+ peripheral edema in the lower extremities bilaterally Psych: Well-developed, well-nourished, appropriately dressed for occasion. Beha vior is cooperative and appropriate. Affect is WNL. Insight is appropriate. Principal Dx & Hospital Course #1 = Principal Diagnosis (1) (HFpEF) heart failure with preserved ejection fraction: 86-year-old female with a history of HFpEF, DVT, anxiety and depression, hypertension, pulmonary hypertension, asthma, adrenal insufficiency, GERD with esophagitis, hypothyroidism admitted for acute on chronic shortness of breath with concerns for acute HFpEF and noted to have COVID-19 on admission. Acute HFpEF: - Evkxh-lf-ennvpaz SOB/GONZALEZ alongside 10kg weight gain, worsening LE edema, and CXR demonstrating pulmonary edema, and BNP > 500. - Suspect this was primarily precipitated by Thanksgiving diet / dietary indiscretion. - TTE (06/2022): EF 60 to 65% with moderate moderate left atrial dilation, mild right atrial dilation, mild aortic regurg, moderate to severe mitral regurg, mild to moderate tricuspid regurg, mild pulmonary hypertension. - Repeat CXR with improvement in pulmonary vascular congestion, and has not required supplemental oxygen since early in admission. - CTPE protocol performed to ensure no PE given subtherapeutic INR; negative for PE. Central pulmonary artery dilation, small bilateral pleural effusions, moderate airway secretions, and scattered tree-in-bud opacities in lungs (favor mild infectious process). - Procal negative. Abx not initiated. - Received IV Lasix while admitted, transitioned to Lasix 20mg PO daily on discharge with close follow up with [facility] clinic on 08/01. - Low Na diet discussed. (2) COVID-19: - Patient reports full vaccination. - Several weeks worth of cough; was up visiting grandchildren over ving too - denies constitutional symptoms. - Given outpatient multi-week history of CHF-like symptoms, primarily suspect her SOB is due to acute HFpEF rather than COVID. - Procal negative, do not suspect overlying bacterial pneumonia. - Did not receive antivirals/dexamethasone as was not hypoxic. (3) Demand ischemia: - Minimally elevated troponin to 30 on arrival in setting of suspected acute HFpEF exacerbation. - Nonspecific T-wave changes in inferior and anterolateral leads. - No anginal symptoms this admission. (4) History of DVT (deep vein thrombosis): - INR 3.6 on day of discharge, hold warfarin this evening and resume tomorrow with INR check by PCP. (5) Hypertension: - Olmesartan increased to 10mg daily, as patient's BP was 170-190s systolic overnight into this morning. Review further with PCP. (6) Hypothyroidism: - TSH 7.22 on arrival in the setting of acute illness / COVID-19 / HFpEF. - Continue levothyroxine; recheck TSH a few weeks after discharge. (7) Adrenal insufficiency: - Diagnosed at age 46; was restarted on Florinef 0.1mg daily MWF during last admission d/t orthostasis symptoms, however was mistakenly taking it daily up until last PCP appointment on 07/11. - Completed hydrocortisone 45mg daily x 3 days for stress dosing, now on 10mg BID. Return to home dosing on discharge. - Florinef: Continue 0.1mg MWF. - Endocrine appointment on 08/12 for further evaluation and adjustment of hydrocortisone/Florinef. (8) Subtherapeutic international normalized ratio (INR): - Warfarin dosing as described above. (9) Hypokalemia: - K 4.0 today. Discharge on small dose diuretic, will have labwork prior to 08/01 appointment with CHF clinic. Plan Dispo: home. Care and medication changes explained to patient and her daughter. Discharge Exam Constitutional WD/WN, vitals as above Respiratory normal respiratory effort, lungs clear to auscultation Cardiovascular RRR, no murmur, no edema Gastrointestinal (Abdomen) normal bowel sounds, soft, nontender, no hepatosplenomegaly Skin no rashes, warm and dry Psychiatric A+Ox3, euthymic affect Updated Medication List Medication Instructions Recorded Confirmed Type diclofenac sodium 1 % topical gel 2 gm topical DAILY #1 g 03/22/19 07/12/22 History acetaminophen 500 mg tablet 500 mg PO Q6H PRN Pain 02/01/21 07/12/22 History (Tylenol Extra Strength) propylene glycol [Systane Complete] 1 drp ophthalmic (eye) DAILY 02/08/21 07/12/22 History olmesartan 5 mg tablet 5 mg PO DAILY #90 tabs 10/24/21 07/12/22 Rx albuterol sulfate 90 mcg/actuation 2 puff inhalation Q6H PRN 12/07/21 07/12/22 Rx aerosol inhaler Shortness Of Breath Or Wheezing #8.5 grams atorvastatin 20 mg tablet 20 mg PO DAILY #90 tabs 12/29/21 07/12/22 Rx cholecalciferol (vitamin D3) 50 2,000 unit PO DAILY 02/04/22 07/12/22 History mcg (2,000 unit) capsule denosumab 60 mg/mL subcutaneous 60 mg subcut Q6MO 02/04/22 07/12/22 History syringe (Prolia) omeprazole 20 mg capsule,delayed 20 mg PO Q OTHER DAY #90 caps 03/25/22 07/12/22 Rx release sertraline 50 mg tablet 50 mg PO DAILY #90 tabs 04/04/22 07/12/22 Rx psyllium seed (sugar) oral powder 1 tbsp PO DAILY 05/01/22 07/12/22 History (Metamucil (sugar) oral powder) hydrocortisone 5 mg tablet 5 mg PO QPM 05/13/22 07/12/22 History warfarin 2 mg tablet See Rx Instructions PO UD #90 tabs 06/25/22 07/12/22 Rx levothyroxine 137 mcg tablet 137 mcg PO DAILY #90 tabs 07/23/22 Rx benzonatate 100 mg capsule 100 mg PO TID #14 caps 07/26/22 Rx fludrocortisone 0.1 mg tablet 0.1 mg PO .COMPLEX #30 tabs 07/26/22 07/12/22 Rx furosemide 20 mg tablet 20 mg PO QAM #30 tabs 07/26/22 Rx hydrocortisone 10 mg tablet 10 mg PO QAM #90 tabs 07/26/22 Rx Hospital Stay Data Consultations 07/22/22 04:21 ED Decision to Admit Stat 07/22/22 19:58 [facility] CHF Program Referral Routine Diagnostic Imagining Performed 07/25/22 08:38 CT angio chest PE protocol Routine Discharge Instructions Given to Patient (Per Discharging Provider) You were admitted to the hospital for evaluation of trouble breathing. You were found to have fluid in the lungs, which is likely why you were short of breath. You were given diuretics (Lasix) with improvement in your breathing. Please see the instructions below for your medication changes: 1)You will now take Lasix (furosemide), one 20 milligram tablet daily until you see Marga Merlos with the Heart Failure clinic. This appointment is on 08/01/22 at 4pm. This appointment is important to work on getting your fluid balance under control. 2) You were given benzonatate for cough. This medication can be taken every 8 hours for cough due to COVID. 3) It is important that until you are seen by the heart Failure group, as well as by Endocrinology on 08/12/2022, that you have your medications managed by your personal care facility. This is because there are frequent dose changes and we want the physicians to give you further directions on your medications. 4) You should be taking your hydrocortisone 10 milligrams in the morning, and 5 milligrams at night. 5) You should be taking your Florinef (fludrocortisone) one tablet on Mondays, Wednesdays, and Fridays only. 6) You should continue to have physical therapy at home when you leave the hospital. Our physical therapists think that you would benefit from PT at home for strengthening after your hospitalization. 7) You did not require any oxygen to keep your oxygen levels up at the hospital. You were not sent home on oxygen. 8) Your INR was elevated to 3.6 on your discharge day. You should NOT TAKE your warfarin tonight, and then resume it tomorrow. You should call your primary doctor office tomorrow for more instructions on your warfarin dosing. Your appointment with Nicole Boo in your family doctor office is on 08/02 at 11 am. 9) You should get a scale and check your weight at home every day around the same time after you wake up in the morning. Write that weight down, and bring it with you to your appointment on 08/01. Your medications were sent to [facility]. Total Time Total Time Spent Total Time Spent (In Minutes): 50 minutes Coding Level of Care Code D/C DAY MANAGEMENT >30 MINS Diagnoses (HFpEF) heart failure with preserved ejection fraction I50.30 COVID-19 U07.1 Demand ischemia I24.8 History of DVT (deep vein thrombosis) Z86.718 Hypertension I10 Hypertension type: primary hypertension Hypothyroidism E03.9 Hypothyroidism type: unspecified Adrenal insufficiency E27.40 Subtherapeutic international normalized ratio (INR) R79.1 Hypokalemia E87.6
[2022-07-26] MEDS ORDERED: WARFARIN SOD 2 MG TAB PO SCH (16:00)
[2022-07-27] MEDS ORDERED: FUROSEMIDE 20 MG TAB PO SCH (09:00)
--- NOTE | 2022-07-30 04:32 | Billing Data ---
Date of Service July 30, 2022 Coding Level of Care Code 97193 Initial Inpt Care Lvl 3
--- NOTE | 2022-07-30 04:34 | Billing Data ---
Date of Service July 30, 2022 Coding
--- NOTE | 2022-08-06 05:10 | Emergency Department Note ---
History of Present Illness General Chief complaint: Cough Stated complaint: COUGH/SHORT OF BREATH Time Seen by Provider: 07/22/22 03:25 History of Present Illness Maximum Pain Intensity: 8 Patient encounter occurred on 07/22/2022. This is an 86-year-old female presenting to the emergency department via EMS for evaluation of coughing, wheezing, and shortness of breath. The patient has a history of known heart failure with preserved ejection fraction. She has had some recent medication changes with her diuretics, but unfortunately seems to have gained 10+ pounds over the past few weeks. The patient does have some weakness. She does not describe distinct chest pain. The patient did receive a DuoNeb in route from EMS, which has maintained her O2 saturation in the 90%'s. The patient rates her discomfort an 8/10. Home Medications Medication Instructions Recorded Confirmed Type diclofenac sodium 1 % topical gel 2 gm topical DAILY #1 g 03/22/19 07/29/22 History acetaminophen 500 mg tablet 500 mg PO Q6H PRN Pain 02/01/21 07/29/22 History (Tylenol Extra Strength) propylene glycol [Systane Complete] 1 drp ophthalmic (eye) DAILY 02/08/21 07/29/22 History olmesartan 5 mg tablet 5 mg PO DAILY #90 tabs 10/24/21 07/29/22 Rx atorvastatin 20 mg tablet 20 mg PO DAILY #90 tabs 12/29/21 07/29/22 Rx cholecalciferol (vitamin D3) 50 2,000 unit PO DAILY 02/04/22 07/29/22 History mcg (2,000 unit) capsule denosumab 60 mg/mL subcutaneous 60 mg subcut Q6MO 02/04/22 07/29/22 History syringe (Prolia) omeprazole 20 mg capsule,delayed 20 mg PO Q OTHER DAY #90 caps 03/25/22 07/29/22 Rx release sertraline 50 mg tablet 50 mg PO DAILY #90 tabs 04/04/22 07/29/22 Rx psyllium seed (sugar) oral powder 1 tbsp PO DAILY 05/01/22 07/29/22 History (Metamucil (sugar) oral powder) hydrocortisone 5 mg tablet 5 mg PO QPM 05/13/22 07/29/22 History warfarin 2 mg tablet See Rx Instructions PO UD #90 tabs 06/25/22 07/29/22 Rx levothyroxine 137 mcg tablet 137 mcg PO DAILY #90 tabs 07/23/22 07/29/22 Rx benzonatate 100 mg capsule 100 mg PO TID #14 caps 07/26/22 07/29/22 Rx fludrocortisone 0.1 mg tablet 0.1 mg PO .COMPLEX #30 tabs 07/26/22 07/29/22 Rx furosemide 20 mg tablet 20 mg PO QAM #30 tabs 07/26/22 07/29/22 Rx hydrocortisone 10 mg tablet 10 mg PO QAM #90 tabs 07/26/22 07/29/22 Rx albuterol sulfate 90 mcg/actuation 2 puff inhalation Q6H PRN 07/30/22 Rx aerosol inhaler Shortness Of Breath Or Wheezing #8.5 grams Allergies Allergy/AdvReac Type Severity Reaction Status Date / Time celecoxib Allergy Unknown MUSCLE Verified 07/12/22 13:35 CRAMPS Sulfa (Sulfonamide Allergy Unknown DIDN'T Verified 07/12/22 13:35 Antibiotics) FEEL WELL Past Med/Surg History Medical History Adrenal insufficiency Arthritis of knee Bilateral leg edema Chronic anticoagulation Closed sacral fracture Diverticulosis Fracture of ilium GERD without esophagitis Grief reaction History of DVT (deep vein thrombosis) HTN (hypertension), benign Hx of fall Hyperglycemia Hypothyroidism Osteoporosis Pulmonary embolism Reactive airway disease Seasonal allergies SNHL (sensorineural hearing loss) Syncope Surgical History History of cholecystectomy History of hernia repair Family History Unknown Cancer Cardiac disorder FHx: deafness or hearing loss Mother Cardiac disorder Hypertension Other Family history non-contributory Hearing loss No family history of adverse response to anesthesia No family history of bleeding disorder Social History Smoking Status: Never smoker Tobacco Type: Cigarettes Age Started Using Tobacco: 28; Age Quit Using Tobacco: 44; Second Hand Exposure: No; Hx Alcohol Use: No Hx Substance Use: No Preferred Language: Swedish Communication Ability: Effective Fruit Picker Required: No Beliefs That Will Affect Care: None marital status: / Current Living Situation: Family Current Living Situation Comment: daughter lives nearby current occupational status: retired How many Children do You have: 2 Feels Safe at Home: Yes Childhood Exposure to Second-Hand Smoke: No Seatbelt Use: always Assistive Devices: Glasses and Walker Review of Systems A total of 10 systems reviewed and were otherwise negative Physical Exam VITALS: Vitals are noted on the nurse's note and reviewed by myself. Vital signs stable. GENERAL: Elderly white female NECK: Supple without nuchal rigidity. No lymphadenopathy. No thyromegaly. Cervical spine is nontender. HEART: Regular rate and rhythm LUNGS: Bilateral crackles but generally clear ABDOMEN: Positive normal bowel sounds x 4. Soft, nontender, without masses or organomegaly. No guarding or rebound tenderness. MUSCULOSKELETAL: 3+ bilateral pretibial edema NEURO: Patient was alert and oriented to person place and time. CN II through XII grossly intact. Course Administered Medications Discontinued Medications Acetaminophen (Acetaminophen 325 Mg Tab) 650 mg PO Q4H PRN PRN Reason: pain/fever Stop: 08/21/22 04:55 Last Admin: 07/25/22 21:05 Dose: 650 mg Documented By: Admin: 07/25/22 04:07 Dose: 650 mg Documented By: Admin: 07/22/22 22:40 Dose: 650 mg Documented By: PioG Admin: 07/22/22 08:58 Dose: 650 mg Documented By: ISELA Albuterol (Albuterol Hfa 8 Gm Inhaler) 2 puffs INH Q6H PRN PRN Reason: Shortness Of Breath Or Wheezing Stop: 08/21/22 05:49 Last Admin: 07/26/22 03:34 Dose: 2 puffs Documented By: Admin: 07/25/22 00:48 Dose: 2 puffs Documented By: Admin: 07/23/22 19:41 Dose: 2 puffs Documented By: Admin: 07/23/22 05:44 Dose: 2 puffs Documented By: SAMUEL Albuterol (Albuterol 0.083% Nebu Soln 3 Ml Vial) 2.5 mg NEB NOW STA; Protocol Stop: 07/24/22 09:05 Last Admin: 07/24/22 09:50 Dose: 2.5 mg Documented By: FLORINDA Artificial Tears (Artificial Tears) 1 drops OP DAILY GURVINDER Stop: 08/21/22 08:59 Last Admin: 07/26/22 07:53 Dose: Not Given Documented By: Admin: 07/25/22 08:24 Dose: Not Given Documented By: Admin: 07/24/22 08:44 Dose: 1 drops Documented By: Admin: 07/23/22 08:59 Dose: 1 drops Documented By: Admin: 07/22/22 10:50 Dose: Not Given Documented By: ISELA Atorvastatin Calcium (Atorvastatin 20 Mg Tab) 20 mg PO DAILY GURVINDER Stop: 08/21/22 08:59 Last Admin: 07/26/22 07:51 Dose: 20 mg Documented By: Admin: 07/25/22 08:23 Dose: 20 mg Documented By: Admin: 07/24/22 08:45 Dose: 20 mg Documented By: Admin: 07/23/22 08:59 Dose: 20 mg Documented By: Admin: 07/22/22 10:49 Dose: 20 mg Documented By: ISELA Fludrocortisone Acetate (Fludrocortisone Acetate 0.1 Mg Tab) 0.1 mg PO MoWeFr GURVINDER Stop: 08/21/22 08:59 Last Admin: 07/26/22 07:51 Dose: 0.1 mg Documented By: Admin: 07/24/22 08:45 Dose: 0.1 mg Documented By: Admin: 07/22/22 10:50 Dose: 0.1 mg Documented By: ISELA Furosemide (Furosemide 40 Mg/4 Ml Vial) 40 mg IV ONE ONE Stop: 07/22/22 04:15 Last Admin: 07/22/22 04:37 Dose: 40 mg Documented By: GRACIA Furosemide (Furosemide 40 Mg/4 Ml Vial) [facility] [place] Stop: 08/21/22 08:59 Last Admin: 07/23/22 08:57 Dose: 40 mg Documented By: Admin: 07/22/22 08:58 Dose: 40 mg Documented By: ISELA Furosemide (Furosemide 40 Mg Tab) 40 mg PO QAM [facility] Stop: 07/25/22 08:59 Last Admin: 07/24/22 08:45 Dose: 40 mg Documented By: JAMIE Furosemide (Furosemide 40 Mg/4 Ml Vial) 40 mg IV ONE ONE Stop: 07/25/22 03:25 Last Admin: 07/25/22 04:53 Dose: Not Given Documented By: QG Furosemide (Furosemide 40 Mg/4 Ml Vial) 40 mg IV ONE ONE Stop: 07/25/22 03:25 Last Admin: 07/25/22 03:57 Dose: 40 mg Documented By: PioG Furosemide (Furosemide 40 Mg/4 Ml Vial) 40 mg IV BID17 GURVINDER Stop: 08/24/22 16:59 Last Admin: 07/26/22 07:52 Dose: 40 mg Documented By: Admin: 07/25/22 17:24 Dose: 40 mg Documented By: HERB Guaifenesin (Guaifenesin 600 Mg Tabcr) 600 mg PO Q12 GURVINDER Stop: 08/24/22 20:59 Last Admin: 07/26/22 07:50 Dose: 600 mg Documented By: Admin: 07/25/22 20:15 Dose: 600 mg Documented By: ERLINDA Hydralazine HCl (Hydralazine Hcl 20 Mg/Ml Vial) 5 mg IV NOW ONE Stop: 07/23/22 05:03 Last Admin: 07/23/22 05:28 Dose: 5 mg Documented By: SEBASTIAN Hydrocortisone (Hydrocortisone 10 Mg Tab) 45 mg PO QAM GURVINDER Stop: 07/25/22 08:59 Last Admin: 07/24/22 08:45 Dose: 45 mg Documented By: Admin: 07/23/22 08:58 Dose: 45 mg Documented By: Admin: 07/22/22 10:50 Dose: 45 mg Documented By: ISELA Hydrocortisone (Hydrocortisone 10 Mg Tab) 10 mg PO BID GURVINDER Stop: 08/24/22 20:59 Last Admin: 07/26/22 07:50 Dose: 10 mg Documented By: Admin: 07/25/22 20:15 Dose: 10 mg Documented By: ERLINDA Potassium Chloride (K Nitin / Wtr) 10 meq in 100 mls @ 100 mls/hr IV ONE ONE; Protocol Stop: 07/22/22 05:13 Last Infusion: 07/22/22 05:48 Dose: 0 mls/hr Documented By: Admin: 07/22/22 04:37 Dose: 100 mls/hr Documented By: GRACIA Lorazepam 0.25 mg/ Syringe 0.25 mls @ 2 mls/min IV NOW STA Stop: 07/25/22 03:59 Last Admin: 07/25/22 04:06 Dose: 2 mls/min Documented By: SEBASTIAN Ioversol (Optiray 320 500ml) 120 ml IV ONCE ONE Stop: 07/25/22 09:32 Last Admin: 07/25/22 09:32 Dose: 120 ml Documented By: TERRENCE Levothyroxine Sodium (Levothyroxine Sodium 137 Mcg Tablet) 137 mcg PO DAILYBB GURVINDER Stop: 08/21/22 06:29 Last Admin: 07/26/22 06:22 Dose: 137 mcg Documented By: Admin: 07/25/22 05:55 Dose: 137 mcg Documented By: Admin: 07/24/22 05:46 Dose: 137 mcg Documented By: Admin: 07/23/22 06:00 Dose: 137 mcg Documented By: Admin: 07/22/22 07:28 Dose: 137 mcg Documented By: ISELA Lorazepam (Lorazepam 0.5 Mg Tab) 0.5 mg PO NOW STA Stop: 07/23/22 08:57 Last Admin: 07/23/22 10:08 Dose: 0.5 mg Documented By: JAMIE Lorazepam (Lorazepam 0.5 Mg Tab) Confirm Administered Dose 0.5 mg .ROUTE .STK- MED ONE Stop: 07/24/22 02:44 Last Admin: 07/24/22 03:16 Dose: Not Given Documented By: NIKKI Lorazepam (Lorazepam 0.5 Mg Tab) 0.5 mg PO TODAY@0236 ONE Stop: 07/24/22 02:37 Last Admin: 07/24/22 02:45 Dose: 0.5 mg Documented By: NIKKI Olmesartan (Olmesartan Medoxomil 5 Mg Tab) 5 mg PO DAILY GURVINDER Stop: 08/21/22 08:59 Last Admin: 07/25/22 08:23 Dose: 5 mg Documented By: Admin: 07/24/22 08:45 Dose: 5 mg Documented By: Admin: 07/23/22 08:59 Dose: 5 mg Documented By: Admin: 07/22/22 10:49 Dose: 5 mg Documented By: ISELA Olmesartan (Olmesartan Medoxomil 5 Mg Tab) 10 mg PO DAILY GURVINDER Stop: 08/24/22 08:59 Last Admin: 07/26/22 07:51 Dose: 10 mg Documented By: Admin: 07/25/22 10:30 Dose: 10 mg Documented By: HERB Pantoprazole Sodium (Pantoprazole 40 Mg Tab) 40 mg PO Q2D GURVINDER Stop: 08/21/22 08:59 Last Admin: 07/26/22 07:52 Dose: 40 mg Documented By: Admin: 07/24/22 08:45 Dose: 40 mg Documented By: Admin: 07/22/22 08:58 Dose: 40 mg Documented By: ISELA Potassium Chloride (Potassium Chloride Crtab 20 Meq Tabcr) 40 meq PO NOW STA Stop: 07/22/22 20:06 Last Admin: 07/22/22 20:59 Dose: 40 meq Documented By: QG Potassium Chloride (Potassium Chloride Crtab 20 Meq Tabcr) 40 meq PO QAM GURVINDER Stop: 08/22/22 08:59 Last Admin: 07/26/22 07:52 Dose: 40 meq Documented By: Admin: 07/25/22 08:23 Dose: 40 meq Documented By: Admin: 07/24/22 08:44 Dose: 40 meq Documented By: Admin: 07/23/22 08:58 Dose: 40 meq Documented By: JAMIE Psyllium Hydrophilic Mucilloid (Psyllium Or Guar Gum Fiber Powder Packet) 1 pkt PO DAILY GURVINDER Stop: 08/21/22 08:59 Last Admin: 07/26/22 07:53 Dose: 1 pkt Documented By: Admin: 07/25/22 08:23 Dose: 1 pkt Documented By: Admin: 07/24/22 08:45 Dose: 1 pkt Documented By: Admin: 07/23/22 08:59 Dose: 1 pkt Documented By: Admin: 07/22/22 10:51 Dose: 1 pkt Documented By: ISELA Sertraline HCl (Sertraline Hcl 50 Mg Tablet) 50 mg PO DAILY GURVINDER Stop: 08/21/22 08:59 Last Admin: 07/26/22 07:51 Dose: 50 mg Documented By: Admin: 07/25/22 08:24 Dose: 50 mg Documented By: Admin: 07/24/22 08:45 Dose: 50 mg Documented By: Admin: 07/23/22 08:58 Dose: 50 mg Documented By: Admin: 07/22/22 10:50 Dose: 50 mg Documented By: ISELA Warfarin Sodium (Warfarin Sod 1 Mg Tab) 1 mg PO ONE ONE Stop: 07/22/22 16:01 Last Admin: 07/22/22 17:06 Dose: 1 mg Documented By: QGV Warfarin Sodium (Warfarin Sod 2 Mg Tab) 2 mg PO DAILY@1600 GURVINDER Stop: 08/21/22 15:59 Last Admin: 07/22/22 17:06 Dose: 2 mg Documented By: QGV Warfarin Sodium (Warfarin Sod 4 Mg Tab) 4 mg PO DAILY@1600 GURVINDER Stop: 08/22/22 15:59 Last Admin: 07/25/22 17:23 Dose: 4 mg Documented By: Admin: 07/24/22 15:42 Dose: 4 mg Documented By: Admin: 07/23/22 16:32 Dose: 4 mg Documented By: SML Medical Decision Making Differential Diagnosis Differential diagnosis includes, but is not limited to: Myocardial infarction, dysrhythmia, pericarditis, pneumothorax, aortic aneurysm/dissection, DVT/PE, anxiety, GERD, PUD, electrolyte imbalance, thyroid disorder, pneumonia, bronchitis, pancreatitis, and others Laboratory Data Result diagrams: 07/26/22 07:21 07/26/22 07:21 Lab Results 07/22/22 07/22/22 07/22/22 Range/Units 03:18 03:18 03:18 WBC 9.30 (4.8-10.8) K/ul RBC 3.97 (3.93-5.22) M/uL Hgb 12.8 (12.0-16.0) g/dl Hct 40.1 (34.1-44.9) % MCV 101.0 H (80.0-100.0) fL MCH 32.2 (25.0-34.0) pg MCHC 31.9 L (32.0-36.0) g/dL RDW Std Deviation 47.2 H (36.4-46.3) fL RDW Coeff of La 12.6 (11.5-14.5) % Plt Count 135 (130-400) K/uL MPV 10.8 (9.4-12.3) fL Immature Gran % (Auto) 0.2 % Neut % (Auto) 59.3 % Lymph % (Auto) 33.5 % [place] % (Auto) 4.9 % Eos % (Auto) 1.7 % Baso % (Auto) 0.4 % Neut # (Auto) 5.50 (1.4-6.5) K/uL Lymph # (Auto) 3.12 (1.2-3.4) K/uL [place] # (Auto) 0.46 (0.24-0.82) K/uL Eos # (Auto) 0.16 (0-0.50) K/uL Baso # (Auto) 0.04 (0-0.2) K/uL Immature Gran # (Auto) 0.02 (0.00-0.02) K/uL Platelet Estimate Decreased L (Normal) PT (9.0-12.0) Seconds INR (0.9-1.1) APTT (21.0-31.0) Seconds PTT Ratio Sodium 144 (136-145) mmol/L Potassium 3.2 L (3.5-5.1) mmol/L Chloride 107 (98-107) mmol/L Carbon Dioxide 33 H (21-32) mmol/L Anion Gap 4 (3-11) BUN 15 (6-23) mg/dl Creatinine 0.63 (0.6-1.2) mg/dl Est Cr Clr Drug Dosing Not Reportable Est GFR ( Amer) 93.5 ml/min Est GFR (Non-Af Amer) 80.6 ml/min BUN/Creatinine Ratio 23.8 H (10-20) Glucose 90 (70-99(Fasting)) mg/dl Calcium 8.4 L (8.5-10.1) mg/dl Magnesium 1.8 (1.7-2.4) mg/dl Total Bilirubin 0.8 (0.2-1.0) mg/dl AST 20 (13-39) U/L ALT 16 (7-52) U/L Alkaline Phosphatase 76 (34-104) U/L Troponin I High Sens 31.5 H D (0-14) pg/ml B-Natriuretic Peptide 517 H (0-100) pg/ml Total Protein 5.6 L (6.0-8.3) gm/dl Albumin 3.4 (3.4-5.0) gm/dl Globulin 2.2 L (2.5-4.0) gm/dl Albumin/Globulin Ratio 1.5 (0.9-2) TSH (0.300-4.500) uIu/ml Free T4 (0.61-1.60) ng/dl SARS-CoV-2 (PCR) (Negative) Influenza Type A (PCR) (Neg) Influenza Type B (PCR) (Neg) RSV (RT-PCR) (Neg) 07/22/22 07/22/22 07/22/22 Range/Units 03:18 03:18 03:22 WBC (4.8-10.8) K/ul RBC (3.93-5.22) M/uL Hgb (12.0-16.0) g/dl Hct (34.1-44.9) % MCV (80.0-100.0) fL MCH (25.0-34.0) pg MCHC (32.0-36.0) g/dL RDW Std Deviation (36.4-46.3) fL RDW Coeff of [place] (11.5-14.5) % Plt Count (130-400) K/uL MPV (9.4-12.3) fL Immature Gran % (Auto) % Neut % (Auto) % Lymph % (Auto) % [place] % (Auto) % Eos % (Auto) % Baso % (Auto) % Neut # (Auto) (1.4-6.5) K/uL Lymph # (Auto) (1.2-3.4) K/uL [place] # (Auto) (0.24-0.82) K/uL Eos # (Auto) (0-0.50) K/uL Baso # (Auto) (0-0.2) K/uL Immature Gran # (Auto) (0.00-0.02) K/uL Platelet Estimate (Normal) PT 14.3 H (9.0-12.0) Seconds INR 1.4 H (0.9-1.1) APTT 27.1 (21.0-31.0) Seconds PTT Ratio 1.0 Sodium (136-145) mmol/L Potassium (3.5-5.1) mmol/L Chloride (98-107) mmol/L Carbon Dioxide (21-32) mmol/L Anion Gap (3-11) BUN (6-23) mg/dl Creatinine (0.6-1.2) mg/dl Est Cr Clr Drug Dosing Est GFR ( Amer) ml/min Est GFR (Non-Af Amer) ml/min BUN/Creatinine Ratio (10-20) Glucose (70-99(Fasting)) mg/dl Calcium (8.5-10.1) mg/dl Magnesium (1.7-2.4) mg/dl Total Bilirubin (0.2-1.0) mg/dl AST (13-39) U/L ALT (7-52) U/L Alkaline Phosphatase (34-104) U/L Troponin I High Sens (0-14) pg/ml B-Natriuretic Peptide (0-100) pg/ml Total Protein (6.0-8.3) gm/dl Albumin (3.4-5.0) gm/dl Globulin (2.5-4.0) gm/dl Albumin/Globulin Ratio (0.9-2) TSH 7.220 H (0.300-4.500) uIu/ml Free T4 1.37 (0.61-1.60) ng/dl SARS-CoV-2 (PCR) POSITIVE A* (Negative) Influenza Type A (PCR) Negative (Neg) Influenza Type B (PCR) Negative (Neg) RSV (RT-PCR) Negative (Neg) MDM Narrative Physical exam and history were performed. Nursing notes, EMR, and Medication List were personally reviewed. Patient appears to have shortness of breath symptoms bringing her to the ER for evaluation. On arrival the patient does not appear toxic, but she does sound wet on auscultation, and she does have a 10+ pound weight gain per the EMR. IV access was established and labs were obtained. The patient was given IV Lasix. An order was placed for continuous cardiac monitoring. The monitor shows a rate of 72 with normal sinus rhythm. The patient's blood work is as above and was reviewed. She does not have a significant elevated white blood cell count, gross anemia, bandemia, or significant electrolyte imbalance. Her troponin is slightly elevated from 2 months ago. Chest x-ray was reviewed by myself and radiology with bibasilar opacities. Incidentally her COVID is POSITIVE. Overall the patient does not appear well for discharge home. The case was discussed with my attending as well as the on-call hospitalist team. Please see their dictation for further patient course, plan, disposition. The chart was completed utilizing [employer] Voice Recognition Software. Grammatical errors, random word insertions, pronoun errors, and incomplete sentences are an occasional consequence of this system due to software limitations, ambient noise, and hardware issues. Any formal questions or concerns about the content, text, or information contained within the body of this dictation should be directly addressed to the provider for clarification. . Impression & Plan (HFpEF) heart failure with preserved ejection fraction, COVID-19 Discharge Plan Visit Data Chief Complaint: Cough Stated Complaint: COUGH/SHORT OF BREATH ED Provider: Sepideh Barron ED Midlevel Provider: Adonay Bronson Discharge Problem: (HFpEF) heart failure with preserved ejection fraction, COVID-19 Patient Disposition: Admitted As Inpatient Discharge Instructions Interventions: ED Discharge Assessment Last Done: 07/22/22 05:51
== END 2022-07-26 15:27 | disposition home or self-care (01) | DRG 291 ==
LOC: ED 03:06 → EDINP 04:57 → SUATTDRO 04:57 → 2N 05:51

== ENCOUNTER 2024-02-11 09:26 | Inpatient (IN) ==
--- NOTE | 2024-02-11 10:05 | Emergency Department Note ---
Impression & Plan Weakness, Nii disease, Supratherapeutic INR, Renal insufficiency ED Provider Note NAME: ELISEO GILES AGE: 88 SEX: F : 1935 ARRIVES VIA: Ambulance INFORMANT: Patient ED PROVIDER(S): Carlos Tafoya MD CHIEF COMPLAINT: Weakness, confusion PLAN: Disposition: Admit MEDICAL DECISION MAKING: The patient is a pleasant 88-year-old woman with a past medical history of adrenal insufficiency ([place]'s disease), hypothyroidism, GERD, asthma, hypertension, anxiety/depression, DVT on warfarin, heart failure with preserved EF, osteoporosis who presents to the emergency department from her assisted living facility at [place] for generalized weakness and question of confusion over the past week. Patient reports she did have a fall a week ago but feels the symptoms had started even before then. She admits that she had declined medical evaluation at that time. She denies any objective fevers. She denies cough, congestion, vomiting or diarrhea. She simply feels weak and achy. Patient denies feeling confused. She is aware of her medications for her [place]'s disease and reports has been taking them. On evaluation the patient is fatigued appearing but no acute distress, afebrile blood pressure 160s/70s and vital signs otherwise stable. She appears clinically dry. EKG without overt acute ischemia. CXR negative for acute cardiopulmonary process per my personal preliminary review/interpretation. WBC, H/H and platelets within normal limits. Chemistry without metabolic acidosis. Creatinine 1.6, slightly increased from recent though within prior range of values. LFTs unremarkable. HS troponin 44.4 with repeat essentially unchanged at 35 and similar to prior range of values. Lipase is elevated. UA without convincing evidence of infection. INR is supratherapeutic greater than 9.5 however no evidence of bleeding at this time. CT head negative for acute abnormalities. CT of the chest also negative for acute abnormalities. CT abdomen pelvis demonstrates evidence of fecal retention with faint infiltration which could suggest nonspecific proctitis possibly sterile coral. There is a subacute appearing fracture of the left anterior fourth rib with patient is nontender. No right-sided rib fractures where the patient has pain since her fall. A week ago. Note is made of resolving intramuscular hematoma of the left iliac us as well as subacute healing fracture along the anterior aspect of the left iliac wing which are stable compared to prior imaging in November. Given patient's generalized weakness where she was unable to return to her bed from walking to the bathroom with assistance and required additional assistance to return patient referred to hospice service for further management. Suspect may have a component of renal insufficiency in the setting of dehydration/renal insufficiency. Case was discussed with Dr. Gomes, [facility] [place], who will evaluate the patient for admission. Discussed INR reversal and stress dose steroids which will be ordered per admitting team. Triage Nursing notes reviewed and agree them. Prior/external medical records reviewed Vital Signs: reviewed Differential diagnosis: Infection, dehydration, metabolic abnormality, hypo/hyperglycemia, electrolyte disturbance, anemia, hypoxia, cardiac sources, intracerebral event, toxicologic, neurologic, as well as other pathologies. ER treatment provided: See below. Diagnostics interpreted by me: ECG: Normal sinus rhythm, 72 bpm, no ectopy, right bundle branch block, no overt ST elevation or depression, QTc 451, QRS 116. Cardiac Monitoring: An order for continuous cardiac monitoring was placed and demonstrated Normal sinus rhythm, 72 bpm, no ectopy. Laboratory studies: See below Imaging studies: See below Consultation(s): Case was discussed with Dr. Gomes, [facility] [place], who will evaluate the patient for admission. HPI: The patient is a pleasant 88-year-old woman with a past medical history of adrenal insufficiency ([place]'s disease), hypothyroidism, GERD, asthma, hypertension, anxiety/depression, DVT on warfarin, heart failure with preserved EF, osteoporosis who presents to the emergency department from her assisted living facility at [place] for generalized weakness and question of confusion over the past week. Patient reports she did have a fall a week ago but feels the symptoms had started even before then. She admits that she had declined medical evaluation at that time. She denies any objective fevers. She denies cough, congestion, vomiting or diarrhea. She simply feels weak and achy. Patient denies feeling confused. She is aware of her medications for her Nii's disease and reports has been taking them. ROS: See above HPI for pertinent positives & negatives. A total of 10 systems reviewed and were otherwise negative. VITALS:See Below PHYSICAL EXAMINATION: GENERAL: Awake, alert, fatigued-appearing, in no distress HENT: Normocephalic, atraumatic. Oropharynx with dry mucous membranes and otherwise unremarkable. EYES: Normal conjunctiva. Sclera non-icteric. EOMI. No nystamgus. PEARRL. NECK: Supple. No nuchal rigidity. FROM. No JVD. RESPIRATORY: Clear to auscultation. CARDIAC: Regular rate, normal rhythm. Extremities warm and well perfused. Pulses equal. ABDOMEN: Soft, non-distended. No tenderness to palpation. No rebound or guarding. No masses. MUSCULOSKELETAL: Chest examination reveals no tenderness. The back is symmetrical on inspection without obvious abnormality. He does exhibit mild tenderness of the right mid thoracic region without bony crepitus. There is no CVA tenderness to palpation. No joint edema. LOWER EXTREMITIES: Calves are equal size bilaterally and non-tender. No edema. No discoloration. NEURO: No focal sensory or motor deficits noted. SKIN: No rash or jaundice noted. 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) Weakness (Acute) Hyponatremia (Acute) History of excessive cerumen Osteoporosis (HFpEF) heart failure with preserved ejection fraction (Acute) Diarrhea (Acute) History of DVT (deep vein thrombosis) (Chronic) Anxiety and depression (Chronic) Hypertension (Chronic) Constipation (Chronic) Asthma (Chronic) Adrenal insufficiency (Chronic) GERD without esophagitis (Chronic) Hypothyroidism (Chronic) Medical History Fall Closed hip fracture Femoral neck fracture Osteoporosis Abdominal pain Abdominal wall mass of epigastric region Midline low back pain without sciatica Cognitive impairment Chronic low back pain 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 History of DVT (deep vein thrombosis) Grief reaction Fracture of ilium Closed sacral fracture Acute encephalopathy Hypokalemia Calcification of coronary artery Abnormal ECG HTN (hypertension), benign Chronic diastolic CHF (congestive heart failure) Syncope Chronic anticoagulation Syncope Pulmonary hypertension Closed compression fracture of L1 vertebra Hx of fall Insomnia Seasonal allergies Bilateral leg edema Adrenal insufficiency Arthritis of knee Diverticulosis GERD without esophagitis Hyperglycemia Hypothyroidism Osteopenia Reactive airway disease SNHL (sensorineural hearing loss) Pulmonary embolism Surgical History History of hernia repair History of cholecystectomy Family History Unknown Cancer Cardiac disorder FHx: deafness or hearing loss Mother Cardiac disorder Hypertension Other Family history non-contributory Hearing loss No family history of adverse response to anesthesia No family history of bleeding disorder Social History Smoking Status: Former smoker Tobacco Type: Cigarettes Age Started Using Tobacco: 28; Age Quit Using Tobacco: 44; Second Hand Exposure: No; Do You Dip or Chew Tobacco: No; Hx Alcohol Use: No Hx Substance Use: No Preferred Language: Bengali Communication Ability: Effective Hospice Social Worker Required: No Beliefs That Will Affect Care: Islam Islam Beliefs: Synagogue marital status: / Current Living Situation: Personal Care Facility Current Living Situation Comment: [facility] current occupational status: retired How many Children do You have: 2 Other Information That Helps Us Care for You: No Feels Safe at Home: Yes Safety Concerns: Feels Safe At This Time Childhood Exposure to Second-Hand Smoke: No Dental Care, Regularly: No Physical Activity Frequency: 3-4 Times per Week Seatbelt Use: always Sunscreen Use: Yes Assistive Devices: Denture - Upper, Glasses and Wheelchair Allergies Allergies Allergy/AdvReac Type Severity Reaction Status Date / Time celecoxib Allergy Unknown MUSCLE Verified 11/21/23 13:41 CRAMPS Sulfa (Sulfonamide Allergy Unknown DIDN'T Verified 11/21/23 13:41 Antibiotics) FEEL WELL Home Meds Home Medications Medication Instructions Recorded Confirmed acetaminophen 500 mg tablet 500 mg PO Q6H PRN Pain 02/01/21 02/11/24 (Tylenol Extra Strength) cholecalciferol (vitamin D3) 50 2,000 unit PO .@79902/04/22 02/11/24 mcg (2,000 unit) capsule hydrocortisone 5 mg tablet 5 mg PO .@08,199912/02/22 02/11/24 torsemide 10 mg tablet 10 mg PO .Q OTHER DAY @0803/06/23 02/11/24 cetirizine 10 mg tablet 10 mg PO DAILY PRN allergies 08/27/23 02/11/24 fluticasone propionate 50 1 spray intranasal DAILY PRN Nasal 08/27/23 02/11/24 mcg/actuation nasal Congestion spray,suspension propylene glycol (PF) 0.6 % eye 1 drp ophthalmic (eye) .@79908/27/23 02/11/24 drops (Systane Complete PF) psyllium seed (sugar) oral powder 1 tbsp PO .@79908/27/23 02/11/24 warfarin 2 mg tablet 2 mg PO . DAILY @ 1700 08/27/23 02/11/24 albuterol sulfate 90 mcg/actuation 2 puff inhalation Q4H PRN 02/11/24 02/11/24 aerosol inhaler Shortness Of Breath Or Wheezing ascorbic acid (vitamin C) 1,000 mg 1,000 mg PO .DAILY FOR 10 DAYS 02/11/24 02/11/24 tablet (Vitamin C) atorvastatin 20 mg tablet 20 mg PO .@79902/11/24 02/11/24 calcium carbonate 500 mg-vitamin 1 tab PO .@79902/11/24 02/11/24 D3 5 mcg (200 unit) tablet (Calcium 500 + D) diclofenac sodium 1 % topical gel 2 g topical DAILY Pain 02/11/24 02/11/24 fludrocortisone 0.1 mg tablet 0.1 mg PO .MON,FRI @79902/11/24 02/11/24 hydrocortisone 10 mg tablet 10 mg PO .@79902/11/24 02/11/24 hydrocortisone 5 mg tablet 5 mg PO PM PRN excessive tiredness 02/11/24 02/11/24 levothyroxine 137 mcg tablet 137 mcg PO .@79902/11/24 02/11/24 lidocaine 4 % topical patch 1 patch topical DAILY PRN Pain 02/11/24 02/11/24 (Lidocaine Pain Relief) melatonin 3 mg tablet 3 mg PO HS PRN INSOMINA 02/11/24 02/11/24 omeprazole 20 mg capsule,delayed 20 mg PO Q OTHER DAY@79902/11/24 02/11/24 release sertraline 50 mg tablet 100 mg PO .@79902/11/24 02/11/24 spironolactone 25 mg tablet 25 mg PO .@79902/11/24 02/11/24 Previous Rx's Medication Instructions Recorded benzonatate 100 mg capsule 100 mg PO TID PRN cough #30 caps 08/27/23 nystatin 100,000 unit/gram topical 1 applic topical TID PRN rash #60 11/19/23 powder grams Results & Data (ED) Vital Signs Vital Signs - 24 hr 02/11/24 09:26 02/11/24 09:30 02/11/24 09:30 Temperature 36.7 C Temperature Source Oral Pulse Rate 67 71 Pulse Rate [Apical] Pulse Rate from SpO2 Sensor Respiratory Rate 23 22 Respiratory Effort / Characteristics Spontaneous SOB on Exertion Respiratory Depth Respiratory Pattern Regular Blood Pressure 160/70 H Blood Pressure [Left Arm] Blood Pressure Mean 100 Blood Pressure Mean [Left Arm] Blood Pressure Position Semi-fowlers Blood Pressure Position [Left Arm] Pulse Oximetry 94 94 94 Oxygen Delivery Method Room Air Room Air Room Air Sepsis Recent Fever Within 48 Hours No Sepsis New/Unexplained Change in Mental Status No Sepsis Action Taken by Nursing No Action Required 02/11/24 09:30 02/11/24 09:36 02/11/24 09:36 Temperature Temperature Source Pulse Rate 72 75 Pulse Rate [Apical] Pulse Rate from SpO2 Sensor 76 Respiratory Rate 26 H Respiratory Effort / Characteristics SOB on Exertion Respiratory Depth Normal Respiratory Pattern Regular Blood Pressure Blood Pressure [Left Arm] Blood Pressure Mean Blood Pressure Mean [Left Arm] Blood Pressure Position Blood Pressure Position [Left Arm] Pulse Oximetry 94 94 Oxygen Delivery Method Room Air Sepsis Recent Fever Within 48 Hours Sepsis New/Unexplained Change in Mental Status Sepsis Action Taken by Nursing 02/11/24 09:42 02/11/24 10:03 02/11/24 10:15 Temperature Temperature Source Pulse Rate 70 70 69 Pulse Rate [Apical] Pulse Rate from SpO2 Sensor 70 70 Respiratory Rate 21 Respiratory Effort / Characteristics Respiratory Depth Respiratory Pattern Blood Pressure Blood Pressure [Left Arm] Blood Pressure Mean Blood Pressure Mean [Left Arm] Blood Pressure Position Blood Pressure Position [Left Arm] Pulse Oximetry 94 94 Oxygen Delivery Method Sepsis Recent Fever Within 48 Hours Sepsis New/Unexplained Change in Mental Status Sepsis Action Taken by Nursing 02/11/24 10:30 02/11/24 10:30 02/11/24 10:50 Temperature Temperature Source Pulse Rate 69 Pulse Rate [Apical] Pulse Rate from SpO2 Sensor 70 Respiratory Rate Respiratory Effort / Characteristics Respiratory Depth Respiratory Pattern Blood Pressure 141/62 H 156/82 H Blood Pressure [Left Arm] Blood Pressure Mean 86 118 Blood Pressure Mean [Left Arm] Blood Pressure Position Blood Pressure Position [Left Arm] Pulse Oximetry 94 Oxygen Delivery Method Sepsis Recent Fever Within 48 Hours Sepsis New/Unexplained Change in Mental Status Sepsis Action Taken by Nursing 02/11/24 10:51 02/11/24 10:53 02/11/24 11:03 Temperature Temperature Source Pulse Rate 71 68 Pulse Rate [Apical] 72 Pulse Rate from SpO2 Sensor 72 68 Respiratory Rate 23 24 Respiratory Effort / Characteristics Non-Labored Spontaneous Respiratory Depth Normal Respiratory Pattern Regular Blood Pressure Blood Pressure [Left Arm] 156/82 H Blood Pressure Mean Blood Pressure Mean [Left Arm] 106 Blood Pressure Position Blood Pressure Position [Left Arm] Semi-fowlers Pulse Oximetry 93 93 92 Oxygen Delivery Method Room Air Sepsis Recent Fever Within 48 Hours Sepsis New/Unexplained Change in Mental Status Sepsis Action Taken by Nursing 02/11/24 11:18 02/11/24 11:30 02/11/24 12:12 Temperature Temperature Source Pulse Rate 66 65 73 Pulse Rate [Apical] Pulse Rate from SpO2 Sensor 66 65 73 Respiratory Rate 24 Respiratory Effort / Characteristics Respiratory Depth Respiratory Pattern Blood Pressure Blood Pressure [Left Arm] Blood Pressure Mean Blood Pressure Mean [Left Arm] Blood Pressure Position Blood Pressure Position [Left Arm] Pulse Oximetry 93 93 94 Oxygen Delivery Method Sepsis Recent Fever Within 48 Hours Sepsis New/Unexplained Change in Mental Status Sepsis Action Taken by Nursing 02/11/24 12:27 02/11/24 12:30 02/11/24 12:51 Temperature Temperature Source Pulse Rate 68 68 Pulse Rate [Apical] Pulse Rate from SpO2 Sensor 68 68 Respiratory Rate 23 Respiratory Effort / Characteristics Respiratory Depth Respiratory Pattern Blood Pressure 165/68 H Blood Pressure [Left Arm] Blood Pressure Mean 97 Blood Pressure Mean [Left Arm] Blood Pressure Position Blood Pressure Position [Left Arm] Pulse Oximetry 94 93 Oxygen Delivery Method Sepsis Recent Fever Within 48 Hours Sepsis New/Unexplained Change in Mental Status Sepsis Action Taken by Nursing 02/11/24 13:00 02/11/24 13:12 02/11/24 13:27 Temperature Temperature Source Pulse Rate 68 67 Pulse Rate [Apical] 68 Pulse Rate from SpO2 Sensor 69 68 Respiratory Rate 18 24 Respiratory Effort / Characteristics Non-Labored Spontaneous Respiratory Depth Normal Respiratory Pattern Blood Pressure Blood Pressure [Left Arm] 173/72 H Blood Pressure Mean Blood Pressure Mean [Left Arm] 105 Blood Pressure Position Blood Pressure Position [Left Arm] Pulse Oximetry 92 94 94 Oxygen Delivery Method Sepsis Recent Fever Within 48 Hours Sepsis New/Unexplained Change in Mental Status Sepsis Action Taken by Nursing 02/11/24 13:30 02/11/24 13:30 02/11/24 13:48 Temperature Temperature Source Pulse Rate 67 69 Pulse Rate [Apical] Pulse Rate from SpO2 Sensor 67 69 Respiratory Rate 24 Respiratory Effort / Characteristics Respiratory Depth Respiratory Pattern Blood Pressure 148/65 H Blood Pressure [Left Arm] Blood Pressure Mean 102 Blood Pressure Mean [Left Arm] Blood Pressure Position Blood Pressure Position [Left Arm] Pulse Oximetry 94 93 Oxygen Delivery Method Sepsis Recent Fever Within 48 Hours Sepsis New/Unexplained Change in Mental Status Sepsis Action Taken by Nursing 02/11/24 13:57 02/11/24 14:15 02/11/24 14:28 Temperature Temperature Source Pulse Rate 68 70 70 Pulse Rate [Apical] Pulse Rate from SpO2 Sensor 68 70 Respiratory Rate Respiratory Effort / Characteristics Respiratory Depth Respiratory Pattern Blood Pressure Blood Pressure [Left Arm] Blood Pressure Mean Blood Pressure Mean [Left Arm] Blood Pressure Position Blood Pressure Position [Left Arm] Pulse Oximetry 93 94 Oxygen Delivery Method Sepsis Recent Fever Within 48 Hours Sepsis New/Unexplained Change in Mental Status Sepsis Action Taken by Nursing 02/11/24 14:30 02/11/24 14:30 02/11/24 14:42 Temperature Temperature Source Pulse Rate 70 70 Pulse Rate [Apical] Pulse Rate from SpO2 Sensor 70 70 Respiratory Rate Respiratory Effort / Characteristics Respiratory Depth Respiratory Pattern Blood Pressure 157/71 H Blood Pressure [Left Arm] Blood Pressure Mean 124 Blood Pressure Mean [Left Arm] Blood Pressure Position Blood Pressure Position [Left Arm] Pulse Oximetry 94 95 Oxygen Delivery Method Sepsis Recent Fever Within 48 Hours Sepsis New/Unexplained Change in Mental Status Sepsis Action Taken by Nursing Laboratory Data Attestation: I reviewed the patient's lab results. 02/11/24 10:15 02/11/24 10:15 Lab Results 02/11/24 02/11/24 02/11/24 Range/Units 10:15 11:40 12:32 WBC 8.37 (4.8-10.8) K/ul RBC 4.77 (4.20-5.40) M/uL Hgb 13.3 (12.0-16.0) g/dl Hct 42.5 (37.0-47.0) % MCV 89.1 (80.0-100.0) fL MCH 27.9 (25.0-34.0) pg MCHC 31.3 L (32.0-36.0) g/dL RDW Std Deviation 44.8 (36.4-46.3) fL RDW Coeff of La 13.7 (11.5-14.5) % Plt Count 175 (130-400) K/uL MPV 11.4 (9.4-12.4) fL Immature Gran % (Auto) 0.4 % Neut % (Auto) 53.0 % Lymph % (Auto) 36.0 % [place] % (Auto) 8.4 % Eos % (Auto) 1.7 % Baso % (Auto) 0.5 % Neut # (Auto) 4.45 (1.40-6.50) K/uL Lymph # (Auto) 3.01 (1.20-3.40) K/uL [place] # (Auto) 0.70 H (0.11-0.59) K/uL Eos # (Auto) 0.14 (0.00-0.50) K/uL Baso # (Auto) 0.04 (0.00-0.20) K/uL Immature Gran # (Auto) 0.03 (0.01-0.20) K/uL PT Cancelled 88.4 H INR Cancelled > 9.5 H* Sodium 135 L (136-145) mmol/L Potassium 4.8 (3.5-5.1) mmol/L Chloride 96 L (98-107) mmol/L Carbon Dioxide 29 (21-32) mmol/L Anion Gap 10 (3-11) BUN 50 H (6-23) mg/dl Creatinine 1.60 H (0.6-1.2) mg/dl Est Cr Clr Drug Dosing 19.7 ml/min Est GFR ( Amer) 32.8 ml/min Est GFR (Non-Af Amer) 28.3 ml/min BUN/Creatinine Ratio 31.3 H (10-20) Glucose 100 H (70-99(Fasting)) mg/dl Calcium 9.3 (8.6-10.3) mg/dl Phosphorus 3.6 (2.5-4.9) mg/dl Magnesium 2.1 (1.7-2.4) mg/dl Total Bilirubin 0.8 (0.2-1.0) mg/dl AST 26 (13-39) U/L ALT 18 (7-52) U/L Alkaline Phosphatase 160 H (34-104) U/L Troponin I High Sens 44.4 H 35.1 H (0-14) pg/ml Total Protein 6.9 (6.0-8.3) gm/dl Albumin 3.9 (3.4-5.0) gm/dl Globulin 3.0 (2.5-4.0) gm/dl Albumin/Globulin Ratio 1.3 (0.9-2) Lipase 31 (11-82) U/L TSH 0.378 (0.300-4.500) uIu/ml Urine Color Urine Appearance (Clear) Urine pH (4.5-7.5) Ur Specific [place] (1.000-1.030) Urine Protein (Negative) Urine Glucose (UA) (Negative) Urine Ketones (Negative) Urine Blood (Negative) Urine Nitrite (Negative) Urine Bilirubin (Negative) Urine Urobilinogen (Negative) Ur Leukocyte Esterase (Negative) Urine WBC (Auto) (0-5) /hpf Urine RBC (Auto) (0-2) /hpf U Hyaline Cast (Auto) (0-2) /lpf U Epithel Cells (Auto) (0-2) /hpf Urine Bacteria (Auto) (None Seen) 02/11/24 Range/Units 13:00 WBC (4.8-10.8) K/ul RBC (4.20-5.40) M/uL Hgb (12.0-16.0) g/dl Hct (37.0-47.0) % MCV (80.0-100.0) fL MCH (25.0-34.0) pg MCHC (32.0-36.0) g/dL RDW Std Deviation (36.4-46.3) fL RDW Coeff of La (11.5-14.5) % Plt Count (130-400) K/uL MPV (9.4-12.4) fL Immature Gran % (Auto) % Neut % (Auto) % Lymph % (Auto) % [place] % (Auto) % Eos % (Auto) % Baso % (Auto) % Neut # (Auto) (1.40-6.50) K/uL Lymph # (Auto) (1.20-3.40) K/uL [place] # (Auto) (0.11-0.59) K/uL Eos # (Auto) (0.00-0.50) K/uL Baso # (Auto) (0.00-0.20) K/uL Immature Gran # (Auto) (0.01-0.20) K/uL PT INR Sodium (136-145) mmol/L Potassium (3.5-5.1) mmol/L Chloride (98-107) mmol/L Carbon Dioxide (21-32) mmol/L Anion Gap (3-11) BUN (6-23) mg/dl Creatinine (0.6-1.2) mg/dl Est Cr Clr Drug Dosing ml/min Est GFR ( Amer) ml/min Est GFR (Non-Af Amer) ml/min BUN/Creatinine Ratio (10-20) Glucose (70-99(Fasting)) mg/dl Calcium (8.6-10.3) mg/dl Phosphorus (2.5-4.9) mg/dl Magnesium (1.7-2.4) mg/dl Total Bilirubin (0.2-1.0) mg/dl AST (13-39) U/L ALT (7-52) U/L Alkaline Phosphatase (34-104) U/L Troponin I High Sens (0-14) pg/ml Total Protein (6.0-8.3) gm/dl Albumin (3.4-5.0) gm/dl Globulin (2.5-4.0) gm/dl Albumin/Globulin Ratio (0.9-2) Lipase (11-82) U/L TSH (0.300-4.500) uIu/ml Urine Color Yellow Urine Appearance Clear (Clear) Urine pH 5.5 (4.5-7.5) Ur Specific [place] 1.021 (1.000-1.030) Urine Protein Trace H (Negative) Urine Glucose (UA) Negative (Negative) Urine Ketones 1+ H (Negative) Urine Blood Negative (Negative) Urine Nitrite Negative (Negative) Urine Bilirubin Negative (Negative) Urine Urobilinogen Negative (Negative) Ur Leukocyte Esterase Negative (Negative) Urine WBC (Auto) 0-5 (0-5) /hpf Urine RBC (Auto) 3-5 H (0-2) /hpf U Hyaline Cast (Auto) 3-5 H (0-2) /lpf U Epithel Cells (Auto) 0-2 (0-2) /hpf Urine Bacteria (Auto) None Seen (None Seen) Administered Medications Calcium/Vitamin D (Calcium 600mg + Vit D 400 Iu Tab) 1 tab PO TODAY@0800 GURVINDER Stop: 03/12/24 18:59 Last Admin: 02/11/24 20:10 Dose: 1 tab Documented By: ELAYNE Diclofenac Sodium (Diclofenac Sod 1% Gel 100 Gm Tube) 2 gm EXT BID PRN; Protocol PRN Reason: pain Stop: 03/12/24 20:59 Last Admin: 02/11/24 20:12 Dose: 2 gm Documented By: ELAYNE Hydrocortisone (Hydrocortisone 10 Mg Tab) 5 mg PO TODAY@0800,1999 GURVINDER Stop: 03/12/24 19:59 Last Admin: 02/11/24 20:12 Dose: 5 mg Documented By: ELAYNE Dextrose/Lactated Ringer's (D5w And Lactated Ringers) 1,000 mls @ 125 mls/hr IV .Q8H GURVINDER Stop: 02/12/24 02:59 Last Admin: 02/11/24 15:44 Dose: 125 mls/hr Documented By: HERBERT Polyethylene Glycol (Polyethylene (Miralax) 17 Gm Pack) 17 gm PO BID GURVINDER Stop: 03/12/24 20:59 Last Admin: 02/11/24 20:15 Dose: 17 gm Documented By: ELAYNE Vitamin D (Cholecalciferol 25 Mcg (1000 Units) Tab) 50 mcg PO TODAY@0800 GURVINDER Stop: 03/12/24 18:59 Last Admin: 02/11/24 20:11 Dose: 50 mcg Documented By: ELAYNE Discontinued Medications Sodium Chloride (Nss) 500 mls @ 999 mls/hr IV .Q31M STA Stop: 02/11/24 10:12 Last Infusion: 02/11/24 11:47 Dose: Infused Documented By: Admin: 02/11/24 10:55 Dose: 999 mls/hr Documented By: HERBERT Ioversol (Optiray 320 125ml) 120 ml IV ONCE ONE Stop: 02/11/24 11:59 Last Admin: 02/11/24 11:59 Dose: 120 ml Documented By: LUCY Phytonadione (Phytonadione 5 Mg Tab) 5 mg PO NOW STA Stop: 02/11/24 14:00 Last Admin: 02/11/24 15:43 Dose: 5 mg Documented By: HERBERT Imaging Data Radiologist's Impression: Abdomen/Pelvis CT 02/11/24 10:03 CT SCAN OF THE ABDOMEN AND PELVIS WITH IV CONTRAST CLINICAL HISTORY: Generalized weakness. Fall several days previous. COMPARISON STUDY: Abdominal CT dated 11/24/2023. Chest CT dated 07/25/2022. TECHNIQUE: Following the IV administration of 120 cc of Optiray 320, CT scan of the abdomen and pelvis is performed from the lung bases to the proximal femora. Images are reviewed in the axial, sagittal, and coronal planes. IV contrast was administered without complication. A dose lowering technique was utilized adhering to the principles of ALARA. There is streak artifact from the arms which could not be elevated above the abdomen. There is also motion artifact. CT DOSE: 2130.34 mGy.cm FINDINGS: Lung bases: The heart is mildly enlarged and without pericardial effusion. The coronary arteries are densely calcified. The 3 mm left lower lobe pulmonary nodule image #4 is unchanged from a [address] and of doubtful significance. There is mild bibasilar scarring/atelectasis. No airspace consolidation or pleural effusion is identified. A small hiatal hernia is noted. Liver: The contrast-enhanced liver is normal in size, contour, and attenuation. There is mild central intrahepatic biliary ductal dilatation. The hepatic veins and portal veins are patent. There are numerous calcified hepatic granulomas. Gallbladder: Surgically absent. Spleen: Normal in size and attenuation. There are numerous calcified splenic granulomas. Pancreas: The pancreas is mildly atrophic. Mild dilatation of the pancreatic duct is similar to previous. This measures up to 3.5 mm diameter. There are at least 2 simple cystic pancreatic lesions which measure up to 10 mm. These are unchanged and typical for sidebranch IPMNS. Adrenal glands: Unremarkable. Kidneys: The contrast enhanced kidneys demonstrate mild cortical atrophy and are without hydronephrosis. The kidneys enhance symmetrically. A 1.2 cm cyst is noted in the right kidney. Additional subcentimeter cortical hypodensities also likely represent cysts but are too small for definitive characterization. Abdominal vasculature: The abdominal aorta is normal in course and caliber noting advanced atherosclerotic calcification. Bowel: There is a rectosigmoid fecal retention. The rectal wall appears mildly thickened with surrounding infiltration. Bilateral moderate fecal retention is seen throughout the remainder of the colon. No bowel obstruction is seen. There is moderate colonic diverticulosis without CT evidence of acute diverticulitis. The appendix is well-visualized and normal. Peritoneum: There is no intraperitoneal free air or abdominal ascites. There is a large fat-containing umbilical hernia. Lymphadenopathy: None. Pelvic viscera: Evaluation of the pelvis is degraded by streak artifact from a left hip arthroplasty. The bladder, uterus, and adnexa are normal as visualized. There is a small residual fluid collection the left iliacus muscle seen on image #207. This measures up to 4.3 cm consistent with a resolving hematoma when compared to the 11/24/2023 examination. Skeletal structures: The skeletal structures are osteopenic. There are chronic compression forms of T9, T10, and L1. No lytic or blastic lesions are seen. There is moderate lumbosacral spondylosis. A left hip arthroplasty is in place. There are chronic/healed right-sided rib fractures. There is a subacute- appearing fracture of the left anterior fourth rib seen on image #21. Chronic deformity of the sacrum is unchanged. There is a subacute/healing fracture anterior aspect of the left ilium seen on axial image #246. IMPRESSION: 1. Streak and motion degraded examination. 2. There is no evidence of solid organ injury in the abdomen or pelvis. 3. There is retrosigmoid fecal retention with mild rectal wall thickening and faint surrounding infiltration. Correlate clinically for evidence of a mild nonspecific proctitis. This may be stercoral. 4. There is a subacute-appearing fracture of the left anterior fourth rib. Correlate for point tenderness. 5. There is a resolving intramuscular hematoma within the left iliacus, as well as a subacute/healing fracture along the anterior aspect of the left iliac wing. 6. Cardiomegaly. 7. Additional findings as above. ACT 112: Negative or not required by law. Electronically signed by: Alec Miguel M.D. 02/11/2024 1:14 PM Discharge Plan Visit Data Chief Complaint: Confusion ED Provider: Carlos Tafoya Discharge Problem: Weakness, [place] disease, Supratherapeutic INR, Renal insufficiency Patient Disposition: Admitted As Inpatient Discharge Instructions Interventions: ED Discharge Assessment Last Done: 02/11/24 17:13
--- NOTE | 2024-02-11 10:18 | XRay Report ---
XR chest 1V portable CLINICAL HISTORY: weak TECHNIQUE: Single frontal radiograph of the chest was obtained. Comparison: Comparison is made to chest radiograph 10/23/2023 FINDINGS: No lines and tubes are seen. Calcified aortic knob is seen. The lungs are clear. No evidence of pleur al effusion or pneumothorax. IMPRESSION: No acute chest disease. ACT 112: Negative or not required by law. Electronically signed by: Fidel Anand M.D. 02/11/2024 10:17 AM
[2024-02-11 10:41] LABS: Basophils # (auto) 0.04 K/uL (0.00-0.20); Basophils % (auto) 0.5 %; Eosinophils # (auto) 0.14 K/uL (0.00-0.50); Eosinophils % (auto) 1.7 %; Hematocrit (blood only) 42.5 % (37.0-47.0); Hemoglobin 13.3 g/dl (12.0-16.0); Immature Granulocytes # (auto) 0.03 K/uL (0.01-0.20); Immature Granulocytes % (auto) 0.4 %; Lymphocytes # (auto) 3.01 K/uL (1.20-3.40); Mean Corpuscular Hemoglobin 27.9 pg (25.0-34.0); Mean Corpuscular Hgb Conc 31.3 g/dL (32.0-36.0); Mean Corpuscular Volume 89.1 fL (80.0-100.0); Mean Platelet Volume 11.4 fL (9.4-12.4); Monocytes % (auto) 8.4 %; Neutrophils # (auto) 4.45 K/uL (1.40-6.50); Platelet Count 175 K/uL (130-400); RDW Coefficient of Variation 13.7 % (11.5-14.5); RDW Standard Deviation 44.8 fL (36.4-46.3); Red Blood Count 4.77 M/uL (4.20-5.40); White Blood Count 8.37 K/ul (4.8-10.8)
[2024-02-11] MEDS: SODIUM CHLORIDE 0.9% 500 ML IV STA (10:55)
[2024-02-11 10:59] LABS: Albumin Globulin Ratio 1.3 (0.9-2); Albumin Level 3.9 gm/dl (3.4-5.0); BUN Creatinine Ratio 31.3 (10-20); Bilirubin,Total 0.8 mg/dl (0.2-1.0); Calcium 9.3 mg/dl (8.6-10.3); Creatinine Clr Calc Pharmacy 19.7 ml/min; Est GFR (African American) 32.8 ml/min; Est GFR (Non-African American) 28.3 ml/min; Magnesium 2.1 mg/dl (1.7-2.4); Phosphorus 3.6 mg/dl (2.5-4.9); Potassium 4.8 mmol/L (3.5-5.1); Total Protein 6.9 gm/dl (6.0-8.3)
[2024-02-11 11:05] LABS: Troponin I High Sensitivity 44.4 pg/ml (0-14)
[2024-02-11 11:14] LABS: Thyroid Stimulating Hormone 0.378 uIu/ml (0.300-4.500)
[2024-02-11] MEDS: OPTIRAY 320 125ml IV ONE (11:59)
--- NOTE | 2024-02-11 12:26 | CT Scan Report ---
CT angio chest PE protocol CLINICAL HISTORY: sob, chest pain, r/o PE TECHNIQUE: Multidetector row helical CT of the chest was performed with angiographic protocol. Flores l and sagittal reformations were obtained. Coronal and sagittal MIPS were obtained from the axial marisol a set and were submitted for review. Automated dose lowering techniques and/or adjustment according to patient size were utilized for this exam. Comparison: Comparison is made to CTA chest 07/25/2022 FINDINGS: Exam is limited by patient motion. Lungs and pleura: Normal. Heart and pericardium: Cardiomegaly is seen with biatrial enlargement. Vessels: No pulmonary embolus. The pulmonary trunk is enlarged measuring 34 mm. Severe atheroscleroti c disease is seen. Mediastinum and mary: Unremarkable. Chest wall and lower neck: Unremarkable. Abdomen: Numerous calcifications are seen in the spleen and liver likely representing granulomata. Di verticulosis without diverticulitis. Bones: Degenerative changes in the thoracic spine. Multilevel compression deformities are again seen. IMPRESSION: No acute abnormality and in particular no evidence of pulmonary embolus. Pulmonary hypertension. ACT 112: Negative or not required by law. Electronically signed by: Fidel Anand M.D. 02/11/2024 12:24 PM
--- NOTE | 2024-02-11 12:34 | CT Scan Report ---
CT SCAN OF THE BRAIN WITHOUT IV CONTRAST CLINICAL HISTORY: Generalized weakness. Change in mental status. COMPARISON STUDY: CT of the brain dated 10/23/2023. TECHNIQUE: Unenhanced axial CT scan of the brain is performed from the vertex to the skull base. A do se lowering technique was utilized adhering to the principles of ALARA. FINDINGS: Brain parenchyma: There is age-related involutional change noting [id number] subcortical and pe riventricular microangiopathic disease. There is no hemorrhage, mass effect, or evidence of acute ter ritorial ischemia by CT criteria. Benites-white matter differentiation is preserved. No extra-axial flui d collection is seen. Ventricles, sulci, cisterns: Prominent secondary to involutional change. Intracranial vasculature: There is atherosclerotic calcification of the cavernous carotid and vertebr al arteries. Calvarium: Unremarkable. Sinuses and mastoids: The visualized paranasal sinuses are clear. The mastoid air cells are well pneu matized. Orbits: The bony orbits are grossly intact. There are bilateral ocular lens implants. IMPRESSION: There is no hemorrhage, mass effect, or evidence of acute territorial ischemia by CT armida napoles. ACT 112: Negative or not required by law. Electronically signed by: Alec Miguel M.D. 02/11/2024 12:32 PM
[2024-02-11 12:55] LABS: Prothrombin Time 88.4 Seconds (9.0-12.0)
--- NOTE | 2024-02-11 13:16 | CT Scan Report ---
CT SCAN OF THE ABDOMEN AND PELVIS WITH IV CONTRAST CLINICAL HISTORY: Generalized weakness. Fall several days previous. COMPARISON STUDY: Abdominal CT dated 11/24/2023. Chest CT dated 07/25/2022. TECHNIQUE: Following the IV administration of 120 cc of Optiray 320, CT scan of the abdomen and pelv is is performed from the lung bases to the proximal femora. Images are reviewed in the axial, sagitta l, and coronal planes. IV contrast was administered without complication. A dose lowering technique w as utilized adhering to the principles of ALARA. There is streak artifact from the arms which could n ot be elevated above the abdomen. There is also motion artifact. CT DOSE: 2130.34 mGy.cm FINDINGS: Lung bases: The heart is mildly enlarged and without pericardial effusion. The coronary arteries are densely calcified. The 3 mm left lower lobe pulmonary nodule image #4 is unchanged from a [address] and of doubtful significance. There is mild bibasilar scarring/atelectasis. No airspace consolidat ion or pleural effusion is identified. A small hiatal hernia is noted. Liver: The contrast-enhanced liver is normal in size, contour, and attenuation. There is mild central intrahepatic biliary ductal dilatation. The hepatic veins and portal veins are patent. There are num erous calcified hepatic granulomas. Gallbladder: Surgically absent. Spleen: Normal in size and attenuation. There are numerous calcified splenic granulomas. Pancreas: The pancreas is mildly atrophic. Mild dilatation of the pancreatic duct is similar to previ ous. This measures up to 3.5 mm diameter. There are at least 2 simple cystic pancreatic lesions which measure up to 10 mm. These are unchanged and typical for sidebranch IPMNS. Adrenal glands: Unremarkable. Kidneys: The contrast enhanced kidneys demonstrate mild cortical atrophy and are without hydronephros is. The kidneys enhance symmetrically. A 1.2 cm cyst is noted in the right kidney. Additional subcent imeter cortical hypodensities also likely represent cysts but are too small for definitive characteri zation. Abdominal vasculature: The abdominal aorta is normal in course and caliber noting advanced atheroscle rotic calcification. Bowel: There is a rectosigmoid fecal retention. The rectal wall appears mildly thickened with surroun ding infiltration. Bilateral moderate fecal retention is seen throughout the remainder of the colon. No bowel obstruction is seen. There is moderate colonic diverticulosis without CT evidence of acute d iverticulitis. The appendix is well-visualized and normal. Peritoneum: There is no intraperitoneal free air or abdominal ascites. There is a large fat-containin g umbilical hernia. Lymphadenopathy: None. Pelvic viscera: Evaluation of the pelvis is degraded by streak artifact from a left hip arthroplasty. The bladder, uterus, and adnexa are normal as visualized. There is a small residual fluid collection the left iliacus muscle seen on image #207. This measures up to 4.3 cm consistent with a resolving h ematoma when compared to the 11/24/2023 examination. Skeletal structures: The skeletal structures are osteopenic. There are chronic compression forms of T 9, T10, and L1. No lytic or blastic lesions are seen. There is moderate lumbosacral spondylosis. A le ft hip arthroplasty is in place. There are chronic/healed right-sided rib fractures. There is a subac sac and [place]-appearing fracture of the left anterior fourth rib seen on image #21. Chronic deformity of the sa jeffery is unchanged. There is a subacute/healing fracture anterior aspect of the left ilium seen on axi al image #246. IMPRESSION: 1. Streak and motion degraded examination. 2. There is no evidence of solid organ injury in the abdomen or pelvis. 3. There is retrosigmoid fecal retention with mild rectal wall thickening and faint surrounding infil tration. Correlate clinically for evidence of a mild nonspecific proctitis. This may be stercoral. 4. There is a subacute-appearing fracture of the left anterior fourth rib. Correlate for point tender ness. 5. There is a resolving intramuscular hematoma within the left iliacus, as well as a subacute/healing fracture along the anterior aspect of the left iliac wing. 6. Cardiomegaly. 7. Additional findings as above. ACT 112: Negative or not required by law. Electronically signed by: Alec Miguel M.D. 02/11/2024 1:14 PM
[2024-02-11 13:30] LABS: INR > 9.5 (0.9-1.1)
[2024-02-11 13:49] LABS: Appearance Urine Clear (Clear); Bacteria Urine Automated None Seen (None Seen); Bilirubin Urine Negative (Negative); Blood Urine Negative (Negative); Color Urine Yellow; Epithelial Cell Urine Auto 0-2 /hpf (0-2); Glucose Urine UA Negative (Negative); Ketones Urine 1+ (Negative); Leukocyte Esterase Urine Negative (Negative); Nitrite Urine Negative (Negative); Protein Urine Trace (Negative); Specific Gravity Urine 1.021 (1.000-1.030); Urobilinogen Urine Negative (Negative); WBC Urine Automated 0-5 /hpf (0-5); pH Urine 5.5 (4.5-7.5)
--- NOTE | 2024-02-11 14:08 | History & Physical Report ---
Date of Service February 11, 2024 Assessment & Plan (1) Weakness: Plan: Weakness - 1 week of acute weakness, with a fall 7 days ago. No respiratory, , or abdominal infectious symptoms. No acute infectious pathology on imaging as noted below -CThead: No acute findings.. CTAchest: No acute findings. CTA/P: No acute organ injury. Retrosigmoid fecal retention with infiltration suspicious for mild nonspecific proctitis possibly stercoral. Subacute left anterior fourth rib fracture. Resolving muscular hematoma in the left iliac us, subacute/healing fracture of the left iliac wing.-CXR: No acute finding.No leukocytosis Suspect weakness due to volume contraction. Given underlying AI will stress dose x 24 hours while from initial evaluation and necessitating Creatinine 1.6, baseline approximately 1 1.6, appears prerenal/contracted. Trend daily Chronic and progressive. No signs of infectious etiology. Suspect progressive decline, nutritional deficiency, and poor intake which is worsened by acute constipation/fecal retention. Constipation management as noted LR supplement x 1 L. Boost ordered. If no appetite improvement with constipation management --> +marinol vs remeron (2) Coagulopathy: Plan: Supratherapeutic INR Patient is on warfarin for history of factor V Leiden No bleeding/new bleeding at time of admission, last fall was a week ago. Per ACCP guidelines for INR greater than 9.5/10 with no new bleeding will give oral vitamin K. Goal 23 for factor V Leiden Repeat CTA/P shows improving hematoma no signs of acute bleeding or expansion (3) [place] disease: Plan: No signs of acute adrenal crisis, no signs of acute stress requiring stress test Will continue home hydrocortisone dosing cortisol is pending (4) (HFpEF) heart failure with preserved ejection fraction: Plan: Hx HFpEF - Spironolactone and torsemide held for volume contraction and upper limit of normal renal function No evidence of volume overload on admission No chest pain High sensitive troponin 44, downtrending on repeat to 35. No ischemic symptoms. EKG with right bundle branch block new from prior, but no anginal symptoms. Discussed w/ cardiology. May be rate related, low suspicion for ischemic. Recommend echo. (5) Constipation: Plan: Fecal retention, stercoral colitis Without perforation or leukocytosis. Approximate 6 cm at maximum diameter MiraLAX twice daily, enema x 1 ordered. May add magnesium citrate if needed No evidence of systemic infection/fever/leukocytosis to indicate antibiotics at time of admission Plan Chronic stable issues Delirium: Delirium precautions CODE: DNR/DNI Diet: Heart healthy, boost Disposition: Medical telemetry due to EKG changes pending echo DVT prophylaxis: SCDs. Pharmacal prophylaxis held due to supratherapeutic INR CM consulted. Family concerned that patient's current level of care is not appropriate for her level of function and progressive weakness. PT OT also following History of Present Illness Primary Care Provider: [facility] Shira is a 88-year-old female with a past medical history of weakness, osteoporosis, heart failure with preserved ejection fraction, DVT, anxiety/depression, hypertension, asthma, adrenal insufficiency, GERD, hypothyroidism presented from [facility] via EMS for 1 week of weakness with decreased appetite and a fall approximately 1 week ago. She reports her global weakness preceded her fall. Shira is seen at the bedside with her son-in-law present. Reports she has had a very poor appetite and has not been eating and drinking very much. She denies nausea, vomiting, and stomach pain. Does endorse constipation with infrequent bowel movements. She had a fall a week ago, she notes that the weakness preceded this. She feels allover, but does not notice weakness in any particular limb/extremity. She has not had any fever, chills, sweats, chest pain, chest pressure, shortness of breath, dyspnea, dysuria. Leg swelling is at its baseline she has been taking her medications provided by [facility] but is not a good historian of what these are. Discussed with her TAHIRA, they report that she has had progressive decline in her weakness and concern that her current level of care at [facility] is no longer appropriate and enough to be safe given her weakness and falls. Denies recent bleeding, INR is supratherapeutic. Medical History: Reviewed Medications: Reviewed Surgical History: Reviewed Family history: Reviewed Allergies: Reviewed Social History: Reviewed Code Status: DNR/DNI Allergies Allergy/AdvReac Type Severity Reaction Status Date / Time celecoxib Allergy Unknown MUSCLE Verified 11/21/23 13:41 CRAMPS Sulfa (Sulfonamide Allergy Unknown DIDN'T Verified 11/21/23 13:41 Antibiotics) FEEL WELL Home Medications Medication Instructions Recorded Confirmed Type acetaminophen 500 mg tablet 500 mg PO Q6H PRN Pain 02/01/21 02/11/24 History (Tylenol Extra Strength) cholecalciferol (vitamin D3) 50 2,000 unit PO .@79902/04/22 02/11/24 History mcg (2,000 unit) capsule hydrocortisone 5 mg tablet 5 mg PO .@12/02/22 02/11/24 History torsemide 10 mg tablet 10 mg PO .Q OTHER DAY @0803/06/23 02/11/24 History benzonatate 100 mg capsule 100 mg PO TID PRN cough #30 caps 08/27/23 02/11/24 Rx cetirizine 10 mg tablet 10 mg PO DAILY PRN allergies 08/27/23 02/11/24 History fluticasone propionate 50 1 spray intranasal DAILY PRN Nasal 08/27/23 02/11/24 History mcg/actuation nasal Congestion spray,suspension propylene glycol (PF) 0.6 % eye 1 drp ophthalmic (eye) .@79908/27/23 02/11/24 History drops (Systane Complete PF) psyllium seed (sugar) oral powder 1 tbsp PO .@79908/27/23 02/11/24 History warfarin 2 mg tablet 2 mg PO . DAILY @ 1700 08/27/23 02/11/24 History nystatin 100,000 unit/gram topical 1 applic topical TID PRN rash #60 11/19/23 02/11/24 Rx powder grams albuterol sulfate 90 mcg/actuation 2 puff inhalation Q4H PRN 02/11/24 02/11/24 History aerosol inhaler Shortness Of Breath Or Wheezing ascorbic acid (vitamin C) 1,000 mg 1,000 mg PO .DAILY FOR 10 DAYS 02/11/24 02/11/24 History tablet (Vitamin C) atorvastatin 20 mg tablet 20 mg PO .@79902/11/24 02/11/24 History calcium carbonate 500 mg-vitamin 1 tab PO .@79902/11/24 02/11/24 History D3 5 mcg (200 unit) tablet (Calcium 500 + D) diclofenac sodium 1 % topical gel 2 g topical DAILY Pain 02/11/24 02/11/24 History fludrocortisone 0.1 mg tablet 0.1 mg PO .MON,FRI @79902/11/24 02/11/24 History hydrocortisone 10 mg tablet 10 mg PO .@79902/11/2424 History hydrocortisone 5 mg tablet 5 mg PO PM PRN excessive tiredness 02/11/24 02/11/24 History levothyroxine 137 mcg tablet 137 mcg PO .@79902/11/24 02/11/24 History lidocaine 4 % topical patch 1 patch topical DAILY PRN Pain 02/11/24 02/11/24 History (Lidocaine Pain Relief) melatonin 3 mg tablet 3 mg PO HS PRN INSOMINA 02/11/24 02/11/24 History omeprazole 20 mg capsule,delayed 20 mg PO Q OTHER DAY@79902/11/24 02/11/24 History release sertraline 50 mg tablet 100 mg PO .@79902/11/24 02/11/24 History spironolactone 25 mg tablet 25 mg PO .@79902/11/24 02/11/24 History Past Med/Surg History Problem List (Updated 12/09/23 @ 00:07 by Kia Malave) Status post hip surgery Coagulopathy (Acute) History of compression fracture of vertebral column (12/05/21) Compression fracture of T10 vertebra Bilateral sensorineural hearing loss (Chronic) Nii disease Weakness (Acute) Hyponatremia (Acute) History of excessive cerumen Osteoporosis (HFpEF) heart failure with preserved ejection fraction (Acute) Diarrhea (Acute) History of DVT (deep vein thrombosis) (Chronic) Anxiety and depression (Chronic) Hypertension (Chronic) Constipation (Chronic) Asthma (Chronic) Adrenal insufficiency (Chronic) GERD without esophagitis (Chronic) Hypothyroidism (Chronic) Medical History Fall Closed hip fracture Femoral neck fracture Osteoporosis Abdominal pain Abdominal wall mass of epigastric region Midline low back pain without sciatica Cognitive impairment Chronic low back pain 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 History of DVT (deep vein thrombosis) Grief reaction Fracture of ilium Closed sacral fracture Acute encephalopathy Hypokalemia Calcification of coronary artery Abnormal ECG HTN (hypertension), benign Chronic diastolic CHF (congestive heart failure) Syncope Chronic anticoagulation Syncope Pulmonary hypertension Closed compression fracture of L1 vertebra Hx of fall Insomnia Seasonal allergies Bilateral leg edema Adrenal insufficiency Arthritis of knee Diverticulosis GERD without esophagitis Hyperglycemia Hypothyroidism Osteopenia Reactive airway disease SNHL (sensorineural hearing loss) Pulmonary embolism Surgical History History of hernia repair History of cholecystectomy Family History Unknown Cancer Cardiac disorder FHx: deafness or hearing loss Mother Cardiac disorder Hypertension Other Family history non-contributory Hearing loss No family history of adverse response to anesthesia No family history of bleeding disorder Social History Smoking Status: Unknown if ever smoked Tobacco Type: Cigarettes Age Started Using Tobacco: 28; Age Quit Using Tobacco: 44; Second Hand Exposure: No; Do You Dip or Chew Tobacco: No; Hx Alcohol Use: No Hx Substance Use: No Preferred Language: Pashto Communication Ability: Effective 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 NAD. Cooperative. HEENT: Atraumatic, normocephalic. PERLAA. Pulm: CTAB A&P. -wheezes, -rales, -rhonchi. Symmetrical chest rise. No increased work of breathing. No respiratory distress. Cardiac: RRR, +sm. Radial pulses intact and symmetrical. Abdominal: Nontender, nondistended, soft. BS present. 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, elbow flexion, ankle dorsi/plantarflexion Results & Data Results & Data Vital Signs (Past 12 Hours) Vital Signs Temp Pulse Pulse Resp BP BP Pulse Ox 02/11/24 13:00 68 18 173/72 H 92 02/11/24 10:53 72 24 156/82 H 93 02/11/24 09:36 72 02/11/24 09:30 26 H 94 02/11/24 09:30 94 02/11/24 09:30 36.7 C 71 22 160/70 H 94 02/11/24 09:26 67 23 94 O2 Del Method 02/11/24 13:00 02/11/24 10:53 Room Air 02/11/24 09:36 02/11/24 09:30 Room Air 02/11/24 09:30 Room Air 02/11/24 09:30 Room Air 02/11/24 09:26 Room Air PG Care Time/CCT Total # of Minutes Spent Total Time Spent with Patient: Total time spent is greater than 50% in coordination of care (as documented) at patient's floor/unit and/or counseling patient: Coding Level of Care Code 81906 INT INP/OBS CARE 3/75MIN Diagnoses Weakness R53.1 Coagulopathy D68.9 Nii disease E27.1 (HFpEF) heart failure with preserved ejection fraction I50.30 Constipation, unspecified constipation type K59.00 Constipation type: unspecified constipation type (5) Constipation Constipation type: unspecified constipation type Qualified Code(s): K59.00 - Constipation, unspecified
[2024-02-11] MEDS ORDERED: SOD PHOSPHATE/SOD BIPHOSPHATE ENEMA 132 ML BTL PR PRN (14:46)
[2024-02-11] MEDS ORDERED: MAGNESIUM CITRATE 296 ML/BTL PO PRN (14:46)
[2024-02-11] MEDS: PHYTONADIONE 5 MG TAB PO STA (15:43)
[2024-02-11] MEDS: D5W AND LACTATED RINGERS 1,000 ML IV SCH (15:44)
--- NOTE | 2024-02-11 16:28 | Electrocardiogram Report ---
Test Reason : Blood Pressure : / mmHG Vent. Rate : 072 BPM Atrial Rate : 072 BPM P-R Int : 144 ms QRS Dur : 116 ms QT Int : 412 ms P-R-T Axes : 064 079 003 degrees QTc Int : 451 ms Normal sinus rhythm Low voltage QRS Right bundle branch block Abnormal ECG When compared with ECG of 24-NOV-2023 17:20, Right bundle branch block is now Present Confirmed by Bo Bowen ([id number]) on 02/11/2024 4:28:26 PM Referred By: REFERRED SELF Confirmed By:Bo Bowen
[2024-02-11] MEDS ORDERED: HYDROCORTISONE 10 MG TAB PO PRN (18:45)
[2024-02-11] MEDS ORDERED: BENZONATATE 100 MG CAPSULE PO PRN (18:45)
[2024-02-11] MEDS ORDERED: CETIRIZINE HCL 10 MG TABLET PO PRN (18:45)
[2024-02-11] MEDS ORDERED: MELATONIN 3 MG TAB PO PRN (18:45)
[2024-02-11] MEDS ORDERED: NON-FORMULARY MEDICATION (Ascorbic Acid (Vitamin C) [Vitamin C] 1,000 mg Tablet) PO SCH (18:45)
[2024-02-11] MEDS ORDERED: ALBUTEROL HFA 8 GM INHALER INH PRN (18:45)
[2024-02-11] MEDS ORDERED: LEVOTHYROXINE SODIUM 137 MCG TABLET PO SCH (19:00)
[2024-02-11] MEDS ORDERED: LIDOCAINE 5% 1 PATCH TD PRN (19:08)
[2024-02-11] MEDS: CALCIUM 600MG + VIT D 400 IU TAB PO SCH (20:10)
[2024-02-11] MEDS: CHOLECALCIFEROL 25 MCG (1000 UNITS) TAB PO SCH (20:11)
[2024-02-11] MEDS: HYDROCORTISONE 10 MG TAB PO SCH (20:12)
[2024-02-11] MEDS: DICLOFENAC SOD 1% GEL 100 GM TUBE EXT PRN (20:12)
[2024-02-11] MEDS: POLYETHYLENE (MIRALAX) 17 GM PACK PO SCH (20:15)
--- NOTE | 2024-02-11 21:57 | XCELERA ---
[id number]
[2024-02-12] MEDS: ACETAMINOPHEN 500 MG TAB PO PRN (02:28)
[2024-02-12 06:04] LABS: Basophils # (auto) 0.04 K/uL (0.00-0.20); Basophils % (auto) 0.5 %; Eosinophils # (auto) 0.15 K/uL (0.00-0.50); Hematocrit (blood only) 37.6 % (37.0-47.0); Hemoglobin 11.8 g/dl (12.0-16.0); Immature Granulocytes # (auto) 0.02 K/uL (0.01-0.20); Immature Granulocytes % (auto) 0.3 %; Lymphocytes # (auto) 2.59 K/uL (1.20-3.40); Lymphocytes % (auto) 33.9 %; Mean Corpuscular Hemoglobin 27.9 pg (25.0-34.0); Mean Corpuscular Hgb Conc 31.4 g/dL (32.0-36.0); Mean Corpuscular Volume 88.9 fL (80.0-100.0); Mean Platelet Volume 11.1 fL (9.4-12.4); Monocytes # (auto) 0.72 K/uL (0.11-0.59); Monocytes % (auto) 9.4 %; Neutrophils # (auto) 4.11 K/uL (1.40-6.50); Neutrophils % (auto) 53.9 %; Platelet Count 157 K/uL (130-400); RDW Coefficient of Variation 13.8 % (11.5-14.5); RDW Standard Deviation 45.1 fL (36.4-46.3); Red Blood Count 4.23 M/uL (4.20-5.40); White Blood Count 7.63 K/ul (4.8-10.8)
[2024-02-12 06:15] LABS: BUN Creatinine Ratio 35.5 (10-20); Est GFR (African American) 44.6 ml/min; Est GFR (Non-African American) 38.5 ml/min; Potassium 4.7 mmol/L (3.5-5.1)
[2024-02-12 06:23] LABS: INR 3.6 (0.9-1.1)
[2024-02-12] MEDS: LEVOTHYROXINE SODIUM 137 MCG TABLET PO SCH (06:25)
[2024-02-12] MEDS: SERTRALINE HCL 100 MG TABLET PO SCH (08:27)
[2024-02-12] MEDS: PANTOprazole 40 MG TAB PO SCH (08:27)
[2024-02-12] MEDS: ATORVASTATIN 20 MG TAB PO SCH (08:27)
[2024-02-12] MEDS: HYDROCORTISONE 10 MG TAB PO SCH (08:28)
[2024-02-12] MEDS: ARTIFICIAL TEARS OP SCH (08:28)
[2024-02-12] MEDS ORDERED: ONDANSETRON INJ 2 MG/ML 2 ML VIAL IV PRN (09:07)
[2024-02-12] MEDS: bisacodyL 10 MG SUPP PR STA (09:21)
[2024-02-12] MEDS: HYDROCORTISONE SOD 50 MG in SYRINGE 0 ML IV SCH (10:19)
--- NOTE | 2024-02-12 13:08 | Hospitalist Progress Note ---
Date of Service February 12, 2024 Assessment & Plan (1) Weakness: Plan: P/w 1 week of acute weakness, with a fall 7 days ago. No respiratory, , or abdominal infectious symptoms. No acute infectious pathology on imaging as noted below CThead: No acute findings. CTAchest: No acute findings. CTA/P: No acute organ injury. Retrosigmoid fecal retention with infiltration suspicious for mild nonspecific proctitis possibly stercoral. Subacute left anterior fourth rib fracture. Resolving muscular hematoma in the left iliacus, subacute/healing fracture of the left iliac wing. 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 Also with constipation/stercoral colitis Was given IVFs x 1.5L Add on stress dose steroids with IV hydrocortisone 50mg IV tid and hold home po steroids Constipation management with laxatives-added bisacodyl SC PT/OT consults (2) Coagulopathy: Plan: Supratherapeutic INR on admission at >9.5, was given p Vit K and now INR down to 3.6 Patient is on warfarin for history of factor V Leiden and DVT CTA/P shows improving ileacus hematoma no signs of acute bleeding or expansion Continue to hold COumadin and follow INR (3) [place] disease: Plan: With weakness, falls, SHEY, hyponatremia--> give stress dose steroids, got IVFs holding diuretics continue florinef Follows with Endocrine (4) (HFpEF) heart failure with preserved ejection fraction: Plan: Chronic, hypovolemic here Hold Spironolactone and torsemide High sensitive troponin 44, downtrending on repeat to 35. No ischemic symptoms. EKG with right bundle branch block new from prior, but no anginal symptoms. Discussed w/ cardiology. May be rate related, low suspicion for ischemic. ECHO normal Demand ischemia from hypovolemia (5) Constipation: Plan: Fecal retention, stercoral colitis as above added bisacodyl for bowel regimen, now moved bowels x 2 02/11 Continue MiraLAX twice daily No evidence of systemic infection/fever/leukocytosis to indicate antibiotics at time of admission Plan Chronic stable issues CODE: DNR/DNI Disposition: continued stay on PCU DVT prophylaxis: SCDs. Pharmacal prophylaxis held due to supratherapeutic INR CM consulted. Family concerned that patient's current level of care is not appropriate for her level of function and progressive weakness. PT OT also following Admission and Anticipated Discharge Date Admission Date: February 11, 2024 Subjective Pt was feeling very weak this AM and could barely walk back from the toilet with nursing. After stress dose steroids and moving her bowels x 2, she reports she is already starting to feel much better. SHe had jamin enausea this AM which resolved after having a BM, never needed the Zofran ordered. Has pain in left anterior rib Tele with NSR, IVCD, rates 60-70s Physical Exam Constitutional: WD/WN, vitals as above Respiratory: normal respiratory effort, lungs clear to auscultation Cardiovascular: RRR, no murmur, no edema Gastrointestinal (Abdomen): normal bowel sounds, soft, nontender, no hepatosplenomegaly Skin: + ecchymosis (upper back and neck) Psychiatric: Orientation: alert and oriented x 3 Results & Data Results & Data Vital Signs (Past 12 Hours) Vital Signs Temp Pulse Pulse Resp BP Pulse Ox O2 Del Method 02/12/24 12:23 36.5 C 72 17 155/79 H 93 Room Air 02/12/24 08:05 36.9 C 71 18 163/65 H 92 Room Air 02/12/24 07:00 75 02/12/24 02:31 36.6 C 75 18 156/68 H 93 Room Air Laboratory Results CBC, BMP, INR, troponin, UA reviewed PG Care Time/CCT Total # of Minutes Spent Total Time Spent with Patient: Total time spent is greater than 50% in coordination of care (as documented) at patient's floor/unit and/or counseling patient: Coding Level of Care Code 73506 SUB INP/OBS CARE 3/50MIN Diagnoses Weakness R53.1 Coagulopathy D68.9 [place] disease E27.1 (HFpEF) heart failure with preserved ejection fraction I50.30 Constipation, unspecified constipation type K59.00 Constipation type: unspecified constipation type (5) Constipation Constipation type: unspecified constipation type Qualified Code(s): K59.00 - Constipation, unspecified
[2024-02-13 06:12] LABS: Basophils # (auto) 0.01 K/uL (0.00-0.20); Basophils % (auto) 0.1 %; Hematocrit (blood only) 40.3 % (37.0-47.0); Hemoglobin 12.7 g/dl (12.0-16.0); Immature Granulocytes # (auto) 0.02 K/uL (0.01-0.20); Immature Granulocytes % (auto) 0.3 %; Lymphocytes # (auto) 1.47 K/uL (1.20-3.40); Mean Corpuscular Hemoglobin 28.1 pg (25.0-34.0); Mean Corpuscular Hgb Conc 31.5 g/dL (32.0-36.0); Mean Corpuscular Volume 89.2 fL (80.0-100.0); Mean Platelet Volume 11.5 fL (9.4-12.4); Monocytes # (auto) 0.17 K/uL (0.11-0.59); Monocytes % (auto) 2.4 %; Neutrophils # (auto) 5.33 K/uL (1.40-6.50); Neutrophils % (auto) 76.2 %; Platelet Count 193 K/uL (130-400); RDW Coefficient of Variation 13.7 % (11.5-14.5); RDW Standard Deviation 44.9 fL (36.4-46.3); Red Blood Count 4.52 M/uL (4.20-5.40)
[2024-02-13 06:29] LABS: Prothrombin Time 20.3 Seconds (9.0-12.0)
[2024-02-13 06:43] LABS: Calcium 9.1 mg/dl (8.6-10.3); Potassium 4.8 mmol/L (3.5-5.1)
[2024-02-13 06:49] LABS: BUN Creatinine Ratio 36.2 (10-20); Creatinine Clr Calc Pharmacy 27.3 ml/min; Est GFR (African American) 43.3 ml/min; Est GFR (Non-African American) 37.4 ml/min
[2024-02-13] MEDS: FLUDROCORTISONE ACETATE 0.1 MG TAB PO SCH (07:45)
--- NOTE | 2024-02-13 14:39 | Hospitalist Progress Note ---
Date of Service February 13, 2024 Assessment & Plan (1) Weakness: Plan: P/w 1 week of acute weakness, with a fall 7 days ago. No respiratory, , or abdominal infectious symptoms. No acute infectious pathology on imaging as noted below CThead: No acute findings. CTAchest: No acute findings. CTA/P: No acute organ injury. Retrosigmoid fecal retention with infiltration suspicious for mild nonspecific proctitis possibly stercoral. Subacute left anterior fourth rib fracture. Resolving muscular hematoma in the left iliacus, subacute/healing fracture of the left iliac wing. CXR: No acute finding.No leukocytosis With SHEY with white spooler 1.6, elevated BUN on admission, now improving after IVFs and holding home diuretics Suspect weakness due to volume contraction and relative adrenal insufficiency. Also with constipation/stercoral colitis Was given IVFs x 1.5L Added on stress dose steroids with IV hydrocortisone 50mg IV tid and hold home po steroids-will now weaned down to 25 mg IV 3 times daily and resume p.o. hydrocortisone at a higher dose of 20 mg in the morning 10 mg in the evening Constipation management with laxatives-added bisacodyl OK-is now moving bowels PT/OT consults still pending because patient refuses to work with PT. Possible hospice evaluation pending (2) Coagulopathy: Plan: Supratherapeutic INR on admission at >9.5, was given p Vit K and now INR down to 2.0 Patient is on warfarin for history of factor V Leiden and DVT CTA/P shows improving ileacus hematoma no signs of acute bleeding or expansion Most likely due to poor p.o. intake Resume COumadin 2 mg daily and follow INR (3) [place] disease: Plan: With weakness, falls, SHEY, hyponatremia--> giving stress dose steroids, got IVFs holding diuretics continue florinef Follows with Endocrine (4) (HFpEF) heart failure with preserved ejection fraction: Plan: Chronic, hypovolemic here Continue to hold Spironolactone and torsemide High sensitive troponin 44, downtrending on repeat to 35. No ischemic symptoms. EKG with right bundle branch block new from prior, but no anginal symptoms. Discussed w/ cardiology. May be rate related, low suspicion for ischemic. ECHO normal Demand ischemia from hypovolemia Can downgrade off telemetry (5) Constipation: Plan: Fecal retention, stercoral colitis as above-now resolved added bisacodyl for bowel regimen Continue MiraLAX twice daily No evidence of systemic infection/fever/leukocytosis to indicate antibiotics at time of admission Plan Chronic stable issues CODE: DNR/DNI Disposition: continued stay but downgrade to medical/surgical unit, discussed hospice referral with daughter on the phone and they are agreeable DVT prophylaxis: SCDs. Coumadin Admission and Anticipated Discharge Date Admission Date: February 11, 2024 Subjective Patient drowsy and sleeping most of the day. She is not having much rib pain today. Patient reports not feeling any better as far as her generalized weakness despite stress dose steroids. I discussed her care with her daughter at length on the phone as patient tends to be forgetful. She reports that the patient frequently expresses a desire to not work with any physical therapy and she has been refusing physical therapy evaluations here in the hospital. She also expresses a desire to not come to the hospital. She has had multiple falls. Patient's daughter is interested in patient possibly returning to [facility] on hospice. She reports that the patient does like it at [facility] and would like to go back there rather than a rehab. The daughter does point out however that the patient equates hospice with suicide which is against her jainism and she feels that she would go to [facility]. I will will discuss benefits and details of hospice with the patient. I discussed her care with her window caser who will make a referral to hospice. Telemetry with normal sinus rhythm with rates in the 60s to 70s Physical Exam Constitutional: WD/WN, vitals as above Respiratory: normal respiratory effort, lungs clear to auscultation Cardiovascular: RRR, no murmur, no edema Gastrointestinal (Abdomen): normal bowel sounds, soft, nontender, no hepatosplenomegaly Skin: + ecchymosis (upper back and neck) Psychiatric: Orientation: alert, oriented to person, oriented to place and cooperative Results & Data Results & Data Vital Signs (Past 12 Hours) Vital Signs Temp Pulse Pulse Resp BP Pulse Ox O2 Del Method 02/13/24 11:41 36.6 C 72 17 173/70 H 93 Room Air 02/13/24 08:12 36.4 C L 02/13/24 07:43 76 20 177/79 H 94 Room Air 02/13/24 06:00 68 02/13/24 02:48 36.4 C L 71 16 167/83 H 95 Room Air Laboratory Results CBC, BMP, INR reviewed PG Care Time/CCT Total # of Minutes Spent Total Time Spent with Patient: Total time spent is greater than 50% in coordination of care (as documented) at patient's floor/unit and/or counseling patient: Coding Level of Care Code 30469 SUB INP/OBS CARE 2/35MIN Diagnoses Weakness R53.1 Coagulopathy D68.9 [place] disease E27.1 (HFpEF) heart failure with preserved ejection fraction I50.30 Constipation, unspecified constipation type K59.00 Constipation type: unspecified constipation type (5) Constipation Constipation type: unspecified constipation type Qualified Code(s): K59.00 - Constipation, unspecified
[2024-02-13] MEDS: HYDROCORTISONE SOD 25 MG in SYRINGE 0 ML IV SCH (16:16)
[2024-02-13] MEDS: WARFARIN SOD 2 MG TAB PO SCH (16:16)
[2024-02-13] MEDS: HYDROCORTISONE 10 MG TAB PO SCH (19:49)
[2024-02-14 06:52] LABS: Hematocrit (blood only) 37.7 % (37.0-47.0); Hemoglobin 11.7 g/dl (12.0-16.0); Immature Granulocytes # (auto) 0.03 K/uL (0.01-0.20); Immature Granulocytes % (auto) 0.4 %; Lymphocytes % (auto) 19.4 %; Mean Corpuscular Hemoglobin 27.9 pg (25.0-34.0); Mean Corpuscular Volume 89.8 fL (80.0-100.0); Mean Platelet Volume 11.4 fL (9.4-12.4); Monocytes # (auto) 0.32 K/uL (0.11-0.59); Monocytes % (auto) 3.9 %; Neutrophils # (auto) 6.31 K/uL (1.40-6.50); Neutrophils % (auto) 76.3 %; Platelet Count 180 K/uL (130-400); RDW Coefficient of Variation 13.8 % (11.5-14.5); White Blood Count 8.26 K/ul (4.8-10.8)
[2024-02-14 07:14] LABS: BUN Creatinine Ratio 35.3 (10-20); Creatinine Clr Calc Pharmacy 21.1 ml/min; Est GFR (African American) 31.1 ml/min; Est GFR (Non-African American) 26.8 ml/min; Potassium 4.4 mmol/L (3.5-5.1)
[2024-02-14 07:16] LABS: INR 1.9 (0.9-1.1); Prothrombin Time 19.8 Seconds (9.0-12.0)
[2024-02-14] MEDS: PSYLLIUM or GUAR GUM FIBER 4GM PACKET PO SCH (08:48)
[2024-02-14] MEDS: POLYETHYLENE (MIRALAX) 17 GM PACK PO SCH (08:49)
[2024-02-14] MEDS: HYDROCORTISONE 10 MG TAB PO SCH (08:50)
[2024-02-14] MEDS: LACTATED RINGER'S 1,000 ML IV SCH (11:14)
[2024-02-14] MEDS ORDERED: LACTATED RINGER'S 1,000 ML IV SCH (11:15)
--- NOTE | 2024-02-14 16:17 | Hospitalist Progress Note ---
Date of Service February 14, 2024 Assessment & Plan (1) Weakness: Plan: P/w 1 week of acute weakness, with a fall 7 days ago, and multiple other falls as per daughter. No respiratory, , or abdominal infectious symptoms. No acute infectious pathology on imaging as noted below CThead: No acute findings. CTAchest: No acute findings. CTA/P: No acute organ injury. Retrosigmoid fecal retention with infiltration suspicious for mild nonspecific proctitis possibly stercoral. Subacute left anterior fourth rib fracture. Resolving muscular hematoma in the left iliacus, subacute/healing fracture of the left iliac wing. CXR: No acute finding.No leukocytosis With SHEY with research nurse practitioner 1.6, elevated BUN on admission, now improved after IVFs and holding home diuretics. Telegraph Inspector back to 1.6 today probably from poor po intake Suspect weakness due to volume contraction and relative adrenal insufficiency. Also with constipation/stercoral colitis Was given IVFs x 1.5L Added on stress dose steroids with IV hydrocortisone and now weaned back to po stress dose steroids 20 mg in the morning 10 mg in the evening Constipation management with laxatives-added bisacodyl CT-is now moving bowels, continue daily Miralax, fiber PT/OT consults recommend return to [facility] with hospice and now patient agreeable. She does not wish to return to hospital for any future falls or illnesses, does not want to participate in PT/OT, and wants to avoid blood draws and pair down her medications -will dc vitamins, statin, coumadin (2) Coagulopathy: Plan: Supratherapeutic INR on admission at >9.5, was given p Vit K and now INR down to 1.9 Patient is on warfarin for history of factor V Leiden and DVT CTA/P shows improving ileacus hematoma no signs of acute bleeding or expansion Most likely due to poor p.o. intake will now dc Coumadin on hospice, no further INR draws (3) [place] disease: Plan: With weakness, falls, SHEY, hyponatremia--> gave stress dose steroids, got IVFs stop diuretics continue xiomara Follows with Endocrine going on hospice but can stay on steroids for now (4) (HFpEF) heart failure with preserved ejection fraction: Plan: Chronic, hypovolemic here Continue to hold Spironolactone and torsemide High sensitive troponin 44, downtrending on repeat to 35. No ischemic symptoms. EKG with right bundle branch block new from prior, but no anginal symptoms. Discussed w/ cardiology. May be rate related, low suspicion for ischemic. ECHO normal Demand ischemia from hypovolemia (5) Constipation: Plan: Fecal retention, stercoral colitis as above-now resolved added bisacodyl for bowel regimen Continue MiraLAX No evidence of systemic infection/fever/leukocytosis to indicate antibiotics at time of admission Plan Chronic stable issues CODE: DNR/DNI Disposition: plan to discharge back to [facility] on hospice-hopefully tomorrow. Discussed with daughter on phone DVT prophylaxis: SCDs. Coumadin to be stopped Admission and Anticipated Discharge Date Admission Date: February 13, 2024 Subjective Pt is OOB to chair and much more awake and alert today. She is in complete agreement with going on hospice and does not want any further trips to the hospital, no needle sticks, and wants to focus on comfort. She is excited to stop some of her medications but agrees she wants to stay on her steroids for now. She also is ok with stopping her coumadin she htinks. Has some pain in her ribs from time to time. Is eating and moving bowels. I discussed her care with her daughter again on the phone Physical Exam Constitutional: WD/WN, vitals as above Respiratory: normal respiratory effort, lungs clear to auscultation Cardiovascular: RRR, no murmur, no edema Gastrointestinal (Abdomen): normal bowel sounds, soft, nontender, no hepatosplenomegaly Skin: + ecchymosis (upper back and neck) Psychiatric: Orientation: alert, oriented x 3, oriented to person, oriented to place and cooperative Results & Data Results & Data Vital Signs (Past 12 Hours) Vital Signs Temp Pulse Resp BP BP Pulse Ox O2 Del Method 02/14/24 15:44 36.5 C 62 16 156/73 H 93 Room Air 02/14/24 07:05 36.6 C 64 16 145/73 H 94 Room Air Laboratory Results CBC, BMP, INR reviewed PG Care Time/CCT Total # of Minutes Spent Total Time Spent with Patient: Total time spent is greater than 50% in coordination of care (as documented) at patient's floor/unit and/or counseling patient: Coding Level of Care Code 70275 SUB INP/OBS CARE 1/25MIN Diagnoses Weakness R53.1 Coagulopathy D68.9 Nii disease E27.1 (HFpEF) heart failure with preserved ejection fraction I50.30 Constipation, unspecified constipation type K59.00 Constipation type: unspecified constipation type (5) Constipation Constipation type: unspecified constipation type Qualified Code(s): K59.00 - Constipation, unspecified
--- NOTE | 2024-02-15 19:38 | Hospitalist Progress Note ---
Date of Service February 15, 2024 Assessment & Plan (1) Weakness: Plan: P/w 1 week of acute weakness, with a fall 7 days ago, and multiple other falls as per daughter. No respiratory, , or abdominal infectious symptoms. No acute infectious pathology on imaging CThead: No acute findings. CTAchest: No acute findings. CTA/P: No acute organ injury. Retrosigmoid fecal retention with infiltration suspicious for mild nonspecific proctitis possibly stercoral. Subacute left anterior fourth rib fracture. Resolving muscular hematoma in the left iliacus, subacute/healing fracture of the left iliac wing. 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 Airport Clerk back to 1.6 probably from poor po intake, but no further labs to be drawn as she desires hospice Suspect weakness due to volume contraction and relative adrenal insufficiency. Also with constipation/stercoral colitis Was given IVFs x 1.5L Added on stress dose steroids with IV hydrocortisone and now weaned back to po stress dose steroids 20 mg in the morning 10 mg in the evening-Taper down after 3 days Constipation management with laxatives-added bisacodyl [place]-is now moving bowels, continue daily Miralax, fiber PT/OT consults recommend return to [facility] with hospice and now patient agreeable. She does not wish to return to hospital for any future falls or illnesses, does not want to participate in PT/OT, and wants to avoid blood draws and pair down her medications -Discontinued vitamins, statin, coumadin (2) Coagulopathy: Plan: Supratherapeutic INR on admission at >9.5, was given p Vit K and then INR down to 1.9 Patient is on warfarin for history of factor V Leiden and DVT CTA/P shows improving ileacus hematoma no signs of acute bleeding or expansion Most likely due to poor p.o. intake Have since discontinued Coumadin on hospice, no further INR draws (3) [place] disease: Plan: With weakness, falls, SHEY, hyponatremia--> gave stress dose steroids, got IVFs stop diuretics continue xiomara Follows with Endocrine going on hospice but can stay on steroids for now (4) (HFpEF) heart failure with preserved ejection fraction: Plan: Chronic, hypovolemic here Continue to hold Spironolactone and torsemide High sensitive troponin 44, downtrending on repeat to 35. No ischemic symptoms. EKG with right bundle branch block new from prior, but no anginal symptoms. Discussed w/ cardiology. May be rate related, low suspicion for ischemic. ECHO normal Demand ischemia from hypovolemia (5) Constipation: Plan: Fecal retention, stercoral colitis as above-now resolved added bisacodyl for bowel regimen Continue MiraLAX No evidence of systemic infection/fever/leukocytosis to indicate antibiotics at time of admission Plan CODE: DNR/DNI Disposition: plan to discharge back to [facility] on hospice-hopefully tomorrow DVT prophylaxis: SCDs. Coumadin stopped Admission and Anticipated Discharge Date Admission Date: February 13, 2024 Subjective Patient reports some pain in the bilateral ribs which went away with Tylenol. Otherwise feeling fine and visiting with a friend when I came to see her. Physical Exam Constitutional: WD/WN, vitals as above Respiratory: normal respiratory effort, lungs clear to auscultation Cardiovascular: RRR, no murmur, no edema Psychiatric: Orientation: alert, oriented x 3, oriented to person, oriented to place and cooperative Results & Data Results & Data Vital Signs (Past 12 Hours) Vital Signs Temp Pulse Resp BP BP Pulse Ox O2 Del Method 02/15/24 19:22 36.5 C 64 14 164/72 H 95 Room Air 02/15/24 14:40 36.5 C 64 16 146/72 H 94 Room Air 02/15/24 08:00 Room Air PG Care Time/CCT Total # of Minutes Spent Total Time Spent with Patient: Total time spent is greater than 50% in coordination of care (as documented) at patient's floor/unit and/or counseling patient: Coding Level of Care Code 62349 SUB INP/OBS CARE 1/25MIN Diagnoses Weakness R53.1 Coagulopathy D68.9 [place] disease E27.1 (HFpEF) heart failure with preserved ejection fraction I50.30 Constipation, unspecified constipation type K59.00 Constipation type: unspecified constipation type (5) Constipation Constipation type: unspecified constipation type Qualified Code(s): K59.00 - Constipation, unspecified
--- NOTE | 2024-02-16 13:45 | Discharge Summary ---
Discharge Summary Date of Service February 16, 2024 Principal Dx & Hospital Course #1 = Principal Diagnosis (1) Weakness: P/w 1 week of acute weakness, with a fall 7 days ago, and multiple other falls as per daughter. No respiratory, , or abdominal infectious symptoms. No acute infectious pathology on imaging CThead: No acute findings. CTAchest: No acute findings. CTA/P: No acute organ injury. Retrosigmoid fecal retention with infiltration suspicious for mild nonspecific proctitis possibly stercoral. Subacute left anterior fourth rib fracture. Resolving muscular hematoma in the left iliacus, subacute/healing fracture of the left iliac wing. CXR: No acute finding.No leukocytosis With SHEY with sinker winder 1.6, elevated BUN on admission, now improved after IVFs and holding home diuretics. Recruitment Intern back to 1.6 probably from poor po intake, but no further labs to be drawn as she desires hospice Suspect weakness due to volume contraction and relative adrenal insufficiency. Also with constipation/stercoral colitis Was given IVFs x 1.5L Added on stress dose steroids with IV hydrocortisone and now weaned back to usual dose of steroids starting tomorrow 15 mg in the morning and 5 mg in the evening Constipation management with laxatives-added bisacodyl VT-is now moving bowels, continue daily Miralax, fiber PT/OT consults recommend return to [facility] with hospice and now patient agreeable. She does not wish to return to hospital for any future falls or illnesses, does not want to participate in PT/OT, and wants to avoid blood draws and pair down her medications -Discontinued vitamins, statin, coumadin, diuretics (2) Coagulopathy: Supratherapeutic INR on admission at >9.5, was given p Vit K and then INR down to 1.9 Patient is on warfarin for history of factor V Leiden and DVT CTA/P shows improving ileacus hematoma no signs of acute bleeding or expansion Most likely due to poor p.o. intake Have since discontinued Coumadin on hospice, no further INR draws (3) [place] disease: With weakness, falls, SHEY, hyponatremia--> gave stress dose steroids, got IVFs stop diuretics continue florinef Follows with Endocrine going on hospice but can stay on steroids for now (4) (HFpEF) heart failure with preserved ejection fraction: Chronic, hypovolemic here Continue to hold Spironolactone and torsemide High sensitive troponin 44, downtrending on repeat to 35. No ischemic symptoms. EKG with right bundle branch block new from prior, but no anginal symptoms. Discussed w/ cardiology. May be rate related, low suspicion for ischemic. ECHO normal Demand ischemia from hypovolemia (5) Constipation: Fecal retention, stercoral colitis as above-now resolved added bisacodyl VT x 1 Continue MiraLAX daily No evidence of systemic infection/fever/leukocytosis to indicate antibiotics at time of admission Plan CODE: DNR/DNI Disposition: plan to discharge back to [facility] on hospice DVT prophylaxis: SCDs. Coumadin stopped Notes For Next Care Provider Enrolling in hospice, no further Coumadin or INRs need to be drawn Medication Changes From Visit Discontinued torsemide, aldactone, Coumadin, Vitamin D, calcium, benzonatate, Vitamin C, atorvastatin Added Miralax 17 grams po daily Admission HPI Per Admitting Provider Shira is a 88-year-old female with a past medical history of weakness, osteoporosis, heart failure with preserved ejection fraction, DVT, anxiety/depression, hypertension, asthma, adrenal insufficiency, GERD, hypothyroidism presented from [facility] via EMS for 1 week of weakness with decreased appetite and a fall approximately 1 week ago. She reports her global weakness preceded her fall. Shira is seen at the bedside with her son-in-law present. Reports she has had a very poor appetite and has not been eating and drinking very much. She denies nausea, vomiting, and stomach pain. Does endorse constipation with infrequent bowel movements. She had a fall a week ago, she notes that the weakness preceded this. She feels allover, but does not notice weakness in any particular limb/extremity. She has not had any fever, chills, sweats, chest pain, chest pressure, shortness of breath, dyspnea, dysuria. Leg swelling is at its baseline she has been taking her medications provided by [facility] but is not a good historian of what these are. Discussed with her TAHIRA, they report that she has had progressive decline in her weakness and concern that her current level of care at [facility] is no longer appropriate and enough to be safe given her weakness and falls. Denies recent bleeding, INR is supratherapeutic. Medical History: Reviewed Medications: Reviewed Surgical History: Reviewed Family history: Reviewed Allergies: Reviewed Social History: Reviewed Code Status: DNR/DNI Discharge Exam Constitutional WD/WN, vitals as above Respiratory normal respiratory effort, lungs clear to auscultation Cardiovascular RRR, no murmur, no edema Gastrointestinal (Abdomen) normal bowel sounds, soft, nontender, no hepatosplenomegaly Skin + ecchymosis (upper back and neck) Psychiatric Orientation: alert, oriented x 3, oriented to person, oriented to place and cooperative Updated Medication List Medication Instructions Recorded Confirmed Type acetaminophen 500 mg tablet 500 mg PO Q6H PRN Pain 02/01/21 02/11/24 History (Tylenol Extra Strength) cholecalciferol (vitamin D3) 50 2,000 unit PO .@79902/04/22 02/11/24 History mcg (2,000 unit) capsule hydrocortisone 5 mg tablet 5 mg PO .@12/02/22 02/11/24 History torsemide 10 mg tablet 10 mg PO .Q OTHER DAY @79903/06/23 02/11/24 History benzonatate 100 mg capsule 100 mg PO TID PRN cough #30 caps 08/27/23 02/11/24 Rx cetirizine 10 mg tablet 10 mg PO DAILY PRN allergies 08/27/23 02/11/24 History fluticasone propionate 50 1 spray intranasal DAILY PRN Nasal 08/27/23 02/11/24 History mcg/actuation nasal Congestion spray,suspension propylene glycol (PF) 0.6 % eye 1 drp ophthalmic (eye) .@79908/27/23 02/11/24 History drops (Systane Complete PF) psyllium seed (sugar) oral powder 1 tbsp PO .@79908/27/23 02/11/24 History warfarin 2 mg tablet 2 mg PO . DAILY @ 1700 08/27/23 02/11/24 History nystatin 100,000 unit/gram topical 1 applic topical TID PRN rash #60 11/19/23 02/11/24 Rx powder grams albuterol sulfate 90 mcg/actuation 2 puff inhalation Q4H PRN 02/11/24 02/11/24 History aerosol inhaler Shortness Of Breath Or Wheezing ascorbic acid (vitamin C) 1,000 mg 1,000 mg PO .DAILY FOR 10 DAYS 02/11/24 02/11/24 History tablet (Vitamin C) atorvastatin 20 mg tablet 20 mg PO .@79902/11/24 02/11/24 History calcium carbonate 500 mg-vitamin 1 tab PO .@79902/11/24 02/11/24 History D3 5 mcg (200 unit) tablet (Calcium 500 + D) diclofenac sodium 1 % topical gel 2 g topical DAILY Pain 02/11/24 02/11/24 History fludrocortisone 0.1 mg tablet 0.1 mg PO .MON,FRI @79902/11/24 02/11/24 History hydrocortisone 10 mg tablet 10 mg PO .@79902/11/24 02/11/24 History hydrocortisone 5 mg tablet 5 mg PO PM PRN excessive tiredness 02/11/24 02/11/24 History levothyroxine 137 mcg tablet 137 mcg PO .@79902/11/24 02/11/24 History lidocaine 4 % topical patch 1 patch topical DAILY PRN Pain 02/11/24 02/11/24 History (Lidocaine Pain Relief) melatonin 3 mg tablet 3 mg PO HS PRN INSOMINA 02/11/24 02/11/24 History omeprazole 20 mg capsule,delayed 20 mg PO Q OTHER DAY@79902/11/24 02/11/24 History release sertraline 50 mg tablet 100 mg PO .@79902/11/24 02/11/24 History spironolactone 25 mg tablet 25 mg PO .@79902/11/24 02/11/24 History polyethylene glycol 3350 17 gram 17 g PO DAILY #30 ea 02/16/24 Rx oral powder packet (Miralax) Hospital Stay Data Consultations 02/11/24 14:00 ED Decision to Admit Stat Diagnostic Imagining Performed 02/11/24 10:03 CT abd pelvis IV con only Stat CT angio chest PE protocol Stat CT head/brain wo con Stat Pending Results Patient Have Any Pending Studies at Discharge: No Discharge Instructions Given to Patient (Per Discharging Provider) You were admitted for weakness after having many falls. You have chosen to go home with hospice and focus on comfort instead of continuing to return to the hospital. Some of your medications have been stopped. You were constipated and this was fixed with laxatives. It was a pleasure taking care of you! Suyapa Guillen M.D. Total Time Total Time Spent Total Time Spent (In Minutes): 35 min Coding Level of Care Code 93303 INP/OBS DISCH >30 MIN Diagnoses Weakness R53.1 Coagulopathy D68.9 [place] disease E27.1 (HFpEF) heart failure with preserved ejection fraction I50.30 Constipation, unspecified constipation type K59.00 Constipation type: unspecified constipation type
[2024-02-16] MEDS ORDERED: HYDROCORTISONE 10 MG TAB PO SCH (20:00)
== END 2024-02-16 14:32 | disposition hospice, inpatient (51) | DRG 644 ==
LOC: 2E 09:26 → ED 09:26 → SUATTDRO 14:45 → 2E 17:13 → 3W 02-13 19:22